=== PATIENT | female | born 2000 | race Caucasian/White ===

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

== ENCOUNTER 2021-01-14 09:36 | Outpatient (REF) | payer OTHER, SELFPAY ==
[2021-01-14 10:05] LABS: Hematocrit 43.6 % (37.0-47.0); Hemoglobin 14.6 g/dl (12.0-16.0)
[2021-01-14 10:37] LABS: Anion Gap 13 (12-20); Blood Urea Nitrogen 10 mg/dL (9-16); Calcium 9.6 mg/dL (8.4-10.2); Carbon Dioxide 26 mmol/L (22-29); Chloride 108 mmol/L (96-108); Estimated Glomerular Filt Rate > 60; Potassium 4.5 mmol/L (3.3-5.1); Sodium 142 mmol/L (135-145)
[2021-01-14 10:42] LABS: Creatinine Urine 312.47 mg/dL; Microalbum/Creatinine Ratio Ur 10.8 ug/mg cr
== END 2021-01-14 09:37 | disposition home or self-care (01) ==
LOC: HO.LAB 09:36
PROVIDERS: Absent Provider Internal Medicine Gastroenterology; PCP Pediatrics; Visit Provider Internal Medicine
DX: R10.9 Unspecified abdominal pain (principal); I87.1 Compression of vein
CPT/HCPCS: 36415; 80051; 82043; 82310; 82565; 84100; 84520; 85014; 85018

== ENCOUNTER → 2021-01-16 08:04 | Outpatient (BNVA) | payer OTHER, SELFPAY | PROVIDERS: PCP Pediatrics; Visit Provider Internal Medicine Gastroenterology ==

== ENCOUNTER 2021-02-17 07:39 | Outpatient (REF) | payer OTHER, SELFPAY ==
[2021-02-17 09:07] LABS: C Reactive Protein < 0.02 mg/dL (< or = 0.50)
[2021-02-17 09:27] LABS: HBc Num1 0.06 S/CO (0.00-0.79); HBsAGNum1 0.25 S/CO (0.00-0.99); Hepatitis B Core Antibody Nonreactive (Nonreactive); Hepatitis B Surface Antigen Negative (Negative)
[2021-02-17 09:35] LABS: Thyroid Stimulating Hormone 1.12 uIU/mL (0.32-4.0)
[2021-02-17 09:59] LABS: ~HepC Num1 0.07 S/CO (0.00-0.79); ~Hepatitis B Surface Antibody NONREACTIVE (Nonreactive); ~Hepatitis C Antibody Nonreactive (Nonreactive)
[2021-02-19 04:19] LABS: Hepatitis A Antibody IgM 0.29 Index (0-0.79); ~Hepatitis A Antibody IgM Nonreactive (Nonreactive)
[2021-02-19 16:11] LABS: Transglutaminase Ab IgG <1.0 U/mL; Transglutaminase IgA <1.0 U/mL
[2021-02-19 16:57] LABS: Immunoglobulin A 196 mg/dL (47-310)
[2021-02-24 13:37] LABS: Prometheus IBD SGI SEE SEPARATE REPORT
== END 2021-02-17 07:40 | disposition home or self-care (01) ==
LOC: HO.LAB 07:39
PROVIDERS: Physician Assistant; PCP Pediatrics; Visit Provider Internal Medicine Gastroenterology
DX: Z01.84 Encounter for antibody response examination (principal); R10.9 Unspecified abdominal pain; K52.9 Noninfective gastroenteritis and colitis, unspecified; R11.2 Nausea with vomiting, unspecified; R79.89 Other specified abnormal findings of blood chemistry
CPT/HCPCS: 36415; 81479; 82397; 82784; 83516; 83520; 84443; 86140; 86704; 86706; 86709; 86803; 87340; 88346; 88350

== ENCOUNTER 2021-03-06 10:10 | Outpatient (REF) | payer OTHER, SELFPAY ==
--- NOTE | ~2021-03-06 | US_ITS ---
EXAMINATION: ULTRASOUND OF KIDNEYS WITH RENAL ARTERY DOPPLER CLINICAL INFORMATION: Abdominal pain with suspicion for nutcracker syndrome on CT. COMPARISON: CT abdomen and pelvis 09/06/2020 TECHNIQUE: Ultrasound of the bilateral kidneys was performed along with color flow Doppler imaging and velocity measurements in the left renal vein to assess for dairy nutrition specialist syndrome. The aortic SMA angle was measured. FINDINGS: The kidneys appeared normal with the right kidney measuring 9.7 x 5.3 x 4.7 cm and the left kidney measuring 10.0 x 4.3 x 3.5 cm. No renal masses, renal stones or hydronephrosis is seen. Renal cortical thickness appears normal. The aortic SMA angle is 23.3 degrees, just about the cutoff for normal. The distance between the SMA and aorta is 5 mm which is under 8 and therefore suggestive of nut-cracker syndrome. On the CT scan, this same measurement was 3.2 mm (prior CT scan series 4:187). The left renal vein at its origin measured 8.9 mm with a velocity of 24.8 cm/s. When this vessel crosses between the aorta and SMA, lumen is narrowed to 1.5 mm with an increased velocity of 171 cm/s. Just before it drains into the IVC the diameter is 2.7 mm with a peak systolic velocity of 130 cm/s, distal to the compression. US/US renal BI IMPRESSION: Normal appearing kidneys. 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 In the area of stenosis, velocity acceleration is seen as described above.
--- NOTE | ~2021-03-06 | US_ITS ---
EXAMINATION: ULTRASOUND OF KIDNEYS WITH RENAL ARTERY DOPPLER CLINICAL INFORMATION: Abdominal pain with suspicion for nutcracker syndrome on CT. COMPARISON: CT abdomen and pelvis 09/06/2020 TECHNIQUE: Ultrasound of the bilateral kidneys was performed along with color flow Doppler imaging and velocity measurements in the left renal vein to assess for nutrition director syndrome. The aortic SMA angle was measured. FINDINGS: The kidneys appeared normal with the right kidney measuring 9.7 x 5.3 x 4.7 cm and the left kidney measuring 10.0 x 4.3 x 3.5 cm. No renal masses, renal stones or hydronephrosis is seen. Renal cortical thickness appears normal. The aortic SMA angle is 23.3 degrees, just about the cutoff for normal. The distance between the SMA and aorta is 5 mm which is under 8 and therefore suggestive of nut-cracker syndrome. On the CT scan, this same measurement was 3.2 mm (prior CT scan series 4:187). The left renal vein at its origin measured 8.9 mm with a velocity of 24.8 cm/s. When this vessel crosses between the aorta and SMA, lumen is narrowed to 1.5 mm with an increased velocity of 171 cm/s. Just before it drains into the IVC the diameter is 2.7 mm with a peak systolic velocity of 130 cm/s, distal to the compression. US/US renal doppler IMPRESSION: Normal appearing kidneys. 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 In the area of stenosis, velocity acceleration is seen as described above.
== END 2021-03-06 10:11 | disposition home or self-care (01) ==
LOC: HO.US 10:10
PROVIDERS: PCP Pediatrics; Visit Provider Internal Medicine
DX: R10.9 Unspecified abdominal pain (principal); I87.1 Compression of vein
CPT/HCPCS: 76775; 93975

== ENCOUNTER → 2021-03-20 08:10 | Outpatient (BNVA) | payer OTHER, SELFPAY | PROVIDERS: PCP Pediatrics; Visit Provider Internal Medicine Gastroenterology | DX: R10.9 Unspecified abdominal pain (principal); K52.9 Noninfective gastroenteritis and colitis, unspecified; R11.2 Nausea with vomiting, unspecified | CPT/HCPCS: 99212 ==

== ENCOUNTER 2021-04-23 09:35 | Outpatient (REF) | payer OTHER, SELFPAY ==
[2021-04-23 11:01] LABS: Appearance Urine CLEAR; Color Urine STRAW; Glucose Urine UA NEG (NEG); Leukocyte Esterase Urine NEG (NEG); Nitrite Urine NEG (NEG); Urine Blood 1+ (NEG); Urine Ketones NEG (NEG); Urine Protein NEG (NEG-TRACE)
[2021-04-23 11:19] LABS: Squamous Epithelial Cell Urine 1+ /LPF; WBC Urine 0 /HPF (0-4)
[2021-04-23 11:20] LABS: Bacteria Urine 1+ /LPF
== END 2021-04-23 09:36 | disposition home or self-care (01) ==
LOC: HO.LAB 09:35
PROVIDERS: PCP Pediatrics; Visit Provider Surgery Vascular Surgery
DX: I87.1 Compression of vein (principal)
CPT/HCPCS: 81001

== ENCOUNTER → 2021-05-02 08:06 | Outpatient (REF) | payer OTHER, SELFPAY ==
--- NOTE | ~2021-05-02 | NM_ITS ---
EXAMINATION: RADIONUCLIDE SOLID FOOD GASTRIC EMPTYING 4-HOUR STUDY CLINICAL INFORMATION: Nausea with vomiting, unspecified. COMPARISON: No previous gastric emptying study is available for comparison. TECHNIQUE: A standard meal consisting of 4 oz of Egg Beaters brand equivalent tagged with 860 microcuries Tc-99m Sulfur Colloid, 8 oz water and 2 slices of toast with jelly was administered orally to the patient. Images were obtained using a dual head gamma camera in the anterior and posterior projections over of the stomach immediately post ingestion and at hourly intervals up to 4 hours post ingestion. The anterior and posterior counts at each time interval were averaged using the geometric mean and expressed as percentage of the immediate post ingestion counts. FINDINGS: There is good visualization of activity in the stomach immediately post ingestion. As the study progresses, there is some clearance of activity from the stomach, but this is less than normal. At the end of the study there is moderately severe retention of activity in the stomach at 4 hours. Retention in the stomach at each time interval was: 1 hour 79% (normal 37%-90%) 2 hours 69% (normal 30%-60%) 3 hours 50% 4 hours 35% (normal 0%-10%) NM/NM gastric emptying study IMPRESSION: Abnormal study. There is moderately severe retention of solid food in the stomach at 4 hours.
== END ==
LOC: HO.NUCMED 08:06
PROVIDERS: PCP Pediatrics; Visit Provider Internal Medicine Gastroenterology
DX: R10.9 Unspecified abdominal pain (principal); R11.2 Nausea with vomiting, unspecified; R63.4 Abnormal weight loss; R68.81 Early satiety
CPT/HCPCS: 78264; A9541

== ENCOUNTER → 2021-05-15 12:19 | Outpatient (BNVA) | payer OTHER, SELFPAY | PROVIDERS: PCP Pediatrics; Visit Provider Internal Medicine Gastroenterology | DX: K52.9 Noninfective gastroenteritis and colitis, unspecified (principal); R10.9 Unspecified abdominal pain; R11.2 Nausea with vomiting, unspecified | CPT/HCPCS: 99212 ==

== ENCOUNTER → 2021-05-29 08:11 | Outpatient (REF) | payer OTHER, SELFPAY ==
--- NOTE | 2021-05-29 08:26 | ECG_ITS ---
Test Reason : PREPROC EXAM Blood Pressure : / mmHG Vent. Rate : 074 BPM Atrial Rate : 074 BPM P-R Int : 152 ms QRS Dur : 078 ms QT Int : 380 ms P-R-T Axes : 015 079 032 degrees QTc Int : 421 ms Normal sinus rhythm Normal ECG No previous ECGs available Referred By: Abimael Morejon Electronically Signed By:FAWN BARRERA
[2021-05-29 08:38] LABS: MANUAL DIFF FLAG NO
[2021-05-29 09:31] LABS: Basophils Percent Auto 0.6 % (0-2); Eosinophils Absolute Auto 0.1 X10*3/uL (0.0-0.4); Eosinophils Percent Auto 2.1 % (0-4); Hematocrit 41.2 % (37.0-47.0); Hemoglobin 13.8 g/dl (12.0-16.0); Imm Gran Abs Auto 0.02 X10*3/uL (0.00-0.03); Imm Gran Pct Auto 0.4 % (0.0-0.4); Lymphocytes Absolute Auto 1.4 X10*3/uL (1.2-4.9); Lymphocytes Percent Auto 27.9 % (20-40); Mean Corpuscular HGB Conc 33.5 g/dl (31.0-35.0); Mean Corpuscular Hemoglobin 28.3 pg (27.0-33.0); Mean Corpuscular Volume 84.6 fL (80.0-98.0); Mean Platelet Volume 11.7 fL (9.4-12.3); Monocytes Absolute Auto 0.3 X10*3/uL (0.1-1.2); Monocytes Percent Auto 6.4 % (2-11); Neutrophils Absolute Auto 3.2 x10*3/uL (2.0-8.3); Neutrophils Percent Auto 62.6 % (45-73); Platelet Count 233 X10*3/uL (160-400); Red Blood Count 4.87 X10*6/uL (4.20-5.50); Red Cell Distribution Width 12.3 % (11.0-16.0); White Blood Count 5.1 X10*3/uL (4.8-10.8)
[2021-05-29 09:35] LABS: INTERNATIONAL NORM RATIO 1.2 (0.9-1.1); Prothrombin Time 13.2 SEC (9.9-13.0)
[2021-05-29 10:07] LABS: Anion Gap 12 (12-20); Blood Urea Nitrogen 15 mg/dL (9-16); Calcium 10.1 mg/dL (8.4-10.2); Carbon Dioxide 25 mmol/L (22-29); Chloride 106 mmol/L (96-108); Estimated Glomerular Filt Rate > 60; Glucose Random 90 mg/dL (60-115); Potassium 4.4 mmol/L (3.3-5.1); Sodium 139 mmol/L (135-145)
== END ==
LOC: HO.CARD 08:11
PROVIDERS: PCP Pediatrics; Visit Provider Surgery Vascular Surgery
DX: I87.1 Compression of vein (principal)
CPT/HCPCS: 36415; 80048; 85025; 85610; 93005

== ENCOUNTER 2021-06-24 08:59 | Outpatient (REF) | payer OTHER, SELFPAY ==
[2021-06-24 09:26] LABS: MANUAL DIFF FLAG NO
[2021-06-24 10:44] LABS: Appearance Urine CLEAR; Color Urine YELLOW; Glucose Urine UA NEG (NEG); Leukocyte Esterase Urine NEG (NEG); Nitrite Urine NEG (NEG); Specific Gravity - Urine >= 1.030 (1.005-1.025); Urine Blood 2+ (NEG); Urine Ketones 15 MG/DL (NEG); Urine Protein NEG (NEG-TRACE)
[2021-06-24 10:45] LABS: Basophils Percent Auto 0.3 % (0-2); Eosinophils Absolute Auto 0.1 X10*3/uL (0.0-0.4); Eosinophils Percent Auto 3.3 % (0-4); Hematocrit 40.8 % (37.0-47.0); Hemoglobin 13.7 g/dl (12.0-16.0); Lymphocytes Absolute Auto 0.7 X10*3/uL (1.2-4.9); Lymphocytes Percent Auto 19.6 % (20-40); Mean Corpuscular HGB Conc 33.6 g/dl (31.0-35.0); Mean Corpuscular Hemoglobin 28.2 pg (27.0-33.0); Mean Platelet Volume 12.2 fL (9.4-12.3); Monocytes Absolute Auto 0.5 X10*3/uL (0.1-1.2); Monocytes Percent Auto 13.4 % (2-11); Neutrophils Absolute Auto 2.3 x10*3/uL (2.0-8.3); Neutrophils Percent Auto 63.4 % (45-73); Platelet Count 190 X10*3/uL (160-400); Red Blood Count 4.86 X10*6/uL (4.20-5.50); Red Cell Distribution Width 12.5 % (11.0-16.0); White Blood Count 3.7 X10*3/uL (4.8-10.8)
[2021-06-24 10:56] LABS: WBC Urine 0 /HPF (0-4)
[2021-06-24 10:57] LABS: Bacteria Urine 2+ /LPF; Squamous Epithelial Cell Urine 3+ /LPF
[2021-06-24 11:10] LABS: Creatinine Urine 138.39 mg/dL; Protein/Creatinine Ratio, Ur 0.08 (<0.2); Total Protein Urine Random 11 mg/dL (<12)
[2021-06-24 11:25] LABS: Alanine Aminotransferase 15 U/L (0-31); Albumin Level 4.5 g/dL (3.5-5.0); Alkaline Phosphatase 87 U/L (39-117); Anion Gap 14 (12-20); Aspartate Amino Transferase 17 U/L (5-31); Bilirubin Total 0.6 mg/dL (0.0-1.0); Blood Urea Nitrogen 11 mg/dL (9-16); Calcium 9.5 mg/dL (8.4-10.2); Carbon Dioxide 22 mmol/L (22-29); Chloride 107 mmol/L (96-108); Estimated Glomerular Filt Rate > 60; Glucose Random 80 mg/dL (60-115); Potassium 4.3 mmol/L (3.3-5.1); Sodium 139 mmol/L (135-145); Total Protein 7.4 g/dL (6.5-8.0)
== END 2021-06-24 09:00 | disposition home or self-care (01) ==
LOC: HO.LAB 08:59
PROVIDERS: PCP Pediatrics; Visit Provider Internal Medicine
DX: I87.1 Compression of vein (principal)
CPT/HCPCS: 36415; 80053; 81001; 84156; 85025

== ENCOUNTER 2021-08-07 09:30 | Outpatient (REF) | payer OTHER, SELFPAY ==
[2021-08-07 10:17] LABS: Hematocrit 42.2 % (37.0-47.0); Hemoglobin 14.2 g/dl (12.0-16.0)
[2021-08-07 10:39] LABS: Appearance Urine CLEAR; Color Urine YELLOW; Glucose Urine UA NEG (NEG); Leukocyte Esterase Urine NEG (NEG); Nitrite Urine NEG (NEG); Urine Blood TRACE (NEG); Urine Ketones NEG (NEG); Urine Protein NEG (NEG-TRACE)
[2021-08-07 10:40] LABS: Anion Gap 13 (12-20); Blood Urea Nitrogen 12 mg/dL (9-16); Calcium 9.7 mg/dL (8.4-10.2); Carbon Dioxide 24 mmol/L (22-29); Chloride 107 mmol/L (96-108); Estimated Glomerular Filt Rate > 60; Glucose Random 88 mg/dL (60-115); Potassium 4.1 mmol/L (3.3-5.1); Sodium 140 mmol/L (135-145)
[2021-08-07 10:52] LABS: Bacteria Urine 3+ /LPF; RBC Urine 0-2 /HPF (0); Squamous Epithelial Cell Urine 2+ /LPF; WBC Urine 0 /HPF (0-4)
== END 2021-08-07 09:31 | disposition home or self-care (01) ==
LOC: HO.LAB 09:30
PROVIDERS: PCP Pediatrics; Visit Provider Internal Medicine
DX: I87.1 Compression of vein (principal)
CPT/HCPCS: 36415; 80048; 81001; 85014; 85018

== ENCOUNTER 2021-09-06 09:08 | Emergency (ER) | payer OTHER, SELFPAY ==
--- NOTE | ~2021-09-06 | CT_ITS ---
EXAMINATION: CT ABDOMEN AND PELVIS WITH CONTRAST CLINICAL INFORMATION: Status post not cracker syndrome surgery, left-sided pain. COMPARISON: 09/06/2020 CT scan of the abdomen and pelvis. TECHNIQUE: Multidetector volumetric images were obtained from the superior aspect of the liver through the pubic symphysis following administration 85 mL of Omnipaque 350 intravenous contrast. Sagittal and coronal reformatted images were obtained on the technologist's workstation. Oral contrast: No This CT examination was performed using dose optimization techniques as appropriate, variously including the following: *Automated exposure control *Adjustment of mA and/or kV according to patient size (this includes techniques or standardized protocols for targeted exams where dose is matched to indication/reason for exam; i.e. extremities or head) *Use of iterative reconstruction technique DLP: 356 mGy-cm FINDINGS: LUNG BASES: The visualized lung bases are unremarkable. LIVER, GALLBLADDER, AND BILIARY TREE: Unremarkable. PANCREAS: Unremarkable. SPLEEN: Unremarkable. ADRENAL GLANDS: Unremarkable. KIDNEYS AND URETERS: The kidneys are normal in size, shape, and attenuation. No hydronephrosis, hydroureter, or calculi seen. No perinephric stranding. BLADDER: Unremarkable. GASTROINTESTINAL TRACT: The stomach, duodenum and jejunum are unremarkable. A few mildly dilated loops of proximal small bowel are seen with air-fluid levels in the left midabdomen with normal caliber distally. The appendix is unremarkable. The colon and rectum are unremarkable. ABDOMINAL WALL: No significant hernia is appreciated. LYMPH NODES: Normal. VASCULAR: There has been mild interval decrease in narrowing of the left renal vein extending from the inferior vena cava to the level the aorta with normal caliber laterally. The left gonadal vein and more significantly and periuterine veins, left greater than right. PELVIC VISCERA: Unremarkable. Cc vascular prominence above. OSSEOUS STRUCTURES: Mild thoracolumbar levoscoliosis without suspicious abnormality. CT/CT abdomen pelvis w con IMPRESSION: 1. Previously seen narrowing of the left renal vein has decreased, but is still present with normal caliber seen laterally towards the left kidney. Perfusion of the left kidney appears symmetric with the right kidney. 2. Mild interval increase in dilatation of the left gonadal vein with more significant dilatation of the periuterine vessels, left greater than right consistent with pelvic congestion. Perfusion to the left kidney 3. a few mildly dilated proximal ileal loops with air-fluid levels in the left midabdomen without pathologic dilatation. This could represent mild ileus. No evidence for overt obstruction. Symptoms persist or worsen, short-term follow-up with supine and upright radiographs is recommended to assess for change. Fleischner guidelines were followed.
[2021-09-06 09:14] VITALS: BP 123/85; PULSE 92; RESP 12; TEMP 36.8; O2SAT 98; BMI 19.8
[2021-09-06 09:31] VITALS: BP 118/77; PULSE 77; RESP 16; O2SAT 99
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
[2021-09-06 09:42] LABS: Basophils Percent Auto 0.3 % (0-2); Eosinophils Absolute Auto 0.2 X10*3/uL (0.0-0.4); Eosinophils Percent Auto 3.1 % (0-4); Hematocrit 39.2 % (37.0-47.0); Hemoglobin 13.4 g/dl (12.0-16.0); Imm Gran Abs Auto 0.01 X10*3/uL (0.00-0.03); Imm Gran Pct Auto 0.2 % (0.0-0.4); Lymphocytes Percent Auto 15.9 % (20-40); MANUAL DIFF FLAG NO; Mean Corpuscular HGB Conc 34.2 g/dl (31.0-35.0); Mean Corpuscular Hemoglobin 28.3 pg (27.0-33.0); Mean Corpuscular Volume 82.9 fL (80.0-98.0); Mean Platelet Volume 10.9 fL (9.4-12.3); Monocytes Absolute Auto 0.5 X10*3/uL (0.1-1.2); Monocytes Percent Auto 7.5 % (2-11); Neutrophils Absolute Auto 4.7 x10*3/uL (2.0-8.3); Platelet Count 199 X10*3/uL (160-400); Red Blood Count 4.73 X10*6/uL (4.20-5.50); Red Cell Distribution Width 12.8 % (11.0-16.0); White Blood Count 6.4 X10*3/uL (4.8-10.8)
[2021-09-06 10:19] LABS: Anion Gap 10 (12-20); Blood Urea Nitrogen 14 mg/dL (9-16); Carbon Dioxide 23 mmol/L (22-29); Chloride 109 mmol/L (96-108); Creatinine Clr Calc Pharmacy 92.2; Estimated Glomerular Filt Rate > 60; Glucose Random 91 mg/dL (60-115); Potassium 4.2 mmol/L (3.3-5.1); Sodium 138 mmol/L (135-145)
[2021-09-06 10:28] LABS: HCG Quantitative < 2 mIU/mL
[2021-09-06] MEDS: iohexoL 350 MG/ML 100 ML INFUS..BTL 85 ML IV (11:32)
[2021-09-06 13:33] LABS: Appearance Urine CLEAR; Color Urine YELLOW; Glucose Urine UA NEG (NEG); Leukocyte Esterase Urine NEG (NEG); Nitrite Urine NEG (NEG); Specific Gravity - Urine <= 1.005 (1.005-1.025); UACC Culture Trigger NO; Urine Blood 2+ (NEG); Urine Ketones NEG (NEG); Urine Protein NEG (NEG-TRACE)
[2021-09-06 13:46] LABS: Squamous Epithelial Cell Urine TRACE /LPF; WBC Urine 0 /HPF (0-4)
[2021-09-06 13:47] LABS: Mucus Urine TRACE /LPF
== END 2021-09-06 14:10 | disposition home or self-care (01) ==
PROVIDERS: Physician Assistant Medical; Emergency Provider Emergency Medicine; PCP Pediatrics
DX: R10.9 Unspecified abdominal pain (principal); Z79.899 Other long term (current) drug therapy
CPT/HCPCS: 36415; 74177; 80048; 81001; 84702; 85025; 99283; 99284; Q9967

== ENCOUNTER → 2021-10-01 08:27 | Outpatient (BNVA) | payer OTHER, SELFPAY | PROVIDERS: PCP Pediatrics; Visit Provider Internal Medicine Cardiovascular Disease | DX: R42 Dizziness and giddiness (principal) | CPT/HCPCS: 99202 ==

== ENCOUNTER 2021-10-24 10:13 | Outpatient (REF) | payer OTHER, SELFPAY ==
[2021-10-24 10:53] LABS: Hematocrit 41.9 % (37.0-47.0); Hemoglobin 14.3 g/dl (12.0-16.0)
[2021-10-24 11:21] LABS: Appearance Urine HAZY; Color Urine YELLOW; Glucose Urine UA NEG (NEG); Leukocyte Esterase Urine NEG (NEG); Nitrite Urine NEG (NEG); PH 6.5 (5.0-8.0); Specific Gravity - Urine 1.015 (1.005-1.025); Urine Blood TRACE (NEG); Urine Ketones NEG (NEG); Urine Protein NEG (NEG-TRACE)
[2021-10-24 11:21] LABS: Anion Gap 14 (12-20); Blood Urea Nitrogen 9 mg/dL (9-16); Calcium 9.2 mg/dL (8.4-10.2); Carbon Dioxide 24 mmol/L (22-29); Chloride 107 mmol/L (96-108); Estimated Glomerular Filt Rate > 60; Glucose Random 100 mg/dL (60-115); Potassium 4.3 mmol/L (3.3-5.1); Sodium 141 mmol/L (135-145)
[2021-10-24 12:05] LABS: Squamous Epithelial Cell Urine 2+ /LPF
[2021-10-24 12:06] LABS: Bacteria Urine 1+ /LPF; RBC Urine 0-2 /HPF (0); Renal Epithelial Cells Urine TRACE /LPF; WBC Urine 0-2 /HPF (0-4)
== END 2021-10-24 10:14 | disposition home or self-care (01) ==
LOC: HO.LAB 10:13
PROVIDERS: PCP Pediatrics; Visit Provider Internal Medicine
DX: I87.1 Compression of vein (principal)
CPT/HCPCS: 36415; 80048; 81001; 85014; 85018

== ENCOUNTER → 2021-11-11 08:36 | Outpatient (REF) | payer OTHER, SELFPAY ==
--- NOTE | 2021-11-11 08:38 | CA_ITS ---
Transthoracic Echocardiogram Patient (Last, First, Middle): Zaynab Phillip, Gender: Female Date of : 2000 Age: 21 Procedure Date: 11/11/2021 Procedure Type: Transthoracic Echocardiogram Location: OP Height: 160.02 cm Weight: 53.52 kg BSA: 1.55 m2 Heart Rate: bpm BP: 114 / 82 mmHg Airline Lounge Receptionist: SUZY Referring MD: Lasha Diego MD Starting Sheet Tank Operator: Lasha Diego MD Symptoms: R42 - Dizziness and giddiness Study Quality: Adequate ECG Rhythm: Sinus Conclusions: - Essentially normal study Findings Left Ventricle Normal left ventricular size, thickness, and systolic function. The visually estimated ejection fraction is between 60-65%. Spectral Doppler is indicative of a normal filling pattern. Right Ventricle Normal right ventricular cavity size and systolic function. Atria Both atria are normal in size. There is no evidence of interatrial shunt. Aortic Valve Normal aortic valve structure and function. There is no aortic valve stenosis. There is no aortic valve regurgitation. Mitral Valve Normal mitral valve structure and function. There is trace mitral valve regurgitation. There is no mitral valve stenosis. Pulmonic Valve The pulmonic valve is likely normal. There is trace pulmonic valve regurgitation. Tricuspid Valve Likely normal tricuspid valve structure and function. Tricuspid regurgitation envelope is inadequate for calculation of right ventricular systolic pressure. Normal right atrial pressure. Great Vessels All visible segments of the aorta are normal in size. The pulmonary artery was not well visualized. Venous The inferior vena cava is normal in size and collapses greater than 50% with inspiration. Pericardium/Pleural There is no evidence of pericardial effusion. Prior Study Comparison No prior study available for comparison. Measurements 2D Linear Measurements IVSd: 0.60 0.6-0.9/0.6-1.0 cm LVIDd: 4.10 3.9-5.3/4.2-5.9 cm LVIDd Index: 2.65 2.4-3.2/2.2-3.1 cm/m2 LVIDs: 2.75 2.0-3.6 cm LVPWd: 0.69 0.7-1.1 cm LA Diam: 2.70 2.7-3.8/3.0-4.0 cm LAIDs Index: 1.74 1.5-2.3 cm/m2 LV Mass: 90.63 67-162/88-224 g LV Mass Index: 58.47 43-95/49-115 g/m2 LVOT Diam: 1.60 3.0+(-)1.3 cm 2D Systolic Function EF 4C: 63.30 >55% EF 2C: 62.00 >55% EF BiP: 62.20 >55% Mitral Valve MV Pk E: 1.02 MV PK A: 0.42 MV Decel Time: 303.00 E/A: 2.40 E'Lateral: 23.70 E'Medial: 14.90 E/E' Med: 6.80 E/E' Lat: 4.30 PHT: 89.00 MVA PHT: 2.47 Decel [place]: 3.37 Aortic Valve AoV Pk Jaciel: 1.29 AoV Mn Jaciel: 0.92 AoV VTI: 0.30 AoV Pk Grad: 7.00 Aov Mn Grad: 4.00 CHAZ Cont.VTI: 1.94 LVOT LVOT Pk Jaciel: 1.26 LVOT Mn Jaciel: 0.89 LVOT VTI: 0.29 LVOT Pk Grad: 6.00 LVOT Mn Grad: 4.00 LVOT Diam: 1.60 LVOT Area: 2.01 Diastolic Function MV Pk E: 1.02 MV Pk A: 0.42 E/A: 2.40 E'Medial: 14.90 E/E' Med: 6.80 E' Laterial: 23.70 E/E' Lat: 4.30 Right Ventricle TAPSE (mm): 18.80 TVS' Jaciel: 10.80 Tricuspid Valve TR Pk Jaciel: 2.55 TR Pk Grad: 26.00 Great Vessels Aorta Sinus of Valsalva: 2.28 2.0-3.[address] [place]: 1.69 1.7-3.4 cm Ao Asc: 2.20 2.1-3.4 cm Updated in Other Vendor System with Status of Final Lasha Diego MD electronically signed on 11/12/2021 5:05:57 PM with status of Final
--- NOTE | 2021-11-11 08:38 | HM_ITS ---
* Total monitoring time 6 days and 22 hours. * Underlying rhythm is sinus. Average rate 82/Min. Range 53 to 161/Min. * No atrial fibrillation or flutter or AV blocks or pauses. * Occasional supraventricular ectopy with minimal burden. * Rare ventricular ectopy with minimal burden. * Shortness of breath in patient diary correlates with mild sinus tachycardia. MTDD
== END ==
LOC: HO.CARD 08:36
PROVIDERS: PCP Pediatrics; Visit Provider Internal Medicine Cardiovascular Disease
DX: R42 Dizziness and giddiness (principal)
CPT/HCPCS: 93242; 93306

== ENCOUNTER → 2021-12-09 14:47 | Outpatient (BNVA) | payer OTHER, SELFPAY | PROVIDERS: PCP Pediatrics; Visit Provider Internal Medicine Cardiovascular Disease | DX: R42 Dizziness and giddiness (principal) | CPT/HCPCS: 99212 ==

== ENCOUNTER → 2021-12-23 13:02 | Outpatient (BNVA) | payer OTHER, SELFPAY | PROVIDERS: PCP Pediatrics; Visit Provider Internal Medicine Gastroenterology | DX: K31.84 Gastroparesis (principal); K52.9 Noninfective gastroenteritis and colitis, unspecified; R10.9 Unspecified abdominal pain; R11.2 Nausea with vomiting, unspecified | CPT/HCPCS: 99212 ==

== ENCOUNTER 2022-01-23 09:59 | Outpatient (REF) | payer OTHER, SELFPAY ==
[2022-01-23 10:36] LABS: Hemoglobin 14.3 g/dl (12.0-16.0)
[2022-01-23 11:28] LABS: Anion Gap 15 (12-20); Blood Urea Nitrogen 11 mg/dL (9-16); Calcium 9.5 mg/dL (8.4-10.2); Carbon Dioxide 21 mmol/L (22-29); Chloride 106 mmol/L (96-108); Estimated Glomerular Filt Rate > 60; Phosphorus 3.6 mg/dL (2.7-4.5); Potassium 4.2 mmol/L (3.3-5.1); Sodium 138 mmol/L (135-145)
[2022-01-23 11:32] LABS: Creatinine Urine 120.06 mg/dL; Microalbumin Urine < 5.0 mg/L
[2022-01-23 11:42] LABS: TSH reflex Free T4 0.57 uIU/mL (0.32-4.0)
[2022-01-23 11:58] LABS: Folate 6.8 ng/mL (> or = 4.0); Vitamin B12 168 pg/mL (200-900)
== END 2022-01-23 10:00 | disposition home or self-care (01) ==
LOC: HO.LAB 09:59
PROVIDERS: PCP Pediatrics; Visit Provider Internal Medicine
DX: I87.1 Compression of vein (principal); R10.9 Unspecified abdominal pain; G56.21 Lesion of ulnar nerve, right upper limb
CPT/HCPCS: 36415; 80051; 82043; 82310; 82565; 82607; 82746; 84100; 84443; 84520; 85014; 85018

== ENCOUNTER → 2022-02-12 09:03 | Outpatient (BNVA) | payer OTHER, SELFPAY | PROVIDERS: PCP Pediatrics; Visit Provider Internal Medicine Gastroenterology | DX: K52.9 Noninfective gastroenteritis and colitis, unspecified (principal); K31.84 Gastroparesis; R10.9 Unspecified abdominal pain; R11.2 Nausea with vomiting, unspecified | CPT/HCPCS: 99212 ==

== ENCOUNTER → 2022-05-14 13:38 | Outpatient (BNVA) | payer OTHER, SELFPAY | PROVIDERS: PCP Pediatrics; Visit Provider Internal Medicine Gastroenterology | DX: K31.84 Gastroparesis (principal); K52.9 Noninfective gastroenteritis and colitis, unspecified; R10.9 Unspecified abdominal pain; R11.2 Nausea with vomiting, unspecified | CPT/HCPCS: 99212 ==

== ENCOUNTER 2022-05-29 09:25 | Outpatient (REF) | payer OTHER, SELFPAY ==
[2022-05-29 10:08] LABS: Hematocrit 42.5 % (37.0-47.0)
[2022-05-29 10:19] LABS: Appearance Urine Clear; Color Urine Yellow; Glucose Urine UA Negative (Negative); Leukocyte Esterase Urine Negative (Negative); Nitrite Urine Negative (Negative); Specific Gravity - Urine 1.015 (1.005-1.025); UMIC TRIGGER UA YES; Urine Blood Trace (Negative); Urine Ketones Negative (Negative); Urine Protein Negative (Neg-Trace)
[2022-05-29 10:23] LABS: Bacteria Urine None Seen (None Seen); Hyaline Casts Urine 0-2 /LPF (0-2); WBC Urine 0-5 /HPF (0-5)
[2022-05-29 11:07] LABS: Microalbum/Creatinine Ratio Ur 9.5 ug/mg cr
[2022-05-29 11:08] LABS: Estimated Average Glucose 100 mg/dL; Hemoglobin A1c % 5.1 %
[2022-05-29 11:10] LABS: Anion Gap 13 (12-20); Blood Urea Nitrogen 18 mg/dL (9-16); Calcium 9.3 mg/dL (8.4-10.2); Carbon Dioxide 25 mmol/L (22-29); Chloride 106 mmol/L (96-108); Estimated Glomerular Filt Rate > 60; Potassium 4.1 mmol/L (3.3-5.1); Sodium 140 mmol/L (135-145)
[2022-05-29 11:38] LABS: Vitamin B12 284 pg/mL (200-900)
== END 2022-05-29 09:26 | disposition home or self-care (01) ==
LOC: HO.LAB 09:25
PROVIDERS: PCP Pediatrics; Visit Provider Internal Medicine
DX: I87.1 Compression of vein (principal); R10.9 Unspecified abdominal pain; G56.21 Lesion of ulnar nerve, right upper limb; Z76.89 Persons encountering health services in other specified circumstances
CPT/HCPCS: 36415; 80051; 81001; 82043; 82310; 82565; 82607; 83036; 84100; 84520; 85014

== ENCOUNTER 2022-06-04 13:59 | Outpatient (REF) | payer OTHER, SELFPAY ==
--- NOTE | ~2022-06-04 | US_ITS ---
EXAMINATION: ULTRASOUND OF KIDNEYS WITH RENAL ARTERY DOPPLER CLINICAL INFORMATION: Hypertension. COMPARISON: None available. TECHNIQUE: Ultrasound of the kidneys was performed along with color flow Doppler imaging and velocity measurements in the proximal mid and distal renal arteries. Aortic velocities were measured and renal/aortic ratios were calculated. Resistive indices were calculated as well. FINDINGS: The kidneys appeared normal with the right kidney measuring 9.6 x 3.1 x 5.1 cm and the left kidney measuring 10.3 x 3.8 x 4.9 cm. No renal masses, renal stones or hydronephrosis is seen. Renal cortical thickness appears normal. Velocity measurements in the proximal mid and distal renal arteries are normal. Velocity in the aorta is 136 cm/s and, therefore, velocity is greater than 100 cm/s, the renal aortic ratios cannot be calculated. Resistive indices were all within normal limits. Renal veins were visualized and were patent. US/US renal doppler IMPRESSION: No evidence to suggest renal artery stenosis.
--- NOTE | ~2022-06-04 | US_ITS ---
EXAMINATION: US RETROPERITONEAL LIMITED (RENAL ONLY) CLINICAL INFORMATION: Hypertension. COMPARISON: CT abdomen and pelvis with contrast 09/06/2021. Ultrasound kidneys with renal artery Doppler 03/06/2021. TECHNIQUE: Real-time imaging of the kidneys. FINDINGS: RIGHT KIDNEY: 9.6 x 3.1 x 5.1 cm (SAG x AP x TRV). The kidney is normal in size, contour, and echogenicity. Renal cortical thickness is normal. No calculi or focal parenchymal lesions. No hydronephrosis. LEFT KIDNEY: 10.3 x 3.8 x 4.9 cm (SAG x AP x TRV). The kidney is normal in size, contour, and echogenicity. Renal cortical thickness is normal. No calculi or focal parenchymal lesions. No hydronephrosis. US/US renal BI IMPRESSION: -No hydronephrosis or calculi. -Renal Doppler exam described in separate report.
== END 2022-06-04 14:00 | disposition home or self-care (01) ==
LOC: HO.HMGCX 13:59
PROVIDERS: Visit Provider Internal Medicine
DX: I87.1 Compression of vein (principal); R10.9 Unspecified abdominal pain
CPT/HCPCS: 76775; 93975

== ENCOUNTER 2022-07-13 13:32 | Outpatient (REF) | payer OTHER, SELFPAY ==
[2022-07-13 14:48] LABS: Blood Urea Nitrogen 11 mg/dL (9-16); Estimated Glomerular Filt Rate > 60
== END 2022-07-13 13:33 | disposition home or self-care (01) ==
LOC: HO.LAB 13:32
PROVIDERS: Visit Provider Surgery Vascular Surgery
DX: I87.1 Compression of vein (principal)
CPT/HCPCS: 36415; 82565; 84520

== ENCOUNTER 2022-09-02 09:14 | Emergency (ER) | payer OTHER, SELFPAY ==
--- NOTE | ~2022-09-02 | US_ITS ---
EXAMINATION: Left renal ultrasound and renal Doppler exam CLINICAL INFORMATION: Pain. 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 COMPARISON: Previous renal ultrasound most recent May [address] of the abdomen and pelvis August 2021 TECHNIQUE: Doppler color and grayscale evaluation of the left kidney and left renal artery and vein. Including waveform spectral analysis. FINDINGS: The left kidney is normal in size shape and contour. Left kidney measures 9.4 x 3.4 x 4 cm. No renal stone, mass or hydronephrosis. No perinephric collection. Aortic peak systolic velocity is elevated measuring 159 cm/s. The left renal artery is patent. Left renal artery peak systolic velocities are normal measuring 134, 121 and 116 cm/s proximally, in the midportion and distally. Aorto to renal artery ratio cannot be calculated. Resistive indices of the segmental renal arteries in the left kidney are normal measuring 0.5-0.7. The left renal vein is patent. US/US renal doppler IMPRESSION: Normal left renal ultrasound and left renal Doppler exam.
--- NOTE | ~2022-09-02 | US_ITS ---
EXAMINATION: Left renal ultrasound and renal Doppler exam CLINICAL INFORMATION: Pain. History of nutritionist syndrome. COMPARISON: Previous renal ultrasound most recent May [address] of the abdomen and pelvis August 2021 TECHNIQUE: Doppler color and grayscale evaluation of the left kidney and left renal artery and vein. Including waveform spectral analysis. FINDINGS: The left kidney is normal in size shape and contour. Left kidney measures 9.4 x 3.4 x 4 cm. No renal stone, mass or hydronephrosis. No perinephric collection. Aortic peak systolic velocity is elevated measuring 159 cm/s. The left renal artery is patent. Left renal artery peak systolic velocities are normal measuring 134, 121 and 116 cm/s proximally, in the midportion and distally. Aorto to renal artery ratio cannot be calculated. Resistive indices of the segmental renal arteries in the left kidney are normal measuring 0.5-0.7. The left renal vein is patent. US/US renal LT IMPRESSION: Normal left renal ultrasound and left renal Doppler exam.
[2022-09-02 09:19] VITALS: BP 134/85; PULSE 78; RESP 18; TEMP 37; O2SAT 100; BMI 21.8
--- NOTE | 2022-09-02 10:05 | ED.ABDPAIN ---
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 No urinary symptoms, fevers, vomiting. Not sexually active. Related Data Home Medications Medication Instructions Recorded Confirmed medroxyprogesterone 150 mg/mL 150 mg IM [id number] 10/02/20 05/14/22 intramuscular suspension loratadine 10 mg tablet 10 mg PO DAILY 12/23/21 05/14/22 Previous Rx's Medication Instructions Recorded dicyclomine 10 mg capsule 10 mg PO BID PRN abd pain 60 days 02/12/22 #60 caps mecobalamin (vitamin B12) 1,000 1,000 mcg sublingual DAILY 90 days 02/12/22 mcg disintegrating #90 tabs tablet,sublingual promethazine 25 mg tablet 25 mg PO BID PRN nausea and 03/18/22 vomiting 30 days #30 tabs metoclopramide HCl 5 mg tablet 5 mg PO TID PRN nausea and 07/06/22 (Reglan) vomiting 30 days #90 tabs peg-electrolyte solution 420 gram 240 ml PO Q10M #4,000 mL 08/21/22 oral solution acetaminophen 325 mg tablet 650 mg PO Q4H PRN pain #30 tabs 09/02/22 (Tylenol) cyclobenzaprine 10 mg tablet 10 mg PO TID PRN muscle spasm #15 09/02/22 tabs Allergies Allergy/AdvReac Type Severity Reaction Status Date / Time No Known Allergies Allergy Verified 02/12/22 09:06 Review of Systems Review of Systems Yes all other systems are reviewed and are negative Constitutional: Reports no additional constitutional complaints, Denies body ache(s), Denies chills, Denies fever(s), Reports headache(s) and Denies weakness Eyes: Reports no additional eye complaints and Denies change in vision Reports system reviewed and no additional complaints, except as documented, Denies dizziness, Reports headache(s), Denies nasal congestion, Denies nasal discharge and Denies neck pain Cardiovascular: Reports no additional cardiovascular complaints, Denies chest pain, Denies leg edema and Denies dyspnea Respiratory: Reports no additional respiratory complaints, Denies cough and Denies dyspnea Gastrointestinal: Reports no additional gastrointestinal complaints, Denies abdominal pain, Reports diarrhea, Reports nausea and Denies vomiting Genitourinary: Reports no additional female genitourinary complaints and Denies urinary incontinence Musculoskeletal: Reports no additional musculoskeletal complaints, Reports back pain, Denies arthralgias, Denies joint swelling, Denies neck pain, Denies numbness and Denies tingling Skin/Breast: Reports system reviewed and no additional complaints, except as docu and Denies rash Reports system reviewed and no additional complaints, except as documented, Denies dizziness, Reports headache(s), Denies numbness, Denies tingling and Denies weakness PMFSH Past Medical History Attestation statement: The following information was validated with the patient. Source: old records reviewed and nursing notes reviewed Medical History No active medical problems Surgical History History of esophagogastroduodenoscopy (EGD) Hx of abdominal surgery Hx of colonoscopy Family History Family History Paternal Grandmother Stomach cancer Social History Social History Household Members Other:: lives with mom Alcohol intake: never Patient Tobacco Use Status: Never used Tobacco Smoked in Last 30 Days: No Use of substances other than those prescribed or required for medical reasons: Yes Substance Use Type: Marijuana Advance Directives: No Advance Directives Information Provided: Yes 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 Physical Exam ED Vital Signs: Vital Signs - 24 hr 09/02/22 09:19 09/02/22 14:57 Temperature 98.6 F Pulse Rate 78 71 Respiratory Rate 18 16 Blood Pressure 134/85 126/90 H Pulse Oximetry 100 100 Oxygen Delivery Method Room Air Room Air BMI result Body Mass Index 21.8 Const General: cooperative, healthy appearing, comfortable and no acute distress Orientation/consciousness: patient oriented x3 Limitations: no limitations HENMT Head: Yes normal to inspection Ears: hearing grossly normal bilaterally Eyes General: appearance normal, both eyes and all related structures Neck Neck: Yes normal visual inspection Chest Chest palpation & inspection: normal inspection of the chest Resp Effort & Inspection: normal respiratory effort Auscultation: clear to auscultation bilaterally Cardio Rate: regular rate Rhythm: regular rhythm Peripheral pulses: Peripheral pulses 2+ throughout GI Inspection: Yes normal to inspection Palpation (GI): Soft to palpation and nontender General: Yes no CVA tenderness Back/Spine/Pelvis Other: Unable to illicit any tenderness on palpation Back: no CVA tenderness Neuro General: patient oriented x3 and moves all extremities Cognition (Neuro): normal cognition Gait exam (Neuro): Normal gait present Course Course Course Narrative: Labs and urine are unremarkable. Ultrasound shows normal flow to the left kidney with no evidence of pyelonephritis or renal colic. 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 Consider lumbar strain. Will discharge patient home with Flexeril and Tylenol recommendations to follow-up with primary care doctor outpatient. Reviewed worrisome signs and symptoms when to return to the emergency room. Comfortable plan for discharge home Medical Decision Making Medical Decision Making [facility] Narrative: 22-year-old female with history of nutcracker syndrome who had surgery at [facility] 1 year ago with no stenting who presents to the ER with intermittent flank pain for 2 weeks. No radiation of pain. Patient has had some nausea and diarrhea. On exam patient has no CVA tenderness. She does have some tenderness the left tissue of the spine. No focal abdominal pain. Will check labs, UA, Doppler ultrasound. Differential Diagnosis Differential Diagnoses: The differential diagnosis associated with the presentation includes Renal colic, pyelonephritis, UTI, lumbar strain, renal vein compression Lab Data [facility] Lab Attestation statement: I reviewed the patient's lab results. 09/02/22 10:35 09/02/22 10:35 Labs: Lab Results 09/02/22 09/02/22 09/02/22 Range/Units 10:35 10:35 14:15 WBC 4.6 L (4.8-10.8) X10*3/uL RBC 4.88 (4.20-5.50) X10*6/uL Hgb 14.0 (12.0-16.0) g/dl Hct 40.8 (37.0-47.0) % MCV 83.6 (80.0-98.0) fL MCH 28.7 (27.0-33.0) pg MCHC 34.3 (31.0-35.0) g/dl RDW 12.3 (11.0-16.0) % Plt Count 184 (160-400) X10*3/uL MPV 11.2 (9.4-12.3) fL Immature Gran % (Auto) 0.2 (0.0-0.4) % Neut % (Auto) 62.0 (45-73) % Lymph % (Auto) 28.8 (20-40) % Hendricks % (Auto) 7.3 (2-11) % Eos % (Auto) 1.3 (0-4) % Baso % (Auto) 0.4 (0-2) % Lymph # (Auto) 1.3 (1.2-4.9) X10*3/uL Hendricks # (Auto) 0.3 (0.1-1.2) X10*3/uL Eos # (Auto) 0.1 (0.0-0.4) X10*3/uL Baso # (Auto) 0.0 (0.0-0.2) X10*3/uL Abs Immat Gran (auto) 0.01 (0.00-0.03) X10*3/uL Absolute Neuts (auto) 2.8 (2.0-8.3) x10*3/uL Absolute Nucleated RBC 0.000 (0.0-0.012) X10*3/uL Nucleated RBC % (auto) 0.0 (0.0-0.2) /100WBC Sodium 141 (135-145) mmol/L Potassium 4.1 (3.3-5.1) mmol/L Chloride 109 H (96-108) mmol/L Carbon Dioxide 23 (22-29) mmol/L Anion Gap 13 (12-20) BUN 12 (9-16) mg/dL Creatinine 0.78 (0.5-1.4) mg/dL Estim Creat Clear Calc 94.4 Estimated GFR > 60 Random Glucose 99 (60-115) mg/dL Calcium 9.6 (8.4-10.2) mg/dL Total Bilirubin 0.7 (0.0-1.0) mg/dL Direct Bilirubin 0.3 (0.0-0.5) mg/dL AST 15 (5-31) U/L ALT 10 (0-31) U/L Alkaline Phosphatase 88 (39-117) U/L Total Protein 7.3 (6.5-8.0) g/dL Albumin 4.4 (3.5-5.0) g/dL Urine Color Yellow Urine Appearance Clear Urine pH 7.5 (5.0-9.0) Ur Specific [place] 1.010 (1.005-1.025) Urine Protein Negative (Neg-Trace) mg/dL Urine Glucose (UA) Negative (Negative) mg/dL Urine Ketones Negative (Negative) mg/dL Urine Blood Negative (Negative) Urine Nitrite Negative (Negative) Ur Leukocyte Esterase Negative (Negative) Urine Test (NEGATIVE) 09/02/22 Range/Units 14:15 WBC (4.8-10.8) X10*3/uL RBC (4.20-5.50) X10*6/uL Hgb (12.0-16.0) g/dl Hct (37.0-47.0) % MCV (80.0-98.0) fL MCH (27.0-33.0) pg MCHC (31.0-35.0) g/dl RDW (11.0-16.0) % Plt Count (160-400) X10*3/uL MPV (9.4-12.3) fL Immature Gran % (Auto) (0.0-0.4) % Neut % (Auto) (45-73) % Lymph % (Auto) (20-40) % Hendricks % (Auto) (2-11) % Eos % (Auto) (0-4) % Baso % (Auto) (0-2) % Lymph # (Auto) (1.2-4.9) X10*3/uL [place] # (Auto) (0.1-1.2) X10*3/uL Eos # (Auto) (0.0-0.4) X10*3/uL Baso # (Auto) (0.0-0.2) X10*3/uL Abs Immat Gran (auto) (0.00-0.03) X10*3/uL Absolute Neuts (auto) (2.0-8.3) x10*3/uL Absolute Nucleated RBC (0.0-0.012) X10*3/uL Nucleated RBC % (auto) (0.0-0.2) /100WBC Sodium (135-145) mmol/L Potassium (3.3-5.1) mmol/L Chloride (96-108) mmol/L Carbon Dioxide (22-29) mmol/L Anion Gap (12-20) BUN (9-16) mg/dL Creatinine (0.5-1.4) mg/dL Estim Creat Clear Calc Estimated GFR Random Glucose (60-115) mg/dL Calcium (8.4-10.2) mg/dL Total Bilirubin (0.0-1.0) mg/dL Direct Bilirubin (0.0-0.5) mg/dL AST (5-31) U/L ALT (0-31) U/L Alkaline Phosphatase (39-117) U/L Total Protein (6.5-8.0) g/dL Albumin (3.5-5.0) g/dL Urine Color Urine Appearance Urine pH (5.0-9.0) Ur Specific [place] (1.005-1.025) Urine Protein (Neg-Trace) mg/dL Urine Glucose (UA) (Negative) mg/dL Urine Ketones (Negative) mg/dL Urine Blood (Negative) Urine Nitrite (Negative) Ur Leukocyte Esterase (Negative) Urine Test NEGATIVE (NEGATIVE) Independent Interpretation I performed an independent interpretation of an: Ultrasound Interpretation: I independently reviewed the ultrasound agree with radiologist's report Radiology Impression Discussion of test interpretation with radiology: I have reviewed the radiologist's reading. Radiologist Impression: [place] [id number] Ultrasound Report Signed Patient: Zaynab Phillip MR#: [id number] : 2000 Acct:[id number] Age/Sex: 22 / F ADM Date: 09/02/22 Loc: .ED Attending Dr: Ordering Physician: Nenita Saleh NP Date of Service: 09/02/22 Procedure(s): US renal doppler Accession Number(s): [id number] cc: Nenita Saleh NP~ EXAMINATION: Left renal ultrasound and renal Doppler exam CLINICAL INFORMATION: Pain. History of nutrition associate syndrome.? COMPARISON: Previous renal ultrasound most recent May [address] of the abdomen and pelvis August 2021? TECHNIQUE: Doppler color and grayscale evaluation of the left kidney and left renal artery and vein. Including waveform spectral analysis.? FINDINGS: The left kidney is normal in size shape and contour. Left kidney measures 9.4 x 3.4 x 4 cm. No renal stone, mass or hydronephrosis. No perinephric collection. Aortic peak systolic velocity is elevated measuring 159 cm/s. The left renal artery is patent. Left renal artery peak systolic velocities are normal measuring 134, 121 and 116 cm/s proximally, in the midportion and distally. Aorto to renal artery ratio cannot be calculated. Resistive indices of the segmental renal arteries in the left kidney are normal measuring 0.5-0.7. The left renal vein is patent.? US/US renal doppler IMPRESSION: Normal left renal ultrasound and left renal Doppler exam.? Medications Administered Discontinued Medications Generic Name Dose Route Start Last Admin Trade Name Freq PRN Reason Stop Dose Admin Morphine Sulfate 2 mg 09/02/22 10:22 09/02/22 10:37 Morphine Sulfate 2 Mg/Ml Cartridge IVPUSH 09/02/22 10:23 2 mg ONCE ONE Administration Protocol Ondansetron HCl 4 mg 09/02/22 10:22 09/02/22 10:37 Ondansetron Hcl 4 Mg/2 Ml Vial IVPUSH 09/02/22 10:23 4 mg ONCE ONE Administration Discharge Plan Discharge Clinical Impression: Back pain Patient Disposition: Home, Self-Care Instructions: Back Pain (ED) Additional Instructions: Continue Lidoderm patch Heat or ice Gentle stretching No heavy lifting or bending The ultrasound of your left kidney shows normal blood flow Prescriptions: New acetaminophen [Tylenol] 325 mg tablet 650 mg PO Q4H PRN (Reason: pain) Qty: 30 0RF cyclobenzaprine 10 mg tablet 10 mg PO TID PRN (Reason: muscle spasm) Qty: 15 0RF No Action promethazine 25 mg tablet 25 mg PO BID PRN (Reason: nausea and vomiting) 30 Days Qty: 30 1RF metoclopramide HCl [Reglan] 5 mg tablet 5 mg PO TID PRN (Reason: nausea and vomiting) 30 Days Qty: 90 1RF Rx Instructions: Take 30 min before lunch and dinner and at bedtime peg-electrolyte soln 420 gram recon soln 240 ml PO Q10M Qty: 4000 0RF Rx Instructions: until fecal effluent is clear; do not exceed a total volume of 2,000 mL medroxyprogesterone 150 mg/mL suspension 150 mg IM [id number] loratadine 10 mg tablet 10 mg PO DAILY mecobalamin (vitamin B12) 1,000 mcg tablet,disintegrating 1,000 mcg sublingual DAILY 90 Days Qty: 90 0RF Rx Instructions: place tablet under tongue and allow to dissolve for at least30 secs before swallowing dicyclomine 10 mg capsule 10 mg PO BID PRN (Reason: abd pain) 60 Days Qty: 60 1RF Referrals: Caroline Bray MD [Primary Care Provider] - 1 week Stand Alone Forms: Work/School Release
[2022-09-02] MEDS: ondansetron HCL 4 MG/2 ML VIAL IVPUSH (10:37)
[2022-09-02] MEDS: Morphine Sulfate 2 MG/ML CARTRIDGE IVPUSH (10:37)
[2022-09-02 10:39] LABS: MANUAL DIFF FLAG NO
[2022-09-02 10:41] LABS: Basophils Percent Auto 0.4 % (0-2); Eosinophils Absolute Auto 0.1 X10*3/uL (0.0-0.4); Eosinophils Percent Auto 1.3 % (0-4); Hematocrit 40.8 % (37.0-47.0); Imm Gran Abs Auto 0.01 X10*3/uL (0.00-0.03); Imm Gran Pct Auto 0.2 % (0.0-0.4); Lymphocytes Absolute Auto 1.3 X10*3/uL (1.2-4.9); Lymphocytes Percent Auto 28.8 % (20-40); Mean Corpuscular HGB Conc 34.3 g/dl (31.0-35.0); Mean Corpuscular Hemoglobin 28.7 pg (27.0-33.0); Mean Corpuscular Volume 83.6 fL (80.0-98.0); Mean Platelet Volume 11.2 fL (9.4-12.3); Monocytes Absolute Auto 0.3 X10*3/uL (0.1-1.2); Monocytes Percent Auto 7.3 % (2-11); Neutrophils Absolute Auto 2.8 x10*3/uL (2.0-8.3); Platelet Count 184 X10*3/uL (160-400); Red Blood Count 4.88 X10*6/uL (4.20-5.50); Red Cell Distribution Width 12.3 % (11.0-16.0); White Blood Count 4.6 X10*3/uL (4.8-10.8)
--- NOTE | 2022-09-02 10:47 | PC.NURSE ---
Patient presents with abdominal pain, no trauma and no recent illness. Patient alert and oriented, having pain 8/10 at this time. Patient medicated per MAY.
[2022-09-02 11:22] LABS: Alanine Aminotransferase 10 U/L (0-31); Albumin Level 4.4 g/dL (3.5-5.0); Alkaline Phosphatase 88 U/L (39-117); Anion Gap 13 (12-20); Aspartate Amino Transferase 15 U/L (5-31); Bilirubin Direct 0.3 mg/dL (0.0-0.5); Bilirubin Total 0.7 mg/dL (0.0-1.0); Blood Urea Nitrogen 12 mg/dL (9-16); Calcium 9.6 mg/dL (8.4-10.2); Carbon Dioxide 23 mmol/L (22-29); Chloride 109 mmol/L (96-108); Creatinine Clr Calc Pharmacy 94.4; Estimated Glomerular Filt Rate > 60; Glucose Random 99 mg/dL (60-115); Potassium 4.1 mmol/L (3.3-5.1); Sodium 141 mmol/L (135-145); Total Protein 7.3 g/dL (6.5-8.0)
[2022-09-02 14:25] LABS: Appearance Urine Clear; Color Urine Yellow; Glucose Urine UA Negative (Negative); Leukocyte Esterase Urine Negative (Negative); Nitrite Urine Negative (Negative); PH 7.5 (5.0-9.0); Urine Blood Negative (Negative); Urine Ketones Negative (Negative); Urine Protein Negative (Neg-Trace)
[2022-09-02 14:26] LABS: UPreg QC Valid YES; Urine Pregnancy NEGATIVE (NEGATIVE)
[2022-09-02 14:57] VITALS: BP 126/90; PULSE 71; RESP 16; O2SAT 100
== END 2022-09-02 15:04 | disposition home or self-care (01) ==
PROVIDERS: Nurse Practitioner Family; Emergency Provider Emergency Medicine; PCP Pediatrics
DX: R10.9 Unspecified abdominal pain (principal)
CPT/HCPCS: 36415; 76775; 80048; 80076; 81003; 81025; 85025; 93975; 96374; 96375; 99284; J2270; J2405

== ENCOUNTER → 2022-09-07 08:17 | Outpatient (BNVA) | payer OTHER, SELFPAY | PROVIDERS: PCP Pediatrics; Visit Provider Internal Medicine Gastroenterology | DX: K31.84 Gastroparesis (principal); K50.00 Crohn's disease of small intestine without complications | CPT/HCPCS: 91110 ==

== ENCOUNTER 2022-09-28 09:02 | Outpatient (REF) | payer OTHER, SELFPAY ==
[2022-09-28 10:09] LABS: Appearance Urine Cloudy; Color Urine Yellow; Glucose Urine UA Negative (Negative); Leukocyte Esterase Urine Negative (Negative); Nitrite Urine Negative (Negative); PH 5.5 (5.0-9.0); Specific Gravity - Urine 1.025 (1.005-1.025); UMIC TRIGGER UA YES; Urine Blood Small (1+) (Negative); Urine Ketones Negative (Negative); Urine Protein Negative (Neg-Trace)
[2022-09-28 10:09] LABS: Hematocrit 40.4 % (37.0-47.0); Hemoglobin 13.5 g/dl (12.0-16.0)
[2022-09-28 10:20] LABS: Bacteria Urine 2+ (None Seen); Hyaline Casts Urine 0-2 /LPF (0-2); WBC Urine 0-5 /HPF (0-5)
[2022-09-28 10:29] LABS: Anion Gap 13 (12-20); Blood Urea Nitrogen 13 mg/dL (9-16); Calcium 9.1 mg/dL (8.4-10.2); Carbon Dioxide 22 mmol/L (22-29); Chloride 107 mmol/L (96-108); Estimated Glomerular Filt Rate > 60; Phosphorus 3.7 mg/dL (2.7-4.5); Potassium 3.7 mmol/L (3.3-5.1); Sodium 138 mmol/L (135-145)
[2022-09-28 10:38] LABS: Creatinine Urine 187.77 mg/dL; Microalbum/Creatinine Ratio Ur 4.2 ug/mg cr
== END 2022-09-28 09:03 | disposition home or self-care (01) ==
LOC: HO.LAB 09:02
PROVIDERS: PCP Pediatrics; Visit Provider Internal Medicine
DX: R10.9 Unspecified abdominal pain (principal); I87.1 Compression of vein
CPT/HCPCS: 36415; 80051; 81001; 82043; 82310; 82565; 84100; 84520; 85014; 85018

== ENCOUNTER 2022-10-08 08:18 | Outpatient (AMB) | payer OTHER, SELFPAY ==
--- NOTE | 2022-10-08 08:20 | A.OFFVIS_ITS ---
Intake Vital Signs 10/08/22 08:28 Height 5 ft 3 in Weight 133 lb BMI 23.6 BP 106/63 Blood Pressure Location Lt brachial Position Sitting Pulse 83 Intake Visit Reasons: capsule results Intake Note: Patient follow up for Endoscopy capsule results. Patient cc: abdominal pain with bloating, N/V patient is not been able to hold food in stomach for couples of dates. Licensed Mortician Required: No Accompanied by: Self / Same As Patient Allergies No Known Allergies Allergy (Verified 10/08/22 08:24) Medication List - Last Reconciled 10/08/22 by Jass Fung MD acetaminophen (Tylenol) 650 mg (2 x 325 mg) PO Q4H PRN cyclobenzaprine 10 mg PO TID PRN dicyclomine 10 mg PO BID PRN 60 days loratadine 10 mg PO DAILY mecobalamin (vitamin B12) 1,000 mcg sublingual DAILY 90 days medroxyprogesterone 150 mg IM [id number] metoclopramide HCl (Reglan) 5 mg PO TID PRN 30 days peg-electrolyte soln 420 gram 240 mL PO Q10M prochlorperazine maleate 5 mg PO BID-TID PRN 30 days HPI capsule results HPI Details GI CLINIC VISIT FOR THIS 22-YEAR-OLD FEMALE FOR FU OF NAUSEA VOMITING DIARRHEA AND ABDOMINAL PAIN. Pt has a history of nutcracker syndrome,? 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 IMAGING STUDIES:?05/02/21 GASTRIC EMPTYING STUDY SHOWED: Retention in the stomach at each time interval was: 1 hour 79% (normal 37%-90%) 2 hours 69% (normal 30%-60%) 3 hours 50% 4 hours 35% (normal 0%-10%) 02/2021 ABD US WITH DOPPLER SHOWED: Normal appearing kidneys. Findings are suggestive of food and nutrition services supervisor syndrome, similar to the CT scan with narrowing of the renal vein between the aorta and SMA. In the area of stenosis, velocity acceleration is seen as described above. 12/2020 UGISBFT SHOWED: No definite jejunal or ileal mucosal abnormality with limited evaluation of the terminal ileum. Rapid transit of contrast to the colon without need for delayed imaging. 09/06/[address] SCAN SHOWED: Small, small bowel mesentery lymph nodes. No enlarged lymph nodes seen. 2 x 3 cm right adnexal cyst. Question of cracker syndrome of the left renal vein. ENDOSCOPIC STUDIES: 09/16/22 CAPSULE ENDOSCOPY SHOWED: esophagus was normal. nodular appearing stomach mucosa in proximal stomach, rest of mucosa was normal. Some delay of capsule into duodneum, with some erythema in bulb. Patchy erythema in mid and distal ileum with some congestion. Cecum not reached Conclusion: Nodular gastric mucosa possible gastroparesis patchy ileal erythema and erythema of duodenal bulb consider further work up with CTe or GES if clinical suspicion of gastroparesis check nsaid hx use check h pylori TODAY'S VISIT: Patient follow up of gastroparesis. Difficult to keep anything down for the past week Any time she eats anything and has post prandial vomiting Does not eat big meals - takes rice, beans and pasta Patient denies any GI issues. Appetite has improved with medications. Still has intermittent right lower abd cramps. Can wake up from sleep because of abdominal pain. PAST VISITS: Has been doing ok. Medication is helping - makes her feel drowsy - feels like a Zombie. Has cramps and feels sick in the morning. Has upset stomach if she eats breakfast. Has a small lunch. Continues to have RLQ pain and diarrhea 1-2 times a day with watery stools with mucous and no blood. Has gained some wt after thansgiving. Had surgery in June at [facility] in [place] and everything was ok Was not eating much for 3-4 months after the surgery. Once her appetite came back and she started eating more, she started feeling sick Bad cramps in the lower portion of the stomach - feels worse after taking breakfast Has been skipping breakfast. Has been trying to eat small portions. Some days she tries to eat and had to spit it back out due to nausea or smell of food. Lost a lot of wt after the surgery.? Started gaining the wt back 2 months ago. Denies dysphagia or change in BMs. Started feeling sick again Taking Promethazine every other day with partial control of nausea Continues to have nausea sometimes after she eats. Diagnosed with left renal vein stenosis and being scheduled for left renal vein stent placement at [facility] by Dr Del Real Did not have stent placed - additinal contrast studies are planned And possible surgery Abd pain is attributed to above. Notes nausea when she wakes up in the morning and goes away in 1-2 hrs. Does not have an appetite - feels full until dinner. Feels sick if she forces herself to eat. A GES at [facility] 1-2 yrs ago was normal. Feeling about the same. Hurts a lot when her bladder feels full before she has to use the bathroom. The pain goes away and it feels sore to touch in the lower stomach area. Denies pain with BMs. Denies having any diarrhea - has a formed BM 2-3 times a day Has not been feeling as nauseous lately and takes Seeing a Necktie Turner and being referred to a urologist. Started having abdominal pain at age 15 yrs. Pain is left sided and radiates to the lower abdomen - sometimes radiates to the back. Feels like bad cramping and hurts to walk. Unable to identify precipitating factors - sometimes after eating - no clear precipitating foods. Can have pain when she is hungry. No clear relieving factors - tries to lay down and relax. Notes nausea after eating - no vomiting. Has 3-4 BMs a day without loose or hard stools. Can have diarrhea once every couple of weeks - lasts for a day and resolves spontaneously. Notes mucous in the stool and denies rectal bleeding. Eats once a day - takes a couple of bites and feels full after. Patient denies symptoms of heartburn, dysphagia, change in appetite or weight.? Denies recent change in bowel habits, constipation, diarrhea, black stools or rectal bleeding. Wt loss of 30 lbs - lost in Feb 2020 and has not been able to gain it back. Gains a few lbs and then looses wt again. Has a Depo shot every 3 months - does not have a period just intermittent spotting Notes pain in knees and hips - played soccer and soft ball. Denies mouth ulcers or eye problems. Tried different diets in the past - without a change in symptoms. Taking rice, beans and chicken at present. Tried Omeprazole and Pepcid and was not helpful Patient denies major cardiac or pulmonary problems, loud snoring or sleep apnea Denies problems with anesthesia in the past. Denies being on chronic anticoagulation, aspirin or NSAIDS. Mom had H Pylori - has similar symptoms as the patient - takes Omeprazole and feels fine. Patient denies known family history of colon polyps, colon cancer or other GI malignancies. Paternal GM of stomach cancer. 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 Review of Systems Const All systems reviewed & are unremarkable except as noted in HPI and below Physical Exam Vital Signs: Last Vital Signs Pulse 83 10/08/22 08:28 BP 106/63 10/08/22 08:28 BMI result Body Mass Index 23.6 Const General: healthy appearing and no acute distress Nutritional Appearance: average body habitus Orientation/consciousness: patient oriented x3 Limitations: no limitations HEENT Head: Yes normal to inspection Ears: hearing grossly normal bilaterally Eyes Sclerae: sclerae normal Pupils: Equal, round and reactive pupils present Neck Neck: Yes normal visual inspection Chest Chest palpation & inspection: normal inspection of the chest Resp Effort & Inspection: normal respiratory effort Auscultation: clear to auscultation bilaterally Cardio Palpation: normal PMI Rate: regular rate Rhythm: regular rhythm Heart sounds: S1 normal heart sound present, S2 normal heart sound present and no murmurs GI Palpation (GI): Soft to palpation, nontender and No hepatosplenomegaly present Auscultation: normal bowel sounds Rectal Exam - Female: deferred Skin General skin exam: no rashes or lesions noted Neuro General: patient oriented x3, gait normal and moves all extremities Cranial nerves: Yes Equal, round and reactive pupils present Psych Appearance: grossly normal Mental Status: mental status grossly normal Assessment & Plan Assessment & Plan (1) Gastroparesis: Code(s): K31.84 - Gastroparesis (2) Chronic diarrhea: Code(s): K52.9 - Noninfective gastroenteritis and colitis, unspecified (3) Abdominal pain: Code(s): R10.9 - Unspecified abdominal pain (4) Nausea and vomiting: Code(s): R11.2 - Nausea with vomiting, unspecified Plan 22 YF with depression followed in GI for abdominal pain, nausea, vomiting and chronic diarrhea. 04/2016 EGD AND COLONOSCOPY performed at [facility] were normal with chronic gastritis on stomach biopsies. 09/2017 EGD was normal with normal biopsies from esophagus stomach and duodenum. ? 08/[address] scan showed?Small, small bowel mesentery lymph nodes. No enlarged lymph nodes seen. 2 x 3 cm right adnexal cyst. Question of cracker syndrome of the left renal vein. UGI with SBFT was normal. Celiac and IBD serologies were negative and fecal calprotectin was not approved by her insurance GES showed gastroparesis.? Patient handout on gastroparesis from up-to-date was given to the patient Pt advised dietary modification for gastroparesis and start Metoclopramide 5 mg three times daily for gastroparesis on her previous visit. Advised to decrease Metoclopramide to 1-2 times daily due to drowsiness Continue promethazine for nausea and dicyclomine at bedtime for abdominal pain. 05/14/22 Pt advised to schedule a Capsule Study (with patency test) to rule out Crohn's disease (intermittent RLQ pain which can wake her up at night and diarrhea) 10/08/22 Pt advised to go on a liquid diet x 24 hours and then blenderized food until nausea and vomiting resolves Continue Metoclopramide 5 mg twice a day Switch from promethazine to prochlorperazine for nausea and vomting Re submit stool for fecal calprotectin FU in 3 months Orders: Orders Calprotectin, Fecal Today R10.9 - Unspecified abdominal pain Medications: New prochlorperazine maleate 5 mg PO BID-TID 30 days PRN 90 tabs 1RF nausea and vomiting K31.84 - Gastroparesis Discontinued promethazine Discontinued Reason: Ancillary Entered New Order 25 mg PO BID 30 days PRN 30 tabs 1RF nausea and vomiting Coding Level of Care Code Est Pt Level 4 (65403) Diagnoses Gastroparesis K31.84 Chronic diarrhea K52.9 Abdominal pain R10.9 Nausea and vomiting R11.2 Time Spent (min) 22
[2022-10-08 08:28] VITALS: BP 106/63; PULSE 83; BMI 23.6
== END 2022-10-08 09:05 | disposition home or self-care (01) ==
PROVIDERS: PCP Pediatrics; Visit Provider Internal Medicine Gastroenterology
DX: K31.84 Gastroparesis (principal); K52.9 Noninfective gastroenteritis and colitis, unspecified; R10.9 Unspecified abdominal pain; R11.2 Nausea with vomiting, unspecified
CPT/HCPCS: 99214

== ENCOUNTER → 2022-10-08 08:18 | Outpatient (BNVA) | payer OTHER, SELFPAY | PROVIDERS: PCP Pediatrics; Visit Provider Internal Medicine Gastroenterology | DX: K31.84 Gastroparesis (principal); K52.9 Noninfective gastroenteritis and colitis, unspecified; R10.9 Unspecified abdominal pain; R11.2 Nausea with vomiting, unspecified | CPT/HCPCS: 99212 ==

== ENCOUNTER 2022-11-15 21:59 | Emergency (ER) | payer OTHER, SELFPAY ==
[2022-11-15 22:06] VITALS: BP 117/74; PULSE 78; RESP 16; TEMP 36.4; O2SAT 96; BMI 24.3
[2022-11-15 22:33] LABS: MANUAL DIFF FLAG NO
[2022-11-15 22:34] LABS: Basophils Percent Auto 0.5 % (0-2); Eosinophils Absolute Auto 0.1 X10*3/uL (0.0-0.4); Hematocrit 39.7 % (37.0-47.0); Hemoglobin 13.7 g/dl (12.0-16.0); Imm Gran Abs Auto 0.01 X10*3/uL (0.00-0.03); Imm Gran Pct Auto 0.2 % (0.0-0.4); Lymphocytes Absolute Auto 1.7 X10*3/uL (1.2-4.9); Lymphocytes Percent Auto 25.6 % (20-40); Mean Corpuscular HGB Conc 34.5 g/dl (31.0-35.0); Mean Corpuscular Hemoglobin 29.2 pg (27.0-33.0); Mean Corpuscular Volume 84.6 fL (80.0-98.0); Mean Platelet Volume 11.2 fL (9.4-12.3); Monocytes Absolute Auto 0.5 X10*3/uL (0.1-1.2); Monocytes Percent Auto 7.5 % (2-11); Neutrophils Absolute Auto 4.1 x10*3/uL (2.0-8.3); Neutrophils Percent Auto 64.2 % (45-73); Platelet Count 231 X10*3/uL (160-400); Red Blood Count 4.69 X10*6/uL (4.20-5.50); Red Cell Distribution Width 12.2 % (11.0-16.0); White Blood Count 6.4 X10*3/uL (4.8-10.8)
[2022-11-15 22:53] LABS: Alanine Aminotransferase 10 U/L (0-31); Albumin Level 4.6 g/dL (3.5-5.0); Alkaline Phosphatase 92 U/L (39-117); Anion Gap 12 (12-20); Aspartate Amino Transferase 15 U/L (5-31); Bilirubin Total 0.5 mg/dL (0.0-1.0); Blood Urea Nitrogen 12 mg/dL (9-16); Calcium 9.6 mg/dL (8.4-10.2); Carbon Dioxide 25 mmol/L (22-29); Chloride 108 mmol/L (96-108); Estimated Glomerular Filt Rate > 60; Glucose Random 78 mg/dL (60-115); HCG Quantitative < 2 mIU/mL; Potassium 4.2 mmol/L (3.3-5.1); Sodium 141 mmol/L (135-145); Total Protein 7.5 g/dL (6.5-8.0)
--- NOTE | 2022-11-15 23:16 | ED.DIZZY ---
HPI - Dizziness General Chief Complaint: Dizziness Stated Complaint: dizzy spells, almost passed out Time Seen by Provider: 11/15/22 23:10 Source: patient Mode of arrival: ambulatory Limitations: no limitations History of Present Illness HPI Narrative: Patient with nonspecific dizziness near-syncope episode for last few years seen nurse orthopedic had normal echo and normal Holter monitor for patient during the time when the Holter monitor was placed patient did not have any episode today she had almost passing out episode and she fell without any significant injury no dizziness after arrival patient does have history of depression not taking any medication denies any significant depression or anxiety normal orthostatics in the ER home patient complaining of headache patient does have anxiety but does not think that is because of episodes in the ER patient ambulatory without any significant distress Related Data Home Medications Medication Instructions Recorded Confirmed medroxyprogesterone 150 mg/mL 150 mg IM [id number] 10/02/20 10/08/22 intramuscular suspension loratadine 10 mg tablet 10 mg PO DAILY 12/23/21 10/08/22 Previous Rx's Medication Instructions Recorded dicyclomine 10 mg capsule 10 mg PO BID PRN abd pain 60 days 02/12/22 #60 caps mecobalamin (vitamin B12) 1,000 1,000 mcg sublingual DAILY 90 days 02/12/22 mcg disintegrating #90 tabs tablet,sublingual metoclopramide HCl 5 mg tablet 5 mg PO TID PRN nausea and 07/06/22 (Reglan) vomiting 30 days #90 tabs peg-electrolyte solution 420 gram 240 ml PO Q10M #4,000 mL 08/21/22 oral solution acetaminophen 325 mg tablet 650 mg PO Q4H PRN pain #30 tabs 09/02/22 (Tylenol) cyclobenzaprine 10 mg tablet 10 mg PO TID PRN muscle spasm #15 09/02/22 tabs prochlorperazine maleate 5 mg 5 mg PO BID-TID PRN nausea and 10/08/22 tablet vomiting 30 days #90 tabs hydroxyzine HCl 25 mg tablet 25 mg PO BID PRN anxiety #20 tabs 11/16/22 meclizine 25 mg tablet 25 mg PO BID PRN dizziness #20 tabs 11/16/22 Allergies Allergy/AdvReac Type Severity Reaction Status Date / Time No Known Allergies Allergy Verified 10/08/22 08:24 Review of Systems Review of Systems: Yes all other systems are reviewed and are negative [facility] Past Medical History Medical History No active medical problems Surgical History History of esophagogastroduodenoscopy (EGD) Hx of abdominal surgery Hx of colonoscopy Family History Family History Paternal Grandmother Stomach cancer Social History Social History Household Members Other:: lives with mom Alcohol intake: never Patient Tobacco Use Status: Never used Tobacco Substance Use Type: Marijuana Advance Directives: No Advance Directives Information Provided: No 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 Oriented X3. No acute distress. Eyes: PERRLA, No Nystagmus ENT: Pharynx normal. Oral Mucosa moist Neck: Normal inspection. Neck supple. CVS: Normal heart rate and rhythm. Pulses normal. Respiratory: No respiratory distress. Equal air entry bilateral, no wheezing/rales/rhonchi Abdomen: Soft and nontender. Bowel sounds are present, no mass palpable, no CVA tenderness Skin: Skin warm and dry. Normal skin color. Normal skin turgor. Extremities: No lower extremity edema. No calf tenderness Neuro: Oriented X 3. No motor deficit. No sensory deficit.No cerebellar signs , cranial nerves II-XII intact Medical Decision Making Medical Decision Making MDM Narrative: Patient nonspecific dizziness with detailed cardiac workup negative the knees from Cardiology follow-up neurologist/PCP patient does not have any orthostatic hypotension normal vitals multiple complaints likely has depression/anxiety/vasovagal Differential Diagnosis Differential Diagnoses: The differential diagnosis associated with the presentation includes Anxiety/depression/vasovagal/cardiac arrhythmia Lab Data MDM Lab Attestation statement: I reviewed the patient's lab results. 11/15/22 22:23 11/15/22 22:23 Labs: Lab Results 11/15/22 11/15/22 11/15/22 Range/Units 22:23 22:23 23:36 WBC 6.4 (4.8-10.8) X10*3/uL RBC 4.69 (4.20-5.50) X10*6/uL Hgb 13.7 (12.0-16.0) g/dl Hct 39.7 (37.0-47.0) % MCV 84.6 (80.0-98.0) fL MCH 29.2 (27.0-33.0) pg MCHC 34.5 (31.0-35.0) g/dl RDW 12.2 (11.0-16.0) % Plt Count 231 D (160-400) X10*3/uL MPV 11.2 (9.4-12.3) fL Immature Gran % (Auto) 0.2 (0.0-0.4) % Neut % (Auto) 64.2 (45-73) % Lymph % (Auto) 25.6 (20-40) % [place] % (Auto) 7.5 (2-11) % Eos % (Auto) 2.0 (0-4) % Baso % (Auto) 0.5 (0-2) % Lymph # (Auto) 1.7 (1.2-4.9) X10*3/uL [place] # (Auto) 0.5 (0.1-1.2) X10*3/uL Eos # (Auto) 0.1 (0.0-0.4) X10*3/uL Baso # (Auto) 0.0 (0.0-0.2) X10*3/uL Abs Immat Gran (auto) 0.01 (0.00-0.03) X10*3/uL Absolute Neuts (auto) 4.1 (2.0-8.3) x10*3/uL Absolute Nucleated RBC 0.000 (0.0-0.012) X10*3/uL Nucleated RBC % (auto) 0.0 (0.0-0.2) /100WBC Sodium 141 (135-145) mmol/L Potassium 4.2 (3.3-5.1) mmol/L Chloride 108 (96-108) mmol/L Carbon Dioxide 25 (22-29) mmol/L Anion Gap 12 (12-20) BUN 12 (9-16) mg/dL Creatinine 0.92 (0.5-1.4) mg/dL Estim Creat Clear Calc 80.0 Estimated GFR > 60 Random Glucose 78 (60-115) mg/dL Calcium 9.6 (8.4-10.2) mg/dL Total Bilirubin 0.5 (0.0-1.0) mg/dL AST 15 (5-31) U/L ALT 10 (0-31) U/L Alkaline Phosphatase 92 (39-117) U/L Total Protein 7.5 (6.5-8.0) g/dL Albumin 4.6 (3.5-5.0) g/dL Beta HCG, Quant < 2 mIU/mL Urine Color Yellow Urine Appearance Clear Urine pH 6.0 (5.0-9.0) Ur Specific [place] <= 1.005 (1.005-1.025) Urine Protein Negative (Neg-Trace) mg/dL Urine Glucose (UA) Negative (Negative) mg/dL Urine Ketones Negative (Negative) mg/dL Urine Blood Negative (Negative) Urine Nitrite Negative (Negative) Ur Leukocyte Esterase Negative (Negative) Urine RBC 0-2 (0-2) /HPF Urine WBC 0-5 (0-5) /HPF Ur Squamous Epith Cells 0-2 (0-2) /HPF Urine Bacteria Trace (None Seen) Hyaline Casts 0-2 (0-2) /LPF Independent Interpretation I performed an independent interpretation of an: EKG Interpretation: Normal sinus rhythm heart rate 72 beats per minute normal intervals normal axis no acute ST-T changes no acute ischemia Discharge Plan Discharge Clinical Impression: Dizziness, Headache Patient Disposition: Home, Self-Care Instructions: Dizziness (ED) Additional Instructions: Cause of her dizziness is not clear likely multifactorial Take medication for dizziness as prescribed Atarax 1 tablet twice daily anxiety /depression as needed Follow with PCP Prescriptions: New meclizine 25 mg tablet 25 mg PO BID PRN (Reason: dizziness) Qty: 20 0RF hydroxyzine HCl 25 mg tablet 25 mg PO BID PRN (Reason: anxiety) Qty: 20 0RF No Action metoclopramide HCl [Reglan] 5 mg tablet 5 mg PO TID PRN (Reason: nausea and vomiting) 30 Days Qty: 90 1RF Rx Instructions: Take 30 min before lunch and dinner and at bedtime peg-electrolyte soln 420 gram recon soln 240 ml PO Q10M Qty: 4000 0RF Rx Instructions: until fecal effluent is clear; do not exceed a total volume of 2,000 mL acetaminophen [Tylenol] 325 mg tablet 650 mg PO Q4H PRN (Reason: pain) Qty: 30 0RF cyclobenzaprine 10 mg tablet 10 mg PO TID PRN (Reason: muscle spasm) Qty: 15 0RF medroxyprogesterone 150 mg/mL suspension 150 mg IM [id number] loratadine 10 mg tablet 10 mg PO DAILY mecobalamin (vitamin B12) 1,000 mcg tablet,disintegrating 1,000 mcg sublingual DAILY 90 Days Qty: 90 0RF Rx Instructions: place tablet under tongue and allow to dissolve for at least30 secs before swallowing dicyclomine 10 mg capsule 10 mg PO BID PRN (Reason: abd pain) 60 Days Qty: 60 1RF prochlorperazine maleate 5 mg tablet 5 mg PO BID-TID PRN (Reason: nausea and vomiting) 30 Days Qty: 90 1RF
[2022-11-15 23:31] VITALS: BP 121/66; PULSE 76
[2022-11-15 23:32] VITALS: BP 120/73; PULSE 83
[2022-11-15 23:33] VITALS: BP 109/75; PULSE 89
[2022-11-15 23:42] LABS: Appearance Urine Clear; Color Urine Yellow; Glucose Urine UA Negative (Negative); Leukocyte Esterase Urine Negative (Negative); Nitrite Urine Negative (Negative); Specific Gravity - Urine <= 1.005 (1.005-1.025); Urine Blood Negative (Negative); Urine Ketones Negative (Negative); Urine Protein Negative (Neg-Trace)
[2022-11-15 23:44] LABS: Bacteria Urine Trace (None Seen); Hyaline Casts Urine 0-2 /LPF (0-2); RBC Urine 0-2 /HPF (0-2); Squamous Epithelial Cell Urine 0-2 /HPF (0-2); WBC Urine 0-5 /HPF (0-5)
--- NOTE | 2022-11-16 00:05 | ECG_ITS ---
Test Reason : NEAR SYNCOPE Blood Pressure : / mmHG Vent. Rate : 072 BPM Atrial Rate : 072 BPM P-R Int : 150 ms QRS Dur : 082 ms QT Int : 372 ms P-R-T Axes : 011 081 041 degrees QTc Int : 407 ms Normal sinus rhythm Normal ECG When compared with ECG of 29-MAY-2021 08:29, No significant change was found Referred By: Magno Tracy Electronically Signed By:ALINA OLSON
[2022-11-16] MEDS: Butalb/Acetamin/Caff 50/325/40 TABLET 1 TAB PO (00:34)
[2022-11-16] MEDS: Meclizine HCl 25 MG TABLET PO (00:34)
--- NOTE | 2022-11-16 01:09 | PC.NURSE ---
pty medicated according to mar. pt mother at bedside. pt ambulatory at discharge. pt calm and cooperative. pt provided with discharge packet. pt verbalized understanding of discharge plan
== END 2022-11-16 01:10 | disposition home or self-care (01) ==
PROVIDERS: Emergency Provider Internal Medicine; PCP Pediatrics
DX: R55 Syncope and collapse (principal); R42 Dizziness and giddiness; R51.9 Headache, unspecified; Z79.899 Other long term (current) drug therapy
CPT/HCPCS: 36415; 80053; 81001; 84702; 85025; 93005; 99284; 99285

== ENCOUNTER 2022-12-24 08:34 | Outpatient (AMB) | payer OTHER, SELFPAY ==
--- NOTE | 2022-12-24 08:37 | MHC.OFFVIS ---
Intake Vital Signs 12/24/22 08:43 Height 5 ft 3 in Weight 138 lb BMI 24.4 BP 123/69 Blood Pressure Location Lt brachial Position Sitting Pulse 70 Intake Visit Reasons: Vomiting Intake Note: Patient follow up for vomiting. Patient cc: vomiting on and off, abdominal pain, GERD, and some red mucous in her loose stool. Varnish Maker Required: No Accompanied by: Self / Same As Patient Allergies No Known Allergies Allergy (Verified 12/24/22 08:38) Medication List - Last Reconciled 12/24/22 by Jass Fung MD acetaminophen (Tylenol) 650 mg (2 x 325 mg) PO Q4H PRN cyclobenzaprine 10 mg PO TID PRN dicyclomine 10 mg PO BID PRN 60 days hydroxyzine HCl 25 mg PO BID PRN loratadine 10 mg PO DAILY meclizine 25 mg PO BID PRN mecobalamin (vitamin B12) 1,000 mcg sublingual DAILY 90 days medroxyprogesterone 150 mg IM [id number] metoclopramide HCl (Reglan) 5 mg PO TID PRN 30 days peg-electrolyte soln 420 gram 240 mL PO Q10M prochlorperazine maleate 5 mg PO BID-TID PRN 30 days HPI Vomiting HPI Details GI CLINIC VISIT FOR THIS 22-YEAR-OLD FEMALE FOR FU OF NAUSEA VOMITING DIARRHEA AND ABDOMINAL PAIN. Pt has a history of nutcracker syndrome,? 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 Pt scheduled for an urgent FU appt since she called with symptoms of nausea and vomiting: patient called to report she is experiencing nausea, about two episodes of vomiting daily for the last week as well as abdominal pain and red bloody mucus in her stools. Patient reports she has noted a decrease in her appetite. patient denies fever or chills. I advised patient that I would send a message to you to advise but that it will be likely that she will need to go to the ED for furthe eval as you do not have any availability soon. please advise IMAGING STUDIES:?05/02/21 GASTRIC EMPTYING STUDY SHOWED: Retention in the stomach at each time interval was: 1 hour 79% (normal 37%-90%) 2 hours 69% (normal 30%-60%) 3 hours 50% 4 hours 35% (normal 0%-10%) 02/2021 ABD US WITH DOPPLER SHOWED: Normal appearing kidneys. Findings are suggestive of doughnut batter mixer syndrome, similar to the CT scan with narrowing of the renal vein between the aorta and SMA. In the area of stenosis, velocity acceleration is seen as described above. 12/2020 UGISBFT SHOWED: No definite jejunal or ileal mucosal abnormality with limited evaluation of the terminal ileum. Rapid transit of contrast to the colon without need for delayed imaging. 09/06/[address] SCAN SHOWED: Small, small bowel mesentery lymph nodes. No enlarged lymph nodes seen. 2 x 3 cm right adnexal cyst. Question of cracker syndrome of the left renal vein. ENDOSCOPIC STUDIES: 09/16/22 CAPSULE ENDOSCOPY SHOWED: esophagus was normal. nodular appearing stomach mucosa in proximal stomach, rest of mucosa was normal. Some delay of capsule into duodneum, with some erythema in bulb. Patchy erythema in mid and distal ileum with some congestion. Cecum not reached Conclusion: Nodular gastric mucosa possible gastroparesis patchy ileal erythema and erythema of duodenal bulb consider further work up with CTe or GES if clinical suspicion of gastroparesis check nsaid hx use check h pylori TODAY'S VISIT: Noted nausea and vomiting and abdominal pain since last week Thought she had a stomach bug usually upto 2 episodes a day Feels a knot in her stomach and then food comes up Not always related to eating. Has a cramping feeling after eating. Also has diarrhea with 2-3 BMs a day. Intermittent dysphagia to liquids. Taking Metoclopramide twice a day and nausea medication prn Nausea medication works in 15 to 20 min if she takes it early enough PAST VISITS: Patient follow up of gastroparesis. Difficult to keep anything down for the past week Any time she eats anything and has post prandial vomiting Does not eat big meals - takes rice, beans and pasta Patient denies any GI issues. Appetite has improved with medications. Still has intermittent right lower abd cramps. Can wake up from sleep because of abdominal pain. Has been doing ok. Medication is helping - makes her feel drowsy - feels like a Zombie. Has cramps and feels sick in the morning. Has upset stomach if she eats breakfast. Has a small lunch. Continues to have RLQ pain and diarrhea 1-2 times a day with watery stools with mucous and no blood. Has gained some wt after thansgiving. Had surgery in June at [facility] in [place] and everything was ok Was not eating much for 3-4 months after the surgery. Once her appetite came back and she started eating more, she started feeling sick Bad cramps in the lower portion of the stomach - feels worse after taking breakfast Has been skipping breakfast. Has been trying to eat small portions. Some days she tries to eat and had to spit it back out due to nausea or smell of food. Lost a lot of wt after the surgery.? Started gaining the wt back 2 months ago. Denies dysphagia or change in BMs. Started feeling sick again Taking Promethazine every other day with partial control of nausea Continues to have nausea sometimes after she eats. Diagnosed with left renal vein stenosis and being scheduled for left renal vein stent placement at [facility] by Dr Del Real Did not have stent placed - additinal contrast studies are planned And possible surgery Abd pain is attributed to above. Notes nausea when she wakes up in the morning and goes away in 1-2 hrs. Does not have an appetite - feels full until dinner. Feels sick if she forces herself to eat. A GES at [facility] 1-2 yrs ago was normal. Feeling about the same. Hurts a lot when her bladder feels full before she has to use the bathroom. The pain goes away and it feels sore to touch in the lower stomach area. Denies pain with BMs. Denies having any diarrhea - has a formed BM 2-3 times a day Has not been feeling as nauseous lately and takes Seeing a Facility Practice Specialist and being referred to a urologist. Started having abdominal pain at age 15 yrs. Pain is left sided and radiates to the lower abdomen - sometimes radiates to the back. Feels like bad cramping and hurts to walk. Unable to identify precipitating factors - sometimes after eating - no clear precipitating foods. Can have pain when she is hungry. No clear relieving factors - tries to lay down and relax. Notes nausea after eating - no vomiting. Has 3-4 BMs a day without loose or hard stools. Can have diarrhea once every couple of weeks - lasts for a day and resolves spontaneously. Notes mucous in the stool and denies rectal bleeding. Eats once a day - takes a couple of bites and feels full after. Patient denies symptoms of heartburn, dysphagia, change in appetite or weight.? Denies recent change in bowel habits, constipation, diarrhea, black stools or rectal bleeding. Wt loss of 30 lbs - lost in Feb 2020 and has not been able to gain it back. Gains a few lbs and then looses wt again. Has a Depo shot every 3 months - does not have a period just intermittent spotting Notes pain in knees and hips - played soccer and soft ball. Denies mouth ulcers or eye problems. Tried different diets in the past - without a change in symptoms. Taking rice, beans and chicken at present. Tried Omeprazole and Pepcid and was not helpful Patient denies major cardiac or pulmonary problems, loud snoring or sleep apnea Denies problems with anesthesia in the past. Denies being on chronic anticoagulation, aspirin or NSAIDS. Mom had H Pylori - has similar symptoms as the patient - takes Omeprazole and feels fine. Patient denies known family history of colon polyps, colon cancer or other GI malignancies. Paternal GM of stomach cancer. 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 Review of Systems Const All systems reviewed & are unremarkable except as noted in HPI and below Physical Exam Vital Signs: Last Vital Signs Pulse 70 12/24/22 08:43 BP 123/69 12/24/22 08:43 BMI result Body Mass Index 24.4 Const General: healthy appearing and no acute distress Nutritional Appearance: average body habitus Orientation/consciousness: patient oriented x3 Limitations: no limitations HEENT Head: Yes normal to inspection Ears: hearing grossly normal bilaterally Eyes Sclerae: sclerae normal Pupils: Equal, round and reactive pupils present Neck Neck: Yes normal visual inspection Chest Chest palpation & inspection: normal inspection of the chest Resp Effort & Inspection: normal respiratory effort Auscultation: clear to auscultation bilaterally Cardio Palpation: normal PMI Rate: regular rate Rhythm: regular rhythm Heart sounds: S1 normal heart sound present, S2 normal heart sound present and no murmurs GI Palpation (GI): Soft to palpation, nontender and No hepatosplenomegaly present Auscultation: normal bowel sounds Rectal Exam - Female: deferred Skin General skin exam: no rashes or lesions noted Neuro General: patient oriented x3, gait normal and moves all extremities Cranial nerves: Yes Equal, round and reactive pupils present Psych Appearance: grossly normal Mental Status: mental status grossly normal Assessment & Plan Assessment & Plan (1) Gastroparesis: Code(s): K31.84 - Gastroparesis (2) Ileitis, regional: Code(s): K50.00 - Crohn's disease of small intestine without complications (3) Chronic diarrhea: Code(s): K52.9 - Noninfective gastroenteritis and colitis, unspecified (4) Abdominal pain: Code(s): R10.9 - Unspecified abdominal pain (5) Nausea and vomiting: Code(s): R11.2 - Nausea with vomiting, unspecified Plan 22 YF with depression followed in GI for abdominal pain, nausea, vomiting and chronic diarrhea. 04/2016 EGD AND COLONOSCOPY performed at [facility] were normal with chronic gastritis on stomach biopsies. 09/2017 EGD was normal with normal biopsies from esophagus stomach and duodenum. ? 08/[address] scan showed?Small, small bowel mesentery lymph nodes. No enlarged lymph nodes seen. 2 x 3 cm right adnexal cyst. Question of cracker syndrome of the left renal vein. UGI with SBFT was normal. Celiac and IBD serologies were negative and fecal calprotectin was not approved by her insurance GES showed gastroparesis.? Patient handout on gastroparesis from up-to-date was given to the patient Pt advised dietary modification for gastroparesis and start Metoclopramide 5 mg three times daily for gastroparesis on her previous visit. Advised to decrease Metoclopramide to 1-2 times daily due to drowsiness Continue promethazine for nausea and dicyclomine at bedtime for abdominal pain. 05/14/22 Pt advised to schedule a Capsule Study (with patency test) to rule out Crohn's disease (intermittent RLQ pain which can wake her up at night and diarrhea) 10/08/22 Pt advised to go on a liquid diet x 24 hours and then blenderized food until nausea and vomiting resolves Continue Metoclopramide 5 mg twice a day Switch from promethazine to prochlorperazine for nausea and vomting Re submit stool for fecal calprotectin 12/24/22 Pt advised to schedule an EGD and flex sig Increase Metoclopramide to three times a day (instead of twice daily) FU in 3 weeks - has appt on 01/14/23 Orders: Orders Leukocytes Stool Qualitative Today K52.9 - Noninfective gastroenteritis and colitis, unspecified, R10.9 - Unspecified abdominal pain Coding Level of Care Code Est Pt Level 4 (96584) Diagnoses Gastroparesis K31.84 Ileitis, regional K50.00 Chronic diarrhea K52.9 Abdominal pain R10.9 Nausea and vomiting R11.2 Time Spent (min) 22
[2022-12-24 08:43] VITALS: BP 123/69; PULSE 70; BMI 24.4
== END 2022-12-24 09:13 | disposition home or self-care (01) ==
PROVIDERS: PCP Nurse Practitioner Family; Visit Provider Internal Medicine Gastroenterology
DX: K31.84 Gastroparesis (principal); K50.00 Crohn's disease of small intestine without complications; K52.9 Noninfective gastroenteritis and colitis, unspecified; R10.9 Unspecified abdominal pain; R11.2 Nausea with vomiting, unspecified
CPT/HCPCS: 99214

== ENCOUNTER → 2022-12-24 08:34 | Outpatient (BNVA) | payer OTHER, SELFPAY | PROVIDERS: PCP Nurse Practitioner Family; Visit Provider Internal Medicine Gastroenterology | DX: K31.84 Gastroparesis (principal); K50.00 Crohn's disease of small intestine without complications; K52.9 Noninfective gastroenteritis and colitis, unspecified; R11.2 Nausea with vomiting, unspecified | CPT/HCPCS: 99212 ==

== ENCOUNTER 2022-12-25 09:12 | Day surgery (SDC) | payer OTHER, SELFPAY ==
--- OUTSIDE RECORDS SUMMARY | 2022-12-25 09:14 | XMS_ITS | Continuity of Care Document ---
Author Name Unknown Organization [facility] Address [address] [place] [address]- Care Team Providers Care Food And Beverage Intern Name Role Phone Asa TOLEDO, Caroline Perez Primary Care Physician Encounter [facility] Date(s): 05/22/19 - 06/01/19 [facility] [address] [place] [address]- [facility] Attending Physician: Prabhjot Brantley Admitting Physician: Prabhjot Brantley Referring Physician: AdmtrPrabhjot Allergies, Adverse Reactions, Alerts Substance Reaction Severity Status NKA Active Medications Tri-Previfem By Mouth, Daily, 0 Refills, Maintenance, 05/22/19 15:09:00 EDT Start Date: 05/22/19 Status: Ordered Social History Social History Type Response Smoking Status Never smoker; Tobacc o user in household: No entered on: 04/06/17 Sex
--- OUTSIDE RECORDS SUMMARY | 2022-12-25 09:14 | XMS_ITS | Continuity of Care Document ---
Author Name Unknown Organization [facility] Address [address] [place] [id number]- Care Team Providers Care Meter Record Clerk Name Role Phone Asa TOLEDO, Caroline Perez Primary Care Physician Encounter [facility] Date(s): 11/29/18 - 06/30/[address] [address]- [facility] Attending Physician: Gretchen Do NP Admitting Physician: Gretchen Do NP Referring Physician: Gretchen Do NP Allergies, Adverse Reactions, Alerts Substance Reaction Severity Status NKA Active Medications Tri-Previfem By Mouth, Daily, 0 Refills, Maintenance, 05/22/19 15:09:00 EDT Start Date: 05/22/19 Status: Ordered Social History Social History Type Response Smoking Status Never smoker; Tobacc o user in household: No entered on: 04/06/17 Sex
--- OUTSIDE RECORDS SUMMARY | 2022-12-25 09:15 | XMS_ITS | Continuity of Care Document ---
Author Name Unknown Organization [facility] Address [address] [place] [id number]- Care Team Providers Care Alodize Machine Helper Name Role Phone Asa TOLEDO, Caroline Perez Primary Care Physician Encounter [facility] Date(s): 09/10/20 - 01/08/21 [facility] [address] [place] [phone]- Attending Physician: Bernardo Mercedes MD Admitting Physician: Bernardo Mercedes MD Referring Physician: Petey Godfrey MD Allergies, Adverse Reactions, Alerts Substance Reaction Severity Status NKA Active Medications Tri-Previfem By Mouth, Daily, 0 Refills, Maintenance, 05/22/19 15:09:00 EDT Start Date: 05/22/19 Status: Ordered Social History Social History Type Response Smoking Status Never smoker; Tobacc o user in household: No entered on: 04/06/17 Sex
--- OUTSIDE RECORDS SUMMARY | 2022-12-25 09:15 | XMS_ITS | Continuity of Care Document ---
Author Name Unknown Organization [facility] Address [address] [place] [address]- Care Team Providers Care Maid Supervisor Name Role Phone Asa TOLEDO, Caroline Perez Primary Care Physician Encounter [facility] Date(s): 12/09/20 - 01/08/21 [facility] [address] [place] [id number]- Attending Physician: Prabhjot Brantley Admitting Physician: Prabhjot Brantley Referring Physician: Admtr, Ar8 Allergies, Adverse Reactions, Alerts Substance Reaction Severity Status NKA Active Medications Tri-Previfem By Mouth, Daily, 0 Refills, Maintenance, 05/22/19 15:09:00 EDT Start Date: 05/22/19 Status: Ordered Social History Social History Type Response Smoking Status Never smoker; Tobacc o user in household: No entered on: 04/06/17 Sex
--- NOTE | 2022-12-25 09:19 | HO.ANESPROP2 ---
[facility] Active Problems Active Problems: All Active Problems (Updated 11/17/22 @ 00:01 by Pily Huynhmoshe) Ileitis, regional (Acute) Gastroparesis (Acute) Dizziness (Acute) Chronic diarrhea (Acute) Abdominal pain (Acute) Nausea and vomiting (Acute) Depression (Acute) Past Medical History Medical History No active medical problems Family History Family History Paternal Grandmother Stomach cancer Surgical History Surgical History Hx of abdominal surgery History of esophagogastroduodenoscopy (EGD) Hx of colonoscopy History of Problems with Anesthesia: No Social History Social History Household Members Other:: lives with mom Alcohol intake: never Patient Tobacco Use Status: Never used Tobacco Substance Use Type: Marijuana Advance Directives: No Advance Directives Information Provided: Yes 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 Meds Allergies Allergy/AdvReac Type Severity Reaction Status Date / Time No Known Allergies Allergy Verified 12/24/22 08:38 Active Medications: Current Medications Sodium Biphosphate/Sodium Phosphate (Sodium Phosphate,[place]-Dibasic 133 Ml Enema) 133 ml DC ONCE PRN PRN Reason: flex sigmoid prep Home Medications Medication Instructions Recorded Confirmed Last Taken Type medroxyprogesterone 150 mg/mL 150 mg IM [id number] 10/02/20 12/24/22 Unknown History intramuscular suspension loratadine 10 mg tablet 10 mg PO DAILY 12/23/21 12/24/22 Unknown History Exam Exam Date and Time: December 25, 2022 0919 Airway Mallampati Class: II TM Dist: >3cm Neck ROM: Full Loose/Missing/Broken Teeth: No Heart: RRR Lungs: CTA Assessment and Plan Assessment Anesthesia Assessment: Anesthesia Plan Discussed and Chart Reviewed Final Anesthetic Review History of Problems with Anesthesia: No NPO: Yes ASA Class: II Final Preanesthetic Review: Meds/Allgs Chart Reviewed, Consent Obtained/Reviewed and Anes Risks/Benef Reviewed Patient Risk: Low Procedure Risk: Intermediate Anesthetic Plan Anesthetic Plan: MAC: Disposition: Standard PACU
--- NOTE | 2022-12-25 09:50 | MHC.SHP ---
Pre-Procedural Eval Section A Date of Service: 12/25/22 The patient is an INPATIENT: No Changes since office visit: No Cold of Flu in the past 2 weeks, No New Medical Problems and No Changes in Medication The History & Physical has been completed within 30 days and I have reviewed it.: Yes Section B Chief Complaint: nausea and vomiting, gastroparesis, rectal bleed Allergies: Allergies Allergy/AdvReac Type Severity Reaction Status Date / Time No Known Allergies Allergy Verified 12/24/22 08:38 Plan Diagnosis/Plan: Unchanged I have reviewed the history and physical and performed a pertinent physical examination on my patient. No changes have occurred unless specified. Time Spent With Patient Time: Total time managing care of this patient today ____ minutes.
[2022-12-25] MEDS: Sodium Phosphate,Mono-Dibasic 133 ML ENEMA PR (09:52)
[2022-12-25 10:03] LABS: UPreg QC Valid YES; Urine Pregnancy NEGATIVE (NEGATIVE)
[2022-12-25 10:21] VITALS: BMI 24.4
[2022-12-25] MEDS: Lactated Ringers 1,000 ML 100 ML IVCONT (10:27)
[2022-12-25 10:28] VITALS: BP 134/91; PULSE 78; RESP 18; TEMP 36.7; O2SAT 97
--- NOTE | 2022-12-25 11:47 | W.PM.OPN ---
Operative Note Operative Note Date of Service: 12/25/22 Narrative: FLEXIBLE TRANSORAL UPPER GASTROINTESTINAL ENDOSCOPY WITH BIOPSIES AND FLEXIBLE SIGMOIDOSCOPY TILL Pre-op diagnosis: nausea and vomiting, gastroparesis, rectal bleeding Post-op diagnosis: same? Endoscopist:? Jass Fung MD Anesthesia:?MAC UPPER ENDOSCOPY Consent: Indications for the procedure and potential complications of bleeding, perforation, reaction to medications and missed diagnosis were discussed with the patient and informed consent was obtained. Instrument: Olympus GIF H 190 mid size upper endoscope Monitoring: Vital signs and clinical assessment, continuous EKG monitoring, Pulse oximetry, Carbon Dioxide monitoring and blood pressure monitoring were done throughout the procedure. Procedure: The patient was placed in the left lateral decubitis position and pre-procedure medications were administered and a bite block was placed. The endoscope was inserted into the mouth and advanced under direct vision to the third part of duodenum. A careful inspection was made as the upper endoscope was withdrawn including a retroflexed examination of the proximal stomach; Findings and interventions are described below. Findings: Larynx: Normal Esophagus: GE junction at 36 cms. No esophagitis or Contreras's. Stomach: Mild gastric erythema. Biopsies were obtained. Grade 2 flap valve on retroflexed examination of the cardia. Pyloric balloon dilation was performed with a 19 mm (57 F) CRE balloon x 60 seconds. Botox (100 Units) was injected into the pylorus (25 units in each quadrant) Duodenum: Normal bulb and descending duodenum - biopsies were obtained from 3rd part of duodenum to check for celiac sprue Intervention: Biopsies, pyloric balloon dilation and botox injection as noted above FLEXIBLE SIGMOIDOSCOPY PROCEDURE NOTE Consent: Indications for the procedure and potential complications of bleeding, perforation, reaction to medications and missed diagnosis were discussed with the patient and informed consent was obtained. Instrument: Olympus PCF H 190 L variable stiffness pediatric colonoscope Monitoring: Vital signs and clinical assessment, intermittent blood pressure monitoring, continuous EKG monitoring, Pulse oximetry and Carbon Dioxide monitoring were done throughout the procedure. Procedure: The patient was placed in the left lateral decubitis position and pre-procedure medications were administered. After a digital rectal examination of the ano-rectum, the video colonoscope was inserted into the rectum and advanced through the colon till 30 cms into the sigmoid colon. The colonoscope was slowly withdrawn in a retrograde panoramic fashion and the colon mucosa was carefully examined including a retroflexed view of the rectum. Findings and interventions are described below. Procedure Difficulty: : Without difficulty Findings: Sigmoid Colon: Normal mucosa - random biopsies were obtained from the left colon to check for IBD Rectum: Mild erythema - likely due to prep - random biopsies were obtained Ano-rectum: Normal Colon preparation: Good Impression and Post Procedure Diagnosis: Endoscopy Findings: STOMACH: Mild antral gastritis. Pyloric balloon dilation was performed with a 19 mm (57 F) CRE balloon x 60 seconds. Botox (100 Units) was injected into the pylorus (25 units in each quadrant) DUODENUM: Normal - biopsied to check for celiac sprue Flexible sigmoidoscopy Findings: Minimal rectal erythema - likely due to prep - biopsies were obtained to check for IBD Plan: Await pathology results Patient has an appointment on 01/14/23 in the GI Clinic with Jass Fung M.D. Above findings were reviewed with the patient.
[2022-12-25 12:36] VITALS: BP 109/70; PULSE 97; RESP 16; TEMP 36.4; O2SAT 99
[2022-12-25 12:51] VITALS: BP 111/75; PULSE 87; RESP 18; O2SAT 99
[2022-12-25 13:06] VITALS: BP 115/83; PULSE 56; RESP 18; TEMP 36.2; O2SAT 99
== END 2022-12-25 14:00 | disposition home or self-care (01) ==
PROVIDERS: Anesthesiology; PCP Nurse Practitioner Family; Visit Provider Internal Medicine Gastroenterology
PROC: 0DJ08ZZ Inspection of Upper Intestinal Tract, Via Natural or Artificial Opening Endoscopic (ICD-10-PCS; CPT 43235; principal; 2022-12-25 15:20)
PROC: 0DJD8ZZ Inspection of Lower Intestinal Tract, Via Natural or Artificial Opening Endoscopic (ICD-10-PCS; CPT 45330; 2022-12-25 15:20)
DX: K52.9 Noninfective gastroenteritis and colitis, unspecified (principal); K31.84 Gastroparesis; K29.50 Unspecified chronic gastritis without bleeding; K50.00 Crohn's disease of small intestine without complications; K21.9 Gastro-esophageal reflux disease without esophagitis; Z79.899 Other long term (current) drug therapy; Z87.448 Personal history of other diseases of urinary system; Z98.890 Other specified postprocedural states
CPT/HCPCS: 45330; 43245; 43239; 43236; 81025; 88305; 88342; C1726; J0585

== ENCOUNTER → 2022-12-25 09:12 | Outpatient (BNV) | payer OTHER, SELFPAY | PROVIDERS: PCP Nurse Practitioner Family; Visit Provider Internal Medicine Gastroenterology | DX: K31.84 Gastroparesis (principal); K29.70 Gastritis, unspecified, without bleeding; K62.5 Hemorrhage of anus and rectum; D12.8 Benign neoplasm of rectum | CPT/HCPCS: 43236; 43249; 45380 ==

== ENCOUNTER 2023-01-11 10:04 | Outpatient (AMB) | payer OTHER, SELFPAY ==
--- NOTE | 2023-01-11 10:09 | A.OFFPC_ITS ---
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 Accompanied by: Self / Same As Patient Allergies No Known Allergies Allergy (Verified 01/11/23 10:24) Medication List - Last Reconciled 01/11/23 by KERA Best medroxyprogesterone 150 mg IM [id number] metoclopramide HCl (Reglan) 5 mg PO TID PRN 30 days promethazine 12.5 mg PO Q6H PRN Tobacco use date assessed: 01/11/23 Dental Screening Dental Screen Date: 01/11/23 Did you have a dental visit in the last 12 months?: No Did you have a dental problem in the last 6 months where you did not have access to dental care?: No Was dental information given to patient?: Patient has dentist HPI HPI Comments History of Present Illness Details 22-year-old female past medical history significant for gastroparesis, chronic diarrhea, nausea vomiting depression. Review of the notes patient being followed by Gastroenterology recently underwent upper endoscopy with biopsies further evaluate for possible IBD. Follow up with GI on . Patient re ports hx of dizzy spells in the past, patient reports had a dizzy spell and a carnival in October her where she did lose consciousness and collapsed. Patient reports has been seen by Cardiology in the past for this Holter monitor unremarkable, tilt-table test unremarkable, echocardiogram showed normal heart structure. There was no evidence of autonomic dysfunction and/or cardiac arrhythmias with normal structure of the heart. Patient reports she occasionally gets disease once or 2 times a month she changes positions quickly or if she gets dizzy she sits immediately down on the ground so she does not collapse. Will obtain complete blood work to further evaluate. Patient denies any chest pain, palpitations, shortness of breath. [facility] February Eye exam: recommended every couple year. Recommended. [place] pedi: Caroline Bray Flu shot given in office today [facility] Medical History No active medical problems Surgical History (Updated 01/11/23 @ 10:27 by KERA Best) Hx of abdominal surgery History of esophagogastroduodenoscopy (EGD) Hx of colonoscopy Family History Paternal Grandmother Stomach cancer Family/Other Substance use disorder Mental health disorder Social History (Updated 01/11/23 @ 10:28 by KERA Best) Household Members Other:: lives with mom Housing: House Alcohol intake: current Alcohol intake frequency: holidays/special occasions only Patient Tobacco Use Status: Never used Tobacco e-Cigarette/Vaping Use: Never Used Second Hand Smoke Exposure: No Substance Use Type: Marijuana service: No Current occupational status: unemployed 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 1. Little interest or pleasure in doing things: not at all 2. Feeling down, depressed, or hopeless: not at all 3. Trouble falling or staying asleep, or sleeping too much: not at all 4. Feeling tired or having little energy: not at all 5. Poor appetite or overeating: not at all 6. Feeling bad about yourself - or that you are a failure or have let yourself or your family down: not at all 7. Trouble concentrating on things, such as reading the newspaper or watching television: not at all 8. Moving or speaking so slowly that other people could have noticed. Or the opposite - being so fidgety or restless that you have been moving around a lot more than usual: not at all 9. Thoughts that you would be better off or of hurting yourself in some way: not at all Total score: 0 Depression Screening Interpretation: Negative Depression Screening Done: Yes [id number] - PHQ-9 Billing: Yes Source: Developed by Drs. Major Pereira, Amelie Stoddard, Sonu Carey and colleagues, with an educational gurpreet from [employer]. Thrive Questionnaire Date Thrive assessed: 01/11/23 I am a: Patient What is your living situation today?: I have a steady place to live Within the past 12 months, did the food you bought not last and you didn't have the money to get more?: Never true Within the past 12 months, did you worry whether your food would run out before you got money to buy more?: Never true Do you have trouble paying for medicines?: No Do you have trouble getting transportation to medical appointments?: No Do you have trouble paying your heating and electricity bill?: No Do you have trouble taking care of your child, family member or friend?: No Do you have trouble with day-to-day activities such as bathing, preparing meals, shopping, managing finances, etc.?: No Are you currently unemployed and looking for a job?: No Are you interested in more education?: No Please select the resources that you would like help with: None Currently or been in a relationship where the following occur: no concerns reported AUDIT C Alcohol Use Questionnaire (AUDIT-C) 1. How often do you have a drink containing alcohol?: Never Total Score: 0 ASHOK-7 AMB Questionnaire ASHOK-7 Date ASHOK - 7 assessed: 01/11/23 Feeling nervous, anxious, or on edge: 0 = Not at all Not being able to stop or control worryin = Not at all Worrying too much about different things: 0 = Not at all Trouble relaxin = Not at all Being so restless that it is hard to sit still: 0 = Not at all Becoming easily annoyed or irritable: 0 = Not at all Feeling afraid as if something awful might happen: 0 = Not at all Total ASHOK-7 score (0-4 normal; 5-9 mild; 10-14 moderate; 15-21 severe): 0 Source: Developed by Drs. Major Pereira, Amelie Stoddard, Sonu Carey and colleagues, with an educational gurpreet from [employer]. ASHOK-7 Assessment Billing ASHOK-7 Assessment Tool: ASHOK-7 Assessment 22741 Review of Systems Const Denies chills, Denies fatigue, Denies fever(s) and Denies poor appetite Eyes Denies no additional complaints ENT Reports Normal hearing present Card Denies chest pain, Denies syncope, Denies rapid heart rate and Denies dyspnea Resp Denies cough and Denies dyspnea GI Denies change in stool character, Denies constipation, Denies diarrhea, Denies nausea and Denies vomiting Denies urinary frequency, Denies dysuria and Denies urinary urgency Neuro Reports Normal hearing present, Denies confusion and Denies syncope Psych Denies confusion Endo Denies fatigue Physical exam (Primary Care) Vital Signs: Last Vital Signs Pulse 72 01/11/23 10:11 BP 120/80 01/11/23 10:11 Pulse Ox 98 01/11/23 10:11 Oxygen Delivery Method Room Air 01/11/23 10:11 BMI result Body Mass Index 23.2 Tobacco/Smoking Status: Tobacco use Status Tobacco use date assessed 01/11/23 01/11/23 10:18 Patient Tobacco Use Status Never used Tobacco 01/11/23 10:28 e-Cigarette/Vaping Use Never Used 01/11/23 10:28 PHQ-9: PHQ-9 Score PHQ-9: Total score 0 01/11/23 10:41 Depression Screening Interpretation: Negative Thrive Assessment: Date of Thrive Assessment Date Thrive assessed 01/11/23 01/11/23 10:18 Currently or been in a relationship where the following occur: no concerns reported Const General: No confusion Orientation/consciousness: No confusion HENMT Head: Yes normocephalic and Yes atraumatic Ears: external ears normal and TM's normal bilaterally General nose exam: Normal external nose present and Normal nasal mucous membranes and turbinates present Face and sinus: Yes normal facial exam and Yes sinuses nontender Mouth: moist mucous membranes Throat: Yes tonsils normal Eyes Conjunctivae: conjunctivae normal Sclerae: sclerae normal Pupils: Equal, round and reactive pupils present and Pupils normal by confrontation EOM: EOMs intact bilaterally Direct Ophthalmoscopy: normal light reflex Neck Neck: Yes no lymphadenopathy and Yes supple Thyroid: Thyroid normal Chest Chest palpation & inspection: normal inspection of the chest Resp Effort & Inspection: normal respiratory effort Auscultation: clear to auscultation bilaterally, no crackles, no rhonchi and no wheezes Cardio Rate: regular rate Rhythm: regular rhythm Peripheral pulses: radial pulses present and dorsalis pedis present GI Inspection: Yes normal to inspection Palpation (GI): Soft to palpation, nontender and No hepatosplenomegaly present Auscultation: normoactive bowel sounds Skin General skin exam: no rashes or lesions noted Neuro General: No confusion Cranial nerves: Yes Equal, round and reactive pupils present and Yes Normal hearing present Cognition (Neuro): normal cognition Gait exam (Neuro): Normal gait present Motor exam (neuro): 5/5 motor strength present throughout Deep tendon reflexes (DTR's): Right brachioradialis reflex intensity grade: 2+, Left brachioradialis reflex intensity grade: 2+, Right patellar reflex intensity grade: 2+ and Left patellar reflex intensity grade: 2+ Extrem General: No edema Office Procedures Flu Questionnaire Does the patient have a severe egg allergy?: No Does the patient have severe life threatening allergies?: No Does the patient have a fever or illness today?: No Has the patient ever had Guillain-[place] Syndrome?: No Has the patient ever had any past reaction to a flu shot?: No Immunizations flu vacc [id number] 6mos up(PF) 60 mcg(15 mcgx4)/0.5 mL IM syringe Performing Provider: KERA Best Performing Location: [facility] Administered by: EMORY Peterson on 01/11/23 10:43 Dose Route Admin Location Dispensed Lot Number Expiration Date NDC [employer] 0.5 mL IM Left Deltoid 0.5 mL [id number] 09/12/23 14119-156-04 [employer] VIS Given Date VIS Provided VIS Publication Date 01/11/23 Single Vaccine 20 Eligibility Eligibility Date Funding Source Not [facility] Eligible 01/11/23 Private Assessment and Plan Assessment & Plan (1) Dizziness: Code(s): R42 - Dizziness and giddiness Plan: Complete blood work ordered. Holter monitor, tilt-table test and echocardiogram unremarkable in 2021. Follow-up in 2 months. (2) Chronic diarrhea: Code(s): K52.9 - Noninfective gastroenteritis and colitis, unspecified Plan: Continue to follow with gastroenterology. (3) Physical exam, annual: Code(s): Z00.00 - Encounter for general adult medical examination without abnormal findings Plan: Follow-up in 1 year Plan Follow-up in 2 months Orders: Orders Vitamin D 25-OH Total Today Z13.21 - Encounter for screening for nutritional disorder Complete Blood Count Auto Diff Today R42 - Dizziness and giddiness Comprehensive Met. Panel Today R42 - Dizziness and giddiness TSH reflex Free T4 Today Z13.29 - Encounter for screening for other suspected endocrine disorder Influenza [id number] Immunization Today Z23 - Encounter for immunization Coding Level of Care Code New Pt Prev Care 18-39yr(40110 Diagnoses Dizziness R42 Chronic diarrhea K52.9 Physical exam, annual Z00.00 Additional Codes ASHOK-7 Assessment Billing - ASHOK-7 Assessment Tool: ASHOK-7 Assessment 21313 ([id number])
[2023-01-11 10:11] VITALS: BP 120/80; PULSE 72; O2SAT 98; BMI 23.2
== END 2023-01-11 10:43 | disposition home or self-care (01) ==
PROVIDERS: PCP Nurse Practitioner Family; Visit Provider Nurse Practitioner Family
DX: Z00.00 Encounter for general adult medical examination without abnormal findings (principal); R42 Dizziness and giddiness; K52.9 Noninfective gastroenteritis and colitis, unspecified; Z23 Encounter for immunization
CPT/HCPCS: 90471; 90686; 99385

== ENCOUNTER 2023-01-11 10:49 | Outpatient (REF) | payer OTHER, SELFPAY ==
[2023-01-11 11:06] LABS: MANUAL DIFF FLAG NO
[2023-01-11 11:25] LABS: Basophils Percent Auto 0.5 % (0-2); Eosinophils Absolute Auto 0.1 X10*3/uL (0.0-0.4); Eosinophils Percent Auto 1.8 % (0-4); Hematocrit 42.6 % (37.0-47.0); Hemoglobin 14.8 g/dl (12.0-16.0); Imm Gran Abs Auto 0.01 X10*3/uL (0.00-0.03); Imm Gran Pct Auto 0.3 % (0.0-0.4); Lymphocytes Absolute Auto 1.2 X10*3/uL (1.2-4.9); Lymphocytes Percent Auto 32.1 % (20-40); Mean Corpuscular HGB Conc 34.7 g/dl (31.0-35.0); Mean Corpuscular Hemoglobin 29.2 pg (27.0-33.0); Monocytes Absolute Auto 0.4 X10*3/uL (0.1-1.2); Monocytes Percent Auto 9.4 % (2-11); Neutrophils Absolute Auto 2.1 x10*3/uL (2.0-8.3); Neutrophils Percent Auto 55.9 % (45-73); Platelet Count 211 X10*3/uL (160-400); Red Blood Count 5.07 X10*6/uL (4.20-5.50); Red Cell Distribution Width 12.2 % (11.0-16.0); White Blood Count 3.8 X10*3/uL (4.8-10.8)
[2023-01-11 12:07] LABS: Alanine Aminotransferase 10 U/L (0-31); Albumin Level 4.8 g/dL (3.5-5.0); Alkaline Phosphatase 84 U/L (39-117); Anion Gap 15 (12-20); Aspartate Amino Transferase 16 U/L (5-31); Blood Urea Nitrogen 12 mg/dL (9-16); Calcium 9.6 mg/dL (8.4-10.2); Carbon Dioxide 21 mmol/L (22-29); Chloride 108 mmol/L (96-108); Estimated Glomerular Filt Rate > 60; Glucose Random 97 mg/dL (60-115); Potassium 3.9 mmol/L (3.3-5.1); Sodium 140 mmol/L (135-145); Total Protein 7.8 g/dL (6.5-8.0)
[2023-01-11 12:24] LABS: TSH reflex Free T4 0.87 uIU/mL (0.32-4.0); Vitamin D 25-OH Total 14.4 ng/mL (>30)
== END 2023-01-11 10:50 | disposition home or self-care (01) ==
LOC: HO.LAB 10:49
PROVIDERS: PCP Nurse Practitioner Family; Visit Provider Nurse Practitioner Family
DX: R42 Dizziness and giddiness (principal); Z13.21 Encounter for screening for nutritional disorder; Z13.29 Encounter for screening for other suspected endocrine disorder
CPT/HCPCS: 36415; 80053; 82306; 84443; 85025

== ENCOUNTER 2023-01-14 08:53 | Outpatient (AMB) | payer OTHER, SELFPAY ==
--- NOTE | 2023-01-14 09:03 | A.OFFVIS_ITS ---
Intake Vital Signs 01/14/23 09:07 Height 5 ft 3 in Weight 134 lb BMI 23.7 BP 109/72 Blood Pressure Location Lt brachial Position Sitting Pulse 72 Intake Visit Reasons: follow up Intake Note: Patient follow up for EGD results Patient cc: Nauseas with vomiting on and off, denies any other GI issues. Stenographic Court Reporter Required: No Accompanied by: Self / Same As Patient Allergies No Known Allergies Allergy (Verified 01/14/23 09:03) HPI follow up HPI Details GI CLINIC VISIT FOR THIS 22-YEAR-OLD FEMALE FOR FU OF NAUSEA VOMITING DIARRHEA AND ABDOMINAL PAIN. Pt has a history of nutcracker syndrome,? 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 Pt scheduled for an urgent FU appt since she called with symptoms of nausea and vomiting: patient called to report she is experiencing nausea, about two episodes of vomiting daily for the last week as well as abdominal pain and red bloody mucus in her stools. Patient reports she has noted a decrease in her appetite. patient denies fever or chills. I advised patient that I would send a message to you to advise but that it will be likely that she will need to go to the ED for furthe eval as you do not have any availability soon. please advise IMAGING STUDIES:?05/02/21 GASTRIC EMPTYING STUDY SHOWED: Retention in the stomach at each time interval was: 1 hour 79% (normal 37%-90%) 2 hours 69% (normal 30%-60%) 3 hours 50% 4 hours 35% (normal 0%-10%) 02/2021 ABD US WITH DOPPLER SHOWED:Janay l appearing kidneys. 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 In the area of stenosis, velocity acceleration is seen as described above. 12/2020 UGISBFT SHOWED:No definite jejun al or ileal mucosal abnormality with limited evaluation of the terminal ileum. Rapid transit of contrast to the colon without need for delayed imaging. 09/06/[address] SCAN SHOWED:Small, small bowel mesentery lymph nodes. No enlarged lymph nodes seen. 2 x 3 cm right adnexal cyst. Question of cracker syndrome of the left renal vein. ENDOSCOPIC STUDIES: 12/25/22 EGS AND FLEX SIG SHOWED: STOMACH: Mild antral gastritis. Pyloric balloon dilation was performed with a 19 mm (57 F) CRE balloon x 60 seconds. Botox (100 Units) was injected into the pylorus (25 units in each quadrant) DUODENUM: Normal - biopsied to check for celiac sprue Flexible sigmoidoscopy Findings: Minimal rectal erythema - likely due to prep - biopsies were obtained to check for IBD BIOPSIES SHOWED: A. Stomach, antrum, biopsy: Gastric antral mucosa with mild chronic inactive gastritis; negative for Helicobacter pylori, intestinal metaplasia and dysplasia. B. Small bowel, biopsy: Small bowel mucosa within normal limits; preserved villous architecture and no increased intraepithelial lymphocytes seen. C. Colon, left, biopsy: Colonic mucosa within normal limits; negative for active, chronic or microscopic colitis 09/16/22 CAPSULE ENDOSCOPY SHOWED: esophagus was normal. nodular appearing stomach mucosa in proximal stomach, rest of mucosa was normal. Some delay of capsule into duodneum, with some erythema in bulb. Patchy erythema in mid and distal ileum with some congestion. Cecum not reached Conclusion: Nodular gastric mucosa possible gastroparesis patchy ileal erythema and erythema of duodenal bulb consider further work up with CTe or GES if clinical suspicion of gastroparesis check nsaid hx use check h pylori TODAY'S VISIT: EGD and flex sig results reviewed with the patient She was feeling better after the EGD. Has been feeling nauseous for the last few days after eating. Taking metoclopramide three times a day and has been helping. Certain days she has nausea and vomiting after eating. Eats a lot of rice, bread and cracker. Has been trying to do smoothies. Does not eat breakfast in the am. Has nausea and gagging when she wakes up Eats lunch and dinner. Intermittent reflux symptoms Planning to have a Thanksgiving with her friends and separate dinner at her Mom's PAST VISITS: Noted nausea and vomiting and abdominal pain since last week Thought she had a stomach bug usually upto 2 episodes a day Feels a knot in her stomach and then food comes up Not always related to eating. Has a cramping feeling after eating. Also has diarrhea with 2-3 BMs a day. Intermittent dysphagia to liquids. Taking Metoclopramide twice a day and nausea medication prn Nausea medication works in 15 to 20 min if she takes it early enough Patient follow up of gastroparesis. Difficult to keep anything down for the past week Any time she eats anything and has post prandial vomiting Does not eat big meals - takes rice, beans and pasta Patient denies any GI issues. Appetite has improved with medications. Still has intermittent right lower abd cramps. Can wake up from sleep because of abdominal pain. Has been doing ok. Medication is helping - makes her feel drowsy - feels like a Zombie. Has cramps and feels sick in the morning. Has upset stomach if she eats breakfast. Has a small lunch. Continues to have RLQ pain and diarrhea 1-2 times a day with watery stools with mucous and no blood. Has gained some wt after thansgiving. Had surgery in June at [facility] in [place] and everything was ok Was not eating much for 3-4 months after the surgery. Once her appetite came back and she started eating more, she started feeling sick Bad cramps in the lower portion of the stomach - feels worse after taking breakfast Has been skipping breakfast. Has been trying to eat small portions. Some days she tries to eat and had to spit it back out due to nausea or smell of food. Lost a lot of wt after the surgery.? Started gaining the wt back 2 months ago. Denies dysphagia or change in BMs. Started feeling sick again Taking Promethazine every other day with partial control of nausea Continues to have nausea sometimes after she eats. Diagnosed with left renal vein stenosis and being scheduled for left renal vein stent placement at [facility] [place] by Dr Del Real Did not have stent placed - additinal contrast studies are planned And possible surgery Abd pain is attributed to above. Notes nausea when she wakes up in the morning and goes away in 1-2 hrs. Does not have an appetite - feels full until dinner. Feels sick if she forces herself to eat. A GES at [facility] [place] 1-2 yrs ago was normal. Feeling about the same. Hurts a lot when her bladder feels full before she has to use the bathroom. The pain goes away and it feels sore to touch in the lower stomach area. Denies pain with BMs. Denies having any diarrhea - has a formed BM 2-3 times a day Has not been feeling as nauseous lately and takes Seeing a Credit Analysis Manager and being referred to a urologist. Started having abdominal pain at age 15 yrs. Pain is left sided and radiates to the lower abdomen - sometimes radiates to the back. Feels like bad cramping and hurts to walk. Unable to identify precipitating factors - sometimes after eating - no clear precipitating foods. Can have pain when she is hungry. No clear relieving factors - tries to lay down and relax. Notes nausea after eating - no vomiting. Has 3-4 BMs a day without loose or hard stools. Can have diarrhea once every couple of weeks - lasts for a day and resolves spontaneously. Notes mucous in the stool and denies rectal bleeding. Eats once a day - takes a couple of bites and feels full after. Patient denies symptoms of heartburn, dysphagia, change in appetite or weight.? Denies recent change in bowel habits, constipation, diarrhea, black stools or rectal bleeding. Wt loss of 30 lbs - lost in Feb 2020 and has not been able to gain it back. Gains a few lbs and then looses wt again. Has a Depo shot every 3 months - does not have a period just intermittent spotting Notes pain in knees and hips - played soccer and soft ball. Denies mouth ulcers or eye problems. Tried different diets in the past - without a change in symptoms. Taking rice, beans and chicken at present. Tried Omeprazole and Pepcid and was not helpful Patient denies major cardiac or pulmonary problems, loud snoring or sleep apnea Denies problems with anesthesia in the past. Denies being on chronic anticoagulation, aspirin or NSAIDS. Mom had H Pylori - has similar symptoms as the patient - takes Omeprazole and feels fine. Patient denies known family history of colon polyps, colon cancer or other GI malignancies. Paternal GM of stomach cancer. Works for [employer]. Lives with Mom and has no?children [facility] Medical History (Updated 01/14/23 @ 09:38 by Jass Fung MD) No active medical problems Surgical History Hx of abdominal surgery History of esophagogastroduodenoscopy (EGD) Hx of colonoscopy Family History Paternal Grandmother Stomach cancer Family/Other Substance use disorder Mental health disorder Social History Household Members Other:: lives with mom Housing: House Alcohol intake: current Alcohol intake frequency: holidays/special occasions only Patient Tobacco Use Status: Never used Tobacco e-Cigarette/Vaping Use: Never Used Second Hand Smoke Exposure: No Substance Use Type: Marijuana service: No Current occupational status: unemployed 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 Cognitive needs: No Hearing needs: No Vision needs: No Review of Systems Const All systems reviewed & are unremarkable except as noted in HPI and below Physical Exam Vital Signs: Last Vital Signs Pulse 72 01/14/23 09:07 BP 109/72 01/14/23 09:07 BMI result Body Mass Index 23.7 Const General: healthy appearing and no acute distress Nutritional Appearance: average body habitus Orientation/consciousness: patient oriented x3 Limitations: no limitations HEENT Head: Yes normal to inspection Ears: hearing grossly normal bilaterally Eyes Sclerae: sclerae normal Pupils: Equal, round and reactive pupils present Neck Neck: Yes normal visual inspection Chest Chest palpation & inspection: normal inspection of the chest Resp Effort & Inspection: normal respiratory effort Auscultation: clear to auscultation bilaterally Cardio Palpation: normal PMI Rate: regular rate Rhythm: regular rhythm Heart sounds: S1 normal heart sound present, S2 normal heart sound present and no murmurs GI Inspection: Yes scar (midline) Palpation (GI): Soft to palpation, nontender and No hepatosplenomegaly present Auscultation: normal bowel sounds Rectal Exam - Female: deferred Skin General skin exam: no rashes or lesions noted Neuro General: patient oriented x3, gait normal and moves all extremities Cranial nerves: Yes Equal, round and reactive pupils present Psych Appearance: grossly normal Mental Status: mental status grossly normal Assessment & Plan Assessment & Plan (1) Gastroparesis: Code(s): K31.84 - Gastroparesis (2) Ileitis, regional: Code(s): K50.00 - Crohn's disease of small intestine without complications (3) Chronic diarrhea: Code(s): K52.9 - Noninfective gastroenteritis and colitis, unspecified (4) Abdominal pain: Code(s): R10.9 - Unspecified abdominal pain (5) Nausea and vomiting: Code(s): R11.2 - Nausea with vomiting, unspecified (6) GERD (gastroesophageal reflux disease): Code(s): K21.9 - Gastro-esophageal reflux disease without esophagitis Plan 22 YF with depression followed in GI for abdominal pain, nausea, vomiting and chronic diarrhea. 04/2016 EGD AND COLONOSCOPY performed at [facility] [place] [facility] were normal with chronic gastritis on stomach biopsies. 09/2017 EGD was normal with normal biopsies from esophagus stomach and duodenum. ? 08/[address] scan showed?Small, small bowel mesentery lymph nodes. No enlarged lymph nodes seen. 2 x 3 cm right adnexal cyst. Question of cracker syndrome of the left renal ve in. UGI with SBFT was normal. Celiac and IBD serologies were negative and fecal calprotectin was not approved by her insurance GES showed gastroparesis.? Patient handout on gastroparesis from up-to-date was given to the patient Pt advised dietary modification for gastroparesis and start Metoclopramide 5 mg three times daily for gastroparesis on her previous visit. Advised to decrease Metoclopramide to 1-2 times daily due to drowsiness Continue promethazine for nausea and dicyclomine at bedtime for abdominal pain. 05/14/22 Pt advised to schedule a Capsule Study (with patency test) to rule out Crohn's disease (intermittent RLQ pain which can wake her up at night and diarrhea) 10/08/22 Pt advised to go on a liquid diet x 24 hours and then blenderized food until nausea and vomiting resolves Continue Metoclopramide 5 mg twice a day Switch from promethazine to prochlorperazine for nausea and vomting Re submit stool for fecal calprotectin 12/24/22 Pt advised to schedule an EGD and flex sig - done 12/25/22 Increase Metoclopramide to three times a day (instead of twice daily) 01/14/23 Pt advised a trail of blendarized diet and start Omeprazole at bedtime for GERD (Increase to twice daily if symptoms persist after a week) FU in 6 weeks Medications: New omeprazole 20 mg PO BID 30 days 60 tabs 2RF K21.9 - Gastro-esophageal reflux disease without esophagitis Coding Level of Care Code Est Pt Level 4 (11500) Diagnoses Gastroparesis K31.84 Ileitis, regional K50.00 Chronic diarrhea K52.9 Abdominal pain R10.9 Nausea and vomiting R11.2 GERD (gastroesophageal reflux disease) K21.9 Time Spent (min) 24
[2023-01-14 09:07] VITALS: BP 109/72; PULSE 72; BMI 23.7
== END 2023-01-14 10:35 | disposition home or self-care (01) ==
PROVIDERS: PCP Nurse Practitioner Family; Visit Provider Internal Medicine Gastroenterology
DX: K31.84 Gastroparesis (principal); K50.00 Crohn's disease of small intestine without complications; K52.9 Noninfective gastroenteritis and colitis, unspecified; R10.9 Unspecified abdominal pain; R11.2 Nausea with vomiting, unspecified; K21.9 Gastro-esophageal reflux disease without esophagitis
CPT/HCPCS: 99214

== ENCOUNTER → 2023-01-14 08:53 | Outpatient (BNVA) | payer OTHER, SELFPAY | PROVIDERS: PCP Nurse Practitioner Family; Visit Provider Internal Medicine Gastroenterology | DX: K31.84 Gastroparesis (principal); K50.00 Crohn's disease of small intestine without complications; K52.9 Noninfective gastroenteritis and colitis, unspecified; K21.9 Gastro-esophageal reflux disease without esophagitis; R10.9 Unspecified abdominal pain; R11.2 Nausea with vomiting, unspecified | CPT/HCPCS: 99212 ==

== ENCOUNTER 2023-02-22 09:19 | Outpatient (AMB) | payer OTHER, SELFPAY ==
[2023-02-22 09:29] VITALS: BP 108/78; PULSE 66; O2SAT 97; BMI 23.6
--- NOTE | 2023-02-22 09:29 | MHC.PC.OV ---
Vital Signs 02/22/23 09:29 Height 5 ft 3 in Weight 133 lb 4 oz BMI 23.6 BP 108/78 Blood Pressure Location Lt brachial Position Sitting Pulse 66 Pulse Source Pulse Oximeter Pulse Oximetry (%) 97 Oxygen Delivery Method Room Air Intake Visit Reasons: Dizziness Glove Maker Required: No Accompanied by: Self / Same As Patient Allergies No Known Allergies Allergy (Verified 02/22/23 09:29) Tobacco use date assessed: 01/11/23 Dental Screening Dental Screen Date: 02/22/23 Did you have a dental visit in the last 12 months?: No Did you have a dental problem in the last 6 months where you did not have access to dental care?: No Was dental information given to patient?: Patient has dentist HPI HPI Comments History of Present Illness Details 22-year-old female past medical history significant for gastroparesis, chronic diarrhea, nausea vomiting depression. Patient presents today for dizziness follow up. Patient states episodes are happening more frequently 1-2x per week she will get really dizzy while standing and her vision will go black. Patient states she immediately sits down to prevent syncope. Patient reports not syncopal epissodes since carnival in October 2022 Patient reports hx of dizzy spells in the past, patient reports had a dizzy spell and a carnival in October her where she did lose consciousness and collapsed. Patient reports has been seen by Cardiology in the past for this Holter monitor unremarkable, tilt-table test unremarkable, echocardiogram showed normal heart structure. There was no evidence of autonomic dysfunction and/or cardiac arrhythmias with normal structure of the heart. Labs unremarkable. Patient denies any chest pain, palpitations, shortness of breath.Will refer to neurology for further evaluation on dizziness [facility] Medical History (Updated 01/14/23 @ 10:07 by KERA Best) No active medical problems Surgical History Hx of abdominal surgery History of esophagogastroduodenoscopy (EGD) Hx of colonoscopy Family History Paternal Grandmother Stomach cancer Family/Other Substance use disorder Mental health disorder Social History Household Members Other:: lives with mom Housing: House Alcohol intake: current Alcohol intake frequency: holidays/special occasions only Patient Tobacco Use Status: Never used Tobacco e-Cigarette/Vaping Use: Never Used Second Hand Smoke Exposure: No Substance Use Type: Marijuana service: No Current occupational status: unemployed 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 Major Pereira, Amelie Stoddard, Sonu Carey and colleagues, with an educational gurpreet from [employer]. Review of Systems Const Denies chills, Denies fatigue, Denies fever(s) and Denies poor appetite Eyes Denies no additional complaints ENT Reports Normal hearing present Card Denies chest pain, Denies syncope, Denies rapid heart rate and Denies dyspnea Resp Denies cough and Denies dyspnea GI Denies change in stool character, Denies constipation, Denies diarrhea, Denies nausea and Denies vomiting Denies urinary frequency, Denies dysuria and Denies urinary urgency Neuro Reports Normal hearing present, Denies confusion and Denies syncope Psych Denies confusion Endo Denies fatigue Physical exam (Primary Care) Vital Signs: Last Vital Signs Pulse 66 02/22/23 09:29 BP 108/78 02/22/23 09:29 Pulse Ox 97 02/22/23 09:29 Oxygen Delivery Method Room Air 02/22/23 09:29 BMI result Body Mass Index 23.6 Tobacco/Smoking Status: Tobacco use Status Tobacco use date assessed 01/11/23 02/22/23 09:36 Patient Tobacco Use Status Never used Tobacco 02/22/23 09:36 e-Cigarette/Vaping Use Never Used 02/22/23 09:36 Thrive Assessment: Date of Thrive Assessment Date Thrive assessed 01/11/23 02/22/23 09:36 Const General: No confusion Orientation/consciousness: No confusion HENMT Head: Yes normocephalic and Yes atraumatic Eyes Conjunctivae: conjunctivae normal Chest Chest palpation & inspection: normal inspection of the chest Resp Effort & Inspection: normal respiratory effort Auscultation: clear to auscultation bilaterally, no crackles, no rhonchi and no wheezes Cardio Rate: regular rate Rhythm: regular rhythm Heart sounds: S1 normal heart sound present and S2 normal heart sound present GI Inspection: Yes normal to inspection Neuro General: No confusion Cranial nerves: Yes Normal hearing present Extrem General: No edema Assessment and Plan Assessment & Plan (1) Dizziness: Code(s): R42 - Dizziness and giddiness Plan: Prior cardiac workup unremarkable, labs unremarkable. Will refer to neurology for further evaluation Patient advised to stay hyrdrated and drink plenty of fluids Plan Follow up in 6 months or sooner if needed. Orders: Referrals Neurology Referral R42 - Dizziness and giddiness Medications: New azithromycin For 250 mg dose pack: take 500 mg today (day 1), then 250 mg for 4 days (days 2-5) PO 6 tabs 0RF Coding Level of Care Code Est Pt Level 3 (33422) Diagnoses Dizziness R42
== END 2023-02-22 10:05 | disposition home or self-care (01) ==
PROVIDERS: PCP Nurse Practitioner Family; Visit Provider Nurse Practitioner Family
DX: R42 Dizziness and giddiness (principal)
CPT/HCPCS: 99213

== ENCOUNTER 2023-02-25 08:08 | Outpatient (AMB) | payer OTHER, SELFPAY ==
--- NOTE | 2023-02-25 08:28 | A.OFFVIS_ITS ---
Intake Vital Signs 02/25/23 08:29 Height 5 ft 3 in Weight 133 lb BMI 23.6 BP 115/65 Blood Pressure Location Lt brachial Position Sitting Pulse 78 Intake Visit Reasons: follow up / abd pain Intake Note: Patient follow up for abdominal pain. Patient denies any GI issues. 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 Pt has a history of nutcracker syndrome,? 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 Pt scheduled for an urgent FU appt since she called with symptoms of nausea and vomiting: patient called to report she is experiencing nausea, about two episodes of vomiting daily for the last week as well as abdominal pain and red bloody mucus in her stools. Patient reports she has noted a decrease in her appetite. patient denies fever or chills. I advised patient that I would send a message to you to advise but that it will be likely that she will need to go to the ED for furthe eval as you do not have any availability soon. please advise IMAGING STUDIES:?05/02/21 GASTRIC EMPTYING STUDY SHOWED: Retention in the stomach at each time interval was: 1 hour 79% (normal 37%-90%) 2 hours 69% (normal 30%-60%) 3 hours 50% 4 hours 35% (normal 0%-10%) 02/2021 ABD US WITH DOPPLER SHOWED:Janay l appearing kidneys. Findings are suggestive of nut crackersyndrome, similar to the CT scan with narrowing of the renal vein between the aorta and SMA. In the area of stenosis, velocity acceleration is seen as described above. 12/2020 UGISBFT SHOWED:No definite jejun al or ileal mucosal abnormality with limited evaluation of the terminal ileum.Rapid transit of contrast to the colon without need for delayed imaging. 09/06/[address] SCAN SHOWED:Small, small bowel mesentery lymph nodes. No enlarged lymph nodes seen. 2 x 3 cm right adnexal cyst. Question of cracker syndrome of the left renal vein. ENDOSCOPIC STUDIES: 12/25/22 EGS AND FLEX SIG SHOWED: STOMACH: Mild antral gastritis. Pyloric balloon dilation was performed with a 19 mm (57 F) CRE balloon x 60 seconds. Botox (100 Units) was injected into the pylorus (25 units in each quadrant) DUODENUM: Normal - biopsied to check for celiac sprue Flexible sigmoidoscopy Findings: Minimal rectal erythema - likely due to prep - biopsies were obtained to check for IBD BIOPSIES SHOWED: A. Stomach, antrum, biopsy: Gastric antral mucosa with mild chronic inactive gastritis; negative for Helicobacter pylori, intestinal metaplasia and dysplasia. B. Small bowel, biopsy: Small bowel mucosa within normal limits; preserved villous architecture and no increased intraepithelial lymphocytes seen. C. Colon, left, biopsy: Colonic mucosa within normal limits; negative for active, chronic or microscopic colitis 09/16/22 CAPSULE ENDOSCOPY SHOWED: esophagus was normal. nodular appearing stomach mucosa in proximal stomach, rest of mucosa was normal. Some delay of capsule into duodneum, with some erythema in bulb. Patchy erythema in mid and distal ileum with some congestion. Cecum not reached Conclusion: Nodular gastric mucosa possible gastroparesis patchy ileal erythema and erythema of duodenal bulb consider further work up with CTe or GES if clinical suspicion of gastroparesis check nsaid hx use check h pylori TODAY'S VISIT: feels Ok - about the same Nausea is not as bad - still has nausea in the morning and does not eat till 1-2 pm Denies recent vomiting Taking metoclopramide three times a day before meals Has a bad cough with phlegm and acid for the past month Saw her PCP and prescribed antibiotics - cough has not improved - gotton worse PAST VISITS: EGD and flex sig results reviewed with the patient She was feeling better after the EGD. Has been feeling nauseous for the last few days after eating. Taking metoclopramide three times a day and has been helping. Certain days she has nausea and vomiting after eating. Eats a lot of rice, bread and cracker. Has been trying to do smoothies. Does not eat breakfast in the am. Has nausea and gagging when she wakes up Eats lunch and dinner. Intermittent reflux symptoms Planning to have a Thanksgiving with her friends and separate dinner at her Mom's Noted nausea and vomiting and abdominal pain since last week Thought she had a stomach bug usually upto 2 episodes a day Feels a knot in her stomach and then food comes up Not always related to eating. Has a cramping feeling after eating. Also has diarrhea with 2-3 BMs a day. Intermittent dysphagia to liquids. Taking Metoclopramide twice a day and nausea medication prn Nausea medication works in 15 to 20 min if she takes it early enough Patient follow up of gastroparesis. Difficult to keep anything down for the past week Any time she eats anything and has post prandial vomiting Does not eat big meals - takes rice, beans and pasta Patient denies any GI issues. Appetite has improved with medications. Still has intermittent right lower abd cramps. Can wake up from sleep because of abdominal pain. Has been doing ok. Medication is helping - makes her feel drowsy - feels like a Zombie. Has cramps and feels sick in the morning. Has upset stomach if she eats breakfast. Has a small lunch. Continues to have RLQ pain and diarrhea 1-2 times a day with watery stools with mucous and no blood. Has gained some wt after thansgiving. Had surgery in June at [facility] in [place] and everything was ok Was not eating much for 3-4 months after the surgery. Once her appetite came back and she started eating more, she started feeling sick Bad cramps in the lower portion of the stomach - feels worse after taking breakfast Has been skipping breakfast. Has been trying to eat small portions. Some days she tries to eat and had to spit it back out due to nausea or smell of food. Lost a lot of wt after the surgery.? Started gaining the wt back 2 months ago. Denies dysphagia or change in BMs. Started feeling sick again Taking Promethazine every other day with partial control of nausea Continues to have nausea sometimes after she eats. Diagnosed with left renal vein stenosis and being scheduled for left renal vein stent placement at [facility] by Dr Del Real Did not have stent placed - additinal contrast studies are planned And possible surgery Abd pain is attributed to above. Notes nausea when she wakes up in the morning and goes away in 1-2 hrs. Does not have an appetite - feels full until dinner. Feels sick if she forces herself to eat. A GES at [facility] 1-2 yrs ago was normal. Feeling about the same. Hurts a lot when her bladder feels full before she has to use the bathroom. The pain goes away and it feels sore to touch in the lower stomach area. Denies pain with BMs. Denies having any diarrhea - has a formed BM 2-3 times a day Has not been feeling as nauseous lately and takes Seeing a Senior Sql Developer and being referred to a urologist. Started having abdominal pain at age 15 yrs. Pain is left sided and radiates to the lower abdomen - sometimes radiates to the back. Feels like bad cramping and hurts to walk. Unable to identify precipitating factors - sometimes after eating - no clear precipitating foods. Can have pain when she is hungry. No clear relieving factors - tries to lay down and relax. Notes nausea after eating - no vomiting. Has 3-4 BMs a day without loose or hard stools. Can have diarrhea once every couple of weeks - lasts for a day and resolves sp ontaneously. Notes mucous in the stool and denies rectal bleeding. Eats once a day - takes a couple of bites and feels full after. Patient denies symptoms of heartburn, dysphagia, change in appetite or weight.? Denies recent change in bowel habits, constipation, diarrhea, black stools or rectal bleeding. Wt loss of 30 lbs - lost in Feb 2020 and has not been able to gain it back. Gains a few lbs and then looses wt again. Has a Depo shot every 3 months - does not have a period just intermittent spotting Notes pain in knees and hips - played soccer and soft ball. Denies mouth ulcers or eye problems. Tried different diets in the past - without a change in symptoms. Taking rice, beans and chicken at present. Tried Omeprazole and Pepcid and was not helpful Patient denies major cardiac or pulmonary problems, loud snoring or sleep apnea Denies problems with anesthesia in the past. Denies being on chronic anticoagulation, aspirin or NSAIDS. Mom had H Pylori - has similar symptoms as the patient - takes Omeprazole and feels fine. Patient denies known family history of colon polyps, colon cancer or other GI malignancies. Paternal GM of stomach cancer. 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 Lives with Mom and has no?children [facility] Medical History (Updated 02/25/23 @ 09:17 by Jass Fung MD) No active medical problems Surgical History Hx of abdominal surgery History of esophagogastroduodenoscopy (EGD) Hx of colonoscopy Family History Paternal Grandmother Stomach cancer Family/Other Substance use disorder Mental health disorder Social History Household Members Other:: lives with mom Housing: House Alcohol intake: current Alcohol intake frequency: holidays/special occasions only Patient Tobacco Use Status: Never used Tobacco e-Cigarette/Vaping Use: Never Used Second Hand Smoke Exposure: No Substance Use Type: Marijuana service: No Current occupational status: unemployed 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 Cognitive needs: No Hearing needs: No Vision needs: No Review of Systems Const All systems reviewed & are unremarkable except as noted in HPI and below Physical Exam Vital Signs: Last Vital Signs Pulse 78 02/25/23 08:29 BP 115/65 02/25/23 08:29 BMI result Body Mass Index 23.6 Const General: healthy appearing and no acute distress Nutritional Appearance: average body habitus Orientation/consciousness: patient oriented x3 Limitations: no limitations HEENT Head: Yes normal to inspection Ears: hearing grossly normal bilaterally Eyes Sclerae: sclerae normal Pupils: Equal, round and reactive pupils present Neck Neck: Yes normal visual inspection Chest Chest palpation & inspection: normal inspection of the chest Resp Effort & Inspection: normal respiratory effort Auscultation: clear to auscultation bilaterally Cardio Palpation: normal PMI Rate: regular rate Rhythm: regular rhythm Heart sounds: S1 normal heart sound present, S2 normal heart sound present and no murmurs GI Palpation (GI): Soft to palpation, nontender and No hepatosplenomegaly present Auscultation: normal bowel sounds Rectal Exam - Female: deferred Skin General skin exam: no rashes or lesions noted Neuro General: patient oriented x3, gait normal and moves all extremities Cranial nerves: Yes Equal, round and reactive pupils present Psych Appearance: grossly normal Mental Status: mental status grossly normal Assessment & Plan Assessment & Plan (1) GERD (gastroesophageal reflux disease): Code(s): K21.9 - Gastro-esophageal reflux disease without esophagitis (2) Gastroparesis: Code(s): K31.84 - Gastroparesis (3) Chronic diarrhea: Code(s): K52.9 - Noninfective gastroenteritis and colitis, unspecified (4) Abdominal pain: Code(s): R10.9 - Unspecified abdominal pain (5) Nausea and vomiting: Code(s): R11.2 - Nausea with vomiting, unspecified Plan 22 YF with depression followed in GI for abdominal pain, nausea, vomiting and ch ronic diarrhea. 04/2016 EGD AND COLONOSCOPY performed at [facility] were normal with chronic gastritis on stomach biopsies. 09/2017 EGD was normal with normal biopsies from esophagus stomach and duodenum. ? 08/[address] scan showed?Small, small bowel mesentery lymph nodes. No enlarged lymph nodes seen. 2 x 3 cm right adnexal cyst. Question of cracker syndrome of the left renal vein. UGI with SBFT was normal. Celiac and IBD serologies were negative and fecal calprotectin was not approved by her insurance GES showed gastroparesis.? Patient handout on gastroparesis from up-to-date was given to the patient Pt advised dietary modification for gastroparesis and start Metoclopramide 5 mg three times daily for gastroparesis on her previous visit. Advised to decrease Metoclopramide to 1-2 times daily due to drowsiness Continue promethazine for nausea and dicyclomine at bedtime for abdominal pain. 05/14/22 Pt advised to schedule a Capsule Study (with patency test) to rule out Cr ohn's disease (intermittent RLQ pain which can wake her up at night and diarrhea) 10/08/22 Pt advised to go on a liquid diet x 24 hours and then blenderized food until nausea and vomiting resolves Continue Metoclopramide 5 mg twice a day Switch from promethazine to prochlorperazine for nausea and vomting Re submit stool for fecal calprotectin 12/24/22 Pt advised to schedule an EGD and flex sig - done 12/25/22 Increase Metoclopramide to three times a day (instead of twice daily) 01/14/23 Pt advised a trail of blendarized diet and start Omeprazole at bedtime for GERD (Increase to twice daily if symptoms persist after a week) 12/14/23 Pt advised to take Famotidine 20 mg at bedtime for nocturnal cough (suspected GERD) FU in 4 months Medications: New famotidine 20 mg PO BEDTIME 30 days 30 tabs 3RF K21.9 - Gastro-esophageal reflux disease without esophagitis metoclopramide HCl 10 mg PO .Q 8 hrly 90 days 300 tabs 1RF nausea and vomiting metoclopramide HCl 5 mg (1/2 x 10 mg) PO .Q 8 hrly 300 tabs 1RF nausea and vomiting 90 days Coding Level of Care Code Est Pt Level 4 (04054) Diagnoses GERD (gastroesophageal reflux disease) K21.9 Gastroparesis K31.84 Chronic diarrhea K52.9 Abdominal pain R10.9 Nausea and vomiting R11.2 Time Spent (min) 21
[2023-02-25 08:29] VITALS: BP 115/65; PULSE 78; BMI 23.6
== END 2023-02-25 09:20 | disposition home or self-care (01) ==
PROVIDERS: PCP Nurse Practitioner Family; Visit Provider Internal Medicine Gastroenterology
DX: K21.9 Gastro-esophageal reflux disease without esophagitis (principal); K31.84 Gastroparesis; K52.9 Noninfective gastroenteritis and colitis, unspecified; R10.9 Unspecified abdominal pain; R11.2 Nausea with vomiting, unspecified
CPT/HCPCS: 99214

== ENCOUNTER 2023-02-25 08:08 | Outpatient (REF) | payer OTHER, SELFPAY ==
[2023-02-25 10:50] LABS: Anion Gap 13 (12-20); Blood Urea Nitrogen 10 mg/dL (9-16); Carbon Dioxide 24 mmol/L (22-29); Chloride 107 mmol/L (96-108); Estimated Glomerular Filt Rate > 60; Glucose Random 93 mg/dL (60-115); Potassium 4.1 mmol/L (3.3-5.1); Sodium 140 mmol/L (135-145)
[2023-02-25 11:03] LABS: Estimated Average Glucose 97 mg/dL
== END 2023-02-25 08:09 | disposition home or self-care (01) ==
LOC: HO.LAB 08:08
PROVIDERS: Internal Medicine; PCP Nurse Practitioner Family; Visit Provider Internal Medicine Gastroenterology
DX: I87.1 Compression of vein (principal); M54.6 Pain in thoracic spine; G89.29 Other chronic pain; K21.9 Gastro-esophageal reflux disease without esophagitis; K31.84 Gastroparesis; K52.9 Noninfective gastroenteritis and colitis, unspecified; R10.9 Unspecified abdominal pain; R11.2 Nausea with vomiting, unspecified
CPT/HCPCS: 36415; 80048; 83036; 99212

== ENCOUNTER 2023-04-15 09:16 | Outpatient (REF) | payer OTHER, SELFPAY ==
[2023-04-15 11:30] LABS: Vitamin D 25-OH Total 11.5 ng/mL (>30)
== END 2023-04-15 09:17 | disposition home or self-care (01) ==
LOC: HO.LAB 09:16
PROVIDERS: Visit Provider Nurse Practitioner Family
DX: E55.9 Vitamin D deficiency, unspecified (principal)
CPT/HCPCS: 36415; 82306

== ENCOUNTER 2023-05-17 07:58 | Outpatient (AMB) | payer OTHER, SELFPAY ==
--- NOTE | 2023-05-17 08:08 | MHC.OFFVIS ---
Intake Vital Signs 05/17/23 08:20 05/17/23 09:20 05/17/23 09:24 05/17/23 09:26 Height 5 ft 3 in Weight 138 lb 2 oz BMI 24.5 BP 124/60 120/62 120/60 100/62 Blood Pressure Location Lt brachial Lt brachial Lt brachial Lt brachial Position Sitting Supine Semi Martinez's Standing Pulse 72 Pulse Source Pulse Oximeter Pulse Oximetry (%) 97 Oxygen Delivery Method Room Air Intake Visit Reasons: [employer]: Dizziness & giddiness -CONF w/address Intake Note: Patient presents for Difficult staying at sleep and gets up a lot, during the day blurry vision and feeling dizzy Allergies No Known Allergies Allergy (Verified 05/17/23 08:18) HPI HPI Comments History of Present Illness Details 22 y/o female patient presents for new in-person visit for dizziness. Pt has nutcracker syndrome, and had surgery to move renal artery. She reports dizziness, it has been ongoing issue but it happens more frequent after the surgery. Bending over, standing long time triggers blurred vision, hand shaking and then dizziness. At the first time she had the dizziness while she was working. 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 She gets light headiness, vision gets dark and room spinning, and things moving around. Laying down, and closing her eyes helps to reduce dizziness. Pt describes the dizziness is not room spinning all the time, but mostly light headedness, and difficulty breathing. She was evaluated by rn access and had Holter monitor, and the result was normal. She drinks enough water daily. She has occasional left side neck pain. James hearing problem. She fainted November, she was standing in line long time at fair, and get lightheadedness and dizziness and faint. She wakes up quick, drinking water and having fried Oreo helped her energy back and able to walk around. Pt also reports headache, couple of times a week. It is sharp pain on her front head, it stays there on one spot. Her headache is associated with light sensitivity and eye pain. However, the headache is not associated with the dizziness all the times. She smoke marijuana occasionally. [facility] Medical History (Updated 05/19/23 @ 08:21 by Edelmira Morley CNP) No active medical problems Surgical History Hx of abdominal surgery History of esophagogastroduodenoscopy (EGD) Hx of colonoscopy Family History Paternal Grandmother Stomach cancer Family/Other Substance use disorder Mental health disorder Social History Household Members Other:: lives with mom Housing: House Alcohol intake: current Alcohol intake frequency: holidays/special occasions only Patient Tobacco Use Status: Never used Tobacco e-Cigarette/Vaping Use: Never Used Second Hand Smoke Exposure: No Substance Use Type: Marijuana service: No Current occupational status: unemployed 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 Cognitive needs: No Hearing needs: No Vision needs: No Review of Systems Const All systems reviewed & are unremarkable except as noted in HPI and below Physical Exam Vital Signs: Last Vital Signs Pulse 72 05/17/23 08:20 BP 100/62 05/17/23 09:26 Pulse Ox 97 05/17/23 08:20 Oxygen Delivery Method Room Air 05/17/23 08:20 BMI result Body Mass Index 24.5 Const General: cooperative Nutritional Appearance: average body habitus Orientation/consciousness: patient oriented x3 Neck Neck: Yes full ROM and Yes supple Resp Effort & Inspection: normal respiratory effort Neuro General: patient oriented x3 Cranial nerves: Yes CN's II-XII intact bilaterally Cognition (Neuro): normal cognition Gait exam (Neuro): Normal gait present Motor exam (neuro): 5/5 motor strength present throughout Psych Appearance: grossly normal Mental Status: mental status grossly normal Speech and movement: Normal speech and movement present Affect: normal affect Assessment & Plan Assessment & Plan (1) Dizziness: Code(s): R42 - Dizziness and giddiness (2) Migraine without aura: Code(s): G43.009 - Migraine without aura, not intractable, without status migrainosus Plan Advised patient to try vestibular therapy for dizziness. Encouraged patient to drink enough fluid daily to prevent light headedness. Dizziness can be from migraine. Advised patient to try magnesium 400 mg qHS and vitamin B2 400 mg daily to prevent headache. Monitor the headache frequency and intensity. Orders: Orders PT Evaluation and Treatment 05/17/23 R42 - Dizziness and giddiness Medications: New magnesium oxide 400 mg PO BEDTIME 30 days 30 tabs 6RF riboflavin (vitamin B2) 400 mg PO DAILY 30 days 30 tabs 6RF Coding Level of Care Code New Pt Level 4 (00574) Diagnoses Dizziness R42 Migraine without aura G43.009
[2023-05-17 08:20] VITALS: BP 124/60; PULSE 72; O2SAT 97; BMI 24.5
[2023-05-17 09:20] VITALS: BP 120/62
[2023-05-17 09:24] VITALS: BP 120/60
[2023-05-17 09:26] VITALS: BP 100/62
== END 2023-05-17 09:23 | disposition home or self-care (01) ==
PROVIDERS: PCP Nurse Practitioner Family; Visit Provider Nurse Practitioner Family
DX: R42 Dizziness and giddiness (principal); G43.009 Migraine without aura, not intractable, without status migrainosus
CPT/HCPCS: 99204

== ENCOUNTER → 2023-05-17 07:58 | Outpatient (BNVA) | payer OTHER, SELFPAY | PROVIDERS: PCP Nurse Practitioner Family; Visit Provider Nurse Practitioner Family | DX: R42 Dizziness and giddiness (principal); G43.009 Migraine without aura, not intractable, without status migrainosus | CPT/HCPCS: 99202 ==

== ENCOUNTER 2023-06-24 08:50 | Outpatient (AMB) | payer OTHER, SELFPAY ==
--- NOTE | 2023-06-24 08:55 | MHC.OFFVIS ---
Vital Signs 06/24/23 08:56 Height 5 ft 3 in Weight 132 lb BMI 23.4 BP 122/71 Blood Pressure Location Lt brachial Position Sitting Pulse 86 Intake Visit Reasons: 4 month follow up Intake Note: Patient follow up for abdominal pain. Patient cc: abdominal sore and denies any other GI issues. Data Quality Consultant Required: No Accompanied by: Self / Same As Patient Allergies No Known Allergies Allergy (Verified 04/06/24 07:46) Medication List - Last Reconciled 06/24/23 by Jass Fung MD azithromycin For 250 mg dose pack: take 500 mg today (day 1), then 250 mg for 4 days (days 2-5) PO cholecalciferol (vitamin D3) 50 mcg PO DAILY famotidine 20 mg PO BEDTIME 30 days magnesium oxide 400 mg PO BEDTIME 30 days medroxyprogesterone 150 mg IM [id number] metoclopramide HCl 10 mg (10 mL) PO QID 30 days omeprazole 20 mg PO BID 30 days promethazine 12.5 mg PO Q6H PRN riboflavin (vitamin B2) 400 mg PO DAILY 30 days HPI HPI 4 month follow up: Details: GI CLINIC VISIT FOR THIS 22-YEAR-OLD FEMALE FOR FU OF IDIOPATHIC GASTROPARESIS ASSOCIATED WITH NAUSEA VOMITING DIARRHEA AND ABDOMINAL PAIN. Pt has a history of nutcracker syndrome,? 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 Pt scheduled for an urgent FU appt since she called with symptoms of nausea and vomiting: patient called to report she is experiencing nausea, about two episodes of vomiting daily for the last week as well as abdominal pain and red bloody mucus in her stools. Patient reports she has noted a decrease in her appetite. patient denies fever or chills. I advised patient that I would send a message to you to advise but that it will be likely that she will need to go to the ED for furthe eval as you do not have any availability soon. please advise IMAGING STUDIES:?05/02/21 GASTRIC EMPTYING STUDY SHOWED: Retention in the stomach at each time interval was: 1 hour 79% (normal 37%-90%) 2 hours 69% (normal 30%-60%) 3 hours 50% 4 hours 35% (normal 0%-10%) 02/2021 ABD US WITH DOPPLER SHOWED:Normal appearing kidneys. Findings are suggestive of nut crackersyndrome, similar to the CT scan with narrowing of the renal veinbetween the aorta and SMA. In the area of stenosis, velocity acceleration is seen as described above. 12/2020 UGISBFT SHOWED:No definite jejunal or ileal mucosal abnormality with limited evaluation of the terminal ileum.Rapid transit of contrast to the colon without need for delayed imaging. 09/06/[address] SCAN SHOWED:Small, small bowel mesentery lymph nodes. No enlarged lymph nodes seen. 2 x 3 cm right adnexal cyst. Question of cracker syndrome of the left renal vein. ENDOSCOPIC STUDIES: 12/25/22 EGS AND FLEX SIG SHOWED: STOMACH: Mild antral gastritis. Pyloric balloon dilation was performed with a 19 mm (57 F) CRE balloon x 60 seconds. Botox (100 Units) was injected into the pylorus (25 units in each quadrant) DUODENUM: Normal - biopsied to check for celiac sprue Flexible sigmoidoscopy Findings: Minimal rectal erythema - likely due to prep - biopsies were obtained to check for IBD BIOPSIES SHOWED: A. Stomach, antrum, biopsy: Gastric antral mucosa with mild chronic inactive gastritis; negative for Helicobacter pylori, intestinal metaplasia and dysplasia. B. Small bowel, biopsy: Small bowel mucosa within normal limits; preserved villous architecture and no increased intraepithelial lymphocytes seen. C. Colon, left, biopsy: Colonic mucosa within normal limits; negative for active, chronic or microscopic colitis 09/16/22 CAPSULE ENDOSCOPY SHOWED: esophagus was normal. nodular appearing stomach mucosa in proximal stomach, rest of mucosa was normal. Some delay of capsule into duodneum, with some erythema in bulb. Patchy erythema in mid and distal ileum with some congestion. Cecum not reached Conclusion: Nodular gastric mucosa possible gastroparesis patchy ileal erythema and erythema of duodenal bulb consider further work up with CTe or GES if clinical suspicion of gastroparesis check nsaid hx use check h pylori TODAY'S VISIT: Patient cc: abdominal sore and denies any other GI issues. Last few weeks has not had a good appetite Still tries to eat even if she is not hungry. Belly feels sore if she is lying on the back Feels better if she curls up in a ball Wakes up with abd pain if she is lying on her back. Hard to sleep on the side since her hips lock up Taking regular diet and blendarized diet depending on how she feels Taking metoclopramide twice a day since she does not have breakfast. PAST VISITS: feels Ok - about the same Nausea is not as bad - still has nausea in the morning and does not eat till 1-2 pm Denies recent vomiting Taking metoclopramide three times a day before meals Has a bad cough with phlegm and acid for the past month Saw her PCP and prescribed antibiotics - cough has not improved - gotton worse EGD and flex sig results reviewed with the patient She was feeling better after the EGD. Has been feeling nauseous for the last few days after eating. Taking metoclopramide three times a day and has been helping. Certain days she has nausea and vomiting after eating. Eats a lot of rice, bread and cracker. Has been trying to do smoothies. Does not eat breakfast in the am. Has nausea and gagging when she wakes up Eats lunch and dinner. Intermittent reflux symptoms Planning to have a Thanksgiving with her friends and separate dinner at her Mom's Noted nausea and vomiting and abdominal pain since last week Thought she had a stomach bug usually upto 2 episodes a day Feels a knot in her stomach and then food comes up Not always related to eating. Has a cramping feeling after eating. Also has diarrhea with 2-3 BMs a day. Intermittent dysphagia to liquids. Taking Metoclopramide twice a day and nausea medication prn Nausea medication works in 15 to 20 min if she takes it early enough Patient follow up of gastroparesis. Difficult to keep anything down for the past week Any time she eats anything and has post prandial vomiting Does not eat big meals - takes rice, beans and pasta Patient denies any GI issues. Appetite has improved with medications. Still has intermittent right lower abd cramps. Can wake up from sleep because of abdominal pain. Has been doing ok. Medication is helping - makes her feel drowsy - feels like a Zombie. Has cramps and feels sick in the morning. Has upset stomach if she eats breakfast. Has a small lunch. Continues to have RLQ pain and diarrhea 1-2 times a day with watery stools with mucous and no blood. Has gained some wt after thansgiving. Had surgery in June at [facility] in [place] and everything was ok Was not eating much for 3-4 months after the surgery. Once her appetite came back and she started eating more, she started feeling sick Bad cramps in the lower portion of the stomach - feels worse after taking breakfast Has been skipping breakfast. Has been trying to eat small portions. Some days she tries to eat and had to spit it back out due to nausea or smell of food. Lost a lot of wt after the surgery.? Started gaining the wt back 2 months ago. Denies dysphagia or change in BMs. Started feeling sick again Taking Promethazine every other day with partial control of nausea Continues to have nausea sometimes after she eats. Diagnosed with left renal vein stenosis and being scheduled for left renal vein stent placement at [facility] by Dr Del Real Did not have stent placed - additinal contrast studies are planned And possible surgery Abd pain is attributed to above. Notes nausea when she wakes up in the morning and goes away in 1-2 hrs. Does not have an appetite - feels full until dinner. Feels sick if she forces herself to eat. A GES at [facility] 1-2 yrs ago was normal. Feeling about the same. Hurts a lot when her bladder feels full before she has to use the bathroom. The pain goes away and it feels sore to touch in the lower stomach area. Denies pain with BMs. Denies having any diarrhea - has a formed BM 2-3 times a day Has not been feeling as nauseous lately and takes Seeing a Subcontract Administrator and being referred to a urologist. Started having abdominal pain at age 15 yrs. Pain is left sided and radiates to the lower abdomen - sometimes radiates to the back. Feels like bad cramping and hurts to walk. Unable to identify precipitating factors - sometimes after eating - no clear precipitating foods. Can have pain when she is hungry. No clear relieving factors - tries to lay down and relax. Notes nausea after eating - no vomiting. Has 3-4 BMs a day without loose or hard stools. Can have diarrhea once every couple of weeks - lasts for a day and resolves spontaneously. Notes mucous in the stool and denies rectal bleeding. Eats once a day - takes a couple of bites and feels full after. Patient denies symptoms of heartburn, dysphagia, change in appetite or weight.? Denies recent change in bowel habits, constipation, diarrhea, black stools or rectal bleeding. Wt loss of 30 lbs - lost in Feb 2020 and has not been able to gain it back. Gains a few lbs and then looses wt again. Has a Depo shot every 3 months - does not have a period just intermittent spotting Notes pain in knees and hips - played soccer and soft ball. Denies mouth ulcers or eye problems. Tried different diets in the past - without a change in symptoms. Taking rice, beans and chicken at present. Tried Omeprazole and Pepcid and was not helpful Patient denies major cardiac or pulmonary problems, loud snoring or sleep apnea Denies problems with anesthesia in the past. Denies being on chronic anticoagulation, aspirin or NSAIDS. Mom had H Pylori - has similar symptoms as the patient - takes Omeprazole and feels fine. Patient denies known family history of colon polyps, colon cancer or other GI malignancies. Paternal GM of stomach cancer. 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 Lives with Mom and has no?children [facility] Medical History Gastritis Asthma GERD (gastroesophageal reflux disease) Vitamin D deficiency Migraine without aura Nutcracker phenomenon of renal vein Surgical History Hx of abdominal surgery History of esophagogastroduodenoscopy (EGD) Hx of colonoscopy Family History Paternal Grandmother Stomach cancer Family/Other Substance use disorder Mental health disorder Social History (Updated 02/22/24 @ 08:42 by Gisele Nazario LPN) Household Members Other:: lives with mom Housing: House Alcohol intake: current Alcohol intake frequency: holidays/special occasions only Patient Tobacco Use Status: Never used Tobacco e-Cigarette/Vaping Use: Never Used Second Hand Smoke Exposure: No Substance Use Type: Marijuana service: No Current occupational status: employed 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 Cognitive needs: No Hearing needs: No Vision needs: No Review of Systems Const All systems reviewed & are unremarkable except as noted in HPI and below Physical Exam Vital Signs: Last Vital Signs Pulse 86 06/24/23 08:56 BP 122/71 06/24/23 08:56 BMI result Body Mass Index 23.4 Const General: healthy appearing and no acute distress Nutritional Appearance: average body habitus Orientation/consciousness: patient oriented x3 Limitations: no limitations HEENT Head: Yes normal to inspection Ears: hearing grossly normal bilaterally Mouth: Normal oral and palatal mucosa present Eyes Sclerae: sclerae normal Pupils: Equal, round and reactive pupils present Neck Neck: Yes normal visual inspection Chest Chest palpation & inspection: normal inspection of the chest Resp Effort & Inspection: normal respiratory effort Auscultation: clear to auscultation bilaterally Cardio Palpation: normal PMI Rate: regular rate Rhythm: regular rhythm Heart sounds: S1 normal heart sound present, S2 normal heart sound present and no murmurs GI Palpation (GI): Soft to palpation, nontender and No hepatosplenomegaly present Auscultation: normal bowel sounds Rectal Exam - Female: deferred Skin General skin exam: no rashes or lesions noted Neuro General: patient oriented x3, gait normal and moves all extremities Cranial nerves: Yes Equal, round and reactive pupils present Psych Appearance: grossly normal Mental Status: mental status grossly normal Assessment & Plan Assessment & Plan (1) GERD (gastroesophageal reflux disease): Code(s): K21.9 - Gastro-esophageal reflux disease without esophagitis Category: Medical (2) Gastroparesis: Code(s): K31.84 - Gastroparesis Category: Medical (3) Chronic diarrhea: Code(s): K52.9 - Noninfective gastroenteritis and colitis, unspecified Category: Medical (4) Abdominal pain: Code(s): R10.9 - Unspecified abdominal pain Category: Medical (5) Nausea and vomiting: Code(s): R11.2 - Nausea with vomiting, unspecified Category: Medical Plan 22 YF with depression followed in GI for abdominal pain, nausea, vomiting and chronic diarrhea. 04/2016 EGD AND COLONOSCOPY performed at [facility] were normal with chronic gastritis on stomach biopsies. 09/2017 EGD was normal with normal biopsies from esophagus stomach and duodenum. ? 08/[address] scan showed?Small, small bowel mesentery lymph nodes. No enlarged lymph nodes seen. 2 x 3 cm right adnexal cyst. Question of cracker syndrome of the left renal vein. UGI with SBFT was normal. Celiac and IBD serologies were negative and fecal calprotectin was not approved by her insurance GES showed gastroparesis.? Patient handout on gastroparesis from up-to-date was given to the patient Pt advised dietary modification for gastroparesis and start Metoclopramide 5 mg three times daily for gastroparesis on her previous visit. Advised to decrease Metoclopramide to 1-2 times daily due to drowsiness Continue promethazine for nausea and dicyclomine at bedtime for abdominal pain. 05/14/22 Pt advised to schedule a Capsule Study (with patency test) to rule out Crohn's disease (intermittent RLQ pain which can wake her up at night and diarrhea) 08/2022 Capsule Study showed: Conclusion: Nodular gastric mucosa possible gastroparesis patchy ileal erythema and erythema of duodenal bulb consider further work up with CTe or GES if clinical suspicion of gastroparesis check nsaid hx use check h pylori 10/08/22 Pt advised to go on a liquid diet x 24 hours and then blenderized food until nausea and vomiting resolves Continue Metoclopramide 5 mg twice a day Switch from promethazine to prochlorperazine for nausea and vomting Re submit stool for fecal calprotectin 12/24/22 Pt advised to schedule an EGD and flex sig - done 12/25/22 Increase Metoclopramide to three times a day (instead of twice daily) 01/14/23 Pt advised a trail of blendarized diet and start Omeprazole at bedtime for GERD (Increase to twice daily if symptoms persist after a week) 02/25/23 Pt advised to take Famotidine 20 mg at bedtime for nocturnal cough (suspected GERD) 06/24/23 Last few weeks has not had a good appetite Still tries to eat even if she is not hungry. Belly feels sore if she is lying on the back Feels better if she curls up in a ball Wakes up with abd pain if she is lying on her back. Pt was advised to: Take liquid Metoclopramide (Reglan) 20 to 30 min before dinner. Continue taking the tablets before lunch until tablets are finished. Then start taking the liquid metoclopramide before lunch and dinner FU in 3 month Medications: New metoclopramide HCl 10 mg (10 mL) PO QID 1,200 mL 3RF 30 days K31.84 - Gastroparesis Patient Instructions: Take liquid Metoclopramide (Reglan) 20 to 30 min before dinner. Continue taking the tablets before lunch until tablets are finished. Then start taking the liquid metoclopramide before lunch and dinner Coding Level of Care Code Est Pt Level 4 (63485) Diagnoses GERD (gastroesophageal reflux disease) K21.9 Gastroparesis K31.84 Chronic diarrhea K52.9 Abdominal pain R10.9 Nausea and vomiting R11.2 Time Spent (min) 21
[2023-06-24 08:56] VITALS: BP 122/71; PULSE 86; BMI 23.4
== END 2023-06-24 09:35 | disposition home or self-care (01) ==
PROVIDERS: PCP Nurse Practitioner Family; Visit Provider Internal Medicine Gastroenterology
DX: K21.9 Gastro-esophageal reflux disease without esophagitis (principal); K31.84 Gastroparesis; K52.9 Noninfective gastroenteritis and colitis, unspecified; R10.9 Unspecified abdominal pain; R11.2 Nausea with vomiting, unspecified
CPT/HCPCS: 99499

== ENCOUNTER → 2023-06-24 08:50 | Outpatient (BNVA) | payer OTHER, SELFPAY | PROVIDERS: PCP Nurse Practitioner Family; Visit Provider Internal Medicine Gastroenterology ==

== ENCOUNTER 2023-07-08 08:17 | Outpatient (AMB) | payer OTHER, SELFPAY ==
--- NOTE | 2023-07-08 08:27 | MHC.OFFVIS ---
Vital Signs 07/08/23 08:32 Height 5 ft 3 in Weight 131 lb 2 oz BMI 23.2 BP 124/70 Blood Pressure Location Lt brachial Position Sitting Pulse 83 Pulse Source Pulse Oximeter Pulse Oximetry (%) 99 Oxygen Delivery Method Room Air Intake Visit Reasons: Follow up - Confirmed Intake Note: Patient presents for f/u. Allergies No Known Allergies Allergy (Verified 07/08/23 08:30) HPI Comments Details: 22 y/o female patient presents for new in-person visit for dizziness. Pt reports her migraine intensity has improved and her dizziness also happen less frequent and mild. She still can have migraine frequently but it is mild and last only 10-15 min. Pt could not schedule the vestibular therapy yet, but will call today to schedule. Pt reports broken sleep, wakes up frequently. James snoring. Pt has hx of nutcracker syndrome, and had surgery to move renal artery. She reports dizziness, it has been ongoing issue but it happens more frequent after the surgery. Bending over, standing long time triggers blurred vision, hand shaking and then dizziness. At the first time she had the dizziness while she was working. 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 She gets light headiness, vision gets dark and room spinning, and things moving around. Laying down, and closing her eyes helps to reduce dizziness. Pt describes the dizziness is not room spinning all the time, but mostly light headedness, and difficulty breathing. She was evaluated by dry wall applicator and had Holter monitor, and the result was normal. She drinks enough water daily. She has occasional left side neck pain. James hearing problem. She smoke marijuana occasionally. [facility] Medical History (Updated 05/19/23 @ 08:21 by Edelmira Morley CNP) No active medical problems Surgical History Hx of abdominal surgery History of esophagogastroduodenoscopy (EGD) Hx of colonoscopy Family History Paternal Grandmother Stomach cancer Family/Other Substance use disorder Mental health disorder Social History Household Members Other:: lives with mom Housing: House Alcohol intake: current Alcohol intake frequency: holidays/special occasions only Patient Tobacco Use Status: Never used Tobacco e-Cigarette/Vaping Use: Never Used Second Hand Smoke Exposure: No Substance Use Type: Marijuana service: No Current occupational status: unemployed 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 Cognitive needs: No Hearing needs: No Vision needs: No Review of Systems Const All systems reviewed & are unremarkable except as noted in HPI and below Physical Exam Vital Signs: Last Vital Signs Pulse 83 07/08/23 08:32 BP 124/70 07/08/23 08:32 Pulse Ox 99 07/08/23 08:32 Oxygen Delivery Method Room Air 07/08/23 08:32 BMI result Body Mass Index 23.2 Const General: cooperative Nutritional Appearance: average body habitus Orientation/consciousness: patient oriented x3 Neck Neck: Yes full ROM and Yes supple Resp Effort & Inspection: normal respiratory effort Neuro General: patient oriented x3 Cranial nerves: Yes CN's II-XII intact bilaterally Cognition (Neuro): normal cognition Gait exam (Neuro): Normal gait present Motor exam (neuro): 5/5 motor strength present throughout Psych Appearance: grossly normal Mental Status: mental status grossly normal Speech and movement: Normal speech and movement present Affect: normal affect Assessment & Plan Assessment & Plan (1) Dizziness: Code(s): R42 - Dizziness and giddiness Category: Medical (2) Migraine without aura: Code(s): G43.009 - Migraine without aura, not intractable, without status migrainosus Category: Medical Plan [facility]. Encouraged patient to drink enough fluid daily to prevent light headedness. Dizziness can be from migraine. Continue to take magnesium 400 mg qHS and vitamin B2 400 mg daily to prevent headache. Try amitriptyline 10 mg qHS for migraine prevention and help for sleep. Monitor the headache frequency and intensity. Medications: New amitriptyline 10 mg PO BEDTIME 30 days 30 tabs 5RF Coding Level of Care Code Est Pt Level 4 (22532) Diagnoses Dizziness R42 Migraine without aura G43.009
[2023-07-08 08:32] VITALS: BP 124/70; PULSE 83; O2SAT 99; BMI 23.2
== END 2023-07-08 08:46 | disposition home or self-care (01) ==
PROVIDERS: PCP Nurse Practitioner Family; Visit Provider Nurse Practitioner Family
DX: R42 Dizziness and giddiness (principal); G43.009 Migraine without aura, not intractable, without status migrainosus
CPT/HCPCS: 99214

== ENCOUNTER → 2023-07-08 08:17 | Outpatient (BNVA) | payer OTHER, SELFPAY | PROVIDERS: PCP Nurse Practitioner Family; Visit Provider Nurse Practitioner Family | DX: R42 Dizziness and giddiness (principal); G43.009 Migraine without aura, not intractable, without status migrainosus | CPT/HCPCS: 99212 ==

== ENCOUNTER 2023-08-16 08:14 | Outpatient (REF) | payer OTHER, SELFPAY ==
[2023-08-16 10:08] LABS: Hematocrit 40.7 % (37.0-47.0); Hemoglobin 13.9 g/dl (12.0-16.0)
[2023-08-16 10:19] LABS: Appearance Urine Cloudy; Color Urine Dark Yellow; Glucose Urine UA Negative (Negative); Leukocyte Esterase Urine Negative (Negative); Nitrite Urine Negative (Negative); PH 5.5 (5.0-9.0); Specific Gravity - Urine 1.025 (1.005-1.025); Urine Blood Negative (Negative); Urine Ketones Trace mg/dL (Negative); Urine Protein Negative (Neg-Trace)
[2023-08-16 10:46] LABS: Creatinine Urine 204.03 mg/dL; Protein/Creatinine Ratio, Ur 0.04 (<0.2); Total Protein Urine Random 9 mg/dL (<12)
[2023-08-16 10:58] LABS: Anion Gap 12 (12-20); Blood Urea Nitrogen 13 mg/dL (9-16); Calcium 9.4 mg/dL (8.4-10.2); Carbon Dioxide 24 mmol/L (22-29); Chloride 109 mmol/L (96-108); Estimated Glomerular Filt Rate > 60; Potassium 3.6 mmol/L (3.3-5.1); Sodium 141 mmol/L (135-145)
== END 2023-08-16 08:15 | disposition home or self-care (01) ==
LOC: HO.LAB 08:14
PROVIDERS: Visit Provider Internal Medicine
DX: I87.1 Compression of vein (principal); M54.6 Pain in thoracic spine; G89.29 Other chronic pain
CPT/HCPCS: 36415; 80051; 81003; 82310; 82565; 82570; 84156; 84520; 85014; 85018

== ENCOUNTER 2023-08-16 09:45 | Outpatient (AMB) | payer OTHER, SELFPAY ==
--- NOTE | 2023-08-16 10:03 | A.OFFPC_ITS ---
Vital Signs 08/16/23 10:06 Height 5 ft 3 in Weight 130 lb 8 oz BMI 23.1 BP 120/72 Blood Pressure Location Lt brachial Position Sitting Pulse 105 H Pulse Source Pulse Oximeter Pulse Oximetry (%) 99 Oxygen Delivery Method Room Air Intake Visit Reasons: 6 month f/u Intake Note: Patient is here to follow up on Depression, GERD, Chronic Diarrhea, Migraine . 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 per policy Accompanied by: Self / Same As Patient Allergies No Known Allergies Allergy (Verified 11/29/23 11:36) Medication List - Last Reconciled 12/05/23 by French Stewart MD amitriptyline 25 mg PO BEDTIME 30 days cholecalciferol (vitamin D3) 250 mcg PO 2XW 90 days famotidine 20 mg PO BEDTIME 30 days magnesium oxide 400 mg PO BEDTIME 30 days metoclopramide HCl 10 mg (10 mL) PO QID 30 days promethazine 12.5 mg PO Q6H PRN riboflavin (vitamin B2) 400 mg PO DAILY 30 days Ventolin HFA 90 mcg/actuation (albuterol sulfate) 2 puffs inhalation Q6H PRN 30 days NS Tobacco use date assessed: 08/16/23 Dental Screening Dental Screen Date: 08/16/23 Did you have a dental visit in the last 12 months?: No Did you have a dental problem in the last 6 months where you did not have access to dental care?: No Was dental information given to patient?: Patient has dentist HPI 6 month f/u HPI Details Patient comes in today for her follow up visit - she used to see Milka Padilla, who is no longer with the practice Patient feels that her hips have been locking up often on her lately, especially her right hip Notes that his right knee also feels stiff and often locks up on her as well Relates that she started noticing the above mentioned issues with her hips and right knee at the beginning of high school, about 8 to 9 years ago States that she was being sent to physical therapy back then whenever her joints act up, which resulted in some temporary relief Relates that she also played soccer for about 3 years and played softball as well in school - thinks that her joints may have been made worse by her participating in the above sports mentioned back then Notes that she also recently has been experiencing on and off wrist pains, especially when she bends her wrists Recalls that she was diagnosed with (+) Hx of L ulnar nerve entrapment when she had a nerve conduction test done a few years ago States that her headaches seem to be well-controlled on her current Rx She denies any dizziness Denies any chest pains, no SOB - states that she has a history of asthma but has not had to use a rescue inhaler in a while now She also does not have a rescue inhaler for over a year now and would like to get this refilled Relates (+) nausea at times and she often has abdominal bloating and discomfort, especially after she eats - has gastroparesis No vomiting and no change in bowel habits noted PFSH Medical History (Updated 12/06/23 @ 02:57 by French Stewart MD) Gastritis Asthma GERD (gastroesophageal reflux disease) Vitamin D deficiency Migraine without aura Nutcracker phenomenon of renal vein Surgical History (Updated 12/05/23 @ 22:47 by French Stewart MD) Hx of abdominal surgery History of esophagogastroduodenoscopy (EGD) Hx of colonoscopy Family History Paternal Grandmother Stomach cancer Family/Other Substance use disorder Mental health disorder Social History Household Members Other:: lives with mom Housing: House Alcohol intake: current Alcohol intake frequency: holidays/special occasions only Patient Tobacco Use Status: Never used Tobacco e-Cigarette/Vaping Use: Never Used Second Hand Smoke Exposure: No Substance Use Type: Marijuana service: No Current occupational status: unemployed 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 1. Little interest or pleasure in doing things: not at all 2. Feeling down, depressed, or hopeless: not at all 3. Trouble falling or staying asleep, or sleeping too much: not at all 4. Feeling tired or having little energy: not at all 5. Poor appetite or overeating: not at all 6. Feeling bad about yourself - or that you are a failure or have let yourself or your family down: not at all 7. Trouble concentrating on things, such as reading the newspaper or watching television: not at all 8. Moving or speaking so slowly that other people could have noticed. Or the opposite - being so fidgety or restless that you have been moving around a lot more than usual: not at all 9. Thoughts that you would be better off or of hurting yourself in some way: not at all Total score: 0 Depression Screening Interpretation: Negative Depression Screening Done: Yes Source: Developed by Drs. Major Pereira, Amelie Stoddard, Sonu Carey and colleagues, with an educational gurpreet from [employer]. Thrive Questionnaire Date Thrive assessed: 08/16/23 I am a: Patient What is your living situation today?: I have a steady place to live Within the past 12 months, did the food you bought not last and you didn't have the money to get more?: Never true Within the past 12 months, did you worry whether your food would run out before you got money to buy more?: Never true Do you have trouble paying for medicines?: No Do you have trouble getting transportation to medical appointments?: No Do you have trouble paying your heating and electricity bill?: No Do you have trouble taking care of your child, family member or friend?: No Do you have trouble with day-to-day activities such as bathing, preparing meals, shopping, managing finances, etc.?: No Are you currently unemployed and looking for a job?: No Are you interested in more education?: No Currently or been in a relationship where the following occur: no concerns reported THRIVE Score: 0 AUDIT C Alcohol Use Questionnaire (AUDIT-C) 1. How often do you have a drink containing alcohol?: Never Total Score: 0 ASHOK-7 AMB Questionnaire ASHOK-7 Date ASHOK - 7 assessed: 08/16/23 Feeling nervous, anxious, or on edge: 0 = Not at all Not being able to stop or control worryin = Not at all Worrying too much about different things: 0 = Not at all Trouble relaxin = Not at all Being so restless that it is hard to sit still: 0 = Not at all Becoming easily annoyed or irritable: 0 = Not at all Feeling afraid as if something awful might happen: 0 = Not at all Total ASHOK-7 score (0-4 normal; 5-9 mild; 10-14 moderate; 15-21 severe): 0 Source: Developed by Drs. Major Pereira, Amelie Stoddard, Sonu Carey and colleagues, with an educational gurpreet from [employer]. Review of Systems Const Denies chills, Reports fatigue, Denies fever(s) and Denies headache(s) Eyes Denies photophobia ENT Denies dysphagia, Denies dizziness, Denies otalgia, Denies headache(s), Denies neck pain, Denies odynophagia and Denies sore throat Card Denies chest pain, Denies palpitations and Denies dyspnea Resp Denies chest congestion, Denies cough, Denies dyspnea and Denies wheezing GI Denies abdominal pain, Reports bloating (frequent), Denies constipation, Denies dysphagia, Denies heartburn, Denies diarrhea, Reports nausea (occasional), Denies odynophagia and Reports vomiting (occasional) Denies difficulty voiding, Denies nocturia, Denies dysuria and Denies urinary urgency Musc Denies back pain, Reports arthralgias (involving multiple joints - both hips, R knee, wrists) and Denies neck pain Skin/Breast Denies rash Neuro Denies dizziness and Denies headache(s) Psych Denies anxiety and Denies depression Endo Reports fatigue and Denies palpitations Aller/Immun Denies wheezing Physical exam (Primary Care) Vital Signs: Last Vital Signs Pulse 105 H 08/16/23 10:06 BP 120/72 08/16/23 10:06 Pulse Ox 99 08/16/23 10:06 Oxygen Delivery Method Room Air 08/16/23 10:06 BMI result Body Mass Index 23.1 Tobacco/Smoking Status: Tobacco use Status Tobacco use date assessed 08/16/23 08/16/23 10:10 Patient Tobacco Use Status Never used Tobacco 08/16/23 10:10 e-Cigarette/Vaping Use Never Used 08/16/23 10:10 PHQ-9: PHQ-9 Score PHQ-9: Total score 0 08/16/23 10:51 Depression Screening Interpretation: Negative Thrive Assessment: Date of Thrive Assessment Date Thrive assessed 08/16/23 08/16/23 10:10 Currently or been in a relationship where the following occur: no concerns reported Const General: no acute distress and alert HENMT Ears: TM's normal bilaterally and EAC's normal Throat: Yes posterior oropharynx normal and Yes tonsils normal (no TP congestion) Eyes Direct Ophthalmoscopy: No photophobia Neck Neck: Yes no lymphadenopathy and Yes supple Thyroid: Thyroid normal Resp Auscultation: clear to auscultation bilaterally, no rales and no wheezes Cardio Rate: regular rate Rhythm: regular rhythm Heart sounds: no murmurs GI Palpation (GI): Soft to palpation, nontender and no guarding Auscultation: normal bowel sounds General: Yes no CVA tenderness Back/Spine/Pelvis Back: no CVA tenderness Thoracic/Lumbar Spine: No lumbar spinal tenderness Skin Rashes: no rashes Extrem General: Yes no clubbing, cyanosis or edema Assessment and Plan Assessment & Plan (1) Migraine without aura: Code(s): G43.009 - Migraine without aura, not intractable, without status migrainosus Qualifiers: Status migrainosus presence: without status migrainosus Intractability: not intractable Qualified Code(s): G43.009 - Migraine without aura, not intractable, without status migrainosus Plan: She has been on Amitriptyline 10 mg Q HS for migraine headache prophylaxis - as she has reportedly been experiencing an increase in the frequency and severity of her headaches lately, will increase her Amitriptyline to 25 mg Q HS Continue Riboflavin 400 mg QD Follow up with neurology as scheduled (2) Gastroparesis: Code(s): K31.84 - Gastroparesis Plan: Patient had gastric emptying study done a couple of years ago on 05/02/2021 that revealed (+) significant retention of food in the stomach - 1 hour 79% (normal 37%-90%), 2 hours 69% (normal 30%-60%), 3 hours 50% and 4 hours 35% (normal 0%- 10%) Continue Metoclopraminde 10 mg QID PRN and Promethazine 12.5 mg Q 6 hours PRN Follow up with GI as scheduled (3) Gastritis: Code(s): K29.70 - Gastritis, unspecified, without bleeding Qualifiers: Gastritis type: unspecified gastritis Chronicity: chronic Gastritis bleeding: without bleeding Qualified Code(s): K29.50 - Unspecified chronic gastritis without bleeding Plan: EGD done on 12/25/2022 revealed (+) mild antral gastritis Continue Famotidine 20 mg Q HS Follow up with GI as scheduled (4) Asthma: Code(s): J45.909 - Unspecified asthma, uncomplicated Qualifiers: Asthma severity: mild Asthma persistence: intermittent Asthma complication type: uncomplicated Qualified Code(s): J45.20 - Mild intermittent asthma, uncomplicated Plan: Stable - continue Albuterol HFA 1 to 2 inhalations Q 6 hours PRN Will send patient for chest x-rays (5) Vitamin D deficiency: Code(s): E55.9 - Vitamin D deficiency, unspecified Plan: Continue Vitamin D3 1000 units QD (6) Arthralgia: Code(s): M25.50 - Pain in unspecified joint Qualifiers: Joint pain location: unspecified Qualified Code(s): M25.50 - Pain in unspecified joint Plan: Will send patient for some labs MARGARET for further evaluation of her joint pains (7) Right wrist pain: Code(s): M25.531 - Pain in right wrist Plan: Will send patient for right wrist x-rays for further evaluation (8) Left wrist pain: Code(s): M25.532 - Pain in left wrist Plan: Will send her for left wrist x-rays (9) Bilateral hip pain: Code(s): M25.551 - Pain in right hip; M25.552 - Pain in left hip Plan: Will send patient for x-rays of both hips and pelvis for further evaluation (10) Bilateral knee pain: Code(s): M25.561 - Pain in right knee; M25.562 - Pain in left knee Qualifiers: Chronicity: unspecified Qualified Code(s): M25.561 - Pain in right knee; M25.562 - Pain in left knee Plan: Will send patient for bilateral knee x-rays for further evaluation Plan Follow up in 3 months Orders: Orders Erythrocyte Sedimentation Rate 08/17/23 M79.7 - Fibromyalgia, M25.50 - Pain in unspecified joint Vitamin B12 and Folate 08/17/23 E53.8 - Deficiency of other specified B group vitamins, M25.50 - Pain in unspecified joint TSH reflex Free T4 08/17/23 E78.00 - Pure hypercholesterolemia, unspecified, M25.50 - Pain in unspecified joint XR hip BI w PEL1V 08/17/23 M25.551 - Pain in right hip, M25.552 - Pain in left hip XR knee standing BI 08/17/23 M25.561 - Pain in right knee, M25.562 - Pain in left knee XR hand wrist LT 08/17/23 M25.532 - Pain in left wrist C Reactive Protein 08/17/23 M25.50 - Pain in unspecified joint LIONEL Reflex Titer and Pattern 08/17/23 M25.50 - Pain in unspecified joint Rheumatoid Factor 08/17/23 M25.50 - Pain in unspecified joint Lyme IgG/IgM w/reflex to WB 08/17/23 W57.XXXA - Bitten or stung by nonvenomous insect and other nonvenomous arthropods, initial encounter, M25.50 - Pain in unspecified joint Vitamin D 25-OH Total 08/17/23 E55.9 - Vitamin D deficiency, unspecified, M25.50 - Pain in unspecified joint XR chest 2V 08/17/23 J45.909 - Unspecified asthma, uncomplicated, R06.09 - Other forms of dyspnea XR hand wrist RT 08/17/23 M25.531 - Pain in right wrist Medications: New Ventolin HFA 90 mcg/actuation (albuterol sulfate) 2 puffs inhalation Q6H PRN 18 grams 3RF shortness of breath or wheezing 30 days NS Coding Level of Care Code Est Pt Level 4 (74333) Diagnoses Migraine without aura and without status migrainosus, not intractable G43.009 Status migrainosus presence: without status migrainosus Intractability: not intractable Gastroparesis K31.84 Chronic gastritis without bleeding, unspecified gastritis type K29.50 Gastritis type: unspecified gastritis Chronicity: chronic Gastritis bleeding: without bleeding Mild intermittent asthma without complication J45.20 Asthma severity: mild Asthma persistence: intermittent Asthma complication type: uncomplicated Vitamin D deficiency E55.9 Arthralgia, unspecified joint M25.50 Joint pain location: unspecified Right wrist pain M25.531 Left wrist pain M25.532 Bilateral hip pain M25.551; M25.552 Pain in both knees, unspecified chronicity M25.561; M25.562 Chronicity: unspecified
[2023-08-16 10:06] VITALS: BP 120/72; PULSE 105; O2SAT 99; BMI 23.1
== END 2023-08-16 11:08 | disposition home or self-care (01) ==
PROVIDERS: PCP Nurse Practitioner Family; Visit Provider Internal Medicine
DX: G43.009 Migraine without aura, not intractable, without status migrainosus (principal); K31.84 Gastroparesis; K29.50 Unspecified chronic gastritis without bleeding; J45.20 Mild intermittent asthma, uncomplicated; E55.9 Vitamin D deficiency, unspecified; M25.50 Pain in unspecified joint; M25.531 Pain in right wrist; M25.532 Pain in left wrist; M25.551 Pain in right hip; M25.552 Pain in left hip; M25.561 Pain in right knee; M25.562 Pain in left knee
CPT/HCPCS: 99214

== ENCOUNTER 2023-08-17 16:30 | Outpatient (REF) | payer OTHER, SELFPAY ==
--- NOTE | ~2023-08-17 | XR_ITS ---
EXAMINATION: XR HAND/WRIST, LEFT CLINICAL INFORMATION: Pain COMPARISON: None TECHNIQUE: PA, lateral, and oblique views of the left hand and wrist. FINDINGS: The bones and soft tissues are normal. No fracture. Alignment is anatomic. Joint spaces are maintained. No erosions or soft tissue calcifications. XR/XR hand wrist LT IMPRESSION: Normal radiographs of the hand and wrist.
--- NOTE | ~2023-08-17 | XR_ITS ---
EXAMINATION: XR CHEST CLINICAL INFORMATION: Asthma COMPARISON: None available. TECHNIQUE: 2 views of the chest were obtained. FINDINGS: No significant abnormality is noted involving the heart, lungs, mediastinum, bony thorax or soft tissues. XR/XR chest 2V IMPRESSION: Unremarkable examination.
--- NOTE | ~2023-08-17 | XR_ITS ---
EXAMINATION: XR HAND/WRIST, RIGHT CLINICAL INFORMATION: Pain COMPARISON: None TECHNIQUE: PA, lateral, and oblique views of the right hand and wrist. FINDINGS: The bones and soft tissues are normal. No fracture. Alignment is anatomic. Joint spaces are maintained. No erosions or soft tissue calcifications. XR/XR hand wrist RT IMPRESSION: Normal radiographs of the hand and wrist.
--- NOTE | ~2023-08-17 | XR_ITS ---
EXAMINATION: XR BILATERAL HIPS WITH AP PELVIS CLINICAL INFORMATION: Right hip pain COMPARISON: None available. TECHNIQUE: AP view of the pelvis and single views of each hip were obtained. FINDINGS: No fracture. Hip joint spaces are maintained. Alignment is anatomic. Sacroiliac joints and pubic symphysis are normal. No abnormal soft tissue calcifications. XR/XR hip BI w PEL1V IMPRESSION: Normal pelvis and hips.
--- NOTE | ~2023-08-17 | XR_ITS ---
EXAMINATION: XR KNEE AP STANDING CLINICAL INFORMATION: Right knee pain COMPARISON: None available. TECHNIQUE: AP bilateral standing view of the knees was obtained. FINDINGS: Joint spaces are preserved on this single AP view. Limited evaluation no definite fracture or malalignment. XR/XR knee standing BI IMPRESSION: Limited evaluation no definite fracture or malalignment.
[2023-08-17 18:24] LABS: C Reactive Protein < 0.04 mg/dL (< or = 0.50); Rheumatoid Factor < 13.0 IU/mL (<15.0)
[2023-08-17 18:36] LABS: TSH reflex Free T4 0.92 uIU/mL (0.32-4.0); Vitamin D 25-OH Total 15.6 ng/mL (>30)
[2023-08-17 18:50] LABS: Folate 5.7 ng/mL (> or = 4.0); Vitamin B12 239 pg/mL (200-900)
[2023-08-17 19:17] LABS: Erythrocyte Sedimentation Rate 5 MM/HR (0-20)
[2023-08-18 21:22] LABS: Lyme Abs Screen <0.90 index
[2023-08-19 15:09] LABS: Anti Nuclear Antibody Screen NEGATIVE (NEGATIVE)
== END 2023-08-17 16:31 | disposition home or self-care (01) ==
LOC: HO.LAB 16:30
PROVIDERS: PCP Internal Medicine; Visit Provider Internal Medicine
DX: M79.7 Fibromyalgia (principal); E53.8 Deficiency of other specified B group vitamins; T14.8XXA Other injury of unspecified body region, initial encounter; W57.XXXA Bitten or stung by nonvenomous insect and other nonvenomous arthropods, initial encounter; E55.9 Vitamin D deficiency, unspecified; E78.00 Pure hypercholesterolemia, unspecified; M25.561 Pain in right knee; M25.562 Pain in left knee; M25.532 Pain in left wrist; M25.531 Pain in right wrist; M25.551 Pain in right hip; M25.552 Pain in left hip; J45.909 Unspecified asthma, uncomplicated; R06.09 Other forms of dyspnea
CPT/HCPCS: 36415; 71046; 73110; 73130; 73521; 73565; 82306; 82607; 82746; 84443; 85652; 86038; 86140; 86431; 86617; 86618

== ENCOUNTER 2023-10-07 08:28 | Outpatient (AMB) | payer OTHER, SELFPAY ==
--- NOTE | 2023-10-07 08:29 | A.OFFVIS_ITS ---
Vital Signs 10/07/23 08:35 Height 5 ft 3 in Weight 128 lb BMI 22.7 BP 128/66 Blood Pressure Location Lt brachial Position Sitting Pulse 91 Intake Visit Reasons: 3 month follow up Intake Note: Patient follow up for abdominal pain. Patient denies any GI issues. Switching Operator Required: No Accompanied by: Self / Same As Patient Allergies No Known Allergies Allergy (Verified 04/06/24 07:46) Medication List - Last Reconciled 10/07/23 by Jass Fung MD amitriptyline 10 mg PO BEDTIME 30 days cholecalciferol (vitamin D3) 50 mcg PO DAILY famotidine 20 mg PO BEDTIME 30 days magnesium oxide 400 mg PO BEDTIME 30 days metoclopramide HCl 10 mg (10 mL) PO QID 30 days promethazine 12.5 mg PO Q6H PRN riboflavin (vitamin B2) 400 mg PO DAILY 30 days Ventolin HFA 90 mcg/actuation (albuterol sulfate) 2 puffs inhalation Q6H PRN 30 days NS HPI HPI 3 month follow up: Details: GI CLINIC VISIT FOR THIS 23-YEAR-OLD FEMALE FOR FU OF IDIOPATHIC GASTROPARESIS ASSOCIATED WITH NAUSEA VOMITING DIARRHEA AND ABDOMINAL PAIN. Pt has a history of nutcracker syndrome,? 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 Pt scheduled for an urgent FU appt since she called with symptoms of nausea and vomiting: patient called to report she is experiencing nausea, about two episodes of vomiting daily for the last week as well as abdominal pain and red bloody mucus in her stools. Patient reports she has noted a decrease in her appetite. patient denies fever or chills. I advised patient that I would send a message to you to advise but that it will be likely that she will need to go to the ED for furthe eval as you do not have any availability soon. please advise IMAGING STUDIES:?05/02/21 GASTRIC EMPTYING STUDY SHOWED: Retention in the stomach at each time interval was: 1 hour 79% (normal 37%-90%) 2 hours 69% (normal 30%-60%) 3 hours 50% 4 hours 35% (normal 0%-10%) 02/2021 ABD US WITH DOPPLER SHOWED:Normal appearing kidneys. Findings are suggestive of nut crackersyndrome, similar to the CT scan with narrowing of the renal veinbetween the aorta and SMA. In the area of stenosis, velocityacceleration is seen as described above. 12/2020 UGISBFT SHOWED:No definite jejunal or ileal mucosal abnormality with limited evaluation of the terminal ileum.Rapid transit of contrast to the colon without need for delayed imaging. 09/06/[address] SCAN SHOWED:Small, small bowel mesentery lymph nodes. No enlarged lymph nodes seen. 2 x 3 cm right adnexal cyst. Question of cracker syndrome of the left renal vein.ENDOSCOPIC STUDIES: 12/25/22 EGS AND FLEX SIG SHOWED: STOMACH: Mild antral gastritis. Pyloric balloon dilation was performed with a 19 mm (57 F) CRE balloon x 60 seconds. Botox (100 Units) was injected into the pylorus (25 units in each quadrant) DUODENUM: Normal - biopsied to check for celiac sprue Flexible sigmoidoscopy Findings: Minimal rectal erythema - likely due to prep - biopsies were obtained to check for IBD BIOPSIES SHOWED: A. Stomach, antrum, biopsy: Gastric antral mucosa with mild chronic inactive gastritis; negative for Helicobacter pylori, intestinal metaplasia and dysplasia. B. Small bowel, biopsy: Small bowel mucosa within normal limits; preserved villous architecture and no increased intraepithelial lymphocytes seen. C. Colon, left, biopsy: Colonic mucosa within normal limits; negative for active, chronic or microscopic colitis 09/16/22 CAPSULE ENDOSCOPY SHOWED: esophagus was normal. nodular appearing stomach mucosa in proximal stomach, rest of mucosa was normal. Some delay of capsule into duodneum, with some erythema in bulb. Patchy erythema in mid and distal ileum with some congestion. Cecum not reached Conclusion: Nodular gastric mucosa possible gastroparesis patchy ileal erythema and erythema of duodenal bulb consider further work up with CTe or GES if clinical suspicion of gastroparesis check nsaid hx use check h pylori TODAY'S VISIT: Usually has nausea when she wakes up and takes Promethazine Occasionally has nausea lasting the entire day Still tries to eat even if she is not hungry. Taking regular diet and blendarized diet depending on how she feels Taking metoclopramide twice a day since she does not have breakfast. Wt has been stable Denies constipation or diarrhea. PAST VISITS: Last few weeks has not had a good appetite Belly feels sore if she is lying on the back Feels better if she curls up in a ball Wakes up with abd pain if she is lying on her back. Hard to sleep on the side since her hips lock up feels Ok - about the same Nausea is not as bad - still has nausea in the morning and does not eat till 1-2 pm Denies recent vomiting Taking metoclopramide three times a day before meals Has a bad cough with phlegm and acid for the past month Saw her PCP and prescribed antibiotics - cough has not improved - gotton worse EGD and flex sig results reviewed with the patient She was feeling better after the EGD. Has been feeling nauseous for the last few days after eating. Taking metoclopramide three times a day and has been helping. Certain days she has nausea and vomiting after eating. Eats a lot of rice, bread and cracker. Has been trying to do smoothies. Does not eat breakfast in the am. Has nausea and gagging when she wakes up Eats lunch and dinner. Intermittent reflux symptoms Planning to have a Thanksgiving with her friends and separate dinner at her Mom's Noted nausea and vomiting and abdominal pain since last week Thought she had a stomach bug usually upto 2 episodes a day Feels a knot in her stomach and then food comes up Not always related to eating. Has a cramping feeling after eating. Also has diarrhea with 2-3 BMs a day. Intermittent dysphagia to liquids. Taking Metoclopramide twice a day and nausea medication prn Nausea medication works in 15 to 20 min if she takes it early enough Patient follow up of gastroparesis. Difficult to keep anything down for the past week Any time she eats anything and has post prandial vomiting Does not eat big meals - takes rice, beans and pasta Patient denies any GI issues. Appetite has improved with medications. Still has intermittent right lower abd cramps. Can wake up from sleep because of abdominal pain. Has been doing ok. Medication is helping - makes her feel drowsy - feels like a Zombie. Has cramps and feels sick in the morning. Has upset stomach if she eats breakfast. Has a small lunch. Continues to have RLQ pain and diarrhea 1-2 times a day with watery stools with mucous and no blood. Has gained some wt after thansgiving. Had surgery in June at [facility] in [place] and everything was ok Was not eating much for 3-4 months after the surgery. Once her appetite came back and she started eating more, she started feeling sick Bad cramps in the lower portion of the stomach - feels worse after taking breakfast Has been skipping breakfast. Has been trying to eat small portions. Some days she tries to eat and had to spit it back out due to nausea or smell of food. Lost a lot of wt after the surgery.? Started gaining the wt back 2 months ago. Denies dysphagia or change in BMs. Started feeling sick again Taking Promethazine every other day with partial control of nausea Continues to have nausea sometimes after she eats. Diagnosed with left renal vein stenosis and being scheduled for left renal vein stent placement at [facility] by Dr Del Real Did not have stent placed - additinal contrast studies are planned And possible surgery Abd pain is attributed to above. Notes nausea when she wakes up in the morning and goes away in 1-2 hrs. Does not have an appetite - feels full until dinner. Feels sick if she forces herself to eat. A GES at [facility] 1-2 yrs ago was normal. Feeling about the same. Hurts a lot when her bladder feels full before she has to use the bathroom. The pain goes away and it feels sore to touch in the lower stomach area. Denies pain with BMs. Denies having any diarrhea - has a formed BM 2-3 times a day Has not been feeling as nauseous lately and takes Seeing a Laminating Press Operator and being referred to a urologist. Started having abdominal pain at age 15 yrs. Pain is left sided and radiates to the lower abdomen - sometimes radiates to the back. Feels like bad cramping and hurts to walk. Unable to identify precipitating factors - sometimes after eating - no clear precipitating foods. Can have pain when she is hungry. No clear relieving factors - tries to lay down and relax. Notes nausea after eating - no vomiting. Has 3-4 BMs a day without loose or hard stools. Can have diarrhea once every couple of weeks - lasts for a day and resolves spontaneously. Notes mucous in the stool and denies rectal bleeding. Eats once a day - takes a couple of bites and feels full after. Patient denies symptoms of heartburn, dysphagia, change in appetite or weight.? Denies recent change in bowel habits, constipation, diarrhea, black stools or rectal bleeding. Wt loss of 30 lbs - lost in Feb 2020 and has not been able to gain it back. Gains a few lbs and then looses wt again. Has a Depo shot every 3 months - does not have a period just intermittent spotting Notes pain in knees and hips - played soccer and soft ball. Denies mouth ulcers or eye problems. Tried different diets in the past - without a change in symptoms. Taking rice, beans and chicken at present. Tried Omeprazole and Pepcid and was not helpful Patient denies major cardiac or pulmonary problems, loud snoring or sleep apnea Denies problems with anesthesia in the past. Denies being on chronic anticoagulation, aspirin or NSAIDS. Mom had H Pylori - has similar symptoms as the patient - takes Omeprazole and feels fine. Patient denies known family history of colon polyps, colon cancer or other GI malignancies. Paternal GM of stomach cancer. 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 Lives with Mom and has no?children [facility] Medical History Gastritis Asthma GERD (gastroesophageal reflux disease) Vitamin D deficiency Migraine without aura Nutcracker phenomenon of renal vein Surgical History Hx of abdominal surgery History of esophagogastroduodenoscopy (EGD) Hx of colonoscopy Family History Paternal Grandmother Stomach cancer Family/Other Substance use disorder Mental health disorder Social History (Updated 02/22/24 @ 08:42 by Gisele Nazario LPN) Household Members Other:: lives with mom Housing: House Alcohol intake: current Alcohol intake frequency: holidays/special occasions only Patient Tobacco Use Status: Never used Tobacco e-Cigarette/Vaping Use: Never Used Second Hand Smoke Exposure: No Substance Use Type: Marijuana service: No Current occupational status: employed 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 Cognitive needs: No Hearing needs: No Vision needs: No Review of Systems Const All systems reviewed & are unremarkable except as noted in HPI and below Physical Exam Vital Signs: Last Vital Signs Pulse 91 10/07/23 08:35 BP 128/66 10/07/23 08:35 BMI result Body Mass Index 22.7 Const General: healthy appearing and no acute distress Nutritional Appearance: average body habitus Orientation/consciousness: patient oriented x3 Limitations: no limitations HEENT Head: Yes normal to inspection Ears: hearing grossly normal bilaterally Eyes Sclerae: sclerae normal Pupils: Equal, round and reactive pupils present Neck Neck: Yes normal visual inspection Chest Chest palpation & inspection: normal inspection of the chest Resp Effort & Inspection: normal respiratory effort Auscultation: clear to auscultation bilaterally Cardio Palpation: normal PMI Rate: regular rate Rhythm: regular rhythm Heart sounds: S1 normal heart sound present, S2 normal heart sound present and no murmurs GI Palpation (GI): Soft to palpation, nontender and No hepatosplenomegaly present Auscultation: normal bowel sounds Rectal Exam - Female: deferred Skin General skin exam: no rashes or lesions noted Neuro General: patient oriented x3, gait normal and moves all extremities Cranial nerves: Yes Equal, round and reactive pupils present Psych Appearance: grossly normal Mental Status: mental status grossly normal Assessment & Plan Assessment & Plan (1) Nausea and vomiting: Code(s): R11.2 - Nausea with vomiting, unspecified Category: Medical (2) Abdominal pain: Code(s): R10.9 - Unspecified abdominal pain Category: Medical (3) Chronic diarrhea: Code(s): K52.9 - Noninfective gastroenteritis and colitis, unspecified Category: Medical (4) Gastroparesis: Code(s): K31.84 - Gastroparesis Category: Medical (5) GERD (gastroesophageal reflux disease): Code(s): K21.9 - Gastro-esophageal reflux disease without esophagitis Category: Medical (6) Vitamin D deficiency: Code(s): E55.9 - Vitamin D deficiency, unspecified Category: Medical (7) Vitamin B12 deficiency: Code(s): E53.8 - Deficiency of other specified B group vitamins Category: Medical Plan 23 YF with depression followed in GI for abdominal pain, nausea, vomiting and chronic diarrhea. 04/2016 EGD AND COLONOSCOPY performed at [facility] were normal with chronic gastritis on stomach biopsies. 09/2017 EGD was normal with normal biopsies from esophagus stomach and duodenum. ? 08/[address] scan showed?Small, small bowel mesentery lymph nodes. No enlarged lymph nodes seen. 2 x 3 cm right adnexal cyst. Question of cracker syndrome of the left renal vein. UGI with SBFT was normal. Celiac and IBD serologies were negative and fecal calprotectin was not approved by her insurance GES showed gastroparesis.? Patient handout on gastroparesis from up-to-date was given to the patient Pt advised dietary modification for gastroparesis and start Metoclopramide 5 mg three times daily for gastroparesis on her previous visit. Advised to decrease Metoclopramide to 1-2 times daily due to drowsiness Continue promethazine for nausea and dicyclomine at bedtime for abdominal pain. 05/14/22 Pt advised to schedule a Capsule Study (with patency test) to rule out Crohn's disease (intermittent RLQ pain which can wake her up at night and diarrhea) 08/2022 Capsule Study showed: Conclusion: Nodular gastric mucosa possible gastroparesis patchy ileal erythema and erythema of duodenal bulb consider further work up with CTe or GES if clinical suspicion of gastroparesis check nsaid hx use check h pylori 10/08/22 Pt advised to go on a liquid diet x 24 hours and then blenderized food until nausea and vomiting resolves Continue Metoclopramide 5 mg twice a day Switch from promethazine to prochlorperazine for nausea and vomting Re submit stool for fecal calprotectin 12/24/22 Pt advised to schedule an EGD and flex sig - done 12/25/22 Increase Metoclopramide to three times a day (instead of twice daily) 01/14/23 Pt advised a trail of blendarized diet and start Omeprazole at bedtime for GERD (Increase to twice daily if symptoms persist after a week) 02/25/23 Pt advised to take Famotidine 20 mg at bedtime for nocturnal cough (suspected GERD) 10/07/23 Usually has nausea when she wakes up and takes Promethazine Occasionally has nausea lasting the entire day FU in 6 months Medications: New cholecalciferol (vitamin D3) 250 mcg PO 2XW 26 caps 1RF 90 days E55.9 - Vitamin D deficiency, unspecified Discontinued cholecalciferol (vitamin D3) Discontinued Reason: Ancillary Entered New Order 50 mcg PO DAILY 30 caps 3RF E55.9 - Vitamin D deficiency, unspecified Coding Level of Care Code Est Pt Level 3 (53771) Diagnoses Nausea and vomiting R11.2 Abdominal pain R10.9 Chronic diarrhea K52.9 Gastroparesis K31.84 GERD (gastroesophageal reflux disease) K21.9 Vitamin D deficiency E55.9 Vitamin B12 deficiency E53.8 Time Spent (min) 18
[2023-10-07 08:35] VITALS: BP 128/66; PULSE 91; BMI 22.7
== END 2023-10-07 08:54 | disposition home or self-care (01) ==
PROVIDERS: PCP Nurse Practitioner Family; Visit Provider Internal Medicine Gastroenterology
DX: R11.2 Nausea with vomiting, unspecified (principal); R10.9 Unspecified abdominal pain; K52.9 Noninfective gastroenteritis and colitis, unspecified; K31.84 Gastroparesis; K21.9 Gastro-esophageal reflux disease without esophagitis; E55.9 Vitamin D deficiency, unspecified; E53.8 Deficiency of other specified B group vitamins
CPT/HCPCS: 99499

== ENCOUNTER → 2023-10-07 08:28 | Outpatient (BNVA) | payer OTHER, SELFPAY | PROVIDERS: PCP Nurse Practitioner Family; Visit Provider Internal Medicine Gastroenterology ==

== ENCOUNTER 2023-11-29 10:34 | Outpatient (AMB) | payer OTHER, SELFPAY ==
--- NOTE | 2023-11-29 10:38 | A.OFFPC_ITS ---
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 Accompanied by: Self / Same As Patient Allergies No Known Allergies Allergy (Verified 11/29/23 11:36) Medication List - Last Reconciled 11/29/23 by French Stewart MD amitriptyline 10 mg PO BEDTIME 30 days cholecalciferol (vitamin D3) 250 mcg PO 2XW 90 days famotidine 20 mg PO BEDTIME 30 days magnesium oxide 400 mg PO BEDTIME 30 days metoclopramide HCl 10 mg (10 mL) PO QID 30 days promethazine 12.5 mg PO Q6H PRN riboflavin (vitamin B2) 400 mg PO DAILY 30 days Ventolin HFA 90 mcg/actuation (albuterol sulfate) 2 puffs inhalation Q6H PRN 30 days NS Tobacco use date assessed: 11/29/23 Dental Screening Dental Screen Date: 11/29/23 Did you have a dental visit in the last 12 months?: No Did you have a dental problem in the last 6 months where you did not have access to dental care?: No Was dental information given to patient?: No HPI arthralgia, asthma, migraine HPI Details Patient comes in today for her follow up visit States that she has been experiencing increased headaches (migraine) more often than usual lately Relates (+) occasional nausea associated with her headaches but denies any photophobia She denies any dizziness Denies any chest pains, no increased SOB States that she still has occasional vomiting No abdominal pain but stomach still feels bloated often, likely due to her gastroparesis No change in bowel habits noted She would also like to get a referral to [place] [facility] [place] and [place] smear [facility] Medical History (Updated 12/05/23 @ 23:19 by French Stewart MD) Gastritis Asthma GERD (gastroesophageal reflux disease) Vitamin D deficiency Migraine without aura Nutcracker phenomenon of renal vein Surgical History (Updated 12/05/23 @ 22:47 by French Stewart MD) Hx of abdominal surgery History of esophagogastroduodenoscopy (EGD) Hx of colonoscopy Family History Paternal Grandmother Stomach cancer Family/Other Substance use disorder Mental health disorder Social History Household Members Other:: lives with mom Housing: House Alcohol intake: current Alcohol intake frequency: holidays/special occasions only Patient Tobacco Use Status: Never used Tobacco e-Cigarette/Vaping Use: Never Used Second Hand Smoke Exposure: No Substance Use Type: Marijuana service: No Current occupational status: unemployed 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 1. Little interest or pleasure in doing things: not at all 2. Feeling down, depressed, or hopeless: not at all 3. Trouble falling or staying asleep, or sleeping too much: not at all 4. Feeling tired or having little energy: not at all 5. Poor appetite or overeating: not at all 6. Feeling bad about yourself - or that you are a failure or have let yourself or your family down: not at all 7. Trouble concentrating on things, such as reading the newspaper or watching television: not at all 8. Moving or speaking so slowly that other people could have noticed. Or the opposite - being so fidgety or restless that you have been moving around a lot more than usual: not at all 9. Thoughts that you would be better off or of hurting yourself in some way: not at all Total score: 0 Depression Screening Interpretation: Negative Depression Screening Done: Yes 33778 - PHQ-9 Billing: Yes Source: Developed by Drs. Major Pereira, Amelie Stoddard, Sonu Carey and colleagues, with an educational gurpreet from [employer]. Thrive Questionnaire Date Thrive assessed: 11/29/23 I am a: Patient What is your living situation today?: I have a steady place to live Within the past 12 months, did the food you bought not last and you didn't have the money to get more?: Never true Within the past 12 months, did you worry whether your food would run out before you got money to buy more?: Never true Do you have trouble paying for medicines?: No Do you have trouble getting transportation to medical appointments?: No Do you have trouble paying your heating and electricity bill?: No Do you have trouble taking care of your child, family member or friend?: No Do you have trouble with day-to-day activities such as bathing, preparing meals, shopping, managing finances, etc.?: No Are you currently unemployed and looking for a job?: No Are you interested in more education?: No Please select the resources that you would like help with: None Currently or been in a relationship where the following occur: No concerns reported THRIVE Score: 0 AUDIT C Alcohol Use Questionnaire (AUDIT-C) 1. How often do you have a drink containing alcohol?: Never 3. How often do you have six or more drinks on one occasion?: Never Total Score: 0 Score Reviewed/Action Taken: Yes ASHOK-7 AMB Questionnaire ASHOK-7 Date ASHOK - 7 assessed: 11/29/23 Feeling nervous, anxious, or on edge: 0 = Not at all Not being able to stop or control worryin = Not at all Worrying too much about different things: 0 = Not at all Trouble relaxin = Not at all Being so restless that it is hard to sit still: 0 = Not at all Becoming easily annoyed or irritable: 0 = Not at all Feeling afraid as if something awful might happen: 0 = Not at all Total ASHOK-7 score (0-4 normal; 5-9 mild; 10-14 moderate; 15-21 severe): 0 Source: Developed by Drs. Major Pereira, Amelie Stoddard, Sonu Carey and colleagues, with an educational gurpreet from [employer]. Review of Systems Const Denies chills, Reports fatigue, Denies fever(s) and Reports headache(s) (increasing lately) Eyes Denies photophobia ENT Denies dysphagia, Denies dizziness, Denies otalgia, Reports headache(s) (increasing lately), Denies neck pain, Denies odynophagia and Denies sore throat Card Denies chest pain, Denies palpitations and Denies dyspnea Resp Denies cough and Denies dyspnea GI Denies abdominal pain, Reports bloating (frequent), Denies constipation, Denies dysphagia, Denies heartburn, Denies diarrhea, Reports nausea (on and off), Denies odynophagia and Reports vomiting (occasional) Denies difficulty voiding, Denies nocturia, Denies dysuria and Denies urinary urgency Musc Denies back pain and Denies neck pain Skin/Breast Denies rash Neuro Denies dizziness and Reports headache(s) (increasing lately) Endo Reports fatigue and Denies palpitations Physical exam (Primary Care) Vital Signs: Last Vital Signs Pulse 61 11/29/23 10:39 BP 110/62 11/29/23 10:39 Pulse Ox 97 11/29/23 10:39 Oxygen Delivery Method Room Air 11/29/23 10:39 BMI result Body Mass Index 24.9 Tobacco/Smoking Status: Tobacco use Status Tobacco use date assessed 11/29/23 11/29/23 10:40 Patient Tobacco Use Status Never used Tobacco 11/29/23 10:40 e-Cigarette/Vaping Use Never Used 11/29/23 10:40 PHQ-9: PHQ-9 Score PHQ-9: Total score 0 11/29/23 11:46 Depression Screening Interpretation: Negative Thrive Assessment: Date of Thrive Assessment Date Thrive assessed 11/29/23 11/29/23 10:40 Currently or been in a relationship where the following occur: No concerns reported Const General: no acute distress and alert HENMT Ears: TM's normal bilaterally and EAC's normal Throat: Yes posterior oropharynx normal and Yes tonsils normal (no TP congestion) Eyes Direct Ophthalmoscopy: No photophobia Neck Neck: Yes no lymphadenopathy and Yes supple Thyroid: Thyroid normal Resp Auscultation: clear to auscultation bilaterally, no rales and no wheezes Cardio Rate: regular rate Rhythm: regular rhythm Heart sounds: no murmurs GI Palpation (GI): Soft to palpation, nontender and no guarding Auscultation: normal bowel sounds General: Yes no CVA tenderness Back/Spine/Pelvis Back: no CVA tenderness Thoracic/Lumbar Spine: No lumbar spinal tenderness Skin Rashes: no rashes Extrem General: Yes no clubbing, cyanosis or edema Assessment and Plan Assessment & Plan (1) Migraine without aura: Code(s): G43.009 - Migraine without aura, not intractable, without status migrainosus Qualifiers: Status migrainosus presence: without status migrainosus Intractability: not intractable Qualified Code(s): G43.009 - Migraine without aura, not intractable, without status migrainosus Plan: She has been on Amitriptyline 10 mg Q HS for migraine headache prophylaxis - as she has reportedly been experiencing an increase in the frequency and severity of her headaches lately, will increase her Amitriptyline to 25 mg Q HS Continue Riboflavin 400 mg QD Follow up with neurology as scheduled (2) Gastroparesis: Code(s): K31.84 - Gastroparesis Plan: Patient had gastric emptying study done a couple of years ago on 05/02/2021 that revealed (+) significant retention of food in the stomach - 1 hour 79% (normal 37%-90%), 2 hours 69% (normal 30%-60%), 3 hours 50% and 4 hours 35% (normal 0%- 10%) Continue Metoclopraminde 10 mg QID PRN and Promethazine 12.5 mg Q 6 hours PRN Follow up with GI as scheduled (3) Gastritis: Code(s): K29.70 - Gastritis, unspecified, without bleeding Qualifiers: Gastritis type: unspecified gastritis Chronicity: chronic Gastritis bleeding: without bleeding Qualified Code(s): K29.50 - Unspecified chronic gastritis without bleeding Plan: EGD done on 12/25/2022 revealed (+) mild antral gastritis Continue Famotidine 20 mg Q HS Follow up with GI as scheduled (4) Asthma: Code(s): J45.909 - Unspecified asthma, uncomplicated Qualifiers: Asthma severity: mild Asthma persistence: intermittent Asthma complication type: uncomplicated Qualified Code(s): J45.20 - Mild intermittent asthma, uncomplicated Plan: Stable - continue Albuterol HFA 1 to 2 inhalations Q 6 hours PRN (5) Vitamin D deficiency: Code(s): E55.9 - Vitamin D deficiency, unspecified Plan: Continue Vitamin D3 1000 units QD (6) Cervical cancer screening: Code(s): Z12.4 - Encounter for screening for malignant neoplasm of cervix Plan: Per request, will refer [place] [facility] for her annual pap smear and gynecology exam Plan To return in June 2024 for her next annual physical examination Patient is reminded to get her ordered labs done in 6 months just BEFORE she is scheduled to come in for her appointment then Orders: Orders Comprehensive [place]. Panel Fast 06/13/24 E78.00 - Pure hypercholesterolemia, unspecified, Z00.00 - Encounter for general adult medical examination without abnormal findings Vitamin D 25-OH Total 06/13/24 E55.9 - Vitamin D deficiency, unspecified, Z00.00 - Encounter for general adult medical examination without abnormal findings Complete Blood Count Auto Diff 06/13/24 D64.9 - Anemia, unspecified, Z00.00 - Encounter for general adult medical examination without abnormal findings Lipid Panel 06/13/24 E78.00 - Pure hypercholesterolemia, unspecified, Z00.00 - Encounter for general adult medical examination without abnormal findings TSH reflex Free T4 06/13/24 E78.00 - Pure hypercholesterolemia, unspecified, Z00.00 - Encounter for general adult medical examination without abnormal findings UA CC w/rflx Micro + Cult 06/13/24 R30.0 - Dysuria, Z00.00 - Encounter for general adult medical examination without abnormal findings Referrals [facility]OR Referral Z12.4 - Encounter for screening for malignant neoplasm of cervix Medications: Changed From amitriptyline 10 mg PO BEDTIME 30 days 30 tabs 5RF To amitriptyline 25 mg PO BEDTIME 30 days 30 tabs 5RF Coding Level of Care Code Est Pt Level 4 (25362) Diagnoses Migraine without aura and without status migrainosus, not intractable G43.009 Status migrainosus presence: without status migrainosus Intractability: not intractable Gastroparesis K31.84 Chronic gastritis without bleeding, unspecified gastritis type K29.50 Gastritis type: unspecified gastritis Chronicity: chronic Gastritis bleeding: without bleeding Mild intermittent asthma without complication J45.20 Asthma severity: mild Asthma persistence: intermittent Asthma complication type: uncomplicated Vitamin D deficiency E55.9 Cervical cancer screening Z12.4
[2023-11-29 10:39] VITALS: BP 110/62; PULSE 61; O2SAT 97; BMI 24.9
== END 2023-11-29 11:49 | disposition home or self-care (01) ==
PROVIDERS: PCP Nurse Practitioner Family; Visit Provider Internal Medicine
DX: G43.009 Migraine without aura, not intractable, without status migrainosus (principal); K31.84 Gastroparesis; K29.50 Unspecified chronic gastritis without bleeding; J45.20 Mild intermittent asthma, uncomplicated; E55.9 Vitamin D deficiency, unspecified; Z12.4 Encounter for screening for malignant neoplasm of cervix

== ENCOUNTER → 2023-11-29 10:34 | Outpatient (BNVA) | payer OTHER, SELFPAY | PROVIDERS: PCP Nurse Practitioner Family; Visit Provider Internal Medicine | DX: G43.009 Migraine without aura, not intractable, without status migrainosus (principal); K31.84 Gastroparesis; K29.50 Unspecified chronic gastritis without bleeding; J45.20 Mild intermittent asthma, uncomplicated; E55.9 Vitamin D deficiency, unspecified | CPT/HCPCS: 99212 ==

== ENCOUNTER 2024-01-12 08:10 | Outpatient (REF) | payer OTHER, SELFPAY ==
[2024-01-12 10:44] LABS: Estimated Average Glucose 105 mg/dL; Hemoglobin A1C 119.5467 umol/L; Hemoglobin A1c % 5.3 % (<6.0); Total Hemoglobin (HGBA1C) 3498.4872 umol/L
[2024-01-12 12:07] LABS: Rheumatoid Factor < 13.0 IU/mL (<15.0)
[2024-01-12 12:47] LABS: Folate 6.2 ng/mL (> or = 4.0); Vitamin B12 345 pg/mL (200-900)
[2024-01-12 12:58] LABS: Iron 126 mcg/dL (30-160); Magnesium 2.1 mg/dL (1.6-2.6); Percent Iron Saturation 32 % (15-50); Total Iron Binding Capacity 390 mcg/dL (228-428); Unsaturated Iron Binding 264 ug/dL
[2024-01-12 13:19] LABS: Ferritin 19 ng/mL (10-122)
[2024-01-15 18:34] LABS: Zinc 73 mcg/dL (60-130)
[2024-01-16 11:53] LABS: Vitamin C 0.8 mg/dL (0.3-2.7)
[2024-01-16 15:28] LABS: Vitamin B5 (Pantothenic Acid) <=40 ng/mL (<275)
[2024-01-17 15:08] LABS: Nicotinamide <20 ng/mL (see note); Vit B3 - Nicotinic Acid <20 ng/mL (see note)
[2024-01-17 22:12] LABS: Vitamin B6 13.7 ng/mL (2.1-21.7)
[2024-01-18 06:38] LABS: Vitamin B1 9 nmol/L (8-30)
[2024-01-19 08:18] LABS: Anti Nuclear Antibody Screen NEGATIVE (NEGATIVE)
[2024-01-19 13:58] LABS: Vitamin B2 (Riboflavin) 11.9 nmol/L (6.2-39.0)
[2024-01-20 00:29] LABS: Alpha-Tocopherol 13.3 mg/L (5.7-19.9); Beta-Gamma Tocopherol 1.3 mg/L (<=4.3)
== END 2024-01-12 08:11 | disposition home or self-care (01) ==
LOC: HO.LAB 08:10
PROVIDERS: PCP Internal Medicine; Visit Provider Nurse Practitioner Family
DX: E53.8 Deficiency of other specified B group vitamins (principal); R42 Dizziness and giddiness; R11.2 Nausea with vomiting, unspecified; R20.2 Paresthesia of skin; R25.2 Cramp and spasm; M25.50 Pain in unspecified joint; G43.009 Migraine without aura, not intractable, without status migrainosus
CPT/HCPCS: 36415; 82180; 82607; 82728; 82746; 83036; 83540; 83735; 84207; 84252; 84425; 84446; 84591; 84630; 86038; 86431; 99212

== ENCOUNTER 2024-01-12 08:10 | Outpatient (AMB) | payer OTHER, SELFPAY ==
--- NOTE | 2024-01-12 08:20 | A.OFFVIS_ITS ---
Vital Signs 01/12/24 08:21 Height 5 ft 3 in Weight 140 lb BMI 24.8 Intake Visit Reasons: 6 Month F/U Intake Note: Patient presents for 6 month follow up. headaches have been the same Allergies No Known Allergies Allergy (Verified 01/12/24 08:32) Medication List - Last Reconciled 01/12/24 by KERA Clark amitriptyline 25 mg PO BEDTIME 30 days cholecalciferol (vitamin D3) 250 mcg PO 2XW 90 days famotidine 20 mg PO BEDTIME 30 days magnesium oxide 400 mg PO BEDTIME 30 days metoclopramide HCl 10 mg (10 mL) PO QID 30 days promethazine 12.5 mg PO Q6H PRN riboflavin (vitamin B2) 400 mg PO DAILY 30 days Ventolin HFA 90 mcg/actuation (albuterol sulfate) 2 puffs inhalation Q6H PRN 30 days NS HPI Comments Details: 23-yr-old female presents for f/u visit for migraine and dizziness w/ PMH notable for nutcracker syndrome, GERD, gastroparesis. Pt was last seen by our former colleague Edelmira Morley NP. Pt denies any significant interval medical changes. Migraines are now occurring 2-3 x's per week, waxing and waning throughout the day. Forgets to take the B2 and Mag. Amitriptyline has not been very helpful, but already does feel exhausted. Tylenol does not help much- uses rarely. Uses metoclopramide before meals for nausea/gastroparesis- has not noticed any effect on migraine. Baseline headache characteristics: Migraines and dizziness and lightheadedness started in 2021 after her renal surgery. Throbbing pain in mid-forehead a/w photophobia, phonophobia, some nausea (but often nauseous), lightheadedness, some external spinning dizziness a/w heart racing, fatigue, activity intolerance. Typically waxes and waned throughout the day. Has always been prone to feeling exhausted even after sleeping 10+ hrs. Not sure if she snores. She is prone to restless leg symptoms- occurs when she relaxes and tries to go to bed- feels like she cannot get comfortable. She cannot get comfortable, has creepy crawling sensation. Some leg cramps when waking up. She is not sure if she has had anemia. Does have heavy menstrual cycles since stopping Depo. Dizziness comes if standing- not triggered by rolling over or turning her head. FORMERLY [facility], [facility] Medical History Gastritis Asthma GERD (gastroesophageal reflux disease) Vitamin D deficiency Migraine without aura Nutcracker phenomenon of renal vein Surgical History Hx of abdominal surgery History of esophagogastroduodenoscopy (EGD) Hx of colonoscopy Family History Paternal Grandmother Stomach cancer Family/Other Substance use disorder Mental health disorder Social History Household Members Other:: lives with mom Housing: House Alcohol intake: current Alcohol intake frequency: holidays/special occasions only Patient Tobacco Use Status: Never used Tobacco e-Cigarette/Vaping Use: Never Used Second Hand Smoke Exposure: No Substance Use Type: Marijuana service: No Current occupational status: unemployed 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 Cognitive needs: No Hearing needs: No Vision needs: No Physical Exam Vital Signs: BMI result Body Mass Index 24.8 Const General: cooperative and no acute distress Orientation/consciousness: patient oriented x3 Resp Effort & Inspection: normal respiratory effort and able to speak in complete sentences Neuro General: patient oriented x3 Cranial nerves: Yes CN's II-XII intact bilaterally Cognition (Neuro): normal cognition Gait exam (Neuro): Normal gait present Motor exam (neuro): 5/5 motor strength present throughout Psych Appearance: grossly normal Mental Status: mental status grossly normal Speech and movement: Normal speech and movement present Affect: normal affect Attitude: cooperative Assessment & Plan Assessment & Plan (1) Migraine without aura: Code(s): G43.009 - Migraine without aura, not intractable, without status migrainosus Category: Medical Qualifiers: Status migrainosus presence: without status migrainosus Intractability: not intractable Qualified Code(s): G43.009 - Migraine without aura, not intractable, without status migrainosus (2) Dizziness: Code(s): R42 - Dizziness and giddiness Category: Medical (3) Muscle cramps: Code(s): R25.2 - Cramp and spasm Category: Medical (4) Sleep difficulties: Code(s): G47.9 - Sleep disorder, unspecified Category: Medical (5) Excessive daytime sleepiness: Code(s): G47.19 - Other hypersomnia Category: Medical Plan Pt advised to undergo: HST to assess for sleep apnea. Labs for common etiologies of fatigue, restless leg symptoms, cramps, joint pain in setting of h/o poor nutritional intake. Future considerations- in-lab sleep study. For overall headache management: Optimize good self-care, including but not limited to maintaining a healthy diet, adequate fluid intake, adequate sleep, and engaging in regular physical activity. For acute headache treatment: Discussed importance of taking acute medications at the first sign of headache, however stressed importance of avoiding acute medication overuse (especially with combined headache medications). Trial Sumatriptan 100mg tab, 1/2 - 1 tab (50-100mg) at onset of headache, may repeat in 2 hours. Max of 2 tabs (200mg) per 24 hours. May adjunct with OTC Tylenol 650-1000mg q 4-6 hours prn. Potential adverse effects of triptans, include but are not limited to nausea, fatigue, chest tightness/tingling (usually passes within a few minutes), medication overuse headaches. Previous acute migraine medication trials: none other Acute migraine medication contraindications: NSAIDs d/t nutcracker syndrome. For headache prevention medication: Discussed that preventative medications should be taken routinely as prescribed for best effect, it may take several weeks for full effect to take effect. Stop Amitriptyline 25mg qhs- ineffective, patient is very sleepy already, and TCAs may exacerbate RLS s/s. Start Gabapentin 100mg cap- 1-3 caps daily 1 hr before bedtime for headache and RLS s/s. Previous migraine prevention medication trials: Amitriptyline 25mg qhs- ineffective, patient is very sleepy already, and TCAs may exacerbate RLS s/s. Migraine prevention medication contraindications: caution w/ anti-HTN agents d/t h/o low BP and lightheadedness. Caution w/ Aimovig or Qulipta d/t risk for constipation. Will follow-up upon review of above and patient to follow-up in clinic in 6 months or sooner prn. Orders: Orders Vitamin B12 and Folate 01/12/24 E53.8 - Deficiency of other specified B group vitamins, R11.2 - Nausea with vomiting, unspecified, R20.2 - Paresthesia of skin, R25.2 - Cramp and spasm, R42 - Dizziness and giddiness Vitamin B1 01/12/24 E53.8 - Deficiency of other specified B group vitamins, R11.2 - Nausea with vomiting, unspecified, R20.2 - Paresthesia of skin, R25.2 - Cramp and spasm, R42 - Dizziness and giddiness Vitamin B2 (Riboflavin) 01/12/24 E53.8 - Deficiency of other specified B group vitamins, R11.2 - Nausea with vomiting, unspecified, R20.2 - Paresthesia of skin, R25.2 - Cramp and spasm, R42 - Dizziness and giddiness Vitamin B3 (Niacin) 01/12/24 E53.8 - Deficiency of other specified B group vitamins, R11.2 - Nausea with vomiting, unspecified, R20.2 - Paresthesia of skin, R25.2 - Cramp and spasm, R42 - Dizziness and giddiness Vitamin C 01/12/24 E53.8 - Deficiency of other specified B group vitamins, R11.2 - Nausea with vomiting, unspecified, R20.2 - Paresthesia of skin, R25.2 - Cramp and spasm, R42 - Dizziness and giddiness Vitamin E 01/12/24 E53.8 - Deficiency of other specified B group vitamins, R11.2 - Nausea with vomiting, unspecified, R20.2 - Paresthesia of skin, R25.2 - Cramp and spasm, R42 - Dizziness and giddiness Zinc 01/12/24 E53.8 - Deficiency of other specified B group vitamins, R11.2 - Nausea with vomiting, unspecified, R20.2 - Paresthesia of skin, R25.2 - Cramp and spasm, R42 - Dizziness and giddiness IRON PROFILE 01/12/24 E53.8 - Deficiency of other specified B group vitamins, R11.2 - Nausea with vomiting, unspecified, R20.2 - Paresthesia of skin, R25.2 - Cramp and spasm, R42 - Dizziness and giddiness Magnesium 01/12/24 M25.50 - Pain in unspecified joint, R25.2 - Cramp and spasm RT home sleep study 01/12/24 G47.19 - Other hypersomnia, G47.9 - Sleep disorder, unspecified, R06.83 - Snoring Ferritin 01/12/24 E53.8 - Deficiency of other specified B group vitamins, R11.2 - Nausea with vomiting, unspecified, R20.2 - Paresthesia of skin, R25.2 - Cramp and spasm, R42 - Dizziness and giddiness Vitamin B5 (Pantothenic Acid) 01/12/24 E53.8 - Deficiency of other specified B group vitamins, R11.2 - Nausea with vomiting, unspecified, R20.2 - Paresthesia of skin, R25.2 - Cramp and spasm, R42 - Dizziness and giddiness Vitamin B6 01/12/24 E53.8 - Deficiency of other specified B group vitamins, R11.2 - Nausea with vomiting, unspecified, R20.2 - Paresthesia of skin, R25.2 - Cramp and spasm, R42 - Dizziness and giddiness Hemoglobin A1c 01/12/24 E53.8 - Deficiency of other specified B group vitamins, R11.2 - Nausea with vomiting, unspecified, R20.2 - Paresthesia of skin, R25.2 - Cramp and spasm, R42 - Dizziness and giddiness LIONEL Reflex Titer and Pattern 01/12/24 M25.50 - Pain in unspecified joint, R25.2 - Cramp and spasm Rheumatoid Factor 01/12/24 M25.50 - Pain in unspecified joint, R25.2 - Cramp and spasm Medications: New sumatriptan succinate 50 - 100 mg orally at onset of headache, may repeat in 2 hrs PRN; max 2 tabs per day or 4 tabs/week (may take with Tylenol) 12 tabs 6RF migraine headache 30 days gabapentin 100 - 300 mg (1 - 3 x 100 mg) PO BEDTIME 90 caps 3RF 30 days Discontinued amitriptyline Discontinued Reason: Doctor's Order 25 mg PO BEDTIME 30 days 30 tabs 5RF Coding Level of Care Code Est Pt Level 4 (33605) Diagnoses Migraine without aura and without status migrainosus, not intractable G43.009 Status migrainosus presence: without status migrainosus Intractability: not intractable Dizziness R42 Muscle cramps R25.2 Sleep difficulties G47.9 Excessive daytime sleepiness G47.19
[2024-01-12 08:21] VITALS: BMI 24.8
== END 2024-01-12 09:29 | disposition home or self-care (01) ==
LOC: HO.HSMS 08:11
PROVIDERS: PCP Internal Medicine; Visit Provider Nurse Practitioner Family
DX: G43.009 Migraine without aura, not intractable, without status migrainosus (principal); R42 Dizziness and giddiness; R25.2 Cramp and spasm; G47.9 Sleep disorder, unspecified; G47.19 Other hypersomnia
CPT/HCPCS: 99214

== ENCOUNTER → 2024-02-21 07:35 | Outpatient (REF) | payer OTHER, SELFPAY | LOC: HO.SL 07:35 | PROVIDERS: PCP Internal Medicine; Visit Provider Nurse Practitioner Family | DX: R06.83 Snoring (principal); G47.9 Sleep disorder, unspecified; G47.19 Other hypersomnia | CPT/HCPCS: 95806 ==

== ENCOUNTER → 2024-02-21 07:47 | Outpatient (BNV) | payer OTHER, SELFPAY | PROVIDERS: PCP Internal Medicine; Visit Provider Psychiatry & Neurology Neurology | DX: R06.83 Snoring (principal); G47.10 Hypersomnia, unspecified | CPT/HCPCS: 95806 ==

== ENCOUNTER 2024-02-22 08:26 | Outpatient (AMB) | payer OTHER, SELFPAY ==
[2024-02-22 08:32] VITALS: BP 102/60; BMI 24.4
--- NOTE | 2024-02-22 08:32 | A.OFFVIS_ITS ---
Vital Signs 02/22/24 08:32 Height 5 ft 3 in Weight 138 lb BMI 24.4 BP 102/60 Blood Pressure Location Lt brachial Position Sitting Intake Visit Reasons: New Patient/ Annual Intake Note: pelvic pain R Programmer Required: No Information Interpreted: non-clinical & clinical College Coach: College Coach Present (Gisele) Allergies No Known Allergies Allergy (Verified 02/22/24 08:35) Medication List - Last Reconciled 02/22/24 by Gisele Nazario LPN cholecalciferol (vitamin D3) 250 mcg PO 2XW 90 days famotidine 20 mg PO BEDTIME 30 days gabapentin 100 - 300 mg (1 - 3 x 100 mg) PO BEDTIME 30 days magnesium oxide 400 mg PO BEDTIME 30 days metoclopramide HCl 10 mg (10 mL) PO QID 30 days sumatriptan succinate 50 - 100 mg orally at onset of headache, may repeat in 2 hrs PRN; max 2 tabs per day or 4 tabs/week (may take with Tylenol) 30 days Ventolin HFA 90 mcg/actuation (albuterol sulfate) 2 puffs inhalation Q6H PRN 30 days NS Is last menstrual period known: Yes Last menstrual period: 02/03/24 Post menopausal: No Patient : No Do you need a note to return to daycare/school/sports/work: Yes HPI Comments Details: She is a premenopausal woman 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 Doing well with pain in lower pelvis, a few weeks, more uncomfortable with coughing, sneezing, no urine symptoms. Regular monthly menses. Currently not is sexually active. She denies vaginal itching and irritation. STI screening offered; she accepts, declines blood work. She tries to eat healthy and stays active with exercise-walking at work. Denies family history of breast, ovarian or colon cancer. First Pap smear today. PFSH Medical History Gastritis Asthma GERD (gastroesophageal reflux disease) Vitamin D deficiency Migraine without aura Nutcracker phenomenon of renal vein Surgical History Hx of abdominal surgery History of esophagogastroduodenoscopy (EGD) Hx of colonoscopy Family History Paternal Grandmother Stomach cancer Family/Other Substance use disorder Mental health disorder Social History (Updated 02/22/24 @ 08:42 by Gisele Nazario LPN) Household Members Other:: lives with mom Housing: House Alcohol intake: current Alcohol intake frequency: holidays/special occasions only Patient Tobacco Use Status: Never used Tobacco e-Cigarette/Vaping Use: Never Used Second Hand Smoke Exposure: No Substance Use Type: Marijuana service: No Current occupational status: employed 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 Cognitive needs: No Hearing needs: No Vision needs: No Female Reproductive History Menstrual Age of Menarche: 16 Duration of menses: 3-5 days Date of last menstrual period: 02/03/24 control method: none Total pregnancies: 0 Date of last pap smear: 01/20/22 History of abnormal pap smear: No History of STI: No Review of Systems Const All systems reviewed & are unremarkable except as noted in HPI and below Reports as per HPI Eyes Reports no additional complaints ENT Reports no additional complaints Card Reports no additional complaints Resp Reports no additional complaints GI Reports as per HPI and Reports no additional complaints Reports as per HPI Musc Reports no additional complaints Skin/Breast Reports as per HPI Neuro Reports no additional complaints Psych Reports no additional complaints Endo Reports no additional complaints Jamie/Lymph Reports no additional complaints Aller/Immun Reports no additional complaints Physical Exam Vital Signs: Last Vital Signs BP 102/60 02/22/24 08:32 BMI result Body Mass Index 24.4 Const General: cooperative, healthy appearing, no acute distress, well developed and alert Orientation/consciousness: patient oriented x3 HEENT Head: Yes normal to inspection Eyes General: appearance normal, both eyes and all related structures Neck Neck: Yes normal visual inspection Thyroid: Thyroid normal Chest Chest palpation & inspection: normal inspection of the chest and other (no puckering, dimpling, peau de orange, retraction, discharge, masses) Breast/axilla inspection: normal inspection of the breasts Breast/axilla palpation: normal palpation of the breasts Resp Effort & Inspection: normal respiratory effort GI Inspection: Yes normal to inspection Palpation (GI): Soft to palpation Rectal Exam - Female: deferred General: Yes bladder normal to palpation External Female Exam: normal external appearance and normal appearance of the urethra Speculum Exam - Vagina: normal appearance of the vagina, normal palpation and normal vaginal discharge Speculum Exam - Cervix: normal appearance of the cervix and normal palpation Bimanual exam- vagina & uterus: normal bimanual exam, normal palpation, uterine size normal, bladder normal to palpation, normal palpation and non-tender Bimanual Exam- Adnexa, other: no masses Skin General skin exam: no rashes or lesions noted Rashes: no rashes Neuro General: patient oriented x3 Cognition (Neuro): normal cognition Extrem General: Yes normal to inspection Psych Attitude: cooperative Thought process: Normal thought process present Assessment & Plan Assessment & Plan (1) Encounter for well woman exam with routine gynecological exam: Code(s): Z01.419 - Encounter for gynecological examination (general) (routine) without abnormal findings Category: Medical Plan Discussed: Current recommendations for pap smears per ASCCP guidelines. Pap smear obtained. Breast awareness and periodic breast exams. Maintain a healthy lifestyle including a well balanced diet and routine exercise. Use condoms for STI and prevention. Return to the office if needs control in the future. Urine dip-trace blood-culture sent. GC chlamydia obtained. Patient verbalizes understanding and agrees to the plan of care. She was given opportunity to ask questions and all questions were answered to the best of my ability. RTO in one year for annual inbound call center representative examination. This note is constructed using voice recognition software. While every effort has been made to ensure accuracy, first aid officer errors may have been included. Orders: Orders CT NG by PCR Today Z01.419 - Encounter for gynecological examination (general) (routine) without abnormal findings Coding Level of Care Code New Pt Prev Care 18-39yr([id number] Diagnoses Encounter for well woman exam with routine gynecological exam Z01.419
== END 2024-02-22 09:12 | disposition home or self-care (01) ==
PROVIDERS: PCP Internal Medicine; Visit Provider Advanced Practice Midwife
DX: Z01.419 Encounter for gynecological examination (general) (routine) without abnormal findings (principal)
CPT/HCPCS: 99385

== ENCOUNTER 2024-02-22 09:05 | Outpatient (REF) | payer OTHER, SELFPAY ==
[2024-02-22 14:49] LABS: Appearance Urine Clear; Color Urine Yellow; Glucose Urine UA Negative (Negative); Leukocyte Esterase Urine Negative (Negative); Nitrite Urine Negative (Negative); PH 6.5 (5.0-9.0); Specific Gravity - Urine 1.025 (1.005-1.025); Urine Blood Negative (Negative); Urine Ketones Negative (Negative); Urine Protein Negative (Neg-Trace)
[2024-02-22 17:12] LABS: CT PCR NOT DETECTED (Not Detect.); NG PCR NOT DETECTED (Not Detect.)
== END 2024-02-22 09:06 | disposition home or self-care (01) ==
LOC: HO.LAB 09:05
PROVIDERS: Visit Provider Advanced Practice Midwife
DX: Z01.419 Encounter for gynecological examination (general) (routine) without abnormal findings (principal); R10.2 Pelvic and perineal pain; Z11.3 Encounter for screening for infections with a predominantly sexual mode of transmission
CPT/HCPCS: 81003; 87491; 87591

== ENCOUNTER 2024-02-24 15:58 | Outpatient (REF) | payer OTHER, SELFPAY ==
[2024-02-24 16:40] LABS: Hematocrit 40.3 % (37.0-47.0); Hemoglobin 13.5 g/dl (12.0-16.0)
[2024-02-24 17:09] LABS: Anion Gap 11 (12-20); Blood Urea Nitrogen 10 mg/dL (9-16); Calcium 9.1 mg/dL (8.4-10.2); Carbon Dioxide 25 mmol/L (22-29); Chloride 108 mmol/L (96-108); Estimated Glomerular Filt Rate > 60; Sodium 140 mmol/L (135-145)
[2024-02-24 17:24] LABS: Appearance Urine Clear; Color Urine Yellow; Glucose Urine UA Negative (Negative); Leukocyte Esterase Urine Negative (Negative); Nitrite Urine Negative (Negative); UMIC TRIGGER UA YES; Urine Blood Trace (Negative); Urine Ketones Negative (Negative); Urine Protein Negative (Neg-Trace)
[2024-02-24 17:30] LABS: Bacteria Urine Trace (None Seen); Hyaline Casts Urine 0-2 /LPF (0-2); RBC Urine 0-2 /HPF (0-2); Squamous Epithelial Cell Urine 0-2 /HPF (0-2); WBC Urine 0-5 /HPF (0-5)
[2024-02-24 17:42] LABS: Creatinine Urine 44.69 mg/dL; Total Protein Urine Random < 7 mg/dL (<12)
== END 2024-02-24 15:59 | disposition home or self-care (01) ==
LOC: HO.LAB 15:58
PROVIDERS: PCP Internal Medicine; Visit Provider Internal Medicine
DX: I87.1 Compression of vein (principal); M54.6 Pain in thoracic spine; G89.29 Other chronic pain
CPT/HCPCS: 36415; 80051; 81001; 82310; 82565; 82570; 84156; 84520; 85014; 85018

== ENCOUNTER → 2024-04-03 19:30 | Outpatient (REF) | payer OTHER, SELFPAY | LOC: HO.SL 19:30 | PROVIDERS: PCP Internal Medicine; Visit Provider Nurse Practitioner Family | DX: G47.34 Idiopathic sleep related nonobstructive alveolar hypoventilation (principal); G47.19 Other hypersomnia; G47.9 Sleep disorder, unspecified; R06.83 Snoring | CPT/HCPCS: 95810 ==

== ENCOUNTER 2024-04-06 07:37 | Outpatient (AMB) | payer OTHER, SELFPAY ==
--- NOTE | 2024-04-06 07:46 | A.OFFVIS_ITS ---
Vital Signs 04/06/24 07:50 Height 5 ft 3 in Weight 139 lb BMI 24.6 BP 126/62 Blood Pressure Location Lt brachial Position Sitting Pulse 80 Intake Visit Reasons: 6 month follow up Abdominal pain Intake Note: Patient 6 month follow up for abdominal pain. Patient cc: abdominal cramping, some dizziness, denies any other GI issues. Director Of Litigation Required: No Accompanied by: Self / Same As Patient Allergies No Known Allergies Allergy (Verified 04/06/24 07:46) Medication List - Last Reconciled 04/06/24 by Jass Fung MD cholecalciferol (vitamin D3) 250 mcg PO 2XW 90 days famotidine 20 mg PO BEDTIME 30 days gabapentin 100 - 300 mg (1 - 3 x 100 mg) PO BEDTIME 30 days magnesium oxide 400 mg PO BEDTIME 30 days metoclopramide HCl 10 mg (10 mL) PO QID 30 days sumatriptan succinate 50 - 100 mg orally at onset of headache, may repeat in 2 hrs PRN; max 2 tabs per day or 4 tabs/week (may take with Tylenol) 30 days Ventolin HFA 90 mcg/actuation (albuterol sulfate) 2 puffs inhalation Q6H PRN 30 days NS HPI HPI 6 month follow up Abdominal pain: Details: GI CLINIC VISIT FOR THIS 23-YEAR-OLD FEMALE FOR FU OF IDIOPATHIC GASTROPARESIS ASSOCIATED WITH NAUSEA VOMITING DIARRHEA AND ABDOMINAL PAIN. Pt has a history of nutcracker syndrome,? 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 Pt scheduled for an urgent FU appt since she called with symptoms of nausea and vomiting: patient called to report she is experiencing nausea, about two episodes of vomiting daily for the last week as well as abdominal pain and red bloody mucus in her stools. Patient reports she has noted a decrease in her appetite. patient denies fever or chills. I advised patient that I would send a message to you to advise but that it will be likely that she will need to go to the ED for furthe eval as you do not have any availability soon. please advise TODAY'S VISIT: Patient cc: abdominal cramping, some dizziness, Has gained 10 lbs over the past 6 months Has been having abd cramping since end of Feb/early Mar She had a heavy period which was followed by lower abd/pelvic pain. States test was negative Cramps can be bad and can get bad pain in the pelvis and bottom of the belly. Can be sitting, standing or walking around. Pain lasts a few min and then goes away and comes back later Lying down does not help the pain. PAST VISITS: Nausea is not as bad - can occur after eating and is less frequent. Pain id bad a few days before her periods, gets worse with her periods. Last period was late and light and spotty. Usually has nausea when she wakes up and takes Promethazine Occasionally has nausea lasting the entire day Still tries to eat even if she is not hungry. Taking regular diet and blendarized diet depending on how she feels Taking metoclopramide twice a day since she does not have breakfast. Wt has been stable Denies constipation or diarrhea. Last few weeks has not had a good appetite Belly feels sore if she is lying on the back Feels better if she curls up in a ball Wakes up with abd pain if she is lying on her back. Hard to sleep on the side since her hips lock up feels Ok - about the same Nausea is not as bad - still has nausea in the morning and does not eat till 1-2 pm Denies recent vomiting Taking metoclopramide three times a day before meals Has a bad cough with phlegm and acid for the past month Saw her PCP and prescribed antibiotics - cough has not improved - gotton worse EGD and flex sig results reviewed with the patient She was feeling better after the EGD. Has been feeling nauseous for the last few days after eating. Taking metoclopramide three times a day and has been helping. Certain days she has nausea and vomiting after eating. Eats a lot of rice, bread and cracker. Has been trying to do smoothies. Does not eat breakfast in the am. Has nausea and gagging when she wakes up Eats lunch and dinner. Intermittent reflux symptoms Planning to have a Thanksgiving with her friends and separate dinner at her Mo m's Noted nausea and vomiting and abdominal pain since last week Thought she had a stomach bug usually upto 2 episodes a day Feels a knot in her stomach and then food comes up Not always related to eating. Has a cramping feeling after eating. Also has diarrhea with 2-3 BMs a day. Intermittent dysphagia to liquids. Taking Metoclopramide twice a day and nausea medication prn Nausea medication works in 15 to 20 min if she takes it early enough Patient follow up of gastroparesis. Difficult to keep anything down for the past week Any time she eats anything and has post prandial vomiting Does not eat big meals - takes rice, beans and pasta Patient denies any GI issues. Appetite has improved with medications. Still has intermittent right lower abd cramps. Can wake up from sleep because of abdominal pain. Has been doing ok. Medication is helping - makes her feel drowsy - feels like a Zombie. Has cramps and feels sick in the morning. Has upset stomach if she eats breakfast. Has a small lunch. Continues to have RLQ pain and diarrhea 1-2 times a day with watery stools with mucous and no blood. Has gained some wt after thansgiving. Had surgery in June at [facility] in [place] and everything was ok Was not eating much for 3-4 months after the surgery. Once her appetite came back and she started eating more, she started feeling sick Bad cramps in the lower portion of the stomach - feels worse after taking breakfast Has been skipping breakfast. Has been trying to eat small portions. Some days she tries to eat and had to spit it back out due to nausea or smell of food. Lost a lot of wt after the surgery.? Started gaining the wt back 2 months ago. Denies dysphagia or change in BMs. Started feeling sick again Taking Promethazine every other day with partial control of nausea Continues to have nausea sometimes after she eats. Diagnosed with left renal vein stenosis and being scheduled for left renal vein stent placement at [facility] by Dr Del Real Did not have stent placed - additinal contrast studies are planned And possible surgery Abd pain is attributed to above. Notes nausea when she wakes up in the morning and goes away in 1-2 hrs. Does not have an appetite - feels full until dinner. Feels sick if she forces herself to eat. A GES at [facility] 1-2 yrs ago was normal. Feeling about the same. Hurts a lot when her bladder feels full before she has to use the bathroom. The pain goes away and it feels sore to touch in the lower stomach area. Denies pain with BMs. Denies having any diarrhea - has a formed BM 2-3 times a day Has not been feeling as nauseous lately and takes Seeing a Regulator Operator and being referred to a urologist. Started having abdominal pain at age 15 yrs. Pain is left sided and radiates to the lower abdomen - sometimes radiates to the back. Feels like bad cramping and hurts to walk. Unable to identify precipitating factors - sometimes after eating - no clear precipitating foods. Can have pain when she is hungry. No clear relieving factors - tries to lay down and relax. Notes nausea after eating - no vomiting. Has 3-4 BMs a day without loose or hard stools. Can have diarrhea once every couple of weeks - lasts for a day and resolves spontaneously. Notes mucous in the stool and denies rectal bleeding. Eats once a day - takes a couple of bites and feels full after. Patient denies symptoms of heartburn, dysphagia, change in appetite or weight.? Denies recent change in bowel habits, constipation, diarrhea, black stools or rectal bleeding. Wt loss of 30 lbs - lost in Feb 2020 and has not been able to gain it back. Gains a few lbs and then looses wt again. Has a Depo shot every 3 months - does not have a period just intermittent spotting Notes pain in knees and hips - played soccer and soft ball. Denies mouth ulcers or eye problems. Tried different diets in the past - without a change in symptoms. Taking rice, beans and chicken at present. Tried Omeprazole and Pepcid and was not helpful Patient denies major cardiac or pulmonary problems, loud snoring or sleep apnea Denies problems with anesthesia in the past. Denies being on chronic anticoagulation, aspirin or NSAIDS. Mom had H Pylori - has similar symptoms as the patient - takes Omeprazole and feels fine. Patient denies known family history of colon polyps, colon cancer or other GI malignancies. Paternal GM of stomach cancer. 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 Lives with Mom and has no?children IMAGING STUDIES:?05/02/21 GASTRIC EMPTYING STUDY SHOWED: Retention in the stomach at each time interval was: 1 hour 79% (normal 37%-90%) 2 hours 69% (normal 30%-60%) 3 hours 50% 4 hours 35% (normal 0%-10%) 02/2021 ABD US WITH DOPPLER SHOWED:Normal appearing kidneys. Findings are suggestive of nut crackersyndrome, similar to the CT scan with narrowing of the renal veinbetween the aorta and SMA. In the area of stenosis, velocityacceleration is seen as described above. 12/2020 UGISBFT SHOWED:No definite jejunal or ileal mucosal abnormality with limited evaluation of the terminal ileum.Rapid transit of contrast to the colon without need for delayed imaging. 09/06/[address] SCAN SHOWED:Small, small bowel mesentery lymph nodes. No enlarged lymph nodes seen. 2 x 3 cm right adnexal cyst. Question of cracker syndrome of the left renal vein.ENDOSCOPIC STUDIES: 12/25/22 EGS AND FLEX SIG SHOWED: STOMACH: Mild antral gastritis. Pyloric balloon dilation was performed with a 19 mm (57 F) CRE balloon x 60 seconds. Botox (100 Units) was injected into the pylorus (25 units in each quadrant) DUODENUM: Normal - biopsied to check for celiac sprue Flexible sigmoidoscopy Findings: Minimal rectal erythema - likely due to prep - biopsies were obtained to check for IBD BIOPSIES SHOWED: A. Stomach, antrum, biopsy: Gastric antral mucosa with mild chronic inactive gastritis; negative for Helicobacter pylori, intestinal metaplasia and dysplasia. B. Small bowel, biopsy: Small bowel mucosa within normal limits; preserved villous architecture and no increased intraepithelial lymphocytes seen. C. Colon, left, biopsy: Colonic mucosa within normal limits; negative for active, chronic or microscopic colitis 09/16/22 CAPSULE ENDOSCOPY SHOWED: esophagus was normal. nodular appearing stomach mucosa in proximal stomach, rest of mucosa was normal. Some delay of capsule into duodneum, with some erythema in bulb. Patchy erythema in mid and distal ileum with some congestion. Cecum not reached Conclusion: Nodular gastric mucosa possible gastroparesis patchy ileal erythema and erythema of duodenal bulb consider further work up with CTe or GES if clinical suspicion of gastroparesis check nsaid hx use check h pylori PFSH Medical History Gastritis Asthma GERD (gastroesophageal reflux disease) Vitamin D deficiency Migraine without aura Nutcracker phenomenon of renal vein Surgical History Hx of abdominal surgery History of esophagogastroduodenoscopy (EGD) Hx of colonoscopy Family History Paternal Grandmother Stomach cancer Family/Other Substance use disorder Mental health disorder Social History (Updated 02/22/24 @ 08:42 by Gisele Nazario LPN) Household Members Other:: lives with mom Housing: House Alcohol intake: current Alcohol intake frequency: holidays/special occasions only Patient Tobacco Use Status: Never used Tobacco e-Cigarette/Vaping Use: Never Used Second Hand Smoke Exposure: No Substance Use Type: Marijuana service: No Current occupational status: employed 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 Cognitive needs: No Hearing needs: No Vision needs: No Female Reproductive History Menstrual Age of Menarche: 16 Review of Systems Const All systems reviewed & are unremarkable except as noted in HPI and below Physical Exam Vital Signs: Last Vital Signs Pulse 80 04/06/24 07:50 BP 126/62 04/06/24 07:50 BMI result Body Mass Index 24.6 Const General: healthy appearing and no acute distress Nutritional Appearance: average body habitus Orientation/consciousness: patient oriented x3 Limitations: no limitations HEENT Head: Yes normal to inspection Ears: hearing grossly normal bilaterally Eyes Sclerae: sclerae normal Pupils: Equal, round and reactive pupils present Neck Neck: Yes normal visual inspection Chest Chest palpation & inspection: normal inspection of the chest Resp Effort & Inspection: normal respiratory effort Auscultation: clear to auscultation bilaterally Cardio Palpation: normal PMI Rate: regular rate Rhythm: regular rhythm Heart sounds: S1 normal heart sound present, S2 normal heart sound present and no murmurs GI Palpation (GI): Soft to palpation, nontender and No hepatosplenomegaly present Auscultation: normal bowel sounds Rectal Exam - Female: deferred Skin General skin exam: no rashes or lesions noted Neuro General: patient oriented x3, gait normal and moves all extremities Cranial nerves: Yes Equal, round and reactive pupils present Psych Appearance: grossly normal Mental Status: mental status grossly normal Assessment & Plan Assessment & Plan (1) Nausea and vomiting: Code(s): R11.2 - Nausea with vomiting, unspecified Category: Medical (2) Abdominal pain: Code(s): R10.9 - Unspecified abdominal pain Category: Medical (3) Chronic diarrhea: Code(s): K52.9 - Noninfective gastroenteritis and colitis, unspecified Category: Medical (4) Gastroparesis: Code(s): K31.84 - Gastroparesis Category: Medical (5) GERD (gastroesophageal reflux disease): Code(s): K21.9 - Gastro-esophageal reflux disease without esophagitis Category: Medical (6) Vitamin B12 deficiency: Code(s): E53.8 - Deficiency of other specified B group vitamins Category: Medical (7) Gastritis: Code(s): K29.70 - Gastritis, unspecified, without bleeding Category: Medical Qualifiers: Chronicity: chronic Gastritis bleeding: without bleeding Gastritis type: unspecified gastritis Qualified Code(s): K29.50 - Unspecified chronic gastritis without bleeding (8) Pelvic pain: Code(s): R10.2 - Pelvic and perineal pain Category: Medical Plan Assessment & Plan Assessment & Plan (1) Nausea and vomiting: Code(s): R11.2 - Nausea with vomiting, unspecified Category: Medical (2) Abdominal pain: Code(s): R10.9 - Unspecified abdominal pain Category: Medical (3) Chronic diarrhea: Code(s): K52.9 - Noninfective gastroenteritis and colitis, unspecified Category: Medical (4) Gastroparesis: Code(s): K31.84 - Gastroparesis Category: Medical (5) GERD (gastroesophageal reflux disease): Code(s): K21.9 - Gastro-esophageal reflux disease without esophagitis Category: Medical (6) Vitamin D deficiency: Code(s): E55.9 - Vitamin D deficiency, unspecified Category: Medical (7) Vitamin B12 deficiency: Code(s): E53.8 - Deficiency of other specified B group vitamins Category: Medical Plan 23 YF with depression followed in GI for abdominal pain, nausea, vomiting and chronic diarrhea. 04/2016 E[address] at [facility] were normal with chronic gastritis on stomach biopsies. 09/2017 EGD was normal with normal biopsies from esophagus stomach and duodenum. ? 08/[address] scan showed?Small, small bowel mesentery lymph nodes. No enlarged lymph nodes seen. 2 x 3 cm right adnexal cyst. Question of cracker syndrome of the left renal vein. UGI with SBFT was normal. Celiac and IBD serologies were negative and fecal calprotectin was not approved by her insurance GES showed gastroparesis.? Patient handout on gastroparesis from up-to-date was given to the patient Pt advised dietary modification for gastroparesis and start Metoclopramide 5 mg three times daily for gastroparesis on her previous visit. Advised to decrease Metoclopramide to 1-2 times daily due to drowsiness Continue promethazine for nausea and dicyclomine at bedtime for abdominal pain. 05/14/22 Pt advised to schedule a Capsule Study (with patency test) to rule out Crohn's disease (intermittent RLQ pain which can wake her up at night and diarrhea) 08/2022 Capsule Study showed: Conclusion: Nodular gastric mucosa possible gastroparesis patchy ileal erythema and erythema of duodenal bulb consider further work up with CTe or GES if clinical suspicion of gastroparesis check nsaid hx use check h pylori 10/08/22 Pt advised to go on a liquid diet x 24 hours and then blenderized food until nausea and vomiting resolves Continue Metoclopramide 5 mg twice a day Switch from promethazine to prochlorperazine for nausea and vomting Re submit stool for fecal calprotectin 12/24/22 Pt advised to schedule an EGD and flex sig - done 12/25/22 Increase Metoclopramide to three times a day (instead of twice daily) 01/14/23 Pt advised a trail of blendarized diet and start Omeprazole at bedtime for GERD (Increase to twice daily if symptoms persist after a week) 02/25/23 Pt advised to take Famotidine 20 mg at bedtime for nocturnal cough (suspected GERD) 04/06/24 Advised Pelvi US for evaluation of lower abd/pelvic pain FU in 3 months FU in 3 months Orders: Orders US pelvic and transvaginal Today R10.2 - Pelvic and perineal pain Coding Level of Care Code Est Pt Level 3 (40164) Diagnoses Nausea and vomiting R11.2 Abdominal pain R10.9 Chronic diarrhea K52.9 Gastroparesis K31.84 GERD (gastroesophageal reflux disease) K21.9 Vitamin B12 deficiency E53.8 Chronic gastritis without bleeding, unspecified gastritis type K29.50 Chronicity: chronic Gastritis bleeding: without bleeding Gastritis type: unspecified gastritis Pelvic pain R10.2 Time Spent (min) 20
[2024-04-06 07:50] VITALS: BP 126/62; PULSE 80; BMI 24.6
== END 2024-04-06 10:06 | disposition home or self-care (01) ==
PROVIDERS: PCP Internal Medicine; Visit Provider Internal Medicine Gastroenterology
DX: R11.2 Nausea with vomiting, unspecified (principal); R10.9 Unspecified abdominal pain; K52.9 Noninfective gastroenteritis and colitis, unspecified; K31.84 Gastroparesis; K21.9 Gastro-esophageal reflux disease without esophagitis; E53.8 Deficiency of other specified B group vitamins; K29.50 Unspecified chronic gastritis without bleeding; R10.2 Pelvic and perineal pain
CPT/HCPCS: 99213

== ENCOUNTER → 2024-04-06 07:37 | Outpatient (BNVA) | payer OTHER, SELFPAY | PROVIDERS: PCP Internal Medicine; Visit Provider Internal Medicine Gastroenterology | DX: R10.9 Unspecified abdominal pain (principal); R11.2 Nausea with vomiting, unspecified; K52.9 Noninfective gastroenteritis and colitis, unspecified; K31.84 Gastroparesis; K21.9 Gastro-esophageal reflux disease without esophagitis; K29.50 Unspecified chronic gastritis without bleeding; R10.2 Pelvic and perineal pain; E53.8 Deficiency of other specified B group vitamins | CPT/HCPCS: 99212 ==

== ENCOUNTER 2024-04-24 14:44 | Outpatient (REF) | payer OTHER, SELFPAY | END 2024-04-24 14:45 | disposition home or self-care (01) | LOC: HO.US 14:44 | PROVIDERS: PCP Internal Medicine; Visit Provider Internal Medicine Gastroenterology | DX: R10.2 Pelvic and perineal pain (principal) | CPT/HCPCS: 76830; 76856 ==

== ENCOUNTER → 2024-04-24 14:48 | Outpatient (BNV) | payer OTHER, SELFPAY | PROVIDERS: PCP Internal Medicine; Visit Provider Radiology Diagnostic Radiology | DX: R10.2 Pelvic and perineal pain (principal) | CPT/HCPCS: 76830; 76856 ==

== ENCOUNTER 2024-06-08 15:03 | Outpatient (REF) | payer OTHER, SELFPAY ==
[2024-06-09 09:12] LABS: Bacterial Vaginosis PCR NEGATIVE (Negative); Candida Group PCR NOT DETECTED (Not Detect); Candida glab krusei PCR NOT DETECTED (Not Detect); Trichomonas vaginalis PCR NOT DETECTED (Not Detect)
[2024-06-09 09:27] LABS: CT PCR NOT DETECTED (Not Detect.); NG PCR NOT DETECTED (Not Detect.)
== END 2024-06-08 15:04 | disposition home or self-care (01) ==
LOC: HO.LAB 15:03
PROVIDERS: PCP Internal Medicine; Visit Provider Advanced Practice Midwife
DX: R10.2 Pelvic and perineal pain (principal); N94.89 Other specified conditions associated with female genital organs and menstrual cycle; Z20.2 Contact with and (suspected) exposure to infections with a predominantly sexual mode of transmission
CPT/HCPCS: 81003; 81025; 81515; 87491; 87591; 99212

== ENCOUNTER 2024-06-08 15:03 | Outpatient (AMB) | payer OTHER, SELFPAY ==
[2024-06-08 15:32] VITALS: BP 130/82; BMI 24.6
--- NOTE | 2024-06-08 15:32 | MHC.OFFVIS ---
Vital Signs 06/08/24 15:32 Height 5 ft 3 in Weight 139 lb BMI 24.6 BP 130/82 Intake Visit Reasons: pelvic pain Fluoroscope Operator: Fluoroscope Operator Present (Karlie) Allergies No Known Allergies Allergy (Verified 06/08/24 15:32) Is last menstrual period known: Yes Last menstrual period: 05/23/24 HPI Comments Details: Patient here today for a follow up pelvic ultrasound ordered by her GI provider due to constant pelvic aching and pressure. She is not currently sexually active and denies any risk to . [facility] Medical History (Updated 06/08/24 @ 15:55 by Stephanie Mai CNM) Pelvic congestion syndrome Gastritis Asthma GERD (gastroesophageal reflux disease) Vitamin D deficiency Migraine without aura Nutcracker phenomenon of renal vein Surgical History Hx of abdominal surgery History of esophagogastroduodenoscopy (EGD) Hx of colonoscopy Family History Paternal Grandmother Stomach cancer Family/Other Substance use disorder Mental health disorder Social History Household Members Other:: lives with mom Housing: House Alcohol intake: current Alcohol intake frequency: holidays/special occasions only Patient Tobacco Use Status: Never used Tobacco e-Cigarette/Vaping Use: Never Used Second Hand Smoke Exposure: No Substance Use Type: Marijuana service: No Current occupational status: employed 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 Cognitive needs: No Hearing needs: No Vision needs: No Female Reproductive History Menstrual Age of Menarche: 16 Duration of menses: 3-5 days Date of last menstrual period: 05/23/24 control method: none Total pregnancies: 0 Review of Systems Const All systems reviewed & are unremarkable except as noted in HPI and below Physical Exam Vital Signs: Last Vital Signs BP 130/82 06/08/24 15:32 BMI result Body Mass Index 24.6 Const General: cooperative, healthy appearing and no acute distress Orientation/consciousness: patient oriented x3 GI Inspection: Yes normal to inspection Palpation (GI): Soft to palpation and Other GI palpation findings present (Nontender) Rectal Exam - Female: visual inspection normal General: Yes bladder normal to palpation External Female Exam: normal appearance of the urethra Speculum Exam - Vagina: normal appearance of the vagina, normal palpation and normal vaginal discharge Speculum Exam - Cervix: normal appearance of the cervix and normal palpation Bimanual exam- vagina & uterus: normal bimanual exam, normal palpation, uterine size normal, bladder normal to palpation, normal palpation, uterine shape normal and non-tender Bimanual Exam- Adnexa, other: normal adnexae Neuro General: patient oriented x3 Results AMB Test Urine AMB Test Urine Negative Last Edit by EMORY Carr on 06/08/24 15:42 AMB Urinalysis, Automated UA Leukoctes 0 Adilene/uL Last Edit by EMORY Carr on 06/08/24 15:42 UA Nitrite Negative Last Edit by Siena Patel Bev on 06/08/24 15:42 UA Urobilinogen 0 mg/dL Last Edit by EMORY Carr on 06/08/24 15:42 UA Protein 0 mg/dL Last Edit by Siena Patel Bev on 06/08/24 15:42 UA pH 6.0 Last Edit by [facility]ien[facility] Patel [facility] on 06/08/24 15:42 UA Blood 0.5 Ramon/uL Last Edit by EMORY Carr on 06/08/24 15:42 UA Specific Warren 1.015 Last Edit by EMORY Carr on 06/08/24 15:42 UA Ketone Negative Last Edit by EMORY Carr on 06/08/24 15:42 UA Bilirubin 0 mg/dL Last Edit by Siena Patel [facility] on 06/08/24 15:42 UA Glucose 0 mg/dL Last Edit by Siena Patel [facility] on 06/08/24 15:42 Results Reviewed Results Reviewed: Laboratory Last Values Urine pH (Auto) 6.0 06/08/24 15:40 Specific Warren (Auto) 1.015 06/08/24 15:40 Urine Protein (Auto) 0 mg/dL 06/08/24 15:40 Glucose (UA)(Auto) 0 mg/dL 06/08/24 15:40 Urine Ketones (Auto) Negative 06/08/24 15:40 Urine Blood (Auto) 0.5 Ramon/uL 06/08/24 15:40 Urine Nitrite (Auto) Negative 06/08/24 15:40 Urine Bilirubin (Auto) 0 mg/dL 06/08/24 15:40 Urine Urobilinogen (Auto) 0 mg/dL 06/08/24 15:40 Leukocyte Esterase (Auto) 0 Adilene/uL 06/08/24 15:40 Tst Clinic Negative 06/08/24 15:[address] [address] Ultrasound Report Signed Patient: Zaynab Phillip MR#: [id number] : 2000 Acct:[id number] Age/Sex: 23 / F ADM Date: 04/24/24 Loc: HO.US Attending Dr: Jass Fung MD Ordering Physician: Jass Fung MD Date of Service: 04/24/24 Procedure(s): US pelvic and transvaginal Accession Number(s): [id number] cc: French Stewart MD; Jass Fung MD~ EXAMINATION: US PELVIS CLINICAL INFORMATION: Pelvic and perineal pain. 23-year-old female. COMPARISON: None available. TECHNIQUE: Ultrasound of the pelvis is performed using both transabdominal and transvaginal transducers along with Doppler. Transvaginal imaging is performed due to inadequate visualization transabdominally. FINDINGS: Uterus: The uterus is anteverted and measures 6.7 x 2.6 x 3.4 cm. Normal-appearing cervix. The double wall endometrial thickness is 4 mm. The uterus is smooth in contour and has normal myometrial echogenicity. No visible fibroid. Adnexa: Both ovaries are visualized. There is normal color flow to the adnexa. There is no ovarian torsion. There is no pelvic ascites or fluid collection. No adnexal masses. Mildly prominent vasculature in the adnexa and periphery of the uterus, nonspecific. Right ovary measures 2.7 x 1.9 x 2.3 cm. Volume = 6.3 mL. Normal sonographic appearance. Left ovary measures 2.3 x 1.7 x 1.7 cm. Volume = 3.5 mL. Normal sonographic appearance. US/US pelvic and transvaginal IMPRESSION: 1. Normal uterus, endometrium, and bilateral ovaries. 2. Mildly dilated vasculature in the adnexal regions and periphery of the uterus, nonspecific but can be associated with pelvic congestion syndrome. 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 Electronically signed by: Rebel Kuo MD 04/24/2024 04:07 PM EST Dictated By: Rebel Kuo MD Signed By: <Electronically signed by Rebel Kuo MD in OV> 04/24/24 1607 DD/ 1505 TD/TT: 04/24/24 1520 District Sales Coordinator: Assessment & Plan Assessment & Plan (1) Pelvic congestion syndrome: Code(s): N94.89 - Other specified conditions associated with female genital organs and menstrual cycle Category: Medical Plan Discussed ultrasound findings, options for treatment patient is interested in having a consult with Interventional Radiology and has a provider she saw That treated her nutcracker syndrome through Radiology ablation. She is going to look up the of the providers information and forward it to me through the patient portal. Additionally she wants to have STD screening today. She is not experiencing any abnormal discharge or odors. The patient expressed understanding and agreement with the plan of care. All of her questions and concerns were addressed to the best of my ability. This note is constructed using voice recognition software. While every effort has been made to ensure accuracy, tax compliance officer errors may have been included. Orders: Orders AMB HCG Urine Test Today R10.2 - Pelvic and perineal pain AMB Urinalysis Automated Today R10.2 - Pelvic and perineal pain Coding Level of Care Code Est Pt Level 3 (69186) Diagnoses Pelvic congestion syndrome N94.89
--- OUTSIDE RECORDS SUMMARY | 2024-06-08 18:45 | XMS_ITS | Encounter Summary ---
Author Organization [facility] Address [address] [place] [address] Phone Care Team Providers Care Pesticide Use Medical Coordinator Name Role Phone Caroline Bray MD Primary Care Provider Encounter Details Date Type Department Care Team (Late st Contact Info) Description 2013 Documentation [facility] [place] Family Medicine [address] [place], [place] [id number] Family Medicine, Physician [address] [place], [place] [address] Social History Tobacco Use Types Packs/Day Years Used Date Smoking Tobacco: Never Assessed Comments Unknown Sex and Gender Information Value Date Recorded Sex Assigned at Not on file Legal Sex Female 5:22 PM EDT Gender Identity Female 12/20/2019 7:49 AM EDT Sexual Orientation Straight 12/17/2021 9: 08 AM EDT documented as of this encounter Plan of Treatment Not on file documented as of this encounter Visit Diagnoses Not on filedocumented in this encounter Care Teams Pesticide Use Medical Coordinator Relationship Specialty Start Date End Date Caroline Bray MD [address] [place] [address] PCP - General Pediatrics 11/10/22 01/12/23 documented as of this encounter
--- OUTSIDE RECORDS SUMMARY | 2024-06-08 18:45 | XMS_ITS | Encounter Summary ---
Author Organization [facility] Address 100 [facility] [address] [place] [address] Phone Care Team Providers Care Nurseryperson Name Role Phone Caroline Bray MD Primary Care Provider [phone] Encounter Details Date Type Department Care Team ([facility] st Contact Info) Description 06/01/2022 Office Communication [facility] 123 [facility] [address] [place] [address] Neela Barakat MA Social History Tobacco Use Types Packs/Day Years Used Date Smoking Tobacco: Never Smokeless Tobacco: Never Alcohol Use Standard Drinks/Week Comments Never 0 (1 standard drink = 0.6 oz pur e alcohol) Comments Unknown Sex and Gender Information Value Date Recorded Sex Assigned at Not on file Legal Sex Female 3:04 PM EDT Gender Identity Not on file Sexual Orientation Not on file documented as of this encounter Miscellaneous Notes * Telephone Encounter - Neela Barakat MA - 06/02/2022 9:24 AM EDT Booked for Doppler and Arous Wednesday 11:30 am in Mobile documented in this encounter Plan of Treatment Not on file documented as of this encounter Visit Diagnoses Not on filedocumented in this encounter Care Teams Nurseryperson Relationship Specialty Start Date End Date Caroline Bray MD [address] [place] [address] [place] [address] PCP - General Pediatrics 12/31/20 documented as of this encounter
--- OUTSIDE RECORDS SUMMARY | 2024-06-08 18:45 | XMS_ITS | Encounter Summary ---
Author Organization [facility] Address [address] [place] [address] Phone Care Team Providers Care Anatomic Pathologist Name Role Phone Caroline Bray MD Primary Care Provider Encounter Details Date Type Department Care Team (Late st Contact Info) Description 09/17/2014 Documentation [facility] [place] Family Medicine [address] [place] [address] Family Medicine, Physician [address] [place], [place] [address] Social History Tobacco Use Types Packs/Day Years [...] on filedocumented in this encounter Care Teams Anatomic Pathologist Relationship Specialty Start Date End Date Caroline Bray MD [address] [place] [address] PCP - General Pediatrics 11/10/22 01/12/23 documented as of this encounter
--- OUTSIDE RECORDS SUMMARY | 2024-06-08 18:45 | XMS_ITS | Encounter Summary ---
Author Organization [facility] Address [address] [place] [address] Phone Care Team Providers Care Application Project Leader Name Role Phone Caroline Bray MD Primary Care Provider Encounter Details Date Type Department Care Team (Late st Contact Info) Description 11/04/[address] [facility] Family Medicine [address] [place] [address] Family Medicine, Physician [address] [place], [place] [address] Social History Tobacco Use Types Packs/Day Years [...] on filedocumented in this encounter Care Teams Application Project Leader Relationship Specialty Start Date End Date Caroline Bray MD [address] [place] [address] PCP - General Pediatrics 11/10/22 01/12/23 documented as of this encounter
--- OUTSIDE RECORDS SUMMARY | 2024-06-08 18:45 | XMS_ITS | Clinical Summary ---
Author Organization [facility] Address [address] [address] Phone Care Team Providers Care Shop Director Name Role Phone Caroline Bray MD Primary Care Provider [phone] Allergies No known active allergies Medications Ibuprofen 200 MG capsule Take 600 mg by mouth 1 (one) time each day if needed Active medroxyPROGESTE Júnior (DEPO-PROVERA) 150 MG/ML injection 01/19/2020 Active omeprazole (PriLOSEC) [address] capsule Take 20 mg by mouth 1 (one) time each day if needed 09/06/2020 Active metoclopramide (REGLAN) 10 MG tablet Take 10 mg by mouth in the morning and 10 mg in the evening and 10 mg before bedtime. Active dicyclomine (BENTYL) 10 MG capsule Take 10 mg by mouth in the morning and 10 mg in the evening. 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 surgery Chronic abdominal pain 12/30/2020 Resolved Problems Problem Noted Date Diagnosed Date Resolved Date Major depressive disorder 01/22/2020 Overview (12/30/2020): Has tried counseling - doesn't really like it, tried meditation - didn't like it Family member 11/27/201912/30 Overview (12/30/2020): Dad committed suicide in 2009 Nausea 07/12/2019 12/30/2020 Overview (12/30/2020): Continuing. Dyspepsia may be part of IBS. Was started on Zofran prn by GI in September 2020 Last Assessment & Plan: NO better with prilosec, tried several times (in fact worse) nor Pepsid, Try simple TUMS, one extra strength twice a day Also shanna tea, and continue the probiotic Irritable bowel syndrome 11/09/2017 Overview (12/14/2023): Hx of H.pylori. Followed by [facility] since 2016, Dr. Gorman then Dr. Godfrey. Has had 2 colonoscopies and 2 endoscopies. Last seen by GI 08/31. Excellent appearance and and benign prior workup point to functional abdominal pain but additional work- up ordered - gastric emptying scan, HIDA scan with ejection fraction, breath hydrogen test. Has been tried on Cyproheptadine, Dicyclomine, Miralax and Amitriptyline. Was recently started on Hyoscyamine. 11/2019 lost to followup September 2020 re-referred to GI Last Assessment & Plan: Has had an extensive work up, with negative results; FODMAP diet has been suggested by both Dr. Gorman and Dr. Godfrey but never done. Also Dr. Pablo [facility] to work [facility] coping strategies--- could not go because of transportation problems. I suggest you practice the FODMAP diet and the self hypnosis recordings you have now, including the one from today. With the FODMAP DIET, you should eliminate the following: FRUIT: apple, mitch, pear, watermelon, all fruit cups, apricot, avocado, lara, blackberry, peach, plums, prunes, avocado, and dry fruit ALL SWEETENERS: EXCEPT TABLE SUGAR AND HONEY ALL LACTOSE: so no milk, ice cream, nor yoghurt unless it is lactaid or soy. No soft cheeses (cottage cheese, cream cheese, ricotta) VEGETABLES: asparagus, beets, broccoli, brussel sprouts, cabbage, eggplant, onions, garlic, fennel, spring onions, cauliflower, green peppers, sweet corn, mushrooms. CEREALS: most BREAD, CRACKERS, COOKIES, PAST (can have gluten free only) BEANS: Baked beans, chick peas, lentils, kidney beans Always have breakfast: Soy yoghurt and allowed fruit and some almonds. Eat healthy snacks. Practice with your self hypnosis twice a day. Get exercise, fresh air. Practice your drawing. Replacing diagnoses that were inactivated after the 12/14/23 Regulatory Import Immunizations Name Administration Dates Next Due DTaP 5 02/02/2006, 4,03/29/2002,12/30,2001 H1N1 All Forms 02/19/2009 HPV, Quadrivalent 10/20/2013,09/19/2013 HPV, Unspecified 09/21/2014 Hep A, 2 Dose 09/21/2014,09/19/2013 Hep B, Adolescent or Pediatric 05/30/2002,2002,2001 Hib (PRP-T) 12/29/2002, 3,2001,10/26 IPV 02/02/2006, 3,2001,10/26 Influenza Split 03/03/2010 Influenza TIV (IM) 02/19/2009, 8,02/14/2007,02/02,01/28/2005 Influenza, Quadrivalent, Pre servative Free 12/04/2021,01/21/2021,11/27/2019,01/10,01/27/2017,12/05/2014,12/27/2013 Influenza, Quadrivalent, Wit h Preservative 01/07/2016 MMR 02/02/2006,08/28/2002 Meningococcal MCV4P 11/09/2017,09/05/2012 Meningococcal, Unspecified 05/15/2019,01/10/2019 ,11/09/2018 Pfizer SARS-COV-2 12/17/2021,05/21/2021 Pneumococcal Conjugate 12/29/2002,2002,2001,10/26 SARS-CoV-2, Unspecified 05/21/2021 Tdap 09/05/2012 Varicella 02/14/2007,08/28/2002 Family History Medical History Relation Comments Diabetes Paternal Grandmother Relation Status Comments Paternal Grandmother Social History Tobacco Use Types Packs/Day Years Used Date Smoking Tobacco: Never Smokeless Tobacco: Never Alcohol Use Standard Drinks/Week Comments Never 0 (1 standard drink = 0.6 oz pur e alcohol) Comments Unknown Sex and Gender Information Value Date Recorded Sex Assigned at Not on file Legal Sex Female 3:04 PM EDT Gender Identity Not on file Sexual Orientation Not on file Last Filed Vital Signs Vital Sign Reading Time Taken Comments Blood Pressure 106/60 12/31/2020 3:49 PM EDT Pulse 83 12/31/2020 3:49 PM EDT Temperature - - Respiratory Rate - - Oxygen Saturation 99% 12/31/2020 3:49 PM EDT Inhaled Oxygen Concentration - - Weight 52.2 kg (115 lb) 12/31/2020 3:49 PM EDT Height 160 cm (5' 3 ) 12/31/2020 3:49 PM EDT Body Mass Index 20.37 12/31/2020 3:49 PM EDT Plan of Treatment Health Maintenance Due Date Last Done Comments Pneumococcal Vaccine: Pediat rics (0 to 5 Years) and At-Risk Patients (6 to 64 Years) (1 of 2 - PCV) 08/26/2007 12/29/2002, 03/29/2002, 2001, Additional history exists Influenza Vaccine (#1) 2023 2, 01/21/2021, 11/27/2019, Additional history exists Hepatitis B Vaccine Completed 05/30/2002, 03/29/2002, 2001 Insurance [facility] [place] [id number] Care Teams Shop Director Relationship Specialty Start Date End Date Caroline Bray MD [address] [place] [address] [place] [id number] PCP - General Pediatrics 12/31/20
--- OUTSIDE RECORDS SUMMARY | 2024-06-08 18:45 | XMS_ITS | Encounter Summary ---
Author Organization [facility] Address [address] [place] [address] Phone Care Team Providers Care Toxicologist Name Role Phone Caroline Bray MD Primary Care Provider Encounter Details Date Type Department Care Team (Late st Contact Info) Description 09/10/2011 Documentation [facility] [place] Family Medicine [address] [place] [address] Family Medicine, Physician [address] [place], [place] [address] Social History Tobacco Use Types Packs/Day Years [...] on filedocumented in this encounter Care Teams Toxicologist Relationship Specialty Start Date End Date Caroline Bray MD [address] [place] [address] PCP - General Pediatrics 11/10/22 01/12/23 documented as of this encounter
--- OUTSIDE RECORDS SUMMARY | 2024-06-08 18:45 | XMS_ITS | Encounter Summary ---
Author Organization [facility] Address [address] [place] [address] Phone Care Team Providers Care Allied Health Professional Name Role Phone Caroline Bray MD Primary Care Provider Encounter Details Date Type Department Care Team (Late st Contact Info) Description 10/01/2016 Documentation [facility] [place] [place] Family Medicine [address] [place] [address] Family Medicine, Physician [address] [place], [place] [address] Social History Tobacco Use Types Packs/Day Years Used Date Smoking Tobacco: Never Comments:Never smoker Comments Unknown Sex and Gender Information Value Date Recorded Sex Assigned at Not on file Legal Sex Female 5:22 PM EDT Gender Identity Female 12/20/2019 7:49 AM EDT Sexual Orientation Straight 12/17/2021 9: 08 AM EDT documented as of this encounter Plan of Treatment Not on file documented as of this encounter Visit Diagnoses Not on filedocumented in this encounter Care Teams Allied Health Professional Relationship Specialty Start Date End Date Caroline Bray MD [address] [place] [address] PCP - General Pediatrics 11/10/22 01/12/23 documented as of this encounter
--- OUTSIDE RECORDS SUMMARY | 2024-06-08 18:45 | XMS_ITS | Encounter Summary ---
Author Organization [facility] Address [address] [place] [address] Phone Care Team Providers Care Plow Shaker Name Role Phone Caroline Bray MD Primary Care Provider Encounter Details Date Type Department Care Team (Late st Contact Info) Description 06/02/2013 Documentation [facility] [place] Family Medicine [address] [place], [place] [id number] Family Medicine, Physician [address] [place], [place] [address] Social History Tobacco Use Types Packs/Day Years [...] on filedocumented in this encounter Care Teams Plow Shaker Relationship Specialty Start Date End Date Caroline Bray MD [address] [place] [address] PCP - General Pediatrics 11/10/22 01/12/23 documented as of this encounter
--- OUTSIDE RECORDS SUMMARY | 2024-06-08 18:45 | XMS_ITS | Encounter Summary ---
Author Organization [facility] Address [address] [place] [address] Phone Care Team Providers Care Stem Teacher Name Role Phone Caroline Bray MD Primary Care Provider Encounter Details Date Type Department Care Team (Late st Contact Info) Description 05/22/2016 Documentation [facility] [place] Family Medicine [address] [place] [address] Family Medicine, Physician [address] [place], [place] [address] Social History Tobacco Use Types Packs/Day Years [...] on filedocumented in this encounter Care Teams Stem Teacher Relationship Specialty Start Date End Date Caroline Bray MD [address] [place] [address] PCP - General Pediatrics 11/10/22 01/12/23 documented as of this encounter
--- OUTSIDE RECORDS SUMMARY | 2024-06-08 18:45 | XMS_ITS | Encounter Summary ---
Author Organization [facility] Address [address] [place] [address] Phone Care Team Providers Care City Comptroller Name Role Phone Caroline Bray MD Primary Care Provider Encounter Details Date Type Department Care Team (Late st Contact Info) Description 2013 Documentation [facility] [place] Family Medicine [address] [place], [place] [phone] Family Medicine, Physician [address] [place], [place] [address] Social History Tobacco Use Types Packs/Day Years [...] on filedocumented in this encounter Care Teams City Comptroller Relationship Specialty Start Date End Date Caroline Bray MD [address] [place] [phone] PCP - General Pediatrics 11/10/22 01/12/23 documented as of this encounter
--- OUTSIDE RECORDS SUMMARY | 2024-06-08 18:45 | XMS_ITS | Encounter Summary ---
Author Organization [facility] Address [address] [facility] [address] [place] [address] Phone Care Team Providers Care Numerical Control Lathe Operator Name Role Phone Caroline Bray MD Primary Care Provider [phone] Encounter Details Date Type Department Care Team (Late st Contact Info) Description 10/02/2022 Office Communication [facility] 123 [facility] [address] [place] [address] Emily Evangelista Social History Tobacco Use Types Packs/Day Years [...] encounter Miscellaneous Notes * Telephone Encounter - Chanel Nesbitt MA - 10/06/2022 8:49 AM EDT All set you have no availability this week so I set her up for when you get back. documented in this encounter Plan of Treatment Not on file documented as of this encounter Visit Diagnoses Not on filedocumented in this encounter Care Teams Numerical Control Lathe Operator Relationship Specialty Start Date End Date Caroline Bray MD [address] [place] [address] [place] [address] PCP - General Pediatrics 12/31/20 documented as of this encounter
--- OUTSIDE RECORDS SUMMARY | 2024-06-08 18:45 | XMS_ITS | Encounter Summary ---
Author Organization [facility] Address [address] [place] [address] Phone Care Team Providers Care Slusher Operator Name Role Phone Caroline Bray MD Primary Care Provider [phone] Encounter Details Date Type Department Care Team (Late st Contact Info) Description 12/06/[address] [facility] [place] [address] [place] [address] Family Medicine, Physician [address] [place], [place] [address] Social History Tobacco Use Types Packs/Day Years [...] on filedocumented in this encounter Care Teams Slusher Operator Relationship Specialty Start Date End Date Caroline Bray MD [address] [place] [address] PCP - General Pediatrics 11/10/22 01/12/23 documented as of this encounter
--- OUTSIDE RECORDS SUMMARY | 2024-06-08 18:45 | XMS_ITS | Encounter Summary ---
Author Organization [facility] Address [address] [place] [address] Phone Care Team Providers Care Retail Sales Merchandiser Name Role Phone Caroline Bray MD Primary Care Provider Encounter Details Date Type Department Care Team (Late st Contact Info) Description 08/15/2014 Documentation [facility] [place] Family Medicine [address] [place] [address] Family Medicine, Physician [address] [place], [place] [address] Social History Tobacco Use Types Packs/Day Years [...] on filedocumented in this encounter Care Teams Retail Sales Merchandiser Relationship Specialty Start Date End Date Caroline Bray MD [address] [place] [address] PCP - General Pediatrics 11/10/22 01/12/23 documented as of this encounter
--- OUTSIDE RECORDS SUMMARY | 2024-06-08 18:45 | XMS_ITS | Encounter Summary ---
Author Organization [facility] Address [address] [place] [address] Phone Care Team Providers Care Roadmaster Name Role Phone Caroline Bray MD Primary Care Provider Encounter Details Date Type Department Care Team (Late st Contact Info) Description 09/26/2014 Documentation [facility] [place] Family Medicine [address] [place] [address] Family Medicine, Physician [address] [place], [place] [address] Social History Tobacco Use Types Packs/Day Years [...] on filedocumented in this encounter Care Teams Roadmaster Relationship Specialty Start Date End Date Caroline Bray MD [address] [place] [address] PCP - General Pediatrics 11/10/22 01/12/23 documented as of this encounter
--- OUTSIDE RECORDS SUMMARY | 2024-06-08 18:45 | XMS_ITS | Clinical Summary ---
Author Organization [facility] Address [address] [place] [address] Phone Care Team Providers Care Chemical Operations Specialist Name Role Phone Unavailable Primary Care Provider Unavailabl e Allergies Active Allergy Reactions Criticality Noted Date Comments Environmental 11/09/2017 Seasonal allergies Medications medroxyPROGESTE Júnior 150 MG/ML injection 0 Active promethazine 25 MG tablet 2 Active loratadine (Claritin) 10 MG tabletIndicatio ns:Allergic rhinitis, unspecified seasonality, unspecified trigger Take 1 tablet (10 mg total) by mouth once daily at approximately the same time each day. 30 tablet 5 2 Active Cyanocobalamin (Vitamin B-12) 1000 MCG sublingual tablet PLEASE SEE ATTACHED FOR DETAILED DIRECTIONS 2 Active dicyclomine 10 MG capsule TAKE 1 CAPSULE (10 MG) BY MOUTH 2 TIMES A DAY NEEDED FOR ABDOMINAL PAIN 2 Active metoclopramide 5 MG tablet PLEASE SEE ATTACHED FOR DETAILED DIRECTIONS 2 Active acetaminophen 325 MG tablet TAKE 2 TABLETS BY MOUTH EVERY 4 HOURS NEEDED FOR PAIN 3 Active metoclopramide 10 MG tablet Take 10 mg by mouth 3 times daily. 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 Surgery. July 2021 - had L renal vein transposition surgery. Assessment & Plan (09/05/2021 4:35 PM EDT): S/p left renal vein surgery 06/2021. Was feeling better until head butted at work by a toddler 2 days ago. Waking at night with pain, drinking fluids well. Hurts to jump etc. Chronic abdominal pain 12/30/2020 Overview (04/23/2021): Had been followed by Vandana SÁNCHEZ Has had 2 colonoscopies and 2 endoscopies Followed by GI (Dr. Fung) at [facility] [place] Had UGI and SBFT in December that were normal Had lots of blood tests done Has a gastric emptying test scheduled (2021) Major depressive disorder with current active ep isode 01/22/2020 Overview (12/17/2021): Has tried counseling - doesn't really like it, tried meditation - didn't like it. Dec 2021 - somewhat improved of parent 11/27/2019 Overview (11/27/2019): Dad committed suicide in 2009 Irritable bowel syndrome without diarrhea 2017 Overview (04/23/2021): Hx of H.pylori. Followed by [facility]ana SÁNCHEZ since 2016, Dr. Gorman then Dr. Godfrey. [...] to followup September 2020 re-referred to GI - seeing Dr. Fung at [facility]; gastric emptying study ordered (2021) Assessment & Plan (07/26/2019 3:01 PM EDT): Has had an extensive work up, with negative results; FODMAP diet has been suggested by both Dr. Gorman and Dr. Godfrey but never done. Also Dr. Pabol [facility] [...] Get exercise, fresh air. Practice your drawing. Assessment & Plan (07/12/2019 4:27 PM EDT): Still with some symptoms though sleeping better. Would avoid ANY added sugars: High fructose corn syrup, maltose, mannitol, sorbitol, xylitol (read labels). Limit beans, and bread. Practice with the recordings (put the two together) twice a day. Take the mint if necessary and probiotic and prilosec daily. Keep a record of results noting if the frequency, duration or severity of the discomfort lessens. It may be a combination of those things! Assessment & Plan (07/12/2019 9:03 AM EDT): Began with H pylori infection, negative work ups, symptoms suggest a severe form of IBS (has had several red flags like vomiting, anorexia, night awakening but very extensive work up negative).. Will try prilosec for nausea, has not been on that has tried bentyl before, will try mint, adding probiotic, and suggest behavioral rx. Will schedule. Will first rule out celiac disease, urea cycle defect, inflamm disorders (was thought to have Crohn's at one time, but endo negative and Crohn's rx did not work) Denies stress, but certainly this period in time is stressful for everyone. Also needs to eat better - not here and there ie, junk food! Assessment & Plan (07/07/2019 11:25 AM EDT): ?functional pain Resolved Problems Problem Noted Date Diagnosed Date Resolved Date Chronic pain of both hips 07/13/2019 Overview (07/13/2019): Hips locking , PT, ortho did not help Assessment & Plan (07/13/2019 3:08 PM EDT): May address in future Nausea 07/12/2019 12/17/2021 Overview (10/03/2020): Continuing. Dyspepsia may be part of IBS. Was started on Zofran prn by GI in September 2020 Assessment & Plan (07/26/2019 3:02 PM EDT): NO better with prilosec, tried several times (in fact worse) nor Pepsid, Try simple TUMS, one extra strength twice a day Also shanna tea, and continue the probiotic Assessment & Plan (07/12/2019 9:01 AM EDT): Failed H2 blockers so will try proton pump inhibitor (no record of being on prilosec) Nipple discharge 12/01/2018 06/08/2019 Overview (12/01/2018): [facility] - undergoing work-up. Immunizations Immunization Administration Dates Next Due COVID-19 Pfizer, bivalent, 12+ years 12/17/2021 COVID-19 Pfizer, mainor-sucros e, 12+ years 05/21/2021 DTaP 5 02/02/2006, 4,03/29/2002,12/30,2001 H1N1 02/19/2009 HPV Vaccine 9 Valent 09/21/2014 HPV, Quadrivalent 10/20/2013,09/19/2013 Hep A, ped/adol 09/21/2014,09/19/2013 Hep B, ped/adol 05/30/2002,03/29/2002,2001 Hib (PRP-T) 12/29/2002, 3,2001,10/26 IPV 02/02/2006, 3,2001,10/26 Influenza Split 03/03/2010 Influenza, injectable, quadrivalent 01/07/2016 Influenza, injectable, quadr ivalent, preservative free 12/04/2021,01/21/2021,11/27/2019,01/10,01/27/2017,12/05/2014,12/27/2013 Influenza, injectable, trivalent 009,02/03/2008,02/14/2007,02/02,01/28/2005 MMR 02/02/2006,08/28/2002 Meningococcal B Trumenba 05/15/2019,01/10/2019,0 11/09/2018 Meningococcal Conj (Menactra) MCV4P 11/09/2017,0 09/05/2012 Meningococcal Conjugate 05/15/2019,01/10/2019, Pneumococcal Conjugate 12/29/2002,2002,2001,10/26 Tdap 09/05/2012 Varicella 02/14/2007,08/28/2002 Family History Medical History Relation Name Comments Obesity Brother Mario Franks Strabismus Brother Mario Franks ADD / ADHD Cousin Breast cancer Cousin Depression Father Octaviano Chauhan Strabismus Father Octaviano Chauhan Breast cancer Father's Sister Asthma Maternal Grandmother Diabetes Maternal Grandmother Cancer (Childhood Onset) Paternal Grandmother Anxiety disorder Sister Annita Gissel Bipolar disorder Sister Annita Gissel Bronchopulmonary dysplasia Sister Annita Jusin o OCD Sister Annita Gissel Relation Name Status Comments Brother Mario Kenji Alive Cousin Father Octaviano Chauhan Alive Father's Sister Maternal Grandmother Mother Candy Franks Alive Paternal Grandmother Sister Annita Chauhan Alive Social History Tobacco Use Types Packs/Day Years Used Date Smoking Tobacco: Never Smokeless Tobacco: Never Comments:Never smoker Hunger/Food Answer Date Recorded In the last 12 months, did y ou or your family ever eat less than you felt you should because there wasn't enough money for food? No 12/17/2021 Stable Housing Answer Date Recorded Are you worried that in the next 2 months you may not have stable housing? No 12/17/2021 Transportation Concerns Answer Date Rec orded In the last 12 months, have you or your family ever had to go without healthcare because you didn't have a way to get there? No 12/17/2021 Hazards in Home Answer Date Recorded Think about the place you li ve. Do you have problems with any of the following? Pests (mice or roaches), mold, no/not working smoke detectors, water leaks, no window guards. No 2021 Financing Utilities Answer Date Recorde d In the last 12 months, has t he electric, gas, oil, or water company threatened to shut off your services in your home? No 12/17/2021 Safety at Home Answer Date Recorded Are you or your family worried about feeling saf e in your home? No 12/17/2021 Outside Support Answer Date Recorded Do you feel that you need mo re support from other people or programs to help you care for yourself or your family? No 12/17/2021 Understanding Health Concerns Answer Da te Recorded Do you need help understandi ng your or your child's healthcare needs (diagnosis, medications, plan, etc.)? No 12/17/2021 Financing Health Concerns Answer Date R ecorded In the last 12 months, was t here a time when your child needed to see a doctor or get medications or supplies but could not because of cost? No 12/17/2021 Missing School or Work Answer Date Ronald rded Did you or your child miss s chool or work because of a health problem that could have been avoided? No 12/17/2021 Comments No Sex and Gender Information Value Date Recorded Sex Assigned at Not on file Legal Sex Female 5:22 PM EDT Gender Identity Female 12/20/2019 7:49 AM EDT Sexual Orientation Straight 12/17/2021 9: 08 AM EDT Last Filed Vital Signs Vital Sign Reading Time Taken Comments Blood Pressure 116/78 04/09/2022 8:06 AM EST Pulse 69 04/09/2022 8:06 AM EST Temperature 36.7 ??C (98 ??F) 09/22/2022 4:02 PM EDT Respiratory Rate - - Oxygen Saturation 99% 09/07/2021 10:52 AM EDT Inhaled Oxygen Concentration - - Weight 61.9 kg (136 lb 6.4 oz) 09/22/2022 4:02 P M EDT Height 161.3 cm (5' 3.5 ) 12/17/2021 8:44 AM EDT Body Mass Index 23.78 12/17/2021 8:44 AM EDT Plan of Treatment Health Maintenance Due Date Last Done Comments DTaP,Tdap,and Td Vaccines (7 - Td or Tdap) 09/05/2022 09/05/2012, 02/02/2006, 05/14/2003, Additional history exists Influenza Vaccines (#1) 2023 12/05/19, 01/21/2021, 11/27/2019, Additional history exists COVID-19 Vaccine (2023-2 5 season) 2023 12/17/2021, 05/21/2021, 07/12/2020, Additional history exists Hepatitis B Vaccines Completed 05/30/2002, 03/29/2002, 2001 HIB Vaccines Completed 12/29/2002, 03/15, 2001, Additional history exists Pneumococcal Vaccine Completed 12/29/2002, 03/29/2002, 2001, Additional history exists IPV Vaccines Completed 02/02/2006, 05/13, 2001, Additional history exists MMR Vaccines Completed 02/02/2006, 08/28/2002 Varicella Vaccines Completed 02/14/2007, 08/28/2002 HPV Vaccines Completed 09/21/2014, 0810/2013, 09/19/2013 Hepatitis A Vaccines Completed 09/21/2014, 09/20/19 Men B Vaccine Completed 05/15/2019, 12/14, 11/09/2018 Meningococcal Vaccine Completed 05/15/2019 , 01/10/2019, 11/09/2018, Additional history exists Procedures * Due to [place] [employer] law, this organization might not be sharing sensitive test results. Procedure Name Priority Date/Time Associated Diagnosis Comments CHLAMYDIA AND GONORRHEA, AMPLIFIED Routine 12/17/2021 9:47 AM EDT Special screening examination for chlamydial disease from Last 3 Months or Most Recently Relevant to Health Maintenance Results * Due to [place] [employer] law, this organization might not be sharing sensitive test results. * Chlamydia and Gonorrhoea, Amplified (12/17/2021 9:47 AM EDT) Chlamydia Trachomatis, DNA Probe NEGATIVE (NEG) [facility] Comment: No Chlamydia Trachomatis RNA detected in this patient's sample ? (REFERENCE RANGE/NORMAL VALUE: NOT DETECTED) ? Note: This test uses lead caster- mediated amplification method to detect rRNA from C. Trachomatis URINE GC AMP PROBE NEGATIVE (NEG) [facility] Comment: No Neisseria Gonorrhoeae RNA detected in this patient's sample ? (REFERENCE RANGE/NORMAL VALUE: NOT DETECTED) ? NOTE: This test uses lead caster-mediated amplification method to detect rRNA from N.Gonorrhoeae. A negative result does not preclude infection. In the case of a negative urine result, testing of an endocervical(female) or urethral (male) specimen is recommended if there is high clinical suspicion of infection. Due to very high sensitivity of Nucleic Acid Amplification Test, false positive results may occur. Therefore, specimen handling is extremely important. In patients in whom the disease is unlikely, additional sample for testing should be considered after an initial positive result. The performance characteristics of this test have not been evaluated in children. The Aptima Combo2 assay is not intended for the evaluation of suspected sexual abuse or for other medico-legal indications. The ordering provider should assess if the patient had consensual sex without risk of sexual abuse. Consult the [facility] if needed. Contact phone number . Therapeutic failure or success cannot be determined with the Aptima Combo2 assay since nucleic acid may persist following appropriate antimicrobial therapy. The Centers for Disease Control and Prevention (CDC) recommends confirmatory retesting using culture or a different nucleic acid amplification test when positive results occur, if indicated. Testing performed or reported by [facility], a Service of [facility], [address] [place] [address] Zaki Quezada MD, Power Bender Operator [facility]# [id number] Urine (Urine) 12/17/2021 9:4 7 AM EDT 12/17/2021 4:44 PM EDT us Caroline Bray MD LAB MICROBIOLOGY - GENERAL ORDERABLES Final Result [facility] from Last 3 Months or Most Recently Relevant to Health Maintenance [facility]
--- OUTSIDE RECORDS SUMMARY | 2024-06-08 18:45 | XMS_ITS | Encounter Summary ---
Author Organization [facility] Address [address] [place] [address] Phone Care Team Providers Care Brand Communications Manager Name Role Phone Caroline Bray MD Primary Care Provider Encounter Details Date Type Department Care Team (Late st Contact Info) Description 02/15/2015 Documentation [facility] [place] [address] [place] [address] Family Medicine, Physician [address] [place], [place] [address] Social History Tobacco Use Types Packs/Day Years [...] on filedocumented in this encounter Care Teams Brand Communications Manager Relationship Specialty Start Date End Date Caroline Bray MD [address] [place] [address] PCP - General Pediatrics 11/10/22 01/12/23 documented as of this encounter
--- OUTSIDE RECORDS SUMMARY | 2024-06-08 18:45 | XMS_ITS | Encounter Summary ---
Author Organization [facility] Address [address] [place] [address] Phone Care Team Providers Care Vocational Evaluator Name Role Phone Caroline Bray MD Primary Care Provider Encounter Details Date Type Department Care Team (Late st Contact Info) Description 10/29/2016 Conversion Encounter [facility] [address] [place] [address] Social History Tobacco Use Types Packs/Day Years [...] on filedocumented in this encounter Care Teams Vocational Evaluator Relationship Specialty Start Date End Date Caroline Bray MD [address] [place] [address] PCP - General Pediatrics 11/10/22 01/12/23 documented as of this encounter
--- OUTSIDE RECORDS SUMMARY | 2024-06-08 18:45 | XMS_ITS | Encounter Summary ---
Author Organization [facility] Address [address] [place] [address] Phone Care Team Providers Care Process Designer Name Role Phone Caroline Bray MD Primary Care Provider [phone] Encounter Details Date Type Department Care Team (Late st Contact Info) Description 08/07/2016 Documentation [facility] [place] Family Medicine [address] [place] [address] Family Medicine, Physician [address] [place], [place] [address] Social History Tobacco Use Types Packs/Day Years [...] on filedocumented in this encounter Care Teams Process Designer Relationship Specialty Start Date End Date Caroline Bray MD [address] [place] [address] PCP - General Pediatrics 11/10/22 01/12/23 documented as of this encounter
--- OUTSIDE RECORDS SUMMARY | 2024-06-08 18:45 | XMS_ITS | Encounter Summary ---
Author Organization [facility] Address [address] [place] [phone] Phone Care Team Providers Care Finishing Operator Name Role Phone Caroline Bray MD Primary Care Provider [phone] Encounter Details Date Type Department Care Team (Late st Contact Info) Description 06/10/2022 Documentation Only [address] [address] Qing Rodriguez MD Social History Tobacco Use Types Packs/Day Years [...] on file documented as of this encounter Plan of Treatment Not on file documented as of this encounter Visit Diagnoses Not on filedocumented in this encounter Care Teams Finishing Operator Relationship Specialty Start Date End Date Caroline Bray MD [address] [place] [address] [place] [address] PCP - General Pediatrics 12/31/20 documented as of this encounter
--- OUTSIDE RECORDS SUMMARY | 2024-06-08 18:45 | XMS_ITS | Encounter Summary ---
Author Organization [facility] Address [address] [place] [address] Phone Care Team Providers Care Business Dean Name Role Phone Caroline Bray MD Primary Care Provider Encounter Details Date Type Department Care Team (Late st Contact Info) Description 06/09/2014 Documentation [facility] [place] Family Medicine [address] [place] [address] Family Medicine, Physician [address] [place], [place] [address] Social History Tobacco Use Types Packs/Day Years [...] on filedocumented in this encounter Care Teams Business Dean Relationship Specialty Start Date End Date Caroline Bray MD [address] [place] [address] PCP - General Pediatrics 11/10/22 01/12/23 documented as of this encounter
--- OUTSIDE RECORDS SUMMARY | 2024-06-08 18:45 | XMS_ITS | Encounter Summary ---
Author Organization [facility] Address [address] [place] [address] Phone Care Team Providers Care Customer Service Operator Name Role Phone Caroline Bray MD Primary Care Provider Encounter Details Date Type Department Care Team (Late st Contact Info) Description 09/25/2014 Documentation [facility] [place] [address] [place] [address] Family Medicine, Physician [address] [place], [place] [address] Social History Tobacco Use Types Packs/Day Years [...] on filedocumented in this encounter Care Teams Customer Service Operator Relationship Specialty Start Date End Date Caroline Bray MD [address] [place] [address] PCP - General Pediatrics 11/10/22 01/12/23 documented as of this encounter
--- OUTSIDE RECORDS SUMMARY | 2024-06-08 18:45 | XMS_ITS | Encounter Summary ---
Author Organization [facility] Address [address] [place] [phone] Phone Care Team Providers Care High Pressure Cleaner Name Role Phone Caroline Bray MD Primary Care Provider [phone] Encounter Details Date Type Department Care Team (Late st Contact Info) Description 06/10/2022 Documentation Only [address] [address] Qing Rodriguez MD Social History [...] on filedocumented in this encounter Care Teams High Pressure Cleaner Relationship Specialty Start Date End Date Caroline Bray MD [address] [place] [address] [place] [address] PCP - General Pediatrics 12/31/20 documented as of this encounter
--- OUTSIDE RECORDS SUMMARY | 2024-06-08 18:45 | XMS_ITS | Encounter Summary ---
Author Organization [facility] Address [address] [place] [address] Phone Care Team Providers Care Ship Scaler Name Role Phone Caroline Bray MD Primary Care Provider Encounter Details Date Type Department Care Team (Late st Contact Info) Description 04/27/2016 Documentation [facility] [place] Family Medicine [address] [place] [address] Family Medicine, Physician [address] [place], [place] [address] Social History Tobacco Use Types Packs/Day Years [...] on filedocumented in this encounter Care Teams Ship Scaler Relationship Specialty Start Date End Date Caroline Bray MD [address] [place] [address] PCP - General Pediatrics 11/10/22 01/12/23 documented as of this encounter
== END 2024-06-08 16:22 | disposition home or self-care (01) ==
LOC: HO.HWS 15:03
PROVIDERS: PCP Internal Medicine; Visit Provider Advanced Practice Midwife
DX: N94.89 Other specified conditions associated with female genital organs and menstrual cycle (principal); R10.2 Pelvic and perineal pain
CPT/HCPCS: 99213

== ENCOUNTER 2024-06-08 15:59 | Outpatient (REF) | payer OTHER, SELFPAY | END 2024-06-08 16:00 | disposition home or self-care (01) | LOC: HO.LNP 15:59 | PROVIDERS: Visit Provider Advanced Practice Midwife | DX: Z13.89 Encounter for screening for other disorder (principal) ==

== ENCOUNTER 2024-06-30 16:54 | Outpatient (AMB) | payer OTHER, SELFPAY ==
--- NOTE | 2024-06-30 16:56 | MHC.PC.OV ---
Vital Signs 06/30/24 16:57 Height 5 ft 3 in Weight 145 lb 2 oz BMI 25.7 BP 108/62 Blood Pressure Location Lt brachial Position Sitting Pulse 105 H Pulse Source Pulse Oximeter Pulse Oximetry (%) 96 Oxygen Delivery Method Room Air Intake Visit Reasons: Annual Exam Bioinformatics Engineer Required: No Accompanied by: Self / Same As Patient Allergies No Known Allergies Allergy (Verified 06/30/24 17:05) Medication List - Last Reconciled 06/30/24 by French Stewart MD cholecalciferol (vitamin D3) 250 mcg PO 2XW 90 days famotidine 20 mg PO BEDTIME 30 days gabapentin 100 - 300 mg (1 - 3 x 100 mg) PO BEDTIME 30 days magnesium oxide 400 mg PO BEDTIME 30 days metoclopramide HCl 10 mg (10 mL) PO QID 30 days sumatriptan succinate 50 - 100 mg orally at onset of headache, may repeat in 2 hrs PRN; max 2 tabs per day or 4 tabs/week (may take with Tylenol) 30 days Ventolin HFA 90 mcg/actuation (albuterol sulfate) 2 puffs inhalation Q6H PRN 30 days NS Tobacco use date assessed: 06/30/24 Dental Screening Dental Screen Date: 06/30/24 Did you have a dental visit in the last 12 months?: No Did you have a dental problem in the last 6 months where you did not have access to dental care?: No Was dental information given to patient?: Patient has dentist HPI Annual Exam HPI Details Patient comes in today for her annual physical examination States that she continues to experience frequent/recurrent abdominal bloating, cramping and pain/discomfort over the lower abdomen, especially during her menstrual. She reportedly had a pelvic ultrasound done a couple of months ago and was diagnosed with pelvic congestion syndrome by gynecology She is currently being referred for interventional radiology treatment she is still together information as to who she needs to see for this procedure States that her migraine headaches have been well-controlled lately and she continues to follow-up with neurology regularly Patient also underwent a home sleep study for further evaluation a few months ago Her home sleep study came back grossly normal but she has been noticed to have lot of involuntary leg movements at night and she ended up having an in-lab sleep study done a couple of months ago, which revealed no sleep apnea and no sleep-related movement disorder Patient has a follow-up appointment coming up with Neurology early next month to further discuss these issues She denies any dizziness Denies any chest pains, no shortness of breath No nausea/vomiting and no change in bowel habits noted She denies any acute urinary symptoms She was not able to get her previously ordered follow-up labs done prior to her appointment today COUNTS INCLUDE 234 BEDS AT [facility] Medical History Pelvic congestion syndrome Gastritis Asthma GERD (gastroesophageal reflux disease) Vitamin D deficiency Migraine without aura Nutcracker phenomenon of renal vein Surgical History Hx of abdominal surgery History of esophagogastroduodenoscopy (EGD) Hx of colonoscopy Family History Paternal Grandmother Stomach cancer Family/Other Substance use disorder Mental health disorder Social History Household Members Other:: lives with mom Housing: House Alcohol intake: current Alcohol intake frequency: holidays/special occasions only Patient Tobacco Use Status: Never used Tobacco e-Cigarette/Vaping Use: Never Used Second Hand Smoke Exposure: No Substance Use Type: Marijuana service: No Current occupational status: employed 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 1. Little interest or pleasure in doing things: not at all 2. Feeling down, depressed, or hopeless: not at all 3. Trouble falling or staying asleep, or sleeping too much: several days 4. Feeling tired or having little energy: several days 5. Poor appetite or overeating: not at all 6. Feeling bad about yourself - or that you are a failure or have let yourself or your family down: not at all 7. Trouble concentrating on things, such as reading the newspaper or watching television: not at all 8. Moving or speaking so slowly that other people could have noticed. Or the opposite - being so fidgety or restless that you have been moving around a lot more than usual: not at all 9. Thoughts that you would be better off or of hurting yourself in some way: not at all Total score: 2 Depression Screening Interpretation: Negative Depression Screening Done: Yes 93812 - PHQ-9 Billing: Yes Source: Developed by Drs. Major Pereira, Amelie Stoddard, Sonu Carey and colleagues, with an educational gurpreet from [employer]. Thrive Questionnaire Date Thrive assessed: 06/30/24 I am a: Patient What is your living situation today?: I have a steady place to live Within the past 12 months, did the food you bought not last and you didn't have the money to get more?: I choose not to answer this question Within the past 12 months, did you worry whether your food would run out before you got money to buy more?: Never true Do you have trouble paying for medicines?: No Do you have trouble getting transportation to medical appointments?: No Do you have trouble paying your heating and electricity bill?: No Do you have trouble taking care of your child, family member or friend?: No Do you have trouble with day-to-day activities such as bathing, preparing meals, shopping, managing finances, etc.?: No Are you currently unemployed and looking for a job?: No Are you interested in more education?: Yes Please select the resources that you would like help with: Job search/training and Education Currently or been in a relationship where the following occur: No concerns reported THRIVE Score: 0 AUDIT C Alcohol Use Questionnaire (AUDIT-C) 1. How often do you have a drink containing alcohol?: Monthly or less 2. How many drinks containing alcohol do you have on a typical day when you are drinking?: 1 or 2 3. How often do you have six or more drinks on one occasion?: Never Total Score: 1 Score Reviewed/Action Taken: Yes ASHOK-7 AMB Questionnaire ASHOK-7 Date ASHOK - 7 assessed: 06/30/24 Feeling nervous, anxious, or on edge: 0 = Not at all Not being able to stop or control worryin = Not at all Worrying too much about different things: 0 = Not at all Trouble relaxin = Not at all Being so restless that it is hard to sit still: 1 = Several days Becoming easily annoyed or irritable: 1 = Several days Feeling afraid as if something awful might happen: 0 = Not at all Total ASHOK-7 score (0-4 normal; 5-9 mild; 10-14 moderate; 15-21 severe): 2 Source: Developed by Drs. Major Pereira, Amelie Stoddard, Sonu Carey and colleagues, with an educational gurpreet from [employer]. Review of Systems Const Denies chills, Denies fatigue, Denies fever(s), Denies headache(s) (better controlled) and Denies malaise Eyes Denies blurry vision, Denies change in vision, Denies irritation and Denies itchy eyes ENT Denies dysphagia, Denies dizziness, Denies otalgia, Denies headache(s) (better controlled), Denies nasal congestion, Denies neck pain, Denies odynophagia, Denies sinus pain and Denies sore throat Card Denies chest pain, Denies rapid heart rate, Denies irregular heart rhythm, Denies palpitations and Denies dyspnea Resp Denies chest congestion, Denies cough, Denies dyspnea and Denies wheezing GI Reports abdominal pain (recurrent, over the lower abdomen), Reports bloating, Denies constipation, Reports GI cramping (recurrent, especially over the lower abdomen/pelvic area), Denies dysphagia, Denies heartburn, Denies diarrhea, Denies nausea, Denies odynophagia and Denies vomiting Denies hematuria, Denies urinary frequency, Denies dysuria, Denies urinary incontinence and Denies urinary urgency Musc Denies back pain, Reports arthralgias (on and off over both hips and in the right knee), Denies joint swelling, Denies muscle weakness and Denies neck pain Skin/Breast Denies breast pain, Denies breast mass, Denies change in pigmentation, Denies lesions, Denies rash and Denies unusual bruising Neuro Denies dizziness, Denies headache(s) (better controlled) and Denies paresthesias Psych Denies anxiety and Denies depression Endo Denies fatigue and Denies palpitations Jamie/Lymph Denies easy bruising Aller/Immun Denies itchy eyes and Denies wheezing Physical exam (Primary Care) Vital Signs: Last Vital Signs Pulse 105 H 06/30/24 16:57 BP 108/62 06/30/24 16:57 Pulse Ox 96 06/30/24 16:57 Oxygen Delivery Method Room Air 06/30/24 16:57 BMI result Body Mass Index 25.7 Tobacco/Smoking Status: Tobacco use Status Tobacco use date assessed 06/30/24 06/30/24 17:02 Patient Tobacco Use Status Never used Tobacco 06/30/24 17:02 e-Cigarette/Vaping Use Never Used 06/30/24 17:02 PHQ-9: PHQ-9 Score PHQ-9: Total score 2 06/30/24 17:14 Depression Screening Interpretation: Negative Thrive Assessment: Date of Thrive Assessment Date Thrive assessed 06/30/24 06/30/24 17:02 Currently or been in a relationship where the following occur: No concerns reported Const General: no acute distress, alert and awake Orientation/consciousness: patient oriented x3 HENMT Head: Yes normocephalic and Yes atraumatic Ears: external ears normal, TM's normal bilaterally and EAC's normal General nose exam: No nasal discharge present Face and sinus: Yes normal facial exam and Yes sinuses nontender Teeth and gingiva: dentition normal Throat: Yes posterior oropharynx normal and Yes tonsils normal (no TP congestion) Eyes Eyelids: Yes eyelids normal Conjunctivae: conjunctivae normal Pupils: Equal, round and reactive pupils present EOM: EOMs intact bilaterally Neck Neck: Yes no lymphadenopathy and Yes supple Thyroid: Thyroid normal Resp Auscultation: clear to auscultation bilaterally, no rales and no wheezes Cardio Rate: regular rate Rhythm: regular rhythm Heart sounds: no murmurs GI Palpation (GI): Soft to palpation, nontender and No hepatosplenomegaly present Auscultation: normal bowel sounds General: Yes no CVA tenderness Back/Spine/Pelvis Back: no CVA tenderness Thoracic/Lumbar Spine: thoracic and lumbar spine normal to inspection Skin Lesions: no lesions Rashes: no rashes Neuro General: patient oriented x3, moves all extremities, no focal motor deficits and CN's II-XI intact bilaterally Cranial nerves: Yes Equal, round and reactive pupils present Cognition (Neuro): normal cognition Gait exam (Neuro): Normal gait present Extrem General: Yes no clubbing, cyanosis or edema Coding Level of Care Code Est Pt Prev Care 18-39y(08609) Diagnoses Annual physical exam Z00.00 Migraine without aura and without status migrainosus, not intractable G43.009 Status migrainosus presence: without status migrainosus Intractability: not intractable Mild intermittent asthma without complication J45.20 Asthma severity: mild Asthma persistence: intermittent Asthma complication type: uncomplicated Chronic gastritis without bleeding, unspecified gastritis type K29.50 Gastritis type: unspecified gastritis Chronicity: chronic Gastritis bleeding: without bleeding Gastroparesis K31.84 Vitamin D deficiency E55.9 Nocturnal leg movements R25.8 Pelvic congestion syndrome N94.89 Additional Codes PHQ-9 - 46177 - PHQ-9 Billing: Yes ([id number]) Assessment & Plan Assessment & Plan (1) Annual physical exam: Code(s): Z00.00 - Encounter for general adult medical examination without abnormal findings Category: Medical Plan: Check labs - patient is reminded that her labs were previously ordered at her last visit in November 2023 and she just has to present to the lab at any time to get them done Advised patient that we will check back with her for any unusual or unexpected lab results that will need immediate attention once her results are available for review (2) Migraine without aura: Code(s): G43.009 - Migraine without aura, not intractable, without status migrainosus Category: Medical Qualifiers: Status migrainosus presence: without status migrainosus Intractability: not intractable Qualified Code(s): G43.009 - Migraine without aura, not intractable, without status migrainosus Plan: Patient states that her migraine headaches have been better controlled lately She was taken off her previous Amitriptyline it was reportedly not helping much in terms of headache prophylaxis and was causing increased sedation on the patient's part She has been switched over since to Gabapentin 100 mg 1 to 3 tablets Q HS, which appears to be helping Continue Sumatriptan 100 mg PRN as instructed to acute migraine headaches (3) Asthma: Code(s): J45.909 - Unspecified asthma, uncomplicated Category: Medical Qualifiers: Asthma severity: mild Asthma persistence: intermittent Asthma complication type: uncomplicated Qualified Code(s): J45.20 - Mild intermittent asthma, uncomplicated Plan: Her asthma also appears well-controlled lately Continue Ventolin HFA 1 to 2 inhalations Q 6 hours PRN (4) Gastritis: Code(s): K29.70 - Gastritis, unspecified, without bleeding Category: Medical Qualifiers: Gastritis type: unspecified gastritis Chronicity: chronic Gastritis bleeding: without bleeding Qualified Code(s): K29.50 - Unspecified chronic gastritis without bleeding Plan: EGD done on 12/25/2022 revealed (+) mild antral gastritis Continue Famotidine 20 mg Q HS Follow up with GI as scheduled (5) Gastroparesis: Code(s): K31.84 - Gastroparesis Category: Medical Plan: Patient had gastric emptying study done a few years ago on 05/02/2021 that revealed (+) significant retention of food in the stomach - 1 hour 79% (normal 37%-90%), 2 hours 69% (normal 30%-60%), 3 hours 50% and 4 hours 35% (normal 0%-10%) Continue Metoclopraminde 10 mg QID PRN and Promethazine 12.5 mg Q 6 hours PRN Follow up with GI as scheduled (6) Vitamin D deficiency: Code(s): E55.9 - Vitamin D deficiency, unspecified Category: Medical Plan: Continue Vitamin D3 74665 units twice a week (7) Nocturnal leg movements: Code(s): R25.8 - Other abnormal involuntary movements Category: Medical Plan: Home sleep study done last year came back normal but showed frequent leg movements She subsequent underwent an in-lab sleep study a couple of months ago, which reportedly revealed no SAPNA and no sleep-related movement disorder Continue Magnesium oxide 400 mg Q HS for now She will be seeing neurology early next month for follow up on this (8) Pelvic congestion syndrome: Code(s): N94.89 - Other specified conditions associated with female genital organs and menstrual cycle Category: Medical Plan: A recent pelvic US done revealed (+) findings suggestive of pelvic congestion Patient is currently being referred to interventional radiology for further management and she is currently still trying to find out who she will be seeing for this Plan Follow up in 6 months
[2024-06-30 16:57] VITALS: BP 108/62; PULSE 105; O2SAT 96; BMI 25.7
--- OUTSIDE RECORDS SUMMARY | 2024-06-30 16:58 | XMS_ITS | Encounter Summary ---
Author Organization [facility] Address [address] [facility] [address] [place] [address] Phone Care Team Providers Care Cabin Worker Name Role Phone Caroline Bray MD Primary Care Provider [phone] Encounter Details Date Type Department Care Team (Late st Contact Info) Description 10/02/2022 Office Communication [facility] [address] [facility] [address] [place] [address] Emily Evangelista Social History Tobacco Use Types [...] on filedocumented in this encounter Care Teams Cabin Worker Relationship Specialty Start Date End Date Caroline Bray MD [address] [place] [address] EUGENIO Fritz [id number] PCP - General Pediatrics 12/31/20 documented as of this encounter
--- OUTSIDE RECORDS SUMMARY | 2024-06-30 16:58 | XMS_ITS | Encounter Summary ---
Author Organization [facility] Address [address] [place] [address] Phone Care Team Providers Care Acquisitions Analyst Name Role Phone Caroline Bray MD Primary Care Provider Encounter Details Date Type Department Care Team (Late st Contact Info) Description 06/09/2014 Documentation [facility] [place] [address] [place] [address] Family Medicine, Physician [address] [place], [place] [address] Social History Tobacco Use Types Packs/Day Years [...] on filedocumented in this encounter Care Teams Acquisitions Analyst Relationship Specialty Start Date End Date Caroline Bray MD [address] [place] [id number] PCP - General Pediatrics 11/10/22 01/12/23 documented as of this encounter
--- OUTSIDE RECORDS SUMMARY | 2024-06-30 16:58 | XMS_ITS | Encounter Summary ---
Author Organization [facility] Address [address] [place] [address] Phone Care Team Providers Care Visual Specialist Name Role Phone Caroline Bray MD Primary Care Provider [phone] Encounter Details Date Type Department Care Team (Late st Contact Info) Description 09/17/2014 Documentation [facility] [place] Family Medicine [address] [place] [address] Family Medicine, Physician [address] [place], [place] [address] Social History Tobacco Use Types Packs/Day Years [...] on filedocumented in this encounter Care Teams Visual Specialist Relationship Specialty Start Date End Date Caroline Bray MD [address] [place] [id number] PCP - General Pediatrics 11/10/22 01/12/23 documented as of this encounter
--- OUTSIDE RECORDS SUMMARY | 2024-06-30 16:58 | XMS_ITS | Encounter Summary ---
Author Organization [facility] Address [address] [place] [address] Phone Care Team Providers Care Manufacturing Accountant Name Role Phone Caroline Bray MD Primary Care Provider Encounter Details Date Type Department Care Team (Late st Contact Info) Description 08/15/2014 Documentation [facility] [place] Family Medicine [address] [place] [address] Family Medicine, Physician [address] [place], [place] [address] Social History Tobacco Use Types Packs/Day Years [...] on filedocumented in this encounter Care Teams Manufacturing Accountant Relationship Specialty Start Date End Date Caroline Bray MD [address] [place] [id number] PCP - General Pediatrics 11/10/22 01/12/23 documented as of this encounter
--- OUTSIDE RECORDS SUMMARY | 2024-06-30 16:58 | XMS_ITS | Encounter Summary ---
Author Organization [facility] Address [address] [place] [address] Phone Care Team Providers Care Preschool Assistant Name Role Phone Caroline Bray MD Primary Care Provider [phone] Encounter Details Date Type Department Care Team (Late st Contact Info) Description 11/04/2015 Documentation [facility] [place] Family Medicine [address] [place] [address] Family Medicine, Physician [address] [place], [place] [address] Social History Tobacco Use Types Packs/Day Years [...] on filedocumented in this encounter Care Teams Preschool Assistant Relationship Specialty Start Date End Date Caroline Bray MD [address] [place] [id number] PCP - General Pediatrics 11/10/22 01/12/23 documented as of this encounter
--- OUTSIDE RECORDS SUMMARY | 2024-06-30 16:58 | XMS_ITS | Encounter Summary ---
Author Organization [facility] Address [address] [place] [address] Phone Care Team Providers Care Horse Groomer Name Role Phone Caroline Bray MD Primary Care Provider Encounter Details Date Type Department Care Team (Late st Contact Info) Description 2013 Documentation [facility] [place] [address] [place], [place] [id number] Family Medicine, Physician [address] [place], [place] [address] Social History Tobacco Use Types Packs/Day Years [...] on filedocumented in this encounter Care Teams Horse Groomer Relationship Specialty Start Date End Date Caroline Bray MD [address] [place] [id number] PCP - General Pediatrics 11/10/22 01/12/23 documented as of this encounter
--- OUTSIDE RECORDS SUMMARY | 2024-06-30 16:58 | XMS_ITS | Encounter Summary ---
Author Organization [facility] Address [address] [place] [address] Phone Care Team Providers Care It Sales Consultant Name Role Phone Caroline Bray MD Primary Care Provider [phone] Encounter Details Date Type Department Care Team (Late st Contact Info) Description 05/22/[address] [facility] [place] Family Medicine [address] [place] [address] Family Medicine, Physician [address] [place], [place] [address] Social History Tobacco Use Types Packs/Day Years [...] on filedocumented in this encounter Care Teams It Sales Consultant Relationship Specialty Start Date End Date Caroline Bray MD [address] [place] [id number] PCP - General Pediatrics 11/10/22 01/12/23 documented as of this encounter
--- OUTSIDE RECORDS SUMMARY | 2024-06-30 16:58 | XMS_ITS | Encounter Summary ---
Author Organization [facility] Address [address] [facility] [address] [place] [address] Phone Care Team Providers Care Band Cutting Machine Operator Name Role Phone Caroline Bray MD Primary Care Provider [phone] Encounter Details Date Type Department Care Team ([facility] st Contact Info) Description 06/01/2022 Office Communication [facility] [address] [facility] [address] [place] [address] Neela Barakat [place] Social History Tobacco Use [...] Doppler and Arous Wednesday 11:30 am in [place] documented in this encounter Plan of Treatment Not on file documented as of this encounter Visit Diagnoses Not on filedocumented in this encounter Care Teams Band Cutting Machine Operator Relationship Specialty Start Date End Date Caroline Bray MD [address] [place] [address] [place] [address] PCP - General Pediatrics 12/31/20 documented as of this encounter
--- OUTSIDE RECORDS SUMMARY | 2024-06-30 16:58 | XMS_ITS | Encounter Summary ---
Author Organization [facility] Address [address] [place] [address] Phone Care Team Providers Care Director Food And Beverage Name Role Phone Caroline Bray MD Primary Care Provider Encounter Details Date Type Department Care Team (Late st Contact Info) Description 09/25/2014 Documentation [facility] [place] Family Medicine [address] [place] [address] Family Medicine, Physician [address] [place], [place] [address] Social History Tobacco Use Types Packs/Day Years [...] on filedocumented in this encounter Care Teams Director Food And Beverage Relationship Specialty Start Date End Date Caroline Bray MD [address] [place] [phone] PCP - General Pediatrics 11/10/22 01/12/23 documented as of this encounter
--- OUTSIDE RECORDS SUMMARY | 2024-06-30 16:58 | XMS_ITS | Encounter Summary ---
Author Organization [facility] Address [address] [place] [address] Phone Care Team Providers Care Boring Machine Operator Helper Name Role Phone Caroline Bray MD Primary Care Provider Encounter Details Date Type Department Care Team (Late st Contact Info) Description 2013 Documentation [facility] [place] Family Medicine [address] [place], [place] [phone] Family Medicine, Physician [address] [place], [place] [address] Social History Tobacco Use Types Packs/Day Years [...] on filedocumented in this encounter Care Teams Boring Machine Operator Helper Relationship Specialty Start Date End Date Caroline Bray MD [address] [place] [phone] PCP - General Pediatrics 11/10/22 01/12/23 documented as of this encounter
--- OUTSIDE RECORDS SUMMARY | 2024-06-30 16:58 | XMS_ITS | Clinical Summary ---
Author Organization [facility] Address [address] [place] [address] Phone Care Team Providers Care Sports Cartoonist Name Role Phone Unavailable Primary Care Provider [...] endoscopies Followed by GI (Dr. Fung) at [facility] Had UGI and SBFT in December that [...] to GI - seeing Dr. Fung at [facility]; gastric emptying study ordered (2021) Assessment & [...] Medical History Relation Name Comments Obesity Brother Mraio Franks Strabismus Brother Mario Franks ADD / [...] Additional history exists Procedures * Due to [place] [employer] law, this organization might not be sharing sensitive test results. Procedure Name Priority Date/Time Associated Diagnosis Comments CHLAMYDIA AND GONORRHEA, AMPLIFIED Routine 12/17/2021 9:47 AM EDT Special screening examination for chlamydial disease from Last 3 Months or Most Recently Relevant to Health Maintenance Results * Due to [place] [employer] law, this organization might not be sharing sensitive test results. * Chlamydia and Gonorrhoea, Amplified (12/17/2021 9:47 AM EDT) Chlamydia Trachomatis, DNA Probe NEGATIVE (NEG) [facility] Comment: No Chlamydia Trachomatis RNA detected in this patient's sample ? (REFERENCE RANGE/NORMAL VALUE: NOT DETECTED) ? Note: This test uses photographer model- mediated amplification method to detect rRNA from C. Trachomatis URINE GC AMP PROBE NEGATIVE (NEG) [facility] Comment: No Neisseria Gonorrhoeae RNA detected in this patient's sample ? (REFERENCE RANGE/NORMAL VALUE: NOT DETECTED) ? NOTE: This test uses photographer model-mediated amplification method to detect rRNA from N.Gonorrhoeae. [...] if indicated. Testing performed or reported by [facility], a Service of [facility], [address] [place] [address] Zaki Quezada MD, Laborer Tin Can [facility]# [id number] Urine (Urine) 12/17/2021 9:4 7 AM EDT 12/17/2021 4:44 PM EDT us Caroline Bray MD LAB MICROBIOLOGY - GENERAL ORDERABLES Final Result [facility] from Last 3 Months or Most Recently Relevant to Health Maintenance Insurance [facility] NON PCC [facility] NON PCC
--- OUTSIDE RECORDS SUMMARY | 2024-06-30 16:58 | XMS_ITS | Clinical Summary ---
Author Organization [facility] Address [address] [address] Phone Care Team Providers Care Campus Chaplain Name Role Phone Caroline Bray MD Primary Care Provider [phone] [phone] Allergies No known active allergies Medications Ibuprofen [...] Followed by Renal - was sent to [place] (Mar 2021) - considering stent vs. surgery [...] inactivated after the 12/14/23 Regulatory Import Immunizations Immunization Administration Dates Next Due DTaP 5 02/02/2006, [...] Due Date Last Done Comments Pneumococcal Vaccine: Peds ( 0 to 5 Years) and At-Risk Patients (6 to 49 Years) (1 of 2 - PCV) 2020 12/29/2002, 03/29/2002, 2001, Additional history exists Influenza Vaccine (Season Ended) 2024 12/04/2021, 01/21/2021, 11/27/2019, Additional history exists Hepatitis B Vaccine Completed 05/30/2002, 03/29/2002, 2001 Insurance [facility] EUGENIO RODRIGUEZ [id number] Care Teams Campus Chaplain Relationship Specialty Start Date End Date Caroline Bray MD [address] [place] [address] EUGENIO Fritz [address] PCP - General Pediatrics 12/31/20
--- OUTSIDE RECORDS SUMMARY | 2024-06-30 16:58 | XMS_ITS | Encounter Summary ---
Author Organization [facility] Address [address] [place] [address] Phone Care Team Providers Care Aeroplane Pilot Name Role Phone Caroline Bray MD Primary Care Provider Encounter Details Date Type Department Care Team (Late st Contact Info) Description 09/10/2011 Documentation [facility] Family Medicine [address] [place] [address] Family Medicine, Physician [address] [place], [place] [address]781 Social History Tobacco Use Types Packs/Day Years [...] on filedocumented in this encounter Care Teams Aeroplane Pilot Relationship Specialty Start Date End Date Caroline Bray MD [address] [place] [address] PCP - General Pediatrics 11/10/22 01/12/23 documented as of this encounter
--- OUTSIDE RECORDS SUMMARY | 2024-06-30 16:58 | XMS_ITS | Encounter Summary ---
Author Organization [facility] Address [address] [place] [address] Phone Care Team Providers Care Welder Setter Electron Beam Machine Name Role Phone Caroline Bray MD Primary Care Provider Encounter Details Date Type Department Care Team (Late st Contact Info) Description 10/29/2016 Conversion Encounter [facility] [address] [place] [address] Social History Tobacco Use Types Packs/Day Years [...] on filedocumented in this encounter Care Teams Welder Setter Electron Beam Machine Relationship Specialty Start Date End Date Caroline Bray MD [address] [place] [address] PCP - General Pediatrics 11/10/22 01/12/23 documented as of this encounter
--- OUTSIDE RECORDS SUMMARY | 2024-06-30 16:58 | XMS_ITS | Encounter Summary ---
Author Organization [facility] Address [address] [place] [address] Phone Care Team Providers Care Ramp Boss Name Role Phone Caroline Bray MD Primary Care Provider Encounter Details Date Type Department Care Team (Late st Contact Info) Description 06/02/2013 Documentation [facility] Family Medicine [address] [place], [place] [id number] Family Medicine, Physician [address] [place], [place] [address]2331 Social History Tobacco Use Types Packs/Day Years [...] on filedocumented in this encounter Care Teams Ramp Boss Relationship Specialty Start Date End Date Caroline Bray MD [address] [place] [address] PCP - General Pediatrics 11/10/22 01/12/23 documented as of this encounter
--- OUTSIDE RECORDS SUMMARY | 2024-06-30 16:58 | XMS_ITS | Encounter Summary ---
Author Organization [facility] Address [address] [place] [address] Phone Care Team Providers Care Director Data Name Role Phone Caroline Bray MD Primary Care Provider Encounter Details Date Type Department Care Team (Late st Contact Info) Description 04/27/[address] [facility] Family Medicine [address] [place] [address] Family Medicine, Physician [address] [place], [place] [address] Social History Tobacco Use Types Packs/Day Years [...] filedocumented in this encounter Care Teams Director Data Relationship Specialty Start Date End Date Caroline Bray MD [address] [place] [address] PCP - General Pediatrics 11/10/22 01/12/23 documented as of this encounter
--- OUTSIDE RECORDS SUMMARY | 2024-06-30 16:58 | XMS_ITS | Encounter Summary ---
Author Organization [facility] Address [address] [place] [address] Phone Care Team Providers Care Serging Machine Operator Name Role Phone Caroline Bray MD Primary Care Provider Encounter Details Date Type Department Care Team (Late st Contact Info) Description 02/15/2015 Documentation [facility] Family Medicine [address] [place] [address] Family Medicine, Physician [address] [place], [place] [address] Social History Tobacco Use Types Packs/Day Years [...] on filedocumented in this encounter Care Teams Serging Machine Operator Relationship Specialty Start Date End Date Caroline Bray MD [address] [place] [address] PCP - General Pediatrics 11/10/22 01/12/23 documented as of this encounter
--- OUTSIDE RECORDS SUMMARY | 2024-06-30 16:58 | XMS_ITS | Encounter Summary ---
Author Organization [facility] Address [address] [place] [address] Phone Care Team Providers Care Pressure Test Operator Name Role Phone Caroline Bray MD Primary Care Provider [phone] Encounter Details Date Type Department Care Team (Late st Contact Info) Description 08/07/2016 Documentation [facility] Family Medicine [address] [place] [address] Family Medicine, Physician [address] [place], [place] [address] Social History Tobacco Use Types Packs/Day Years [...] on filedocumented in this encounter Care Teams Pressure Test Operator Relationship Specialty Start Date End Date Caroline Bray MD [address] [place] [address] PCP - General Pediatrics 11/10/22 01/12/23 documented as of this encounter
--- OUTSIDE RECORDS SUMMARY | 2024-06-30 16:58 | XMS_ITS | Encounter Summary ---
Author Organization [facility] Address [address] [place] [address] Phone Care Team Providers Care Project Management Name Role Phone Caroline Bray MD Primary Care Provider Encounter Details Date Type Department Care Team (Late st Contact Info) Description 10/01/[address] [facility] Family Medicine [address] [place] [address] Family Medicine, Physician [address] [place], [place] [address]36[address] Social History Tobacco Use Types Packs/Day Years [...] on filedocumented in this encounter Care Teams Project Management Relationship Specialty Start Date End Date Caroline Bray MD [address] [place] [address] PCP - General Pediatrics 11/10/22 01/12/23 documented as of this encounter
--- OUTSIDE RECORDS SUMMARY | 2024-06-30 16:58 | XMS_ITS | Encounter Summary ---
Author Organization [facility] Address [address] [place] [address] Phone Care Team Providers Care Ruby On Rails Consultant Name Role Phone Caroline Bray MD Primary Care Provider [phone] Encounter Details Date Type Department Care Team (Late st Contact Info) Description 06/10/2022 Documentation Only [address] [address] Qing Rodriguez MD Social History [...] on filedocumented in this encounter Care Teams Ruby On Rails Consultant Relationship Specialty Start Date End Date Caroline Bray MD [address] [place] [address] [place] [address] PCP - General Pediatrics 12/31/20 documented as of this encounter
--- OUTSIDE RECORDS SUMMARY | 2024-06-30 16:58 | XMS_ITS | Encounter Summary ---
Author Organization [facility] Address [address] [place] [address] Phone Care Team Providers Care Lawn Care Worker Name Role Phone Caroline Bray MD Primary Care Provider [phone] Encounter Details Date Type Department Care Team (Late st Contact Info) Description 06/10/2022 Documentation Only [address] [address] Qing Rodriguez MD Social History [...] on filedocumented in this encounter Care Teams Lawn Care Worker Relationship Specialty Start Date End Date Caroline Bray MD [address] [place] [address] [place] [address] PCP - General Pediatrics 12/31/20 documented as of this encounter
--- OUTSIDE RECORDS SUMMARY | 2024-06-30 16:59 | XMS_ITS | Encounter Summary ---
Author Organization [facility] Address [address] [place] [address] Phone Care Team Providers Care Segregator Name Role Phone Caroline Bray MD Primary Care Provider Encounter Details Date Type Department Care Team (Late st Contact Info) Description 12/06/[address] [facility] Family Medicine [address] [place] [address] Family Medicine, Physician [address] [place], [place] [address]171 Social History Tobacco Use Types Packs/Day Years [...] on filedocumented in this encounter Care Teams Segregator Relationship Specialty Start Date End Date Caroline Bray MD [address] [place] [address] PCP - General Pediatrics 11/10/22 01/12/23 documented as of this encounter
--- OUTSIDE RECORDS SUMMARY | 2024-06-30 16:59 | XMS_ITS | Encounter Summary ---
Author Organization [facility] Address [address] [place] [address] Phone Care Team Providers Care Stone Rubber Name Role Phone Caroline Bray MD Primary Care Provider Encounter Details Date Type Department Care Team (Late st Contact Info) Description 09/26/2014 Documentation [facility] Family Medicine [address] [place] [address] Family Medicine, Physician [address] [place], [place] [address] Social History Tobacco Use Types Packs/Day Years [...] on filedocumented in this encounter Care Teams Stone Rubber Relationship Specialty Start Date End Date Caroline Bray MD [address] [place] [address] PCP - General Pediatrics 11/10/22 01/12/23 documented as of this encounter
== END 2024-06-30 17:16 | disposition home or self-care (01) ==
LOC: HO.HMCH 16:55
PROVIDERS: PCP Internal Medicine; Visit Provider Internal Medicine
DX: Z00.00 Encounter for general adult medical examination without abnormal findings (principal); G43.009 Migraine without aura, not intractable, without status migrainosus; J45.20 Mild intermittent asthma, uncomplicated; K29.50 Unspecified chronic gastritis without bleeding; K31.84 Gastroparesis; E55.9 Vitamin D deficiency, unspecified; R25.8 Other abnormal involuntary movements; N94.89 Other specified conditions associated with female genital organs and menstrual cycle

== ENCOUNTER → 2024-06-30 16:54 | Outpatient (BNVA) | payer OTHER, SELFPAY | PROVIDERS: PCP Internal Medicine; Visit Provider Internal Medicine | DX: Z00.00 Encounter for general adult medical examination without abnormal findings (principal); G43.009 Migraine without aura, not intractable, without status migrainosus; J45.20 Mild intermittent asthma, uncomplicated; K29.50 Unspecified chronic gastritis without bleeding; K31.84 Gastroparesis; E55.9 Vitamin D deficiency, unspecified; R25.8 Other abnormal involuntary movements; N94.89 Other specified conditions associated with female genital organs and menstrual cycle; Z79.899 Other long term (current) drug therapy | CPT/HCPCS: 96127; 99395 ==

== ENCOUNTER 2024-07-05 07:06 | Outpatient (REF) | payer OTHER, SELFPAY ==
[2024-07-05 07:25] LABS: MANUAL DIFF FLAG NO
[2024-07-05 08:00] LABS: Basophils Percent Auto 0.4 % (0-2); Eosinophils Absolute Auto 0.1 X10*3/uL (0.0-0.4); Eosinophils Percent Auto 1.7 % (0-4); Hematocrit 41.7 % (37.0-47.0); Hemoglobin 13.9 g/dl (12.0-16.0); Imm Gran Abs Auto 0.01 X10*3/uL (0.00-0.03); Imm Gran Pct Auto 0.2 % (0.0-0.4); Lymphocytes Absolute Auto 1.3 X10*3/uL (1.2-4.9); Lymphocytes Percent Auto 27.7 % (20-40); Mean Corpuscular HGB Conc 33.3 g/dl (31.0-35.0); Mean Corpuscular Volume 86.9 fL (80.0-98.0); Mean Platelet Volume 11.7 fL (9.4-12.3); Monocytes Absolute Auto 0.4 X10*3/uL (0.1-1.2); Neutrophils Absolute Auto 2.8 x10*3/uL (2.0-8.3); Platelet Count 214 X10*3/uL (160-400); Red Cell Distribution Width 12.9 % (11.0-16.0); White Blood Count 4.7 X10*3/uL (4.8-10.8)
[2024-07-05 08:53] LABS: Alanine Aminotransferase 22 U/L (0-31); Albumin Level 4.4 g/dL (3.5-5.0); Alkaline Phosphatase 81 U/L (39-117); Anion Gap 12 (12-20); Aspartate Amino Transferase 27 U/L (5-31); Bilirubin Total 0.7 mg/dL (0.0-1.0); Blood Urea Nitrogen 13 mg/dL (9-16); Calcium 9.1 mg/dL (8.4-10.2); Carbon Dioxide 26 mmol/L (22-29); Chloride 107 mmol/L (96-108); Cholesterol 176 mg/dL (<200); Estimated Glomerular Filt Rate > 60; Glucose Fasting 94 mg/dL (60-99); HDL Cholesterol 65 mg/dL (>40); LDL Cholesterol Calculated 100 mg/dL (<100); Potassium 3.8 mmol/L (3.3-5.1); Sodium 141 mmol/L (135-145); Total Protein 7.4 g/dL (6.5-8.0); Triglycerides 59 mg/dL (<150)
[2024-07-05 09:14] LABS: TSH reflex Free T4 1.44 uIU/mL (0.32-4.0); Vitamin D 25-OH Total 11.6 ng/mL (>30)
== END 2024-07-05 07:07 | disposition home or self-care (01) ==
LOC: HO.LAB 07:06
PROVIDERS: PCP Internal Medicine; Visit Provider Internal Medicine
DX: Z00.00 Encounter for general adult medical examination without abnormal findings (principal); D64.9 Anemia, unspecified; E78.00 Pure hypercholesterolemia, unspecified; E55.9 Vitamin D deficiency, unspecified
CPT/HCPCS: 36415; 80053; 80061; 82306; 84443; 85025

== ENCOUNTER 2024-07-20 08:30 | Outpatient (AMB) | payer OTHER, SELFPAY ==
--- OUTSIDE RECORDS SUMMARY | 2024-07-20 08:44 | XMS_ITS | Encounter Summary ---
Author Organization [facility] Address [address] [place] [address] Phone Care Team Providers Care Notch Machine Operator Name Role Phone Caroline Bray MD Primary Care Provider Encounter Details Date Type Department Care Team (Late st Contact Info) Description 06/09/2014 Documentation [facility] Family Medicine [address] [place] [address] Family Medicine, Physician [address] [place], [place] [address] Social History Tobacco Use Types Packs/Day Years [...] on filedocumented in this encounter Care Teams Notch Machine Operator Relationship Specialty Start Date End Date Caroline Bary MD [address] [place] [address] PCP - General Pediatrics 11/10/22 01/12/23 documented as of this encounter
--- OUTSIDE RECORDS SUMMARY | 2024-07-20 08:44 | XMS_ITS | Encounter Summary ---
Author Organization [facility] Address [address] [place] [address] Phone Care Team Providers Care Manager Retail Store Name Role Phone Caroline Bray MD Primary Care Provider [phone] Encounter Details Date Type Department Care Team (Late st Contact Info) Description 2013 Documentation [facility] Family Medicine [address] [place], [place] [phone] Family Medicine, Physician [address] [place], [place] [address]461 Social History Tobacco Use Types Packs/Day Years [...] on filedocumented in this encounter Care Teams Manager Retail Store Relationship Specialty Start Date End Date Caroline Bray MD [address] [place] [address] PCP - General Pediatrics 11/10/22 01/12/23 documented as of this encounter
--- OUTSIDE RECORDS SUMMARY | 2024-07-20 08:44 | XMS_ITS | Encounter Summary ---
Author Organization [facility] Address [address] [place] [address] Phone Care Team Providers Care Senior Physician Name Role Phone Caroline Bray MD Primary Care Provider Encounter Details Date Type Department Care Team (Late st Contact Info) Description 10/01/2016 Documentation [facility] Family Medicine [address] [place] [address] Family Medicine, Physician [address] [place], [place] [address]408[address] Social History Tobacco Use Types Packs/Day Years [...] on filedocumented in this encounter Care Teams Senior Physician Relationship Specialty Start Date End Date Caroline Bray MD [address] [place] [address] PCP - General Pediatrics 11/10/22 01/12/23 documented as of this encounter
--- OUTSIDE RECORDS SUMMARY | 2024-07-20 08:44 | XMS_ITS | Encounter Summary ---
Author Organization [facility] Address [address] [place] [address] Phone Care Team Providers Care County Judge Name Role Phone Caroline Bray MD Primary Care Provider Encounter Details Date Type Department Care Team (Late st Contact Info) Description 09/25/2014 Documentation [facility] Family Medicine [address] [place] [address] Family Medicine, Physician [address] [place], [place] [address]691 Social History Tobacco Use Types Packs/Day Years [...] on filedocumented in this encounter Care Teams County Judge Relationship Specialty Start Date End Date Caroline Bray MD [address] [place] [address] PCP - General Pediatrics 11/10/22 01/12/23 documented as of this encounter
--- OUTSIDE RECORDS SUMMARY | 2024-07-20 08:44 | XMS_ITS | Encounter Summary ---
Author Organization [facility] Address [address] [place] [address] Phone Care Team Providers Care Marketing Ambassador Name Role Phone Caroline Bray MD Primary Care Provider Encounter Details Date Type Department Care Team (Late st Contact Info) Description 10/29/2016 Conversion Encounter [facility] [address] [place] [address] Social History Tobacco Use Types Packs/Day Years [...] on filedocumented in this encounter Care Teams Marketing Ambassador Relationship Specialty Start Date End Date Caroline Bray MD [address] [place] [address] PCP - General Pediatrics 11/10/22 01/12/23 documented as of this encounter
--- OUTSIDE RECORDS SUMMARY | 2024-07-20 08:44 | XMS_ITS | Encounter Summary ---
Author Organization [facility] Address [address] [place] [address] Phone Care Team Providers Care Practice Specialist Name Role Phone Caroline Bray MD Primary Care Provider Encounter Details Date Type Department Care Team (Late st Contact Info) Description 09/17/2014 Documentation [facility] Family Medicine [address] [place] [address] Family Medicine, Physician [address] [place], [place] [address] Social History Tobacco Use Types Packs/Day Years [...] on filedocumented in this encounter Care Teams Practice Specialist Relationship Specialty Start Date End Date Caroline Bray MD [address] [place] [address] PCP - General Pediatrics 11/10/22 01/12/23 documented as of this encounter
--- OUTSIDE RECORDS SUMMARY | 2024-07-20 08:44 | XMS_ITS | Encounter Summary ---
Author Organization [facility] Address [address] [place] [address] Phone Care Team Providers Care Cuff Slitter Name Role Phone Caroline Bray MD Primary Care Provider Encounter Details Date Type Department Care Team (Late st Contact Info) Description 08/15/2014 Documentation [facility] Family Medicine [address] [place] [address] Family Medicine, Physician [address] [place], [place] 8409[address] Social History Tobacco Use Types Packs/Day Years [...] on filedocumented in this encounter Care Teams Cuff Slitter Relationship Specialty Start Date End Date Caroline Bray MD [address] [place] [address] PCP - General Pediatrics 11/10/22 01/12/23 documented as of this encounter
--- OUTSIDE RECORDS SUMMARY | 2024-07-20 08:44 | XMS_ITS | Clinical Summary ---
Author Organization [facility] Address [address] [place] [address] Phone Care Team Providers Care Elementary Librarian Name Role Phone Unavailable Primary Care Provider [...] endoscopies Followed by GI (Dr. Fung) at [facility] Had UGI and SBFT in December that [...] to GI - seeing Dr. Fung at [facility]; gastric emptying study ordered (2021) Assessment & [...] pear, watermelon, all fruit cups, apricot, avocado, laar, blackberry, peach, plums, prunes, avocado, and dry [...] Additional history exists Procedures * Due to [place] [employer] law, this organization might not be sharing sensitive test results. Procedure Name Priority Date/Time Associated Diagnosis Comments CHLAMYDIA AND GONORRHEA, AMPLIFIED Routine 12/17/2021 9:47 AM EDT Special screening examination for chlamydial disease from Last 3 Months or Most Recently Relevant to Health Maintenance Results * Due to [place] [employer] law, this organization might not be sharing sensitive test results. * Chlamydia and Gonorrhoea, Amplified (12/17/2021 9:47 AM EDT) Chlamydia Trachomatis, DNA Probe NEGATIVE (NEG) [facility] Comment: No Chlamydia Trachomatis RNA detected in this patient's sample ? (REFERENCE RANGE/NORMAL VALUE: NOT DETECTED) ? Note: This test uses skating rink manager- mediated amplification method to detect rRNA from C. Trachomatis URINE GC AMP PROBE NEGATIVE (NEG) [facility] Comment: No Neisseria Gonorrhoeae RNA detected in this patient's sample ? (REFERENCE RANGE/NORMAL VALUE: NOT DETECTED) ? NOTE: This test uses skating rink manager-mediated amplification method to detect rRNA from N.Gonorrhoeae. [...] without risk of sexual abuse. Consult the [facility] if needed. Contact phone number . Therapeutic failure or success cannot be determined with the Aptima Combo2 assay since nucleic acid may persist following appropriate antimicrobial therapy. The Centers for Disease Control and Prevention (CDC) recommends confirmatory retesting using culture or a different nucleic acid amplification test when positive results occur, if indicated. Testing performed or reported by [facility], a Service of [facility], [address] [place] [address] Zaki Quezada MD, Well Logging Operator Mud Analysis [facility]# [id number] Urine (Urine) 12/17/2021 9:4 7 AM EDT 12/17/2021 4:44 PM EDT us Caroline Bray MD LAB MICROBIOLOGY - GENERAL ORDERABLES Final Result [facility] from Last 3 Months or Most Recently Relevant to Health Maintenance Insurance [facility] NON PCC [facility] NON PCC
--- OUTSIDE RECORDS SUMMARY | 2024-07-20 08:44 | XMS_ITS | Encounter Summary ---
Author Organization [facility] Address [address] [place] [address] Phone Care Team Providers Care Control Area Operator Name Role Phone Caroline Bray MD Primary Care Provider Encounter Details Date Type Department Care Team (Late st Contact Info) Description 2013 Documentation [facility] Family Medicine [address] [place], [place] [address] Family Medicine, Physician [address] [place], [place] [address] Social History Tobacco Use Types Packs/Day Years [...] on filedocumented in this encounter Care Teams Control Area Operator Relationship Specialty Start Date End Date Caroline Bray MD [address] [place] [address] PCP - General Pediatrics 11/10/22 01/12/23 documented as of this encounter
--- OUTSIDE RECORDS SUMMARY | 2024-07-20 08:45 | XMS_ITS | Clinical Summary ---
Author Organization [facility] Address [address] [address] Phone Care Team Providers Care Palletiser Operator Name Role Phone Caroline Bray MD Primary Care Provider [phone] [phone] Allergies No known active allergies Medications Ibuprofen [...] Followed by Renal - was sent to [place] (Mar 2021) - considering stent vs. surgery [...] B Vaccine Completed 05/30/2002, 03/29/2002, 2001 Insurance [facility] EUGENIO RODRIGUEZ [id number] Care Teams Palletiser Operator Relationship Specialty Start Date End Date Caroline Bray MD [address] [place] [address] EUGENIO Fritz [address] PCP - General Pediatrics 12/31/20
--- OUTSIDE RECORDS SUMMARY | 2024-07-20 08:45 | XMS_ITS | Encounter Summary ---
Author Organization [facility] Address [address] [place] [phone] Phone Care Team Providers Care Strainer Mill Operator Name Role Phone Caroline Bray MD Primary Care Provider [phone] Encounter Details Date Type Department Care Team (Late st Contact Info) Description 06/10/2022 Documentation Only [address] [address] Qing Rodriguez MD Social History [...] on filedocumented in this encounter Care Teams Strainer Mill Operator Relationship Specialty Start Date End Date Caroline Bray MD [address] [place] [address] [place] [address] PCP - General Pediatrics 12/31/20 documented as of this encounter
--- OUTSIDE RECORDS SUMMARY | 2024-07-20 08:45 | XMS_ITS | Encounter Summary ---
Author Organization [facility] Address [address] [place] [address] Phone Care Team Providers Care Head Bookkeeper Name Role Phone Caroline Bray MD Primary Care Provider Encounter Details Date Type Department Care Team (Late st Contact Info) Description 12/06/2014 Documentation [facility] [place] Family Medicine [address] [place] [address] Family Medicine, Physician [address] [place], [place] [address] Social History Tobacco Use Types Packs/Day Years [...] on filedocumented in this encounter Care Teams Head Bookkeeper Relationship Specialty Start Date End Date Caroline Bray MD [address] [place] [address] PCP - General Pediatrics 11/10/22 01/12/23 documented as of this encounter
--- OUTSIDE RECORDS SUMMARY | 2024-07-20 08:45 | XMS_ITS | Encounter Summary ---
Author Organization [facility] Address [address] [facility] [address] [place] [address] Phone Care Team Providers Care Customer Solutions Teammate Name Role Phone Caroline Bray MD Primary Care Provider +1 [phone] Encounter Details Date Type Department Care Team (Late st Contact Info) Description 10/02/2022 Office Communication [facility] 123 [facility] [address] [place] [address] Emily Evangelista Social History Tobacco Use Types [...] filedocumented in this encounter Care Teams Customer Solutions Teammate Relationship Specialty Start Date End Date Caroline Bray MD [address] [place] [address] [place] Fritz [address] PCP - General Pediatrics 12/31/20 documented as of this encounter
--- OUTSIDE RECORDS SUMMARY | 2024-07-20 08:45 | XMS_ITS | Encounter Summary ---
Author Organization [facility] Address [address] [place] [address] Phone Care Team Providers Care Staff Attorney Name Role Phone Caroline Bray MD Primary Care Provider Encounter Details Date Type Department Care Team (Late st Contact Info) Description 11/04/[address] [facility] [place] Family Medicine [address] [place], [place] [id number] Family Medicine, Physician [address] [place], [place] [address] Social History Tobacco Use Types Packs/Day Years [...] on filedocumented in this encounter Care Teams Staff Attorney Relationship Specialty Start Date End Date Caroline Bray MD [address] [place] [address] PCP - General Pediatrics 11/10/22 01/12/23 documented as of this encounter
--- OUTSIDE RECORDS SUMMARY | 2024-07-20 08:45 | XMS_ITS | Encounter Summary ---
Author Organization [facility] Address [address] [place] [phone] Phone Care Team Providers Care Butadiene Converter Utility Operator Name Role Phone Caroline Bray MD Primary Care Provider [phone] [phone] Encounter Details Date Type Department Care Team (Late st Contact Info) Description 06/10/2022 Documentation Only [address] [address] Qing Rodriguez MD Social History [...] on filedocumented in this encounter Care Teams Butadiene Converter Utility Operator Relationship Specialty Start Date End Date Caroline Bray MD [address] [place] [address] [place] [address] PCP - General Pediatrics 12/31/20 documented as of this encounter
--- OUTSIDE RECORDS SUMMARY | 2024-07-20 08:45 | XMS_ITS | Encounter Summary ---
Author Organization [facility] Address [address] [place] [address] Phone Care Team Providers Care Wire Weaver Name Role Phone Caroline Bray MD Primary Care Provider Encounter Details Date Type Department Care Team (Late st Contact Info) Description 02/15/2015 Documentation [facility] [place] [address] [place] [address] Family Medicine, Physician [address] [place], [place] 84[address]81 Social History Tobacco Use Types Packs/Day Years [...] on filedocumented in this encounter Care Teams Wire Weaver Relationship Specialty Start Date End Date Caroline Bray MD [address] [place] [address] PCP - General Pediatrics 11/10/22 01/12/23 documented as of this encounter
--- OUTSIDE RECORDS SUMMARY | 2024-07-20 08:45 | XMS_ITS | Encounter Summary ---
Author Organization [facility] Address [address] [place] [address] Phone Care Team Providers Care Benzene Worker Name Role Phone Caroline Bray MD Primary Care Provider [phone] Encounter Details Date Type Department Care Team (Late st Contact Info) Description 04/27/2016 Documentation [facility] [place] [facility] [place] [address] [place] [address] Family Medicine, Physician [address] [place], [place] 366031 Social History Tobacco Use Types Packs/Day Years [...] on filedocumented in this encounter Care Teams Benzene Worker Relationship Specialty Start Date End Date Caroline Bray MD [address] [place] [address] PCP - General Pediatrics 11/10/22 01/12/23 documented as of this encounter
--- OUTSIDE RECORDS SUMMARY | 2024-07-20 08:45 | XMS_ITS | Encounter Summary ---
Author Organization [facility] Address [address] [place] [address] Phone Care Team Providers Care Double Cut Off Saw Operator Name Role Phone Caroline Bray MD Primary Care Provider Encounter Details Date Type Department Care Team (Late st Contact Info) Description 09/10/2011 Documentation [facility] [place] [address] [place] [address] Family Medicine, Physician [address] [place], [place] 7139[address] Social History Tobacco Use Types Packs/Day Years [...] on filedocumented in this encounter Care Teams Double Cut Off Saw Operator Relationship Specialty Start Date End Date Caroline Bray MD [address] [place] [address] PCP - General Pediatrics 11/10/22 01/12/23 documented as of this encounter
--- OUTSIDE RECORDS SUMMARY | 2024-07-20 08:45 | XMS_ITS | Encounter Summary ---
Author Organization [facility] Address [address] [place] [address] Phone Care Team Providers Care Systems Lead Name Role Phone Caroline Bray MD Primary Care Provider Encounter Details Date Type Department Care Team (Late st Contact Info) Description 05/22/2016 Documentation [facility] [place] Family Medicine [address] [place] [address] Family Medicine, Physician [address] [place], [place] [address] Social History Tobacco Use Types Packs/Day Years [...] on filedocumented in this encounter Care Teams Systems Lead Relationship Specialty Start Date End Date Caroline Bray MD [address] [place] [address] PCP - General Pediatrics 11/10/22 01/12/23 documented as of this encounter
--- OUTSIDE RECORDS SUMMARY | 2024-07-20 08:45 | XMS_ITS | Encounter Summary ---
Author Organization [facility] Address [address] [place] [address] Phone Care Team Providers Care Service Desk Technician Name Role Phone Caroline Bray MD Primary Care Provider Encounter Details Date Type Department Care Team (Late st Contact Info) Description 09/26/2014 Documentation [facility] [place] Family Medicine [address] [place] [address] Family Medicine, Physician [address] [place], [place] [address] Social History Tobacco Use Types Packs/Day Years [...] on filedocumented in this encounter Care Teams Service Desk Technician Relationship Specialty Start Date End Date Caroline Bray MD [address] [place] [address] PCP - General Pediatrics 11/10/22 01/12/23 documented as of this encounter
--- OUTSIDE RECORDS SUMMARY | 2024-07-20 08:45 | XMS_ITS | Encounter Summary ---
Author Organization [facility] Address [address] [place] [address] Phone Care Team Providers Care Instructor Physical Education Name Role Phone Caroline Bray MD Primary Care Provider [phone] Encounter Details Date Type Department Care Team (Late st Contact Info) Description 06/02/2013 Documentation [facility] [place] Family Medicine [address] [place], [place] [phone] Family Medicine, Physician [address] [place], [place] [address] Social History Tobacco Use Types Packs/Day Years [...] on filedocumented in this encounter Care Teams Instructor Physical Education Relationship Specialty Start Date End Date Caroline Bray MD [address] [place] [address] PCP - General Pediatrics 11/10/22 01/12/23 documented as of this encounter
--- OUTSIDE RECORDS SUMMARY | 2024-07-20 08:45 | XMS_ITS | Encounter Summary ---
Author Organization [facility] Address 100 [facility] [address] [place] [address] Phone Care Team Providers Care Data Keyer Name Role Phone Caroline Bray MD Primary Care Provider [phone] Encounter Details Date Type Department Care Team ([facility] st Contact Info) Description 06/01/2022 Office Communication [facility] 123 [facility] [address] [place] [address] Neela Barakat [place] Social History Tobacco Use [...] Doppler and Arous Wednesday 11:30 am in [place] documented in this encounter Plan of Treatment Not on file documented as of this encounter Visit Diagnoses Not on filedocumented in this encounter Care Teams Data Keyer Relationship Specialty Start Date End Date Caroline Bray MD [address] [place] [address] [place] [address] PCP - General Pediatrics 12/31/20 documented as of this encounter
--- OUTSIDE RECORDS SUMMARY | 2024-07-20 08:45 | XMS_ITS | Encounter Summary ---
Author Organization [facility] Address [address] [place] [address] Phone Care Team Providers Care Terminal Gauger Name Role Phone Caroline Bray MD Primary Care Provider Encounter Details Date Type Department Care Team (Late st Contact Info) Description 08/07/2016 Documentation [facility] [place] Family [place] [address] [place] [address] Family Medicine, Physician [address] [place], [place] [address] Social History Tobacco Use Types Packs/Day Years [...] on filedocumented in this encounter Care Teams Terminal Gauger Relationship Specialty Start Date End Date Caroline Bray MD [address] [place] [address] PCP - General Pediatrics 11/10/22 01/12/23 documented as of this encounter
--- NOTE | 2024-07-20 09:06 | A.OFFVIS_ITS ---
Vital Signs 07/20/24 09:06 Comment Unable to check pulse and O2 due to nails. 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: No Accompanied by: Self / Same As Patient Allergies No Known Allergies Allergy (Verified 07/20/24 09:06) Medication List - Last Reconciled 07/20/24 by KERA Clark cholecalciferol (vitamin D3) 250 mcg PO 2XW 90 days famotidine 20 mg PO BEDTIME 30 days gabapentin 100 - 300 mg (1 - 3 x 100 mg) PO BEDTIME 30 days magnesium oxide 400 mg PO BEDTIME 30 days metoclopramide HCl 10 mg (10 mL) PO QID 30 days sumatriptan succinate 50 - 100 mg orally at onset of headache, may repeat in 2 hrs PRN; max 2 tabs per day or 4 tabs/week (may take with Tylenol) 30 days Ventolin HFA 90 mcg/actuation (albuterol sulfate) 2 puffs inhalation Q6H PRN 30 days NS HPI Comments Details: 23-yr-old female presents for f/u visit for migraine and dizziness w/ PMH notable for nutcracker syndrome, GERD, gastroparesis. Pt denies any significant interval medical changes. Interval home sleep study and follow-up in-lab sleep study did not show evidence of sleep apnea or excessive periodic limb movements of sleep. Interval lab work shows decreased vit D level. Last b1-2 level- low norm. Patient's PCP increased her vitamin-D supplement. Has always been prone to feeling exhausted even after sleeping 10+ hrs. Not sure if she snores. Usual bedtime is 8-9pm, and usual wake-up time is 5-5:30am. But sometimes may sleep 6pm-6am, and still have tiredness. Sometimes takes a nap after work around 5:30pm through 8pm, then wakes up eats a snack and goes back to bed. She is prone to restless leg symptoms- occurs when she relaxes and tries to go to bed- feels like she cannot get comfortable. She cannot get comfortable, has creepy crawling sensation. Some leg cramps when waking up. Does have heavy menstrual cycles since stopping Depo. Reports her brother and niece also have hypersomnia symptoms. Migraines are occurring less often, now about 1 x per week, waxing and waning throughout the day. Dizziness comes if standing- not triggered by rolling over or turning her head. Started gabapentin, however has not taken it recently as she did not think she had a refill. States that Sumatriptan has been very helpful. Uses metoclopramide before meals prn for nausea/gastroparesis- has not noticed any effect on migraine. Baseline headache characteristics: Migraines and dizziness and lightheadedness started in 2021 after her renal surgery. Throbbing pain in mid-forehead a/w photophobia, phonophobia, some nausea (but often nauseous), lightheadedness, some external spinning dizziness a/w heart racing, fatigue, activity intolerance. Typically waxes and waned throughout the day. [facility] Medical History Pelvic congestion syndrome Gastritis Asthma GERD (gastroesophageal reflux disease) Vitamin D deficiency Migraine without aura Nutcracker phenomenon of renal vein Surgical History Hx of abdominal surgery History of esophagogastroduodenoscopy (EGD) Hx of colonoscopy Family History Paternal Grandmother Stomach cancer Family/Other Substance use disorder Mental health disorder Social History Household Members Other:: lives with mom Housing: House Alcohol intake: current Alcohol intake frequency: holidays/special occasions only Patient Tobacco Use Status: Never used Tobacco e-Cigarette/Vaping Use: Never Used Second Hand Smoke Exposure: No Substance Use Type: Marijuana service: No Current occupational status: employed 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 Cognitive needs: No Hearing needs: No Vision needs: No Female Reproductive History Menstrual Age of Menarche: 16 Physical Exam Const General: cooperative and no acute distress Orientation/consciousness: patient oriented x3 Resp Effort & Inspection: normal respiratory effort and able to speak in complete sentences Neuro General: patient oriented x3 Cranial nerves: Yes CN's II-XII intact bilaterally Cognition (Neuro): normal cognition Gait exam (Neuro): Normal gait present Motor exam (neuro): 5/5 motor strength present throughout Psych Appearance: grossly normal Mental Status: mental status grossly normal Speech and movement: Normal speech and movement present Affect: normal affect Attitude: cooperative Assessment & Plan Assessment & Plan (1) Vitamin D deficiency: Code(s): E55.9 - Vitamin D deficiency, unspecified Category: Medical (2) Excessive daytime sleepiness: Code(s): G47.19 - Other hypersomnia Category: Medical (3) Migraine without aura: Code(s): G43.009 - Migraine without aura, not intractable, without status migrainosus Category: Medical Qualifiers: Status migrainosus presence: without status migrainosus Intractability: not intractable Qualified Code(s): G43.009 - Migraine without aura, not intractable, without status migrainosus (4) Dizziness: Code(s): R42 - Dizziness and giddiness Category: Medical (5) Muscle cramps: Code(s): R25.2 - Cramp and spasm Category: Medical (6) Sleep difficulties: Code(s): G47.9 - Sleep disorder, unspecified Category: Medical Plan For hypersomnia: Reviewed home sleep study and In-lab PSG which did not show evidence for sleep disordered breathing, sleep apnea, or significant periodic limb movements of sleep. Reviewed interval labs showing vitamin-D deficiency, and low level vitamin B12, and low normal ferritin 19 with otherwise normal iron studies Continue vitamin-D supplement as ordered by PCP. Check labs to round out lab workup. Patient advised to undergo follow-up in-lab PSG with MSLT- advised to hold gabapentin and metoclopramide for 2-3 weeks prior to PSG study. Check UA drug screen for hypersomnia. For overall headache management: Optimize good self-care, including but not limited to maintaining a healthy diet, adequate fluid intake, adequate sleep, and engaging in regular physical activity. For acute headache treatment: Continue Sumatriptan 100mg tab, 1/2 - 1 tab (50-100mg) at onset of headache, may repeat in 2 hours. Max of 2 tabs (200mg) per 24 hours. May adjunct with OTC Tylenol 650-1000mg q 4-6 hours prn. Previous acute migraine medication trials: none other Acute migraine medication contraindications: NSAIDs d/t nutcracker syndrome. For headache prevention medication: May resume Gabapentin 100mg cap- 1-3 caps daily 1 hr before bedtime for headache and RLS s/s- again hold 2-3 weeks prior to MSLT study Previous migraine prevention medication trials: Amitriptyline 25mg qhs- ineffective, patient is very sleepy already, and TCAs may exacerbate RLS s/s. Migraine prevention medication contraindications: caution w/ anti-HTN agents d/t h/o low BP and lightheadedness. Caution w/ Aimovig or Qulipta d/t risk for constipation. Will follow-up upon review of above and patient to follow-up in clinic in 6 months or sooner prn. Orders: Orders Parathyroid Hormone Intact Today E55.9 - Vitamin D deficiency, unspecified, R79.89 - Other specified abnormal findings of blood chemistry Vitamin B12 and Folate Today E55.9 - Vitamin D deficiency, unspecified, R79.89 - Other specified abnormal findings of blood chemistry RT PSG in-lab sleep study Today G47.19 - Other hypersomnia RT sleep testing - MSLT Today G47.19 - Other hypersomnia IRON PROFILE Today G47.34 - Idiopathic sleep related nonobstructive alveolar hypoventilation, R79.0 - Abnormal level of blood mineral Homocysteine Today E55.9 - Vitamin D deficiency, unspecified, R79.89 - Other specified abnormal findings of blood chemistry Methylmalonic Acid Today E55.9 - Vitamin D deficiency, unspecified, R79.89 - Other specified abnormal findings of blood chemistry Drug Screen Urine Today G47.10 - Hypersomnia, unspecified Ferritin Today G47.10 - Hypersomnia, unspecified, R25.8 - Other abnormal involuntary movements, R79.0 - Abnormal level of blood mineral Medications: Refilled gabapentin 100 - 300 mg (1 - 3 x 100 mg) PO BEDTIME 30 days 90 caps 3RF Coding Level of Care Code Est Pt Level 4 (30121) Diagnoses Vitamin D deficiency E55.9 Excessive daytime sleepiness G47.19 Migraine without aura and without status migrainosus, not intractable G43.009 Status migrainosus presence: without status migrainosus Intractability: not intractable Dizziness R42 Muscle cramps R25.2 Sleep difficulties G47.9
== END 2024-07-20 09:49 | disposition home or self-care (01) ==
LOC: HO.HSMS 08:31
PROVIDERS: PCP Internal Medicine; Visit Provider Nurse Practitioner Family
DX: E55.9 Vitamin D deficiency, unspecified (principal); G47.19 Other hypersomnia; G43.009 Migraine without aura, not intractable, without status migrainosus; R42 Dizziness and giddiness; R25.2 Cramp and spasm; G47.9 Sleep disorder, unspecified
CPT/HCPCS: 99214

== ENCOUNTER → 2024-07-20 08:30 | Outpatient (BNVA) | payer OTHER, SELFPAY | PROVIDERS: PCP Internal Medicine; Visit Provider Nurse Practitioner Family | DX: K21.9 Gastro-esophageal reflux disease without esophagitis (principal); K31.84 Gastroparesis; E55.9 Vitamin D deficiency, unspecified; G43.009 Migraine without aura, not intractable, without status migrainosus; G47.19 Other hypersomnia; R42 Dizziness and giddiness; R25.2 Cramp and spasm; G47.9 Sleep disorder, unspecified; R79.89 Other specified abnormal findings of blood chemistry; G47.34 Idiopathic sleep related nonobstructive alveolar hypoventilation; R79.0 Abnormal level of blood mineral; R25.8 Other abnormal involuntary movements | CPT/HCPCS: 99212 ==

== ENCOUNTER 2024-07-31 07:20 | Outpatient (REF) | payer OTHER, SELFPAY ==
--- OUTSIDE RECORDS SUMMARY | 2024-07-31 08:07 | XMS_ITS | Encounter Summary ---
Author Organization [facility] Address [address] [place] [address] Phone Care Team Providers Care Hyperbaric Tech Name Role Phone Caroline Bray MD Primary Care Provider Encounter Details Date Type Department Care Team (Late st Contact Info) Description 09/10/2011 Documentation [facility] Family Medicine [address] [place] [address] Family Medicine, Physician [address] [place], [place] [id number] Social History Tobacco Use Types Packs/Day Years [...] on filedocumented in this encounter Care Teams Hyperbaric Tech Relationship Specialty Start Date End Date Caroline Bray MD [address] [place] [id number] PCP - General Pediatrics 11/10/22 01/12/23 documented as of this encounter
--- OUTSIDE RECORDS SUMMARY | 2024-07-31 08:07 | XMS_ITS | Encounter Summary ---
Author Organization [facility] Address [address] [place] [address] Phone Care Team Providers Care Supervisor Fur Floor Worker Name Role Phone Caroline Bray MD Primary Care Provider Encounter Details Date Type Department Care Team (Late st Contact Info) Description 09/17/2014 Documentation [facility] [place] [address] [place] [address] Family Medicine, Physician [address] [place], [place] [phone] Social History Tobacco Use Types Packs/Day Years [...] on filedocumented in this encounter Care Teams Supervisor Fur Floor Worker Relationship Specialty Start Date End Date Caroline Bray MD [address] [place] [id number] PCP - General Pediatrics 11/10/22 01/12/23 documented as of this encounter
--- OUTSIDE RECORDS SUMMARY | 2024-07-31 08:07 | XMS_ITS | Encounter Summary ---
Author Organization [facility] Address [address] [place] [address] Phone Care Team Providers Care Levers Lace Machine Operator Name Role Phone Caroline Bray MD Primary Care Provider Encounter Details Date Type Department Care Team (Late st Contact Info) Description 09/26/2014 Documentation [facility] [place] [address] [place] [address] Family Medicine, Physician [address] [place], [place] [address] Social History Tobacco Use Types Packs/Day Years [...] on filedocumented in this encounter Care Teams Levers Lace Machine Operator Relationship Specialty Start Date End Date Caroline Bray MD [address] [place] [id number] PCP - General Pediatrics 11/10/22 01/12/23 documented as of this encounter
--- OUTSIDE RECORDS SUMMARY | 2024-07-31 08:07 | XMS_ITS | Encounter Summary ---
Author Organization [facility] Address [address] [facility] [address] [place] [address] Phone Care Team Providers Care Elevator Constructor Supervisor Name Role Phone Caroline Bray MD Primary Care Provider [phone] Encounter Details Date Type Department Care Team ([facility] st Contact Info) Description 06/01/2022 Office Communication [facility] [address] [facility] [address] [place] [address] Neela Barakat MA Social History Tobacco Use [...] Doppler and Arous Wednesday 11:30 am in [place] documented in this encounter Plan of Treatment Not on file documented as of this encounter Visit Diagnoses Not on filedocumented in this encounter Care Teams Elevator Constructor Supervisor Relationship Specialty Start Date End Date Caroline Bray MD [address] [place] [address] [place] [address] PCP - General Pediatrics 12/31/20 documented as of this encounter
--- OUTSIDE RECORDS SUMMARY | 2024-07-31 08:07 | XMS_ITS | Encounter Summary ---
Author Organization [facility] Address [address] [place] [address] Phone Care Team Providers Care Ocean Freight Forwarder Name Role Phone Caroline Bray MD Primary Care Provider [phone] Encounter Details Date Type Department Care Team (Late st Contact Info) Description 08/07/2016 Documentation [facility] Family Medicine [address] [place] [address] Family Medicine, Physician [address] [place], [place] [address] Social History Tobacco Use Types Packs/Day Years [...] on filedocumented in this encounter Care Teams Ocean Freight Forwarder Relationship Specialty Start Date End Date Caroline Bray MD [address] [place] [id number] PCP - General Pediatrics 11/10/22 01/12/23 documented as of this encounter
--- OUTSIDE RECORDS SUMMARY | 2024-07-31 08:07 | XMS_ITS | Encounter Summary ---
Author Organization [facility] Address [address] [place] [address] Phone Care Team Providers Care Fourdrinier Operator Name Role Phone Caroline Bray MD Primary Care Provider Encounter Details Date Type Department Care Team (Late st Contact Info) Description 11/04/2015 Documentation [facility] [place] [address] [place], [place] [phone] Family Medicine, Physician [address] [place], [place] [phone] Social History Tobacco Use Types Packs/Day Years [...] on filedocumented in this encounter Care Teams Fourdrinier Operator Relationship Specialty Start Date End Date Caroline Bray MD [address] [place] [id number] PCP - General Pediatrics 11/10/22 01/12/23 documented as of this encounter
--- OUTSIDE RECORDS SUMMARY | 2024-07-31 08:07 | XMS_ITS | Encounter Summary ---
Author Organization [facility] Address [address] [place] [address] Phone Care Team Providers Care Archival Records Clerk Name Role Phone Caroline Bray MD Primary Care Provider Encounter Details Date Type Department Care Team (Late st Contact Info) Description 05/22/2016 Documentation [facility] Family Medicine [address] [place] [address] Family Medicine, Physician [address] [place], [place] [address] Social History Tobacco Use Types Packs/Day Years [...] on filedocumented in this encounter Care Teams Archival Records Clerk Relationship Specialty Start Date End Date Caroline Bray MD [address] [place] [phone] PCP - General Pediatrics 11/10/22 01/12/23 documented as of this encounter
--- OUTSIDE RECORDS SUMMARY | 2024-07-31 08:07 | XMS_ITS | Encounter Summary ---
Author Organization [facility] Address [address] [place] [address] Phone Care Team Providers Care Birth Certificate Clerk Name Role Phone Caroline Bray MD Primary Care Provider [phone] Encounter Details Date Type Department Care Team (Late st Contact Info) Description 04/27/2016 Documentation [facility] Family Medicine [address] [place] [address] Family Medicine, Physician [address] [place], [place] [address] Social History Tobacco Use Types Packs/Day Years [...] on filedocumented in this encounter Care Teams Birth Certificate Clerk Relationship Specialty Start Date End Date Caroline Bray MD [address] [place] [address] PCP - General Pediatrics 11/10/22 01/12/23 documented as of this encounter
--- OUTSIDE RECORDS SUMMARY | 2024-07-31 08:07 | XMS_ITS | Encounter Summary ---
Author Organization [facility] Address [address] [place] [address] Phone Care Team Providers Care Biometrics Head Name Role Phone Caroline Bray MD Primary Care Provider [phone] Encounter Details Date Type Department Care Team (Late st Contact Info) Description 06/10/2022 Documentation Only [address] [address] Qing Rodriguez MD Social History [...] on filedocumented in this encounter Care Teams Biometrics Head Relationship Specialty Start Date End Date Caroline Bray MD [address] [place] [address] [place] [address] PCP - General Pediatrics 12/31/20 documented as of this encounter
--- OUTSIDE RECORDS SUMMARY | 2024-07-31 08:07 | XMS_ITS | Encounter Summary ---
Author Organization [facility] Address [address] [place] [address] Phone Care Team Providers Care Student Development Coordinator Name Role Phone Caroline Bray MD Primary Care Provider Encounter Details Date Type Department Care Team (Late st Contact Info) Description 2013 Documentation [facility] Family Medicine [address] [place], [place] [phone] Family Medicine, Physician [address] [place], [place] [address] Social History Tobacco Use Types Packs/Day Years [...] on filedocumented in this encounter Care Teams Student Development Coordinator Relationship Specialty Start Date End Date Caroline Bray MD [address] [place] [address] PCP - General Pediatrics 11/10/22 01/12/23 documented as of this encounter
--- OUTSIDE RECORDS SUMMARY | 2024-07-31 08:07 | XMS_ITS | Encounter Summary ---
Author Organization [facility] Address [address] [place] [address] Phone Care Team Providers Care Composition Tile Layer Name Role Phone Caroline Bray MD Primary Care Provider Encounter Details Date Type Department Care Team (Late st Contact Info) Description 10/01/2016 Documentation [facility] Family Medicine [address] [place] [address] Family Medicine, Physician [address] [place], [place] [address] Social History Tobacco Use Types Packs/Day Years [...] on filedocumented in this encounter Care Teams Composition Tile Layer Relationship Specialty Start Date End Date Caroline Bray MD [address] [place] [address] PCP - General Pediatrics 11/10/22 01/12/23 documented as of this encounter
--- OUTSIDE RECORDS SUMMARY | 2024-07-31 08:07 | XMS_ITS | Encounter Summary ---
Author Organization [facility] Address [address] [place] [address] Phone Care Team Providers Care Medical Assisting Program Director Name Role Phone Caroline Bray MD Primary Care Provider Encounter Details Date Type Department Care Team (Late st Contact Info) Description 06/09/2014 Documentation [facility] Family Medicine [address] [place] [address] Family Medicine, Physician [address] [place], [place] [address] Social History Tobacco Use Types Packs/Day Years [...] on filedocumented in this encounter Care Teams Medical Assisting Program Director Relationship Specialty Start Date End Date Caroline Bray MD [address] [place] [address] PCP - General Pediatrics 11/10/22 01/12/23 documented as of this encounter
--- OUTSIDE RECORDS SUMMARY | 2024-07-31 08:07 | XMS_ITS | Encounter Summary ---
Author Organization [facility] Address [address] [place] [address] Phone Care Team Providers Care Flight Instructor Name Role Phone Caroline Bray MD Primary Care Provider Encounter Details Date Type Department Care Team (Late st Contact Info) Description 2013 Documentation [facility] [place] Family Medicine [address] [place], [place] [phone] Family Medicine, Physician [address] [place], [place] [address] Social History Tobacco Use Types Packs/Day Years [...] on filedocumented in this encounter Care Teams Flight Instructor Relationship Specialty Start Date End Date Caroline Bray MD [address] [place] [address] PCP - General Pediatrics 11/10/22 01/12/23 documented as of this encounter
--- OUTSIDE RECORDS SUMMARY | 2024-07-31 08:07 | XMS_ITS | Encounter Summary ---
Author Organization [facility] Address [address] [place] [address] Phone Care Team Providers Care Director Of Social Media Marketing Name Role Phone Caroline Bray MD Primary Care Provider [phone] Encounter Details Date Type Department Care Team (Late st Contact Info) Description 02/15/2015 Documentation [facility] [place] Family Medicine [address] [place] [address] Family Medicine, Physician [address] [place], [place] [address] Social History Tobacco Use Types Packs/Day Years [...] filedocumented in this encounter Care Teams Director Of Social Media Marketing Relationship Specialty Start Date End Date Caroline Bray MD [address] [place] [address] PCP - General Pediatrics 11/10/22 01/12/23 documented as of this encounter
--- OUTSIDE RECORDS SUMMARY | 2024-07-31 08:07 | XMS_ITS | Clinical Summary ---
Author Organization [facility] Address [address] [address] Phone Care Team Providers Care Management And Budget Analyst Name Role Phone Caroline Bray MD Primary Care Provider [phone] Allergies No known active allergies Medications Ibuprofen [...] Followed by Renal - was sent to [place] (Mar 2021) - considering stent vs. surgery [...] B Vaccine Completed 05/30/2002, 03/29/2002, 2001 Insurance [facility] EUGENIO RODRIGUEZ [id number] Care Teams Management And Budget Analyst Relationship Specialty Start Date End Date Caroline Bray MD [address] [place] [address] [place] Fritz [address] PCP - General Pediatrics 12/31/20
--- OUTSIDE RECORDS SUMMARY | 2024-07-31 08:07 | XMS_ITS | Encounter Summary ---
Author Organization [facility] Address [address] [place] [address] Phone Care Team Providers Care Acid Condenser Name Role Phone Caroline Bray MD Primary Care Provider Encounter Details Date Type Department Care Team (Late st Contact Info) Description 08/15/2014 Documentation [facility] [place] Family Medicine [address] [place] [address] Family Medicine, Physician [address] [place], [place] [address] Social History Tobacco Use Types Packs/Day Years [...] on filedocumented in this encounter Care Teams Acid Condenser Relationship Specialty Start Date End Date Caroline Bray MD [address] [place] [address] PCP - General Pediatrics 11/10/22 01/12/23 documented as of this encounter
--- OUTSIDE RECORDS SUMMARY | 2024-07-31 08:07 | XMS_ITS | Encounter Summary ---
Author Organization [facility] Address [address] [place] [address] Phone Care Team Providers Care Facility Rehab Director Name Role Phone Caroline Bray MD Primary Care Provider Encounter Details Date Type Department Care Team (Late st Contact Info) Description 10/29/2016 Conversion Encounter [facility] [address] [place] [address] Social History Tobacco Use Types Packs/Day Years [...] on filedocumented in this encounter Care Teams Facility Rehab Director Relationship Specialty Start Date End Date Caroline Bray MD [address] [place] [address] PCP - General Pediatrics 11/10/22 01/12/23 documented as of this encounter
--- OUTSIDE RECORDS SUMMARY | 2024-07-31 08:07 | XMS_ITS | Encounter Summary ---
Author Organization [facility] Address 100 [facility] [address] [place] [address] Phone Care Team Providers Care Manager Leasing Name Role Phone Caroline Bray MD Primary Care Provider [phone] Encounter Details Date Type Department Care Team (Late st Contact Info) Description 10/02/2022 Office Communication [facility] 123 [facility] [address] [place] [address] Emily Evangelista Social History Tobacco [...] filedocumented in this encounter Care Teams Manager Leasing Relationship Specialty Start Date End Date Caroline Bray MD [address] [place] [address] [place] Fritz [address] PCP - General Pediatrics 12/31/20 documented as of this encounter
--- OUTSIDE RECORDS SUMMARY | 2024-07-31 08:07 | XMS_ITS | Encounter Summary ---
Author Organization [facility] Address [address] [place] [address] Phone Care Team Providers Care Customs And Border Protection Inspector Name Role Phone Caroline Bray MD Primary Care Provider [phone] Encounter Details Date Type Department Care Team (Late st Contact Info) Description 09/25/2014 Documentation [facility] Family Medicine [address] [place] [address] Family Medicine, Physician [address] [place], [place] [address] Social History Tobacco Use Types Packs/Day Years [...] on filedocumented in this encounter Care Teams Customs And Border Protection Inspector Relationship Specialty Start Date End Date Caroline Bray MD [address] [place] [address] PCP - General Pediatrics 11/10/22 01/12/23 documented as of this encounter
--- OUTSIDE RECORDS SUMMARY | 2024-07-31 08:07 | XMS_ITS | Clinical Summary ---
Author Organization [facility] Address [address] [place] [address] Phone Care Team Providers Care Senior User Experience Architect Name Role Phone Unavailable Primary Care Provider [...] endoscopies Followed by GI (Dr. Fung) at [facility] Had UGI and SBFT in December that [...] to GI - seeing Dr. Fung at [facility]; gastric emptying study ordered (2021) Assessment & [...] Sister Annita Jusin o OCD Sister Annita Gissle Relation Name Status Comments Brother aMrio Kenji Alive Cousin Father Octaviano Chauhan Alive [...] Additional history exists Procedures * Due to [place] [employer] law, this organization might not be sharing sensitive test results. Procedure Name Priority Date/Time Associated Diagnosis Comments CHLAMYDIA AND GONORRHEA, AMPLIFIED Routine 12/17/2021 9:47 AM EDT Special screening examination for chlamydial disease from Last 3 Months or Most Recently Relevant to Health Maintenance Results * Due to [place] VOZ law, this organization might not be sharing sensitive test results. * Chlamydia and Gonorrhoea, Amplified (12/17/2021 9:47 AM EDT) Chlamydia Trachomatis, DNA Probe NEGATIVE (NEG) [facility] Comment: No Chlamydia Trachomatis RNA detected in this patient's sample ? (REFERENCE RANGE/NORMAL VALUE: NOT DETECTED) ? Note: This test uses chest painting and sealing supervisor- mediated amplification method to detect rRNA from C. Trachomatis URINE GC AMP PROBE NEGATIVE (NEG) [facility] Comment: No Neisseria Gonorrhoeae RNA detected in this patient's sample ? (REFERENCE RANGE/NORMAL VALUE: NOT DETECTED) ? NOTE: This test uses chest painting and sealing supervisor-mediated amplification method to detect rRNA from N.Gonorrhoeae. [...] without risk of sexual abuse. Consult the [facility] if needed. Contact phone number . Therapeutic failure or success cannot be determined with the Aptima Combo2 assay since nucleic acid may persist following appropriate antimicrobial therapy. The Centers for Disease Control and Prevention (CDC) recommends confirmatory retesting using culture or a different nucleic acid amplification test when positive results occur, if indicated. Testing performed or reported by [facility], a Service of [facility], [address] [place] [address] Zaki Quezada MD, Platen Drier Operator [facility]# [id number] Urine (Urine) 12/17/2021 9:4 7 AM EDT 12/17/2021 4:44 PM EDT us Caroline Bray MD LAB MICROBIOLOGY - GENERAL ORDERABLES Final Result [facility] from Last 3 Months or Most Recently Relevant to Health Maintenance Insurance [facility] NON PCC [facility] NON PCC
--- OUTSIDE RECORDS SUMMARY | 2024-07-31 08:07 | XMS_ITS | Encounter Summary ---
Author Organization [facility] Address [address] [place] [address] Phone Care Team Providers Care Mobile Manager Name Role Phone Caroline Bray MD Primary Care Provider Encounter Details Date Type Department Care Team (Late st Contact Info) Description 12/06/2014 Documentation [facility] Family Medicine [address] [place] [address] Family Medicine, Physician [address] [place], [place] [address] Social History Tobacco Use Types Packs/Day Years [...] on filedocumented in this encounter Care Teams Mobile Manager Relationship Specialty Start Date End Date Caroline Bray MD [address] [place] [address] PCP - General Pediatrics 11/10/22 01/12/23 documented as of this encounter
--- OUTSIDE RECORDS SUMMARY | 2024-07-31 08:07 | XMS_ITS | Encounter Summary ---
Author Organization [facility] Address [address] [place] [address] Phone Care Team Providers Care Intelligent Systems Engineer Name Role Phone Caroline Bray MD Primary Care Provider Encounter Details Date Type Department Care Team (Late st Contact Info) Description 06/02/2013 Documentation [facility] Family Medicine [address] [place], [place] [phone] Family Medicine, Physician [address] [place], [place] [address] Social History Tobacco Use Types Packs/Day Years [...] on filedocumented in this encounter Care Teams Intelligent Systems Engineer Relationship Specialty Start Date End Date Caroline Bray MD [address] [place] [address] PCP - General Pediatrics 11/10/22 01/12/23 documented as of this encounter
--- OUTSIDE RECORDS SUMMARY | 2024-07-31 08:07 | XMS_ITS | Encounter Summary ---
Author Organization [facility] Address [address] [place] [phone] Phone Care Team Providers Care Automotive Dismantler Name Role Phone Caroline Bray MD Primary Care Provider [phone] Encounter Details Date Type Department Care Team (Late st Contact Info) Description 06/10/2022 Documentation Only [address] [address] Qing Rodriguez MD Social History [...] on filedocumented in this encounter Care Teams Automotive Dismantler Relationship Specialty Start Date End Date Caroline Bray MD [address] [place] [address] [place] [address] PCP - General Pediatrics 12/31/20 documented as of this encounter
[2024-07-31 09:05] LABS: Iron 40 mcg/dL (30-160); Percent Iron Saturation 10 % (15-50); Total Iron Binding Capacity 384 mcg/dL (228-428); Unsaturated Iron Binding 344 ug/dL
[2024-07-31 09:06] LABS: Parathyroid Hormone Intact 112.9 pg/mL (8.7-77.1)
[2024-07-31 09:19] LABS: Ferritin 27 ng/mL (10-122)
[2024-07-31 09:35] LABS: Folate 4.9 ng/mL (> or = 4.0); Vitamin B12 392 pg/mL (200-900)
[2024-08-02 18:39] LABS: Homocysteine 24.4 umol/L (< or = 10.9)
[2024-08-03 06:24] LABS: Methylmalonic Acid 122 nmol/L (55-335)
== END 2024-07-31 07:21 | disposition home or self-care (01) ==
LOC: HO.LAB 07:20
PROVIDERS: Absent Provider Nurse Practitioner Family; PCP Internal Medicine; Visit Provider Internal Medicine Gastroenterology
DX: K31.84 Gastroparesis (principal); R11.2 Nausea with vomiting, unspecified; R79.89 Other specified abnormal findings of blood chemistry; E55.9 Vitamin D deficiency, unspecified; R79.0 Abnormal level of blood mineral; G47.34 Idiopathic sleep related nonobstructive alveolar hypoventilation; G47.10 Hypersomnia, unspecified; R25.8 Other abnormal involuntary movements; R10.9 Unspecified abdominal pain; K21.9 Gastro-esophageal reflux disease without esophagitis; K29.50 Unspecified chronic gastritis without bleeding
CPT/HCPCS: 36415; 82607; 82728; 82746; 83090; 83540; 83921; 83970; 99212

== ENCOUNTER 2024-07-31 07:20 | Outpatient (AMB) | payer OTHER, SELFPAY ==
--- OUTSIDE RECORDS SUMMARY | 2024-07-31 07:22 | XMS_ITS | Encounter Summary ---
Author Organization [facility] Address [address] [place] [address] Phone Care Team Providers Care Manager Telemarketing Name Role Phone Caroline Bray MD Primary Care Provider [phone] [phone] Encounter Details Date Type Department Care Team (Late st Contact Info) Description 06/10/2022 Documentation Only [address] [address] Qing Rodriguez MD Social History [...] filedocumented in this encounter Care Teams Manager Telemarketing Relationship Specialty Start Date End Date Caroline Bray MD [address] [place] [address] [place] [address] PCP - General Pediatrics 12/31/20 documented as of this encounter
--- OUTSIDE RECORDS SUMMARY | 2024-07-31 07:22 | XMS_ITS | Clinical Summary ---
Author Organization [facility] Address [address] [address] Phone Care Team Providers Care Assistant Boiler Operator Name Role Phone Caroline Bray MD Primary Care Provider [phone] -[phone] Allergies No known active allergies Medications Ibuprofen [...] Followed by Ren[facility] - was sent to [place] (Mar 2021) - considering stent vs. surgery [...] B Vaccine Completed 05/30/2002, 03/29/2002, 2001 Insurance [facility] EUGENIO RODRIGUEZ [id number] Care Teams Assistant Boiler Operator Relationship Specialty Start Date End Date Caroline Bray MD [address] [place] [address] EUGENIO Fritz [address] PCP - General Pediatrics 12/31/20
--- OUTSIDE RECORDS SUMMARY | 2024-07-31 07:22 | XMS_ITS | Encounter Summary ---
Author Organization [facility] Address [address] [place] [phone] Phone Care Team Providers Care Anesthesiologist Name Role Phone Caroline Bray MD Primary Care Provider [phone] [phone] Encounter Details Date Type Department Care Team (Late st Contact Info) Description 06/10/2022 Documentation Only [address] [address] Qing Rodriguez MD Social History [...] on filedocumented in this encounter Care Teams Anesthesiologist Relationship Specialty Start Date End Date Caroline Bray MD [address] [place] [address] [place] [address] PCP - General Pediatrics 12/31/20 documented as of this encounter
--- OUTSIDE RECORDS SUMMARY | 2024-07-31 07:22 | XMS_ITS | Encounter Summary ---
Author Organization [facility] Address 100 [facility] [address] [place] [address] Phone Care Team Providers Care Landscape Painter Name Role Phone Caorline Bray MD Primary Care Provider [phone] [phone] Encounter Details Date Type Department Care Team (Late st Contact Info) Description 10/02/2022 Office Communication [facility] 123 [facility] [address] [place] [address] Emily Evangelista Social History Tobacco [...] on filedocumented in this encounter Care Teams Landscape Painter Relationship Specialty Start Date End Date Caroline Bray MD [address] [place] [address] [place]GEN[place] Fritz [address] PCP - General Pediatrics 12/31/20 documented as of this encounter
--- OUTSIDE RECORDS SUMMARY | 2024-07-31 07:22 | XMS_ITS | Encounter Summary ---
Author Organization [facility] Address 100 [facility] [address] [place] [address] Phone Care Team Providers Care Gear Hobber Name Role Phone Caroline Bray MD Primary Care Provider [phone] Encounter Details Date Type Department Care Team ([facility] st Contact Info) Description 06/01/2022 Office Communication [facility] 123 [facility] [address] [place] [address] Neela Barakat MA Social History Tobacco Use [...] Doppler and Arous Wednesday 11:30 am in [place] documented in this encounter Plan of Treatment Not on file documented as of this encounter Visit Diagnoses Not on filedocumented in this encounter Care Teams Gear Hobber Relationship Specialty Start Date End Date Caroline Bray MD [address] [place] [address] [place] [address] PCP - General Pediatrics 12/31/20 documented as of this encounter
--- NOTE | 2024-07-31 07:26 | MHC.OFFVIS ---
Vital Signs 07/31/24 07:32 Height 5 ft 3 in Weight 140 lb BMI 24.8 BP 92/58 L Blood Pressure Location Lt brachial Position Sitting Pulse 66 Intake Visit Reasons: 3 mo Intake Note: Patient follow up for abdominal pain/bloating and US results. Patient cc: abdominal bloating and nauseas. Denies any other GI issues. 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: No Accompanied by: Self / Same As Patient Allergies No Known Allergies Allergy (Verified 07/20/24 09:06) Medication List - Last Reconciled 07/31/24 by Jass Fung MD cholecalciferol (vitamin D3) 250 mcg PO 2XW 90 days famotidine 20 mg PO BEDTIME 30 days gabapentin 100 - 300 mg (1 - 3 x 100 mg) PO BEDTIME 30 days magnesium oxide 400 mg PO BEDTIME 30 days metoclopramide HCl 10 mg (10 mL) PO QID 30 days sumatriptan succinate 50 - 100 mg orally at onset of headache, may repeat in 2 hrs PRN; max 2 tabs per day or 4 tabs/week (may take with Tylenol) 30 days Ventolin HFA 90 mcg/actuation (albuterol sulfate) 2 puffs inhalation Q6H PRN 30 days NS HPI HPI 3 mo: Details: GI CLINIC VISIT FOR THIS 23-YEAR-OLD FEMALE FOR FU OF IDIOPATHIC GASTROPARESIS ASSOCIATED WITH NAUSEA VOMITING DIARRHEA AND ABDOMINAL PAIN. Pt has a history of nutcracker syndrome,? 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 Pt scheduled for an urgent FU appt since she called with symptoms of nausea and vomiting: patient called to report she is experiencing nausea, about two episodes of vomiting daily for the last week as well as abdominal pain and red bloody mucus in her stools. Patient reports she has noted a decrease in her appetite. patient denies fever or chills. I advised patient that I would send a message to you to advise but that it will be likely that she will need to go to the ED for furthe eval as you do not have any availability soon. please advise TODAY'S VISIT: Patient cc: abdominal bloating and nauseas. Scheduled for a CT scan next week and a FU with Vascular Surgery (Dr Morejon in [place]) Having nausea and bloating over the past 2 weeks Has to stop eating in the middle of her meal due to nausea. Wt has been stable Has gained 10 lbs over the past 6 months Has been having abd cramping since end of Feb/early Mar She had a heavy period which was followed by lower abd/pelvic pain. States test was negative Cramps can be bad and can get bad pain in the pelvis and bottom of the belly. Can be sitting, standing or walking around. Pain lasts a few min and then goes away and comes back later Lying down does not help the pain. PAST VISITS: Nausea is not as bad - can occur after eating and is less frequent. Pain id bad a few days before her periods, gets worse with her periods. Last period was late and light and spotty. Usually has nausea when she wakes up and takes Promethazine Occasionally has nausea lasting the entire day Still tries to eat even if she is not hungry. Taking regular diet and blendarized diet depending on how she feels Taking metoclopramide twice a day since she does not have breakfast. Wt has been stable Denies constipation or diarrhea. Last few weeks has not had a good appetite Belly feels sore if she is lying on the back Feels better if she curls up in a ball Wakes up with abd pain if she is lying on her back. Hard to sleep on the side since her hips lock up feels Ok - about the same Nausea is not as bad - still has nausea in the morning and does not eat till 1-2 pm Denies recent vomiting Taking metoclopramide three times a day before meals Has a bad cough with phlegm and acid for the past month Saw her PCP and prescribed antibiotics - cough has not improved - gotton worse EGD and flex sig results reviewed with the patient She was feeling better after the EGD. Has been feeling nauseous for the last few days after eating. Taking metoclopramide three times a day and has been helping. Certain days she has nausea and vomiting after eating. Eats a lot of rice, bread and cracker. Has been trying to do smoothies. Does not eat breakfast in the am. Has nausea and gagging when she wakes up Eats lunch and dinner. Intermittent reflux symptoms Planning to have a Thanksgiving with her friends and separate dinner at her Mom's Noted nausea and vomiting and abdominal pain since last week Thought she had a stomach bug usually upto 2 episodes a day Feels a knot in her stomach and then food comes up Not always related to eating. Has a cramping feeling after eating. Also has diarrhea with 2-3 BMs a day. Intermittent dysphagia to liquids. Taking Metoclopramide twice a day and nausea medication prn Nausea medication works in 15 to 20 min if she takes it early enough Patient follow up of gastroparesis. Difficult to keep anything down for the past week Any time she eats anything and has post prandial vomiting Does not eat big meals - takes rice, beans and pasta Patient denies any GI issues. Appetite has improved with medications. Still has intermittent right lower abd cramps. Can wake up from sleep because of abdominal pain. Has been doing ok. Medication is helping - makes her feel drowsy - feels like a Zombie. Has cramps and feels sick in the morning. Has upset stomach if she eats breakfast. Has a small lunch. Continues to have RLQ pain and diarrhea 1-2 times a day with watery stools with mucous and no blood. Has gained some wt after thansgiving. Had surgery in June at [facility] in [place] and everything was ok Was not eating much for 3-4 months after the surgery. Once her appetite came back and she started eating more, she started feeling sick Bad cramps in the lower portion of the stomach - feels worse after taking breakfast Has been skipping breakfast. Has been trying to eat small portions. Some days she tries to eat and had to spit it back out due to nausea or smell of food. Lost a lot of wt after the surgery.? Started gaining the wt back 2 months ago. Denies dysphagia or change in BMs. Started feeling sick again Taking Promethazine every other day with partial control of nausea Continues to have nausea sometimes after she eats. Diagnosed with left renal vein stenosis and being scheduled for left renal vein stent placement at [facility] by Dr Del Real Did not have stent placed - additinal contrast studies are planned And possible surgery Abd pain is attributed to above. Notes nausea when she wakes up in the morning and goes away in 1-2 hrs. Does not have an appetite - feels full until dinner. Feels sick if she forces herself to eat. A GES at [facility] 1-2 yrs ago was normal. Feeling about the same. Hurts a lot when her bladder feels full before she has to use the bathroom. The pain goes away and it feels sore to touch in the lower stomach area. Denies pain with BMs. Denies having any diarrhea - has a formed BM 2-3 times a day Has not been feeling as nauseous lately and takes Seeing a County [employer] Director and being referred to a urologist. Started having abdominal pain at age 15 yrs. Pain is left sided and radiates to the lower abdomen - sometimes radiates to the back. Feels like bad cramping and hurts to walk. Unable to identify precipitating factors - sometimes after eating - no clear precipitating foods. Can have pain when she is hungry. No clear relieving factors - tries to lay down and relax. Notes nausea after eating - no vomiting. Has 3-4 BMs a day without loose or hard stools. Can have diarrhea once every couple of weeks - lasts for a day and resolves spontaneously. Notes mucous in the stool and denies rectal bleeding. Eats once a day - takes a couple of bites and feels full after. Patient denies symptoms of heartburn, dysphagia, change in appetite or weight.? Denies recent change in bowel habits, constipation, diarrhea, black stools or rectal bleeding. Wt loss of 30 lbs - lost in Feb 2020 and has not been able to gain it back. Gains a few lbs and then looses wt again. Has a Depo shot every 3 months - does not have a period just intermittent spotting Notes pain in knees and hips - played soccer and soft ball. Denies mouth ulcers or eye problems. Tried different diets in the past - without a change in symptoms. Taking rice, beans and chicken at present. Tried Omeprazole and Pepcid and was not helpful Patient denies major cardiac or pulmonary problems, loud snoring or sleep apnea Denies problems with anesthesia in the past. Denies being on chronic anticoagulation, aspirin or NSAIDS. Mom had H Pylori - has similar symptoms as the patient - takes Omeprazole and feels fine. Patient denies known family history of colon polyps, colon cancer or other GI malignancies. Paternal GM of stomach cancer. 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 Lives with Mom and has no?children IMAGING STUDIES:?05/02/21 GASTRIC EMPTYING STUDY SHOWED: Retention in the stomach at each time interval was: 1 hour 79% (normal 37%-90%) 2 hours 69% (normal 30%-60%) 3 hours 50% 4 hours 35% (normal 0%-10%) 02/2021 ABD US WITH DOPPLER SHOWED:Normal appearing kidneys. Findings are suggestive of nut crackersyndrome, similar to the CT scan with narrowing of the renal veinbetween the aorta and SMA. In the area of stenosis, velocityacceleration is seen as described above. 12/2020 UGISBFT SHOWED:No definite jejunal or ileal mucosal abnormality with limited evaluation of the terminal ileum.Rapid transit of contrast to the colon without need for delayed imaging. 09/06/[address] SCAN SHOWED:Small, small bowel mesentery lymph nodes. No enlarged lymph nodes seen. 2 x 3 cm right adnexal cyst. Question of cracker syndrome of the left renal vein.ENDOSCOPIC STUDIES: 12/25/22 EGS AND FLEX SIG SHOWED: STOMACH: Mild antral gastritis. Pyloric balloon dilation was performed with a 19 mm (57 F) CRE balloon x 60 seconds. Botox (100 Units) was injected into the pylorus (25 units in each quadrant) DUODENUM: Normal - biopsied to check for celiac sprue Flexible sigmoidoscopy Findings: Minimal rectal erythema - likely due to prep - biopsies were obtained to check for IBD BIOPSIES SHOWED: A. Stomach, antrum, biopsy: Gastric antral mucosa with mild chronic inactive gastritis; negative for Helicobacter pylori, intestinal metaplasia and dysplasia. B. Small bowel, biopsy: Small bowel mucosa within normal limits; preserved villous architecture and no increased intraepithelial lymphocytes seen. C. Colon, left, biopsy: Colonic mucosa within normal limits; negative for active, chronic or microscopic colitis 09/16/22 CAPSULE ENDOSCOPY SHOWED: esophagus was normal. nodular appearing stomach mucosa in proximal stomach, rest of mucosa was normal. Some delay of capsule into duodneum, with some erythema in bulb. Patchy erythema in mid and distal ileum with some congestion. Cecum not reached Conclusion: Nodular gastric mucosa possible gastroparesis patchy ileal erythema and erythema of duodenal bulb consider further work up with CTe or GES if clinical suspicion of gastroparesis check nsaid hx use check h pylori PFSH Medical History Pelvic congestion syndrome Gastritis Asthma GERD (gastroesophageal reflux disease) Vitamin D deficiency Migraine without aura Nutcracker phenomenon of renal vein Surgical History Hx of abdominal surgery History of esophagogastroduodenoscopy (EGD) Hx of colonoscopy Family History Paternal Grandmother Stomach cancer Family/Other Substance use disorder Mental health disorder Social History Household Members Other:: lives with mom Housing: House Alcohol intake: current Alcohol intake frequency: holidays/special occasions only Patient Tobacco Use Status: Never used Tobacco e-Cigarette/Vaping Use: Never Used Second Hand Smoke Exposure: No Substance Use Type: Marijuana service: No Current occupational status: employed 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 Cognitive needs: No Hearing needs: No Vision needs: No Female Reproductive History Menstrual Age of Menarche: 16 Review of Systems Const All systems reviewed & are unremarkable except as noted in HPI and below Physical Exam Vital Signs: Last Vital Signs Pulse 66 07/31/24 07:32 BP 92/58 L 07/31/24 07:32 BMI result Body Mass Index 24.8 Const General: healthy appearing and no acute distress Nutritional Appearance: average body habitus Orientation/consciousness: patient oriented x3 Limitations: no limitations HEENT Head: Yes normal to inspection Ears: hearing grossly normal bilaterally Eyes Sclerae: sclerae normal Pupils: Equal, round and reactive pupils present Neck Neck: Yes normal visual inspection Chest Chest palpation & inspection: normal inspection of the chest Resp Effort & Inspection: normal respiratory effort Auscultation: clear to auscultation bilaterally Cardio Palpation: normal PMI Rate: regular rate Rhythm: regular rhythm Heart sounds: S1 normal heart sound present, S2 normal heart sound present and no murmurs GI Palpation (GI): Soft to palpation, nontender and No hepatosplenomegaly present Auscultation: normal bowel sounds Rectal Exam - Female: deferred Skin General skin exam: no rashes or lesions noted Neuro General: patient oriented x3, gait normal and moves all extremities Cranial nerves: Yes Equal, round and reactive pupils present Psych Appearance: grossly normal Mental Status: mental status grossly normal Assessment & Plan Assessment & Plan (1) Nausea and vomiting: Code(s): R11.2 - Nausea with vomiting, unspecified Category: Medical (2) Abdominal pain: Code(s): R10.9 - Unspecified abdominal pain Category: Medical (3) Chronic diarrhea: Code(s): K52.9 - Noninfective gastroenteritis and colitis, unspecified Category: Medical (4) Gastroparesis: Code(s): K31.84 - Gastroparesis Category: Medical (5) GERD (gastroesophageal reflux disease): Code(s): K21.9 - Gastro-esophageal reflux disease without esophagitis Category: Medical (6) Vitamin B12 deficiency: Code(s): E53.8 - Deficiency of other specified B group vitamins Category: Medical (7) Gastritis: Code(s): K29.70 - Gastritis, unspecified, without bleeding Category: Medical Qualifiers: Gastritis type: unspecified gastritis Chronicity: chronic Gastritis bleeding: without bleeding Qualified Code(s): K29.50 - Unspecified chronic gastritis without bleeding (8) Low ferritin level: Code(s): R79.0 - Abnormal level of blood mineral Category: Medical (9) Nausea: Code(s): R11.0 - Nausea Category: Medical Plan 23 YF with depression followed in GI for abdominal pain, nausea, vomiting and chronic diarrhea. 04/2016 EGD AND COLONOSCOPY performed at [facility] were normal with chronic gastritis on stomach biopsies. 09/2017 EGD was normal with normal biopsies from esophagus stomach and duodenum. ? 08/[address] scan showed?Small, small bowel mesentery lymph nodes. No enlarged lymph nodes seen. 2 x 3 cm right adnexal cyst. Question of cracker syndrome of the left renal vein. UGI with SBFT was normal. Celiac and IBD serologies were negative and fecal calprotectin was not approved by her insurance GES showed gastroparesis.? Patient handout on gastroparesis from up-to-date was given to the patient Pt advised dietary modification for gastroparesis and start Metoclopramide 5 mg three times daily for gastroparesis on her previous visit. Advised to decrease Metoclopramide to 1-2 times daily due to drowsiness Continue promethazine for nausea and dicyclomine at bedtime for abdominal pain. 05/14/22 Pt advised to schedule a Capsule Study (with patency test) to rule out Crohn's disease (intermittent RLQ pain which can wake her up at night and diarrhea) 08/2022 Capsule Study showed: Conclusion: Nodular gastric mucosa possible gastroparesis patchy ileal erythema and erythema of duodenal bulb consider further work up with CTe or GES if clinical suspicion of gastroparesis check nsaid hx use check h pylori 10/08/22 Pt advised to go on a liquid diet x 24 hours and then blenderized food until nausea and vomiting resolves Continue Metoclopramide 5 mg twice a day Switch from promethazine to prochlorperazine for nausea and vomting Re submit stool for fecal calprotectin 12/24/22 Pt advised to schedule an EGD and flex sig - done 12/25/22 Increase Metoclopramide to three times a day (instead of twice daily) 01/14/23 Pt advised a trail of blendarized diet and start Omeprazole at bedtime for GERD (Increase to twice daily if symptoms persist after a week) 02/25/23 Pt advised to take Famotidine 20 mg at bedtime for nocturnal cough (suspected GERD) 04/06/24 Advised Pelvic US for evaluation of lower abd/pelvic pain On 04/28/24 @ 18:57 Jass Fung Wrote To Stephanie Mai Pt called and US results were reviewed with her: 1. Normal uterus, endometrium, and bilateral ovaries. 2. Mildly dilated vasculature in the adnexal regions and periphery of the uterus, nonspecific but can be associated with pelvic congestion syndrome. 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 Forwarding US report to Stephanie Mai Pt advised to schedule a FU appt with her 07/31/24 Advised to take smaller meals and Ondansetron prn for nausea FU in 3 months Medications: New ondansetron 4 mg PO Q8H 30 days PRN 60 tabs 3RF nausea and vomiting R11.0 - Nausea Coding Level of Care Code Est Pt Level 3 (39237) Diagnoses Nausea and vomiting R11.2 Abdominal pain R10.9 Chronic diarrhea K52.9 Gastroparesis K31.84 GERD (gastroesophageal reflux disease) K21.9 Vitamin B12 deficiency E53.8 Chronic gastritis without bleeding, unspecified gastritis type K29.50 Gastritis type: unspecified gastritis Chronicity: chronic Gastritis bleeding: without bleeding Low ferritin level R79.0 Nausea R11.0 Time Spent (min) 18
[2024-07-31 07:32] VITALS: BP 92/58; PULSE 66; BMI 24.8
== END 2024-07-31 09:04 | disposition home or self-care (01) ==
LOC: HO.HGI 07:21
PROVIDERS: PCP Internal Medicine; Visit Provider Internal Medicine Gastroenterology
DX: R11.2 Nausea with vomiting, unspecified (principal); R10.9 Unspecified abdominal pain; K52.9 Noninfective gastroenteritis and colitis, unspecified; K31.84 Gastroparesis; K21.9 Gastro-esophageal reflux disease without esophagitis; E53.8 Deficiency of other specified B group vitamins; K29.50 Unspecified chronic gastritis without bleeding; R79.0 Abnormal level of blood mineral; R11.0 Nausea
CPT/HCPCS: 99213

== ENCOUNTER 2024-08-10 14:19 | Outpatient (REF) | payer OTHER, SELFPAY ==
--- NOTE | ~2024-08-10 | CT_ITS ---
EXAMINATION: CT ABDOMEN PELVIS WITH IV CONTRAST HISTORY: PELVIC PAIN, PERINEAL PAIN COMPARISON: Comparison is made with the prior examination dated 09/06/2021. TECHNIQUE: CT scan of the abdomen and pelvis was performed following administration of 85 mL Omnipaque 350 using standard departmental protocol. Coronal and sagittal reformatted images were generated and reviewed. Oral contrast material was not administered at the request of the referring physician. This CT exam was performed with one or more of the following dose reduction techniques: automated exposure control, adjustment of the mA and/or kV according to patient size, use of iterative reconstruction technique. DLP: 337 mGy-cm FINDINGS: LOWER CHEST: The visualized lung bases are clear. There is no pleural effusion. CARDIOVASCULATURE: The heart is normal in size. There is no pericardial effusion. LIVER: The liver is normal in size and contour. No liver mass is identified. The hepatic and portal veins are patent. GALLBLADDER / BILE DUCTS: The gallbladder is unremarkable. There is no intra or extrahepatic biliary ductal dilatation. SPLEEN: The spleen is normal in size. No focal splenic lesion is identified. PANCREAS: The pancreas is unremarkable in appearance. ADRENAL GLANDS: Within normal limits. KIDNEYS/RETROPERITONEUM: No renal calculi are identified. There is no hydronephrosis. No renal masses are identified. LYMPH NODES: No abdominal or pelvic lymphadenopathy. VASCULATURE: The abdominal aorta is normal in caliber. Again seen is a dilated left gonadal vein with multiple dilated veins in the pelvis bilaterally, left greater than right. MESENTERY/PERITONEUM: There is a small amount of free fluid in the cul-de-sac. No masses. There is no free intraperitoneal gas. STOMACH: There is debris in the stomach. SMALL BOWEL: The small bowel is normal in caliber. COLON: The colon is unremarkable. APPENDIX: Normal. URINARY BLADDER/PELVIC ORGANS: The urinary bladder is unremarkable. The uterus is normal in size. There are follicles in both ovaries. BONES / SOFT TISSUES: No suspicious bony or soft tissue abnormalities. CT/CT abdomen pelvis w IV con IMPRESSION: Dilated left femoral vein with multiple dilated veins in the pelvis bilaterally, left greater than right. 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 Clinical correlation is recommended. Electronically signed by: Major Colon MD 08/10/2024 03:46 PM EDT RP
--- OUTSIDE RECORDS SUMMARY | 2024-08-10 14:28 | XMS_ITS | Clinical Summary ---
Author Organization [facility] Address [address] [place] [address] Phone Care Team Providers Care Campground Attendant Name Role Phone Unavailable Primary Care Provider [...] endoscopies Followed by GI (Dr. Fung) at [facility] Had UGI and SBFT in December that [...] to GI - seeing Dr. Fung at [facility]; gastric emptying study ordered (2021) Assessment & [...] Additional history exists Procedures * Due to [place] [employer] law, this organization might not be sharing sensitive test results. Procedure Name Priority Date/Time Associated Diagnosis Comments CHLAMYDIA AND GONORRHEA, AMPLIFIED Routine 12/17/2021 9:47 AM EDT Special screening examination for chlamydial disease from Last 3 Months or Most Recently Relevant to Health Maintenance Results * Due to [place] [employer] law, this organization might not be sharing sensitive test results. * Chlamydia and Gonorrhoea, Amplified (12/17/2021 9:47 AM EDT) Chlamydia Trachomatis, DNA Probe NEGATIVE (NEG) [facility] Comment: No Chlamydia Trachomatis RNA detected in this patient's sample ? (REFERENCE RANGE/NORMAL VALUE: NOT DETECTED) ? Note: This test uses desk maker- mediated amplification method to detect rRNA from C. Trachomatis URINE GC AMP PROBE NEGATIVE (NEG) [facility] Comment: No Neisseria Gonorrhoeae RNA detected in this patient's sample ? (REFERENCE RANGE/NORMAL VALUE: NOT DETECTED) ? NOTE: This test uses desk maker-mediated amplification method to detect rRNA from N.Gonorrhoeae. [...] without risk of sexual abuse. Consult the [facility] if needed. Contact phone number . Therapeutic failure or success cannot be determined with the Aptima Combo2 assay since nucleic acid may persist following appropriate antimicrobial therapy. The Centers for Disease Control and Prevention (CDC) recommends confirmatory retesting using culture or a different nucleic acid amplification test when positive results occur, if indicated. Testing performed or reported by [facility], a Service of [facility], [address] [place] [address] Zaki Quezada MD, Sharepoint Solutions Developer [facility]# [id number] Urine (Urine) 12/17/2021 9:4 7 AM EDT 12/17/2021 4:44 PM EDT us Caroline Bray MD LAB MICROBIOLOGY - GENERAL ORDERABLES Final Result [facility] from Last 3 Months or Most Recently Relevant to Health Maintenance Insurance [facility] NON PCC [facility] NON PCC
[2024-08-10 15:20] LABS: Hemoglobin 13.7 g/dl (12.0-16.0)
[2024-08-10] MEDS: iohexoL 350 MG/ML 100 ML INFUS..BTL IV (15:22)
[2024-08-10 15:33] LABS: Appearance Urine Clear; Color Urine Yellow; Glucose Urine UA Negative (Negative); Leukocyte Esterase Urine Negative (Negative); Nitrite Urine Negative (Negative); PH 6.5 (5.0-9.0); Specific Gravity - Urine >= 1.030 (1.005-1.025); Urine Blood Negative (Negative); Urine Ketones Negative (Negative); Urine Protein Negative (Neg-Trace)
[2024-08-10 15:36] LABS: Anion Gap 11 (12-20); Blood Urea Nitrogen 17 mg/dL (9-16); Calcium 9.4 mg/dL (8.4-10.2); Carbon Dioxide 27 mmol/L (22-29); Chloride 103 mmol/L (96-108); Estimated Glomerular Filt Rate > 60; Potassium 4.2 mmol/L (3.3-5.1); Sodium 137 mmol/L (135-145)
[2024-08-10 15:36] LABS: Amphetamine Screen Urine Not Detected (Not Detect); Barbiturates, Urine Not Detected (Not Detect); Benzodiazepines Screen Urine Not Detected (Not Detect); Buprenorphine Scr Not Detected (Not Detect); Cannabinoid Screen Urine POSITIVE (Not Detect); Cocaine Screen Urine Not Detected (Not Detect); Fentanyl, urine Not Detected (Not Detect); Methadone Screen, Urine Not Detected (Not Detect); Opiate Screen Urine Not Detected (Not Detect); Oxycodone Screen Urine Not Detected (Not Detect); Phencyclidine Screen Urine Not Detected (Not Detect)
[2024-08-10 16:29] LABS: Creatinine Urine 123.12 mg/dL; Microalbum/Creatinine Ratio Ur 9.7 ug/mg cr (<30); Total Protein Urine Random < 7 mg/dL (<12)
== END 2024-08-10 14:20 | disposition home or self-care (01) ==
LOC: HO.CT 14:19
PROVIDERS: Nurse Practitioner Family; Absent Provider Internal Medicine; PCP Internal Medicine; Visit Provider Nurse Practitioner Family
DX: I87.1 Compression of vein (principal); M54.6 Pain in thoracic spine; G89.29 Other chronic pain; R30.0 Dysuria; G47.10 Hypersomnia, unspecified; Z00.00 Encounter for general adult medical examination without abnormal findings
CPT/HCPCS: 36415; 74177; 80051; 80307; 81003; 82043; 82310; 82565; 82570; 84156; 84520; 85014; 85018; Q9967

== ENCOUNTER → 2024-08-10 14:21 | Outpatient (BNV) | payer OTHER, SELFPAY | PROVIDERS: Absent Provider Internal Medicine; PCP Internal Medicine; Visit Provider Radiology Diagnostic Radiology | DX: R10.2 Pelvic and perineal pain (principal) | CPT/HCPCS: 74177 ==

== ENCOUNTER 2024-09-14 15:58 | Outpatient (REF) | payer OTHER, SELFPAY ==
--- OUTSIDE RECORDS SUMMARY | 2024-09-14 16:01 | XMS_ITS | Encounter Summary ---
Author Organization [facility] Address 100 [facility] [address] [place] [address] Phone Care Team Providers Care Rabbit Dresser Name Role Phone Caroline Bray MD Primary Care Provider [phone] Encounter Details Date Type Department Care Team ([facility] st Contact Info) Description 06/01/2022 Office Communication [facility] 123 [facility] [address] [place] [address] Neela Barakat MA Social History Tobacco Use [...] Doppler and Arous Wednesday 11:30 am in [place] documented in this encounter Plan of Treatment Not on file documented as of this encounter Visit Diagnoses Not on filedocumented in this encounter Care Teams Rabbit Dresser Relationship Specialty Start Date End Date Caroline Bray MD [address] [place] [address] [place] [address] PCP - General Pediatrics 12/31/20 documented as of this encounter
--- OUTSIDE RECORDS SUMMARY | 2024-09-14 16:01 | XMS_ITS | Clinical Summary ---
Author Organization [facility] Address [address] [place] [address] Phone Care Team Providers Care Home And School Visitor Name Role Phone Unavailable Primary Care Provider [...] endoscopies Followed by GI (Dr. Fung) at [facility] UGI and SBFT in December that [...] to GI - seeing Dr. Fung at [facility]; gastric emptying study ordered (2021) Assessment & [...] 69 04/09/2022 8:06 AM EST Temperature 36.7 C (98 F) 09/22/2022 4:02 PM EDT Respiratory Rate - [...] 09/05/2022 09/05/2012, 02/02/2006, 05/14/2003, Additional history exists COVID-19 Vaccine (5 - 2023-2 5 season) 2023 12/17/2021, 05/21/2021, 07/12/2020, Additional history exists Influenza Vaccines (#1) 2024 12/05/19, 01/21/2021, 11/27/2019, Additional history exists Hepatitis B Vaccines Completed 05/30/2002, 03/29/2002, 2001 HIB Vaccines Completed 12/29/2002, 03/15, 2001, Additional history exists Pneumococcal Vaccine Completed 12/29/2002, 03/29/2002, 2001, Additional history exists IPV Vaccines Completed 02/02/2006, 05/13, 2001, Additional history exists MMR Vaccines Completed 02/02/2006, 08/28/2002 Varicella Vaccines Completed 02/14/2007, 08/28/2002 HPV Vaccines Completed 09/21/2014, 10/2013, 09/19/2013 Hepatitis A Vaccines Completed 09/21/2014, 09/20/19 Men B Vaccine Completed 05/15/2019, 12/14, 11/09/2018 Meningococcal Vaccine Completed 05/15/2019 , 01/10/2019, 11/09/2018, Additional history exists Procedures * Due to [place] [employer] law, this organization might not be sharing sensitive test results. Procedure Name Priority Date/Time Associated Diagnosis Comments CHLAMYDIA AND GONORRHEA, AMPLIFIED Routine 12/17/2021 9:47 AM EDT Special screening examination for chlamydial disease from Last 3 Months or Most Recently Relevant to Health Maintenance Results * Due to [place] [employer] law, this organization might not be sharing sensitive test results. * Chlamydia and Gonorrhoea, Amplified (12/17/2021 9:47 AM EDT) Chlamydia Trachomatis, DNA Probe NEGATIVE (NEG) [facility] Comment: No Chlamydia Trachomatis RNA detected in this patient's sample (REFERENCE RANGE/NORMAL VALUE: NOT DETECTED) Note: This test uses short story writer- mediated amplification method to detect rRNA from C. Trachomatis URINE GC AMP PROBE NEGATIVE (NEG) [facility] Comment: No Neisseria Gonorrhoeae RNA detected in this patient's sample (REFERENCE RANGE/NORMAL VALUE: NOT DETECTED) NOTE: This test uses short story writer-mediated amplification method to detect rRNA from N.Gonorrhoeae. [...] without risk of sexual abuse. Consult the [facility] if needed. Contact phone number . Therapeutic failure or success cannot be determined with the Aptima Combo2 assay since nucleic acid may persist following appropriate antimicrobial therapy. The Centers for Disease Control and Prevention (CDC) recommends confirmatory retesting using culture or a different nucleic acid amplification test when positive results occur, if indicated. Testing performed or reported by [facility], a Service of [facility], [place] [address] Zaki Quezada MD, Piece Work Inspector [facility]# [id number] Urine (Urine) 12/17/2021 9:4 7 AM EDT 12/17/2021 4:44 PM EDT us Caroline Bray MD LAB MICROBIOLOGY - GENERAL ORDERABLES Final Result [facility] from Last 3 Months or Most Recently Relevant to Health Maintenance Insurance [facility] NON PCC [facility] Address: [address] [address] [place] [address] [facility]
[2024-09-14 16:12] LABS: MANUAL DIFF FLAG NO
[2024-09-14 17:18] LABS: Hematocrit 39.3 % (37.0-47.0); Hemoglobin 13.5 g/dl (12.0-16.0); Imm Gran Abs Auto 0.01 X10*3/uL (0.00-0.03); Imm Gran Pct Auto 0.2 % (0.0-0.4); Lymphocytes Absolute Auto 1.4 X10*3/uL (1.2-4.9); Mean Corpuscular HGB Conc 34.4 g/dl (31.0-35.0); Mean Corpuscular Hemoglobin 29.3 pg (27.0-33.0); Mean Corpuscular Volume 85.2 fL (80.0-98.0); NRBC Abs Auto 0.000 X10*3/uL (0.0-0.012); NRBC Pct Auto 0.0 /100WBC (0.0-0.2); Platelet Count 221 X10*3/uL (160-400); Red Blood Count 4.61 X10*6/uL (4.20-5.50); White Blood Count 5.8 X10*3/uL (4.8-10.8)
[2024-09-14 17:24] LABS: INTERNATIONAL NORM RATIO 1.0 (0.9-1.1); Prothrombin Time 12.0 SEC (10.9-12.4)
[2024-09-14 17:39] LABS: Anion Gap 13 (12-20); Blood Urea Nitrogen 7 mg/dL (9-16); Calcium 9.2 mg/dL (8.4-10.2); Carbon Dioxide 25 mmol/L (22-29); Chloride 105 mmol/L (96-108); Estimated Glomerular Filt Rate > 60; Potassium 3.8 mmol/L (3.3-5.1); Sodium 139 mmol/L (135-145)
== END 2024-09-14 15:59 | disposition home or self-care (01) ==
LOC: HO.LAB 15:58
PROVIDERS: PCP Internal Medicine; Visit Provider Surgery Vascular Surgery
DX: N94.89 Other specified conditions associated with female genital organs and menstrual cycle (principal); I87.1 Compression of vein
CPT/HCPCS: 36415; 80048; 85025; 85610

== ENCOUNTER → 2024-09-18 15:22 | Outpatient (REF) | payer OTHER, SELFPAY ==
--- NOTE | 2024-09-18 | ECG_ITS ---
Test Reason : 187.1 Blood Pressure : */* mmHG Vent. Rate : 64 BPM Atrial Rate : 64 BPM P-R Int : 168 ms QRS Dur : 86 ms QT Int : 406 ms P-R-T Axes : 0 78 37 degrees QTcB Int : 418 ms Normal sinus rhythm Normal ECG When compared with ECG of 16-Nov-2022 00:25, No significant change was found Referred By: Abimael Morejon Electronically Signed By: Aidan Pennington
--- OUTSIDE RECORDS SUMMARY | 2024-09-18 15:39 | XMS_ITS | Clinical Summary ---
Author Organization [facility] Address [address] [place] [address] Phone Care Team Providers Care Aviation Maintenance Instructor Name Role Phone Unavailable Primary Care Provider [...] endoscopies Followed by GI (Dr. Fung) at [facility] Had UGI and SBFT in [...] to GI - seeing Dr. Fung at [facility]; gastric emptying study ordered (2021) [...] Additional history exists Procedures * Due to [place] [employer] law, this organization might not be sharing sensitive test results. Procedure Name Priority Date/Time Associated Diagnosis Comments CHLAMYDIA AND GONORRHEA, AMPLIFIED Routine 12/17/2021 9:47 AM EDT Special screening examination for chlamydial disease from Last 3 Months or Most Recently Relevant to Health Maintenance Results * Due to [place] [employer] law, this organization might not be sharing sensitive test results. * Chlamydia and Gonorrhoea, Amplified (12/17/2021 9:47 AM EDT) Chlamydia Trachomatis, DNA Probe NEGATIVE (NEG) [facility] Comment: No Chlamydia Trachomatis RNA detected in this patient's sample (REFERENCE RANGE/NORMAL VALUE: NOT DETECTED) Note: This test uses sales agent marine insurance- mediated amplification method to detect rRNA from C. Trachomatis URINE GC AMP PROBE NEGATIVE (NEG) [facility] Comment: No Neisseria Gonorrhoeae RNA detected in this patient's sample (REFERENCE RANGE/NORMAL VALUE: NOT DETECTED) NOTE: This test uses sales agent marine insurance-mediated amplification method to detect rRNA from N.Gonorrhoeae. [...] without risk of sexual abuse. Consult the [facility] if needed. Contact phone number . Therapeutic failure or success cannot be determined with the Aptima Combo2 assay since nucleic acid may persist following appropriate antimicrobial therapy. The Centers for Disease Control and Prevention (CDC) recommends confirmatory retesting using culture or a different nucleic acid amplification test when positive results occur, if indicated. Testing performed or reported by [facility], a Service of [facility], [place] [address] Zaki Quezada MD, Corrective And Manual Arts Therapist [facility]# [id number] Urine (Urine) 12/17/2021 9:4 7 AM EDT 12/17/2021 4:44 PM EDT us Caroline Bray MD LAB MICROBIOLOGY - GENERAL ORDERABLES Final Result [facility] from Last 3 Months or Most Recently Relevant to Health Maintenance Insurance [facility] NON PCC [facility] Address: [address] [address] [place] [address] [facility] NON PCC
--- OUTSIDE RECORDS SUMMARY | 2024-09-18 15:39 | XMS_ITS | Encounter Summary ---
Author Organization [facility] Address [address] [facility] [address] [place] [address] Phone Care Team Providers Care Crossing Tender Name Role Phone Caroline Bray MD Primary Care Provider [phone] Encounter Details Date Type Department Care Team ([facility] st Contact Info) Description 06/01/2022 Office Communication [facility] [address] [facility] [address] [place] [address] Neela Barakat MA Social History Tobacco Use [...] Doppler and Arous Wednesday 11:30 am in [place] documented in this encounter Plan of Treatment Not on file documented as of this encounter Visit Diagnoses Not on filedocumented in this encounter Care Teams Crossing Tender Relationship Specialty Start Date End Date Caroline Bray MD [address] [place] [address] [place] [address] PCP - General Pediatrics 12/31/20 documented as of this encounter
== END ==
LOC: HO.CARD 15:22
PROVIDERS: PCP Internal Medicine; Visit Provider Surgery Vascular Surgery
DX: I87.1 Compression of vein (principal); N94.89 Other specified conditions associated with female genital organs and menstrual cycle
CPT/HCPCS: 93005

== ENCOUNTER → 2024-09-18 15:29 | Outpatient (BNV) | payer OTHER, SELFPAY | PROVIDERS: PCP Internal Medicine; Visit Provider Internal Medicine Cardiovascular Disease | DX: I87.1 Compression of vein (principal) | CPT/HCPCS: 93010 ==

== ENCOUNTER 2024-11-02 | Outpatient (REF) | payer OTHER, SELFPAY ==
--- OUTSIDE RECORDS SUMMARY | 2024-11-20 11:41 | XMS_ITS | Clinical Summary ---
Author Organization [facility] Address [address] [place] [address] Phone Care Team Providers Care Stripper Latex Name Role Phone Unavailable Primary Care Provider [...] endoscopies Followed by GI (Dr. Fung) at [facility] Had UGI and SBFT in December that [...] to GI - seeing Dr. Fung at [facility]; gastric emptying study ordered (2021) Assessment & [...] 05/14/2003, Additional history exists Influenza Vaccines (#1) 2024 12/05/19, 01/21/2021, 11/27/2019, Additional history exists COVID-19 Vaccine (2024-2 6 season) 2024 12/17/2021, 05/21/2021, 07/12/2020, Additional history exists Hepatitis [...] Additional history exists Procedures * Due to [place] [employer] law, this organization might not be sharing sensitive test results. Procedure Name Priority Date/Time Associated Diagnosis Comments CHLAMYDIA AND GONORRHEA, AMPLIFIED Routine 12/17/2021 9:47 AM EDT Special screening examination for chlamydial disease from Last 3 Months or Most Recently Relevant to Health Maintenance Results * Due to [place] [employer] law, this organization might not be sharing sensitive test results. * Chlamydia and Gonorrhoea, Amplified (12/17/2021 9:47 AM EDT) Chlamydia Trachomatis, DNA Probe NEGATIVE (NEG) [facility] Comment: No Chlamydia Trachomatis RNA detected in this patient's sample (REFERENCE RANGE/NORMAL VALUE: NOT DETECTED) Note: This test uses print line inspector- mediated amplification method to detect rRNA from C. Trachomatis URINE GC AMP PROBE NEGATIVE (NEG) [facility] Comment: No Neisseria Gonorrhoeae RNA detected in this patient's sample (REFERENCE RANGE/NORMAL VALUE: NOT DETECTED) NOTE: This test uses print line inspector-mediated amplification method to detect rRNA from N.Gonorrhoeae. [...] without risk of sexual abuse. Consult the [facility] if needed. Contact phone number . Therapeutic failure or success cannot be determined with the Aptima Combo2 assay since nucleic acid may persist following appropriate antimicrobial therapy. The Centers for Disease Control and Prevention (CDC) recommends confirmatory retesting using culture or a different nucleic acid amplification test when positive results occur, if indicated. Testing performed or reported by [facility], a Service of [facility], [place] [address] Zaki Quezada MD, Glass Furnace Operator [facility]# [id number] Urine (Urine) 12/17/2021 9:4 7 AM EDT 12/17/2021 4:44 PM EDT us Caroline Bray MD LAB MICROBIOLOGY - GENERAL ORDERABLES Final Result [facility] from Last 3 Months or Most Recently Relevant to Health Maintenance Insurance [facility] NON PCC [facility] NON PCC
--- OUTSIDE RECORDS SUMMARY | 2024-11-20 11:41 | XMS_ITS | Encounter Summary ---
Author Organization [facility] Address [address] [place] [address] Phone Care Team Providers Care Live In Housekeeper Name Role Phone Caroline Bray MD Primary Care Provider Encounter Details Date Type Department Care Team (Late st Contact Info) Description 2013 Documentation [facility] [address] [place], [place] [phone] Family Medicine, Physician [address] [place], [place] [phone] Social History Tobacco Use Types Packs/Day Years [...] on filedocumented in this encounter Care Teams Live In Housekeeper Relationship Specialty Start Date End Date Caroline Bray MD [address] [place] [id number] PCP - General Pediatrics 11/10/22 01/12/23 documented as of this encounter
--- OUTSIDE RECORDS SUMMARY | 2024-11-20 11:41 | XMS_ITS | Encounter Summary ---
Author Organization [facility] Address [address] [place] [address] Phone Care Team Providers Care Client Services Vice President Name Role Phone Caroline Bray MD Primary Care Provider Encounter Details Date Type Department Care Team (Late st Contact Info) Description 08/15/2014 Documentation [facility] [place] Family Medicine [address] [place] [address] Family Medicine, Physician [address] [place], [place] [address] Social History Tobacco Use Types Packs/Day Years [...] on filedocumented in this encounter Care Teams Client Services Vice President Relationship Specialty Start Date End Date Caroline Bray MD [address] [place] [phone] PCP - General Pediatrics 11/10/22 01/12/23 documented as of this encounter
--- OUTSIDE RECORDS SUMMARY | 2024-11-20 11:41 | XMS_ITS | Encounter Summary ---
Author Organization [facility] Address [address] [place] [address] Phone Care Team Providers Care Cotton Weigher Operator Name Role Phone Caroline Bray MD Primary Care Provider [phone] Encounter Details Date Type Department Care Team (Late st Contact Info) Description 06/09/[address] [facility] [place] Family Medicine [address] [place] [address] Family Medicine, Physician [address] [place], [place] [address]891 Social History Tobacco Use Types Packs/Day Years [...] on filedocumented in this encounter Care Teams Cotton Weigher Operator Relationship Specialty Start Date End Date Caroline Bray MD [address] [place] [phone] PCP - General Pediatrics 11/10/22 01/12/23 documented as of this encounter
--- OUTSIDE RECORDS SUMMARY | 2024-11-20 11:41 | XMS_ITS | Encounter Summary ---
Author Organization [facility] Address [address] [place] [address] Phone Care Team Providers Care Explosive Operator Fuse Name Role Phone Caroline Bray MD Primary Care Provider Encounter Details Date Type Department Care Team (Late st Contact Info) Description 10/29/2016 Conversion Encounter [facility] [address] [place] [address] Social History Tobacco Use Types Packs/Day Years [...] on filedocumented in this encounter Care Teams Explosive Operator Fuse Relationship Specialty Start Date End Date Caroline Bray MD [address] [place] [address] PCP - General Pediatrics 11/10/22 01/12/23 documented as of this encounter
--- OUTSIDE RECORDS SUMMARY | 2024-11-20 11:41 | XMS_ITS | Encounter Summary ---
Author Organization [facility] Address [address] [place] [address] Phone Care Team Providers Care Medical Technologist Microbiology Name Role Phone Caroline Bray MD Primary Care Provider Encounter Details Date Type Department Care Team (Late st Contact Info) Description 2013 Documentation [facility] [place] Family Medicine [address] [place], [place] [id number] Family Medicine, Physician [address] [place], [place] 6[address] Social History Tobacco Use Types Packs/Day Years [...] filedocumented in this encounter Care Teams Medical Technologist Microbiology Relationship Specialty Start Date End Date Caroline Bray MD [address] [place] [address] PCP - General Pediatrics 11/10/22 01/12/23 documented as of this encounter
--- OUTSIDE RECORDS SUMMARY | 2024-11-20 11:41 | XMS_ITS | Encounter Summary ---
Author Organization [facility] Address [address] [place] [address] Phone Care Team Providers Care Commutator Tester Name Role Phone Caroline Bray MD Primary Care Provider Encounter Details Date Type Department Care Team (Late st Contact Info) Description 09/25/2014 Documentation [facility] [place] [address] [place] [address] Family Medicine, Physician [address] [place], [place] 735471 Social History Tobacco Use Types Packs/Day Years [...] on filedocumented in this encounter Care Teams Commutator Tester Relationship Specialty Start Date End Date Caroline Bray MD [address] [place] [address] PCP - General Pediatrics 11/10/22 01/12/23 documented as of this encounter
--- OUTSIDE RECORDS SUMMARY | 2024-11-20 11:41 | XMS_ITS | Encounter Summary ---
Author Organization [facility] Address [address] [place] [address] Phone Care Team Providers Care Puncher And Fastener Name Role Phone Caroline Bray MD Primary Care Provider Encounter Details Date Type Department Care Team (Late st Contact Info) Description 10/01/2016 Documentation [facility] [place] Family Medicine [address] [place] [address] Family Medicine, Physician [address] [place], [place] [address]091 Social History Tobacco Use Types Packs/Day Years [...] on filedocumented in this encounter Care Teams Puncher And Fastener Relationship Specialty Start Date End Date Caroline Bray MD [address] [place] [address] PCP - General Pediatrics 11/10/22 01/12/23 documented as of this encounter
--- OUTSIDE RECORDS SUMMARY | 2024-11-20 11:41 | XMS_ITS | Encounter Summary ---
Author Organization [facility] Address [address] [place] [address] Phone Care Team Providers Care Business Management Analyst Name Role Phone Caroline Bray MD Primary Care Provider Encounter Details Date Type Department Care Team (Late st Contact Info) Description 09/17/2014 Documentation [facility] [place] Family Medicine [address] [place] [address] Family Medicine, Physician [address] [place], [place] [address]231 Social History Tobacco Use Types Packs/Day Years [...] filedocumented in this encounter Care Teams Business Management Analyst Relationship Specialty Start Date End Date Caroline Bray MD [address] [place] [phone] PCP - General Pediatrics 11/10/22 01/12/23 documented as of this encounter
--- OUTSIDE RECORDS SUMMARY | 2024-11-20 11:42 | XMS_ITS | Encounter Summary ---
Author Organization [facility] Address [address] [place] [address] Phone Care Team Providers Care Silk Screen Etcher Name Role Phone Caroline Bray MD Primary Care Provider Encounter Details Date Type Department Care Team (Late st Contact Info) Description 09/10/2011 Documentation [facility] [place] [address] [place] [address] Family Medicine, Physician [address] [place], [place] [address]357[address] Social History Tobacco Use Types Packs/Day Years [...] on filedocumented in this encounter Care Teams Silk Screen Etcher Relationship Specialty Start Date End Date Caroline Bray MD [address] [place] [phone] PCP - General Pediatrics 11/10/22 01/12/23 documented as of this encounter
--- OUTSIDE RECORDS SUMMARY | 2024-11-20 11:42 | XMS_ITS | Encounter Summary ---
Author Organization [facility] Address [address] [place] [address] Phone Care Team Providers Care Desk Pens Assembler Name Role Phone Caroline Bray MD Primary Care Provider [phone] Encounter Details Date Type Department Care Team (Late st Contact Info) Description 05/22/2016 Documentation [facility] [place] Family Medicine [address] [place] [address] Family Medicine, Physician [address] [place], [place] [address]048[address] Social History Tobacco Use Types Packs/Day Years [...] on filedocumented in this encounter Care Teams Desk Pens Assembler Relationship Specialty Start Date End Date Caroline Bray MD [address] [place] [address] PCP - General Pediatrics 11/10/22 01/12/23 documented as of this encounter
--- OUTSIDE RECORDS SUMMARY | 2024-11-20 11:42 | XMS_ITS | Encounter Summary ---
Author Organization [facility] Address [address] [place] [address] Phone Care Team Providers Care Box Spring Maker Name Role Phone Caroline Bray MD Primary Care Provider Encounter Details Date Type Department Care Team (Late st Contact Info) Description 04/27/2016 Documentation [facility] [place] Family Medicine [address] [place] [address] Family Medicine, Physician [address] [place], [place] 9[address] Social History Tobacco Use Types Packs/Day Years [...] on filedocumented in this encounter Care Teams Box Spring Maker Relationship Specialty Start Date End Date Caroline Bray MD [address] [place] [phone] PCP - General Pediatrics 11/10/22 01/12/23 documented as of this encounter
--- OUTSIDE RECORDS SUMMARY | 2024-11-20 11:42 | XMS_ITS | Encounter Summary ---
Author Organization [facility] Address [address] [place] [address] Phone Care Team Providers Care Wallpaper Consultant Name Role Phone Caorline Bray MD Primary Care Provider Encounter Details Date Type Department Care Team (Late st Contact Info) Description 02/15/2015 Documentation [facility] [place] [address] [place] [address] Family Medicine, Physician [address] [place], [place] 6[address] Social History Tobacco Use Types Packs/Day Years [...] on filedocumented in this encounter Care Teams Wallpaper Consultant Relationship Specialty Start Date End Date Caroline Bray MD [address] [place] [phone] PCP - General Pediatrics 11/10/22 01/12/23 documented as of this encounter
--- OUTSIDE RECORDS SUMMARY | 2024-11-20 11:42 | XMS_ITS | Encounter Summary ---
Author Organization [facility] Address [address] [place] [address] Phone Care Team Providers Care Top Collar Baster Name Role Phone Caroline Bray MD Primary Care Provider Encounter Details Date Type Department Care Team (Late st Contact Info) Description 12/06/2014 Documentation [facility] [place] Family Medicine [address] [place] [address] Family Medicine, Physician [address] [place], [place] [address] Social History Tobacco Use Types Packs/Day Years [...] on filedocumented in this encounter Care Teams Top Collar Baster Relationship Specialty Start Date End Date Caroline Bray MD [address] [place] [phone] PCP - General Pediatrics 11/10/22 01/12/23 documented as of this encounter
--- OUTSIDE RECORDS SUMMARY | 2024-11-20 11:42 | XMS_ITS | Encounter Summary ---
Author Organization [facility] Address [address] [place] [address] Phone Care Team Providers Care Reel Cart Operator Name Role Phone Caroline Bray MD Primary Care Provider [phone] Encounter Details Date Type Department Care Team (Late st Contact Info) Description 09/26/2014 Documentation [facility] [place] Family Medicine [address] [place] [address] Family Medicine, Physician [address] [place], [place] [address]27[address] Social History Tobacco Use Types Packs/Day Years [...] on filedocumented in this encounter Care Teams Reel Cart Operator Relationship Specialty Start Date End Date Caroline Bray MD [address] [place] [phone] PCP - General Pediatrics 11/10/22 01/12/23 documented as of this encounter
--- OUTSIDE RECORDS SUMMARY | 2024-11-20 11:42 | XMS_ITS | Encounter Summary ---
Author Organization [facility] Address [address] [place] [phone] Phone Care Team Providers Care Manager Of Compensation Name Role Phone Caroline Bray MD Primary Care Provider [phone] Encounter Details Date Type Department Care Team (Late st Contact Info) Description 06/10/2022 Documentation Only [address] [phone] Qing Rodriguez MD Social History [...] filedocumented in this encounter Care Teams Manager Of Compensation Relationship Specialty Start Date End Date Caroline Bray MD [address] [place] [address] [place] [address] PCP - General Pediatrics 12/31/20 documented as of this encounter
--- OUTSIDE RECORDS SUMMARY | 2024-11-20 11:42 | XMS_ITS | Encounter Summary ---
Author Organization [facility] Address [address] [place] [address] Phone Care Team Providers Care Certified Pharmacy Tech Name Role Phone Caroline Bray MD Primary Care Provider Encounter Details Date Type Department Care Team (Late st Contact Info) Description 06/02/2013 Documentation [facility] [place] Family Medicine [address] [place], [place] [phone] Family Medicine, Physician [address] [place], [place] 84[address] Social History Tobacco Use Types Packs/Day Years [...] on filedocumented in this encounter Care Teams Certified Pharmacy Tech Relationship Specialty Start Date End Date Caroline Bray MD [address] [place] [phone] PCP - General Pediatrics 11/10/22 01/12/23 documented as of this encounter
--- OUTSIDE RECORDS SUMMARY | 2024-11-20 11:42 | XMS_ITS | Encounter Summary ---
Author Organization [facility] Address [address] [place] [address] Phone Care Team Providers Care Shaping Machine Operator Name Role Phone Caroline Bray MD Primary Care Provider Encounter Details Date Type Department Care Team (Late st Contact Info) Description 08/07/2016 Documentation [facility] [place] [facility] [place] [address] [place] [address] Family Medicine, Physician [address] [place], [place] [address] Social History Tobacco Use Types Packs/Day Years [...] on filedocumented in this encounter Care Teams Shaping Machine Operator Relationship Specialty Start Date End Date Caroline Bray MD [address] [place] [phone] PCP - General Pediatrics 11/10/22 01/12/23 documented as of this encounter
--- OUTSIDE RECORDS SUMMARY | 2024-11-20 11:42 | XMS_ITS | Clinical Summary ---
Author Organization [facility] Address [address] [place] [address] [place] [address] Phone Care Team Providers Care Dean Of Women Name Role Phone French Stewart MD Primary Care Provider [phone] [phone] Don Del Real MD Unavailable Allergies Active Allergy Reactions Criticality Noted Date Comments Pollen Extracts 11/09/2017 Seasonal allergies Medications cyanocobalamin, vitamin B-12, 1,000 mcg Subl sublingual tablet VITAMIN B-12 1000 MCG SUBL Active SUMAtriptan (IMITREX) 100 MG tablet Take 100 mg by mouth once as needed for migraine. 5 Active ondansetron (ZOFRAN-ODT) 4 MG disintegrating tablet Take 4 mg by mouth every 8 (eight) hours. 5 Active dicyclomine (BENTYL) 10 MG capsule Take 10 mg by mouth 4 (four) times a day before meals and nightly. Active gabapentin (NEURONTIN) 100 MG capsule Take 100 mg by mouth. 5 Active Active Problems Problem Noted Date Diagnosed Date Pelvic congestion syndrome 08/17/2024 Assessment & Plan (10/19/2024 11:20 AM EDT): Zaynab Franks is a 24 y.o. 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 I am quite pleased with her recovery, and I expect continued improvement in terms of her pelvic symptoms. I will plan to see her back in 6 months time with an ultrasound of her left renal vein for follow-up after her renal vein transposition. If her ultrasound is normal at that time, and her symptoms continue to have improved, I would likely be able to discharge her. Of course, I will be happy to see her in the future on an as needed basis, or sooner than 6 months if necessary. 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 She began having symptoms of lower pelvic cramping and discomfort approximately 2 months ago that has been persistent. Symptoms are exacerbated with prolonged periods of walking or standing and are alleviated with warm compresses to the area. She is also experienced changes in her menstrual cycle of heavy bleeding requiring frequent pad changes and a longer duration of menses. Given her symptoms she did have a recent abdominal/pelvis and transvaginal ultrasound which demonstrated mild prominence in the vasculature in the adnexa and periphery of the uterus and was therefore referred to our clinic for concerns of pelvic congestion syndrome. On examination, she has no evidence of vaginal varices or hemorrhoids. The left lower extremity diameter is not significantly larger than the contralateral right side. We discussed renal vein transposition can typically relieve ovarian vein pressure however ovarian vein congestion was not specifically addressed during her surgery to my knowledge. I reviewed her case with Dr. Abimael Morejon and we will plan to obtain a CT venogram of the abdomen and pelvis for further evaluation. She typically receives her imaging at [facility] and I will have our office coordinate for this. Once imaging is obtained I will arrange for her to follow-up with Dr. Abimael Morejon to review results. Patient is understanding and agreement with this plan. Gastroparesis 01/07/2022 Overview (08/17/2024): Had gastric emptying study Microhematuria 04/03/2021 Chronic abdominal pain 12/30/2020 Overview (08/17/2024): Had been followed by Vandana SÁNCHEZ Has had 2 colonoscopies and 2 endoscopies [place]. [place] [facility] [place]GI and SBFT in December that were normal Had lots of blood tests done Has a gastric emptying test scheduled (2021) Major depressive disorder 01/22/2020 Overview (08/17/2024): Has tried counseling - doesn't really like it, tried meditation - didn't like it. Dec 2021 - somewhat improved of parent 11/27/2019 Overview (08/17/2024): Dad committed suicide in 2009 Irritable bowel syndrome without diarrhea 2017 Overview (08/17/2024): Hx of H.pylori. Followed by Vandana SÁNCHEZ [...] to GI - [place]. 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 surgery Assessment & Plan (08/17/2024 12:36 PM EDT): Zaynab Franks is a 23 y.o. female with history of left renal vein transposition roughly 3 years ago for nutcracker syndrome. She is now had intermittent pelvic pain, and CT findings suggestive of pelvic congestion syndrome. Additionally, the CT scan suggest dilation of the left femoral vein which raises my concern for possible May-Thurner syndrome. This may be the culprit lesion for her pelvic congestion symptoms. Alternatively, she may have ovarian vein reflux, but I would consider this to be unlikely particularly in the setting of her previous renal vein transposition. We may have ligated her ovarian vein at that time. I suggested her the following plan: 1. I will arrange for her to undergo a bilateral iliac venogram and left renal and ovarian venogram likely via bilateral femoral venous access. This also include bilateral intravascular sonography of the iliac veins, as well as the left renal and ovarian vein. 2. I explained that she may ultimately be diagnosed with May-Thurner syndrome, however, I suggested not stenting her left renal vein given her age and her possible future pregnancies. I am concerned about potential extrinsic compression of the iliac vein stents with uterus expansion during . She is in agreement with that. I will also try to obtain the CT finding results from [facility], so that I may be able to review this prior to her venogram. Encounters Date Type Department Care Team Description 10/19/2024 11:00 AM EDT Follow-Up [facility] [address] [place] [address] Abimael Morejon MD Pelvic congestion syndrome (Primary Dx) 10/06/2024 Orders Only [facility] [place] [address] ProviderBrina MD 10/04/2024 Telephone [facility] [address] [address] Vera Weston RN Post Discharge Follow Up Call 10/03/2024 12:30 PM EDT Procedure visit [facility] [address] [address] Abimael Morejon MD Pelvic congestion syndrome (Primary Dx) 09/29/2024 Telephone [facility] [address] [place] [phone] Vera Weston RN 09/21/2024 Telephone [facility] [address] [address] Vera Weston, RN Post Discharge Follow Up Call 09/19/2024 9:30 AM EDT Procedure visit [facility] [address] [address] Abimael Morejon MD May-Thurner syndrome (Primary Dx); Pelvic congestion syndrome 09/19/2024 Orders Only [facility] [address] [address] Brina Denson MD 09/18/2024 Orders Only [facility] [address] [address] Brina Denson MD 09/14/2024 Telephone [facility] [address] [address] Vera Weston RN Pre-op Education/coordinati on from Last 3 Months Family History Medical History Relation Comments Cancer Unspecified Clotting disorder Unspecified Diabetes Unspecified Hypertension Unspecified Relation Status Comments Unspecified Social History Tobacco Use Types Packs/Day Years Used Date Smoking Tobacco: Never Tobacco Cessation:Counseling Given: Not Answered Education Answer Date Recorded Are you interested in more education? Not on vimal e 06/08/2024 Are you concerned about learning? Not on file 06/08/2024 No 06/08/2024 No 06/08/2024 Digital Access Answer Date Recorded No 06/08/2024 No 06/08/2024 Reliable internet access at home? Not on file 06/08/2024 Device with a working camera? Not on file Comments Unknown Sex and Gender Information Value Date Recorded Sex Assigned at Female 06/28/2024 4:09 PM EDT Legal Sex Female 1:31 PM EDT Gender Identity Female 06/28/2024 4:09 PM EDT Sexual Orientation Straight 06/28/2024 4: 09 PM EDT Last Filed Vital Signs Vital Sign Reading Time Taken Comments Blood Pressure 118/80 10/19/2024 11:04 AM EDT Pulse 64 06/27/2024 3:23 PM EDT Temperature 36.5 C (97.7 F) 02/10/2022 8:39 AM EST Respiratory Rate 16 08/07/2021 9:03 AM EDT Oxygen Saturation - - Inhaled Oxygen Concentration - - Weight 63.5 kg (140 lb) 06/27/2024 3:23 PM EDT Height 160 cm (5' 3 ) 06/27/2024 3:23 PM EDT Body Mass Index 24.8 06/27/2024 3:23 PM EDT Plan of Treatment Upcoming Encounters Date Type Department Care Team (Late st Contact Info) Description 04/26/2025 9:00 AM EST Office Visit [facility] [address] [place] [address] 04/26/2025 9:45 AM EST Follow-Up [facility] [address] [place] [address] Abimael Morejon MD [address] [place] [address] [address] [place] [address] [email or web address] [facility] Health Maintenance Due Date Last Done Comments DEPRESSION SCREENING 2013 HPV VACCINES (1 - 3-dose series) 2016 CHLAMYDIA SCREENING 2017 MENINGOCOCCAL VACCINES (B) ( 1 of 2 - Standard) 2017 HEPATITIS C SCREENING 08/26/2019 HIV ONE-TIME SCREENING (18-6 5 YEARS) 08/26/2019 PAP SMEAR 2022 Adult Td,Tdap Booster 09/05/2022 09/05/2012 INFLUENZA VACCINE (#1) 2024 COVID-19 VACCINE ( - 2023-2 5 season) 2024 SMOKING Hx and SMOKELESS TOBACCO SCREENING 10/19/2025 10/19/2024 MENINGOCOCCAL VACCINES (ACWY) Completed , 09/05/2012 HEPATITIS A VACCINES Aged Out No long er eligible based on patient's age to complete this topic HIB VACCINES Aged Out No longer eligi ble based on patient's age to complete this topic PNEUMOCOCCAL VACCINES (0-49 years) Aged Out No longer eligible b ased on patient's age to complete this topic Medical Devices Not on file Procedures Procedure Name Priority Date/Time Associated Diagnosis Comments OUTSIDE IMAGING Routine 10/06/2024 12:32 PM EDT OUTSIDE ECG Routine 09/19/2024 7:37 AM EDT PT-INR Routine 09/18/2024 12:00 PM EDT CBC Routine 09/18/2024 12:00 PM EDT BASIC METABOLIC PANEL Routine 09/18/2024 12:00 PM EDT from Last 3 Months Results * Outside Imaging Report Only (10/06/2024 12:32 PM EDT) Historical Provider IMG XR CHEST Final Res ult * Outside ECG Report Only (09/19/2024 7:37 AM EDT) Historical Provider ECG ORDERABLES Final Res ult * PT-INR (09/18/2024 12:00 PM EDT) Historical Provider LAB BLOOD ORDERABLES Marine l Result * CBC (09/18/2024 12:00 PM EDT) Historical Provider LAB BLOOD ORDERABLES Marine l Result * Basic metabolic panel (09/18/2024 12:00 PM EDT) Historical Provider LAB BLOOD ORDERABLES Marine l Result from Last 3 Months Insurance [facility] [employer] PUBLIC [employer] [place] [employer] * Guarantor: MOTHER FRANKS Account Type Relation to Patient Date of Phone Billing Address Personal/Family Mother [address] [facility] [address] [employer] [facility] [employer] Care Teams Dean Of Women Relationship Specialty Start Date End Date French Stewart MD [address] [place] [address] Dr Meier [facility] [place] [address] PCP - General Internal Medicine 06/08/24 Don Del Real MD [address] [place] [address] Nephrology 10/19/24 Additional Source Comments The information contained in this document represents components of the legal health record. It is not the complete legal health record.[facility]
--- OUTSIDE RECORDS SUMMARY | 2024-11-20 11:42 | XMS_ITS | Encounter Summary ---
Author Organization [facility] Address [address] [place] [address] Phone Care Team Providers Care Supervisor Press Room Name Role Phone Caroline Bray MD Primary Care Provider [phone] [phone] Encounter Details Date Type Department Care Team (Late st Contact Info) Description 06/10/2022 Documentation Only [address] [address] Qing Rodriguez MD Social History [...] filedocumented in this encounter Care Teams Supervisor Press Room Relationship Specialty Start Date End Date Caroline Bray MD [address] [place] [address] [place] [address] PCP - General Pediatrics 12/31/20 documented as of this encounter
--- OUTSIDE RECORDS SUMMARY | 2024-11-20 11:42 | XMS_ITS | Clinical Summary ---
Author Organization [facility] Address [address] [address] Phone Care Team Providers Care Deployment Engineer Name Role Phone Caroline Bray MD Primary Care Provider [phone] [phone] Allergies No known active allergies Medications Ibuprofen [...] Followed by Renal - was sent to [facility] (Mar 2021) - considering stent vs. surgery [...] 2001, Additional history exists Influenza Vaccine (#1) 2024 2, 01/21/2021, 11/27/2019, Additional history exists Hepatitis B Vaccine Completed 05/30/2002, 03/29/2002, 2001 Insurance [facility] EUGENIO RODRIGUEZ [id number] Care Teams Deployment Engineer Relationship Specialty Start Date End Date Caroline Bray MD [address] [place] [address] [place] Fritz [address] PCP - General Pediatrics 12/31/20
--- OUTSIDE RECORDS SUMMARY | 2024-11-20 11:42 | XMS_ITS | Encounter Summary ---
Author Organization [facility] Address 100 [facility] [address] [place] [address] Phone Care Team Providers Care National Recruiter Name Role Phone Caroline Bray MD Primary Care Provider [phone] [phone] Encounter Details Date Type Department Care Team (Late st Contact Info) Description 10/02/2022 Office Communication [facility] [address] [place] [address] Emily Evangelista Social History Tobacco Use Types [...] on filedocumented in this encounter Care Teams National Recruiter Relationship Specialty Start Date End Date Caroline Bray MD [address] [place] [address] [place] Fritz [address] PCP - General Pediatrics 12/31/20 documented as of this encounter
--- OUTSIDE RECORDS SUMMARY | 2024-11-20 11:42 | XMS_ITS | Encounter Summary ---
Author Organization [facility] Address [address] [place] [address] Phone Care Team Providers Care Commercial Insurance Underwriter Name Role Phone Caroline Bray MD Primary Care Provider Encounter Details Date Type Department Care Team (Late st Contact Info) Description 11/04/2015 Documentation [facility] [address] [place] [address] Family Medicine, Physician [address] [place], [place] [address] Social History Tobacco Use Types Packs/Day Years [...] on filedocumented in this encounter Care Teams Commercial Insurance Underwriter Relationship Specialty Start Date End Date Caroline Bray MD [address] [place] [address] PCP - General Pediatrics 11/10/22 01/12/23 documented as of this encounter
--- OUTSIDE RECORDS SUMMARY | 2024-11-20 11:42 | XMS_ITS | Encounter Summary ---
Author Organization [facility] Address 100 [facility] [address] [place] [address] Phone Care Team Providers Care Cold Strip Feeder Name Role Phone Caroline Bray MD Primary Care Provider [phone] [phone] Encounter Details Date Type Department Care Team ([facility] st Contact Info) Description 06/01/2022 Office Communication [facility] [address] [facility] [address] [place] [address] Neela Barakat MA Social History Tobacco Use [...] Doppler and Arous Wednesday 11:30 am in [place] documented in this encounter Plan of Treatment Not on file documented as of this encounter Visit Diagnoses Not on filedocumented in this encounter Care Teams Cold Strip Feeder Relationship Specialty Start Date End Date Caroline Bray MD [address] [place] [address] [place] [address] PCP - General Pediatrics 12/31/20 documented as of this encounter
== END 2024-11-02 00:01 | disposition home or self-care (01) ==
LOC: CF
PROVIDERS: PCP Internal Medicine; Visit Provider Internal Medicine Gastroenterology
DX: K21.9 Gastro-esophageal reflux disease without esophagitis (principal); K82.9 Disease of gallbladder, unspecified; K31.84 Gastroparesis; K52.9 Noninfective gastroenteritis and colitis, unspecified; R05.9 Cough, unspecified; R10.2 Pelvic and perineal pain; R10.30 Lower abdominal pain, unspecified
CPT/HCPCS: 99212

== ENCOUNTER 2024-11-02 07:24 | Outpatient (AMB) | payer OTHER, SELFPAY ==
--- OUTSIDE RECORDS SUMMARY | 2024-11-02 07:27 | XMS_ITS | Encounter Summary ---
Author Organization [facility] Address [address] [facility] [address] [place] [address] Phone Care Team Providers Care Thread Grinder Tool Name Role Phone Caroline Bray MD Primary Care Provider [phone] Encounter Details Date Type Department Care Team ([facility] st Contact Info) Description 06/01/2022 Office Communication [facility] [address] [facility] [address] [place] [address] Neela Barakat MA Social History Tobacco Use [...] Doppler and Arous Wednesday 11:30 am in [place] documented in this encounter Plan of Treatment Not on file documented as of this encounter Visit Diagnoses Not on filedocumented in this encounter Care Teams Thread Grinder Tool Relationship Specialty Start Date End Date Caroline Bray MD [address] [place] [address] [place] [address] PCP - General Pediatrics 12/31/20 documented as of this encounter
--- OUTSIDE RECORDS SUMMARY | 2024-11-02 07:27 | XMS_ITS | Clinical Summary ---
Author Organization [facility] Address [address] [place] [address] Phone Care Team Providers Care Crew Supervisor Name Role Phone Unavailable Primary Care Provider [...] endoscopies Followed [place] ([place]. Fung) [place] [facility] [place]GI and SBFT in [...] to GI - [place]. Fung [place] [facility]; gastric emptying study ordered (2021) [...] Additional history exists Procedures * Due to [place] [employer] law, this organization might not be sharing sensitive test results. Procedure Name Priority Date/Time Associated Diagnosis Comments CHLAMYDIA AND GONORRHEA, AMPLIFIED Routine 12/17/2021 9:47 AM EDT Special screening examination for chlamydial disease from Last 3 Months or Most Recently Relevant to Health Maintenance Results * Due to [place] [employer] law, this organization might not be sharing sensitive test results. * Chlamydia and Gonorrhoea, Amplified (12/17/2021 9:47 AM EDT) Chlamydia Trachomatis, DNA Probe NEGATIVE (NEG) [facility] Comment: No Chlamydia Trachomatis RNA detected in this patient's sample (REFERENCE RANGE/NORMAL VALUE: NOT DETECTED) Note: This test uses critical care transport nurse- mediated amplification method to detect rRNA from C. Trachomatis URINE GC AMP PROBE NEGATIVE (NEG) [facility] Comment: No Neisseria Gonorrhoeae RNA detected in this patient's sample (REFERENCE RANGE/NORMAL VALUE: NOT DETECTED) NOTE: This test uses critical care transport nurse-mediated amplification method to detect rRNA from N.Gonorrhoeae. [...] without risk of sexual abuse. Consult the [facility] if needed. Contact phone number . Therapeutic failure or success cannot be determined with the Aptima Combo2 assay since nucleic acid may persist following appropriate antimicrobial therapy. The Centers for Disease Control and Prevention (CDC) recommends confirmatory retesting using culture or a different nucleic acid amplification test when positive results occur, if indicated. Testing performed or reported by [facility], a Service of [facility], [place] [address] Zaki Quezada MD, Orthopedic Rn [facility]# [id number] Urine (Urine) 12/17/2021 9:4 7 AM EDT 12/17/2021 4:44 PM EDT us Caroline Bray MD LAB MICROBIOLOGY - GENERAL ORDERABLES Final Result [facility] from Last 3 Months or Most Recently Relevant to Health Maintenance Insurance [facility] NON PCC [facility] Address: [address] [address] [place] [address] [facility] NON PCC
--- NOTE | 2024-11-02 07:30 | A.OFFVIS_ITS ---
Vital Signs 11/02/24 07:36 Height 5 ft 3 in Weight 141 lb BMI 25.0 BP 99/60 Blood Pressure Location Lt brachial Position Sitting Pulse 75 Pulse Oximetry (%) 98 Oxygen Delivery Method Room Air Intake Visit Reasons: abdominal bloating Allergies No Known Allergies Allergy (Verified 11/02/24 07:30) Medication List - Last Reconciled 11/02/24 by Jass Fung MD cholecalciferol (vitamin D3) 250 mcg PO 2XW 90 days famotidine 20 mg PO BEDTIME 30 days metoclopramide HCl 10 mg (10 mL) PO QID 30 days ondansetron 4 mg PO Q8H PRN 30 days sumatriptan succinate 50 - 100 mg orally at onset of headache, may repeat in 2 hrs PRN; max 2 tabs per day or 4 tabs/week (may take with Tylenol) 30 days Ventolin HFA 90 mcg/actuation (albuterol sulfate) 2 puffs inhalation Q6H PRN 30 days NS HPI HPI abdominal bloating: Details: GI CLINIC VISIT FOR THIS 24-YEAR-OLD FEMALE FOR FU OF IDIOPATHIC GASTROPARESIS ASSOCIATED WITH NAUSEA VOMITING DIARRHEA AND ABDOMINAL PAIN. Pt has a history of nutcracker syndrome,? 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 TODAY'S VISIT: Patient cc: abdominal bloating and nauseas. Cramping is not as bad - having a lot of nausea 10/03/24 Seen by Vascular surgery and had a venogram with insertion of filers and coils into the vein Does not have much of an appetite and ends up throwing up afterwards Has been eating really light. Switches to liquid diet when she notices increased nausea PAST VISITS: Scheduled for a CT scan next week and a FU with Vascular Surgery (Dr Morejon in [place]) Having nausea and bloating over the past 2 weeks Has to stop eating in the middle of her meal due to nausea. Wt has been stable Has gained 10 lbs over the past 6 months Has been having abd cramping since end of Feb/early Mar She had a heavy period which was followed by lower abd/pelvic pain. States test was negative Cramps can be bad and can get bad pain in the pelvis and bottom of the belly. Can be sitting, standing or walking around. Pain lasts a few min and then goes away and comes back later Lying down does not help the pain. Nausea is not as bad - can occur after eating and is less frequent. Pain id bad a few days before her periods, gets worse with her periods. Last period was late and light and spotty. Usually has nausea when she wakes up and takes Promethazine Occasionally has nausea lasting the entire day Still tries to eat even if she is not hungry. Taking regular diet and blendarized diet depending on how she feels Taking metoclopramide twice a day since she does not have breakfast. Wt has been stable Denies constipation or diarrhea. Last few weeks has not had a good appetite Belly feels sore if she is lying on the back Feels better if she curls up in a ball Wakes up with abd pain if she is lying on her back. Hard to sleep on the side since her hips lock up Pt scheduled for an urgent FU appt since she called with symptoms of nausea and vomiting: patient called to report she is experiencing nausea, about two episodes of vomiting daily for the last week as well as abdominal pain and red bloody mucus in her stools. Patient reports she has noted a decrease in her appetite. patient denies fever or chills. I advised patient that I would send a message to you to advise but that it will be likely that she will need to go to the ED for furthe eval as you do not have any availability soon. please advise feels Ok - about the same Nausea is not as bad - still has nausea in the morning and does not eat till 1-2 pm Denies recent vomiting Taking metoclopramide three times a day before meals Has a bad cough with phlegm and acid for the past month Saw her PCP and prescribed antibiotics - cough has not improved - gotton worse EGD and flex sig results reviewed with the patient She was feeling better after the EGD. Has been feeling nauseous for the last few days after eating. Taking metoclopramide three times a day and has been helping. Certain days she has nausea and vomiting after eating. Eats a lot of rice, bread and cracker. Has been trying to do smoothies. Does not eat breakfast in the am. Has nausea and gagging when she wakes up Eats lunch and dinner. Intermittent reflux symptoms Planning to have a Thanksgiving with her friends and separate dinner at her Mom's Noted nausea and vomiting and abdominal pain since last week Thought she had a stomach bug usually upto 2 episodes a day Feels a knot in her stomach and then food comes up Not always related to eating. Has a cramping feeling after eating. Also has diarrhea with 2-3 BMs a day. Intermittent dysphagia to liquids. Taking Metoclopramide twice a day and nausea medication prn Nausea medication works in 15 to 20 min if she takes it early enough Patient follow up of gastroparesis. Difficult to keep anything down for the past week Any time she eats anything and has post prandial vomiting Does not eat big meals - takes rice, beans and pasta Patient denies any GI issues. Appetite has improved with medications. Still has intermittent right lower abd cramps. Can wake up from sleep because of abdominal pain. Has been doing ok. Medication is helping - makes her feel drowsy - feels like a Zombie. Has cramps and feels sick in the morning. Has upset stomach if she eats breakfast. Has a small lunch. Continues to have RLQ pain and diarrhea 1-2 times a day with watery stools with mucous and no blood. Has gained some wt after thansgiving. Had surgery in June at [facility] in [place] and everything was ok Was not eating much for 3-4 months after the surgery. Once her appetite came back and she started eating more, she started feeling sick Bad cramps in the lower portion of the stomach - feels worse after taking breakfast Has been skipping breakfast. Has been trying to eat small portions. Some days she tries to eat and had to spit it back out due to nausea or smell of food. Lost a lot of wt after the surgery.? Started gaining the wt back 2 months ago. Denies dysphagia or change in BMs. Started feeling sick again Taking Promethazine every other day with partial control of nausea Continues to have nausea sometimes after she eats. Diagnosed with left renal vein stenosis and being scheduled for left renal vein stent placement at [facility] by Dr Del Real Did not have stent placed - additinal contrast studies are planned And possible surgery Abd pain is attributed to above. Notes nausea when she wakes up in the morning and goes away in 1-2 hrs. Does not have an appetite - feels full until dinner. Feels sick if she forces herself to eat. A GES at [facility] 1-2 yrs ago was normal. Feeling about the same. Hurts a lot when her bladder feels full before she has to use the bathroom. The pain goes away and it feels sore to touch in the lower stomach area. Denies pain with BMs. Denies having any diarrhea - has a formed BM 2-3 times a day Has not been feeling as nauseous lately and takes Seeing a Studio Technician Video Operator and being referred to a urologist. Started having abdominal pain at age 15 yrs. Pain is left sided and radiates to the lower abdomen - sometimes radiates to the back. Feels like bad cramping and hurts to walk. Unable to identify precipitating factors - sometimes after eating - no clear precipitating foods. Can have pain when she is hungry. No clear relieving factors - tries to lay down and relax. Notes nausea after eating - no vomiting. Has 3-4 BMs a day without loose or hard stools. Can have diarrhea once every couple of weeks - lasts for a day and resolves spontaneously. Notes mucous in the stool and denies rectal bleeding. Eats once a day - takes a couple of bites and feels full after. Patient denies symptoms of heartburn, dysphagia, change in appetite or weight.? Denies recent change in bowel habits, constipation, diarrhea, black stools or rectal bleeding. Wt loss of 30 lbs - lost in Feb 2020 and has not been able to gain it back. Gains a few lbs and then looses wt again. Has a Depo shot every 3 months - does not have a period just intermittent spotting Notes pain in knees and hips - played soccer and soft ball. Denies mouth ulcers or eye problems. Tried different diets in the past - without a change in symptoms. Taking rice, beans and chicken at present. Tried Omeprazole and Pepcid and was not helpful Patient denies major cardiac or pulmonary problems, loud snoring or sleep apnea Denies problems with anesthesia in the past. Denies being on chronic anticoagulation, aspirin or NSAIDS. Mom had H Pylori - has similar symptoms as the patient - takes Omeprazole and feels fine. Patient denies known family history of colon polyps, colon cancer or other GI malignancies. Paternal GM of stomach cancer. 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 Lives with Mom and has no?children IMAGING STUDIES:?05/02/21 GASTRIC EMPTYING STUDY SHOWED: Retention in the stomach at each time interval was: 1 hour 79% (normal 37%-90%) 2 hours 69% (normal 30%-60%) 3 hours 50% 4 hours 35% (normal 0%-10%) 02/2021 ABD US WITH DOPPLER SHOWED:Normal appearing kidneys. Findings are suggestive of nut crackersyndrome, similar to the CT scan with narrowing of the renal veinbetween the aorta and SMA. In the area of stenosis, velocityacceleration is seen as described above. 12/2020 UGISBFT SHOWED:No definite jejunal or ileal mucosal abnormality with limited evaluation of the terminal ileum.Rapid transit of contrast to the colon without need for delayed imaging. 09/06/[address] SCAN SHOWED:Small, small bowel mesentery lymph nodes. No enlarged lymph nodes seen. 2 x 3 cm right adnexal cyst. Question of cracker syndrome of the left renal vein.ENDOSCOPIC STUDIES: 12/25/22 EGS AND FLEX SIG SHOWED: STOMACH: Mild antral gastritis. Pyloric balloon dilation was performed with a 19 mm (57 F) CRE balloon x 60 seconds. Botox (100 Units) was injected into the pylorus (25 units in each quadrant) DUODENUM: Normal - biopsied to check for celiac sprue Flexible sigmoidoscopy Findings: Minimal rectal erythema - likely due to prep - biopsies were obtained to check for IBD BIOPSIES SHOWED: A. Stomach, antrum, biopsy: Gastric antral mucosa with mild chronic inactive gastritis; negative for Helicobacter pylori, intestinal metaplasia and dysplasia. B. Small bowel, biopsy: Small bowel mucosa within normal limits; preserved villous architecture and no increased intraepithelial lymphocytes seen. C. Colon, left, biopsy: Colonic mucosa within normal limits; negative for active, chronic or microscopic colitis 09/16/22 CAPSULE ENDOSCOPY SHOWED: esophagus was normal. nodular appearing stomach mucosa in proximal stomach, rest of mucosa was normal. Some delay of capsule into duodneum, with some erythema in bulb. Patchy erythema in mid and distal ileum with some congestion. Cecum not reached Conclusion: Nodular gastric mucosa possible gastroparesis patchy ileal erythema and erythema of duodenal bulb consider further work up with CTe or GES if clinical suspicion of gastroparesis check nsaid hx use check h pyloRI PFSH Medical History Pelvic congestion syndrome Gastritis Asthma GERD (gastroesophageal reflux disease) Vitamin D deficiency Migraine without aura Nutcracker phenomenon of renal vein Surgical History Hx of abdominal surgery History of esophagogastroduodenoscopy (EGD) Hx of colonoscopy Family History Paternal Grandmother Stomach cancer Family/Other Substance use disorder Mental health disorder Social History Household Members Other:: lives with mom Housing: House Alcohol intake: current Alcohol intake frequency: holidays/special occasions only Patient Tobacco Use Status: Never used Tobacco e-Cigarette/Vaping Use: Never Used Second Hand Smoke Exposure: No Substance Use Type: Marijuana service: No Current occupational status: employed 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 Cognitive needs: No Hearing needs: No Vision needs: No Female Reproductive History Menstrual Age of Menarche: 16 Review of Systems Const All systems reviewed & are unremarkable except as noted in HPI and below Physical Exam Vital Signs: Last Vital Signs Pulse 75 11/02/24 07:36 BP 99/60 11/02/24 07:36 Pulse Ox 98 11/02/24 07:36 Oxygen Delivery Method Room Air 11/02/24 07:36 BMI result Body Mass Index 25.0 Const General: healthy appearing and no acute distress Nutritional Appearance: average body habitus Orientation/consciousness: patient oriented x3 Limitations: no limitations HEENT Head: Yes normal to inspection Ears: hearing grossly normal bilaterally Eyes Sclerae: sclerae normal Pupils: Equal, round and reactive pupils present Neck Neck: Yes normal visual inspection Chest Chest palpation & inspection: normal inspection of the chest Resp Effort & Inspection: normal respiratory effort Auscultation: clear to auscultation bilaterally Cardio Palpation: normal PMI Rate: regular rate Rhythm: regular rhythm Heart sounds: S1 normal heart sound present, S2 normal heart sound present and no murmurs GI Palpation (GI): Soft to palpation, nontender and No hepatosplenomegaly present Auscultation: normal bowel sounds Rectal Exam - Female: deferred Skin General skin exam: no rashes or lesions noted Neuro General: patient oriented x3, gait normal and moves all extremities Cranial nerves: Yes Equal, round and reactive pupils present Psych Appearance: grossly normal Mental Status: mental status grossly normal Assessment & Plan Assessment & Plan (1) Nausea and vomiting: Code(s): R11.2 - Nausea with vomiting, unspecified Category: Medical (2) Abdominal pain: Code(s): R10.9 - Unspecified abdominal pain Category: Medical (3) Chronic diarrhea: Code(s): K52.9 - Noninfective gastroenteritis and colitis, unspecified Category: Medical (4) Gastroparesis: Code(s): K31.84 - Gastroparesis Category: Medical (5) GERD (gastroesophageal reflux disease): Code(s): K21.9 - Gastro-esophageal reflux disease without esophagitis Category: Medical Plan 24 YF with depression followed in GI for abdominal pain, nausea, vomiting and chronic diarrhea. 04/2016 EGD and Colonoscopy performed at [facility] were normal with chronic gastritis on stomach biopsies. 09/2017 EGD was normal with normal biopsies from esophagus stomach and duodenum. ? 08/[address] scan showed?Small, small bowel mesentery lymph nodes. No enlarged lymph nodes seen. 2 x 3 cm right adnexal cyst. Question of cracker syndrome of the left renal vein. UGI with SBFT was normal. Celiac and IBD serologies were negative and fecal calprotectin was not approved by her insurance GES showed gastroparesis.? Patient handout on gastroparesis from up-to-date was given to the patient Pt advised dietary modification for gastroparesis and start Metoclopramide 5 mg three times daily for gastroparesis on her previous visit. Advised to decrease Metoclopramide to 1-2 times daily due to drowsiness Continue promethazine for nausea and dicyclomine at bedtime for abdominal pain. 05/14/22 Pt advised to schedule a Capsule Study (with patency test) to rule out Crohn's disease (intermittent RLQ pain which can wake her up at night and diarrhea) 08/2022 Capsule Study showed: Nodular gastric mucosa possible gastroparesis patchy ileal erythema and erythema of duodenal bulb consider further work up with CTe or GES if clinical suspicion of gastroparesis check nsaid hx use check h pylori 10/08/22 Pt advised to go on a liquid diet x 24 hours and then blenderized food until nausea and vomiting resolves Continue Metoclopramide 5 mg twice a day Switch from promethazine to prochlorperazine for nausea and vomting Re submit stool for fecal calprotectin 12/24/22 Pt advised to schedule an EGD and flex sig - done 12/25/22 Increase Metoclopramide to three times a day (instead of twice daily) 01/14/23 Pt advised a trail of blendarized diet and start Omeprazole at bedtime for GERD (Increase to twice daily if symptoms persist after a week) 02/25/23 Pt advised to take Famotidine 20 mg at bedtime for nocturnal cough (suspected GERD) 04/06/24 Advised Pelvic US for evaluation of lower abd/pelvic pain On 04/28/24 @ 18:57 Jass Fung Wrote To Stephanei Mai Pt called and US results were reviewed with her: 1. Normal uterus, endometrium, and bilateral ovaries. 2. Mildly dilated vasculature in the adnexal regions and periphery of the uterus, nonspecific but can be associated with pelvic congestion syndrome. 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 Forwarding US report to Stephanie Mai and pt was advised to schedule a FU appt with her Per Stephanie Mai: Patient is interested in having a consult with Interventional Radiology and has a provider she saw Mr. That treated her nutcracker syndrome through Radiology ablation. ([facility] in [place]) 07/31/24 Advised to take smaller meals and Ondansetron prn for nausea 11/02/24 Pt advised to schedule a GES to FU on gastroparesis She would like to switch back to Metoclopramide tab instead of liquid Resume promethazine 12.5 mg q.6 hourly p.r.n. for nausea. FU in 3 months Orders: Orders NM gastric emptying study Today K3.84 - Gastroparesis Medications: New metoclopramide HCl 10 mg PO Q8H 270 tabs 1RF 90 days K31.84 - Gastroparesis promethazine 12.5 mg PO Q6H PRN 60 tabs 3RF for nausea/vomiting 30 days K58.1 - Irritable bowel syndrome with constipation, R11.0 - Nausea Coding Level of Care Code Est Pt Level 4 (92639) Diagnoses Nausea and vomiting R11.2 Abdominal pain R10.9 Chronic diarrhea K52.9 Gastroparesis K31.84 GERD (gastroesophageal reflux disease) K21.9 Time Spent (min) 22
--- NOTE | 2024-11-02 07:32 | MHC.OFFVIS ---
Vital Signs 11/02/24 07:36 Height 5 ft 3 in Weight 141 lb BMI 25.0 BP 99/60 Blood Pressure Location Lt brachial Position Sitting Pulse 75 Pulse Oximetry (%) 98 Oxygen Delivery Method Room Air Intake Visit Reasons: abdominal bloating Intake Note: Patient new consult for abdominal pain. Patient cc: poor appetite due nauseas. Gastrointestinal Technician Required: No Accompanied by: Self / Same As Patient Allergies No Known Allergies Allergy (Verified 11/02/24 07:30) Medication List - Last Reconciled 11/02/24 by Jass Fung MD cholecalciferol (vitamin D3) 250 mcg PO 2XW 90 days famotidine 20 mg PO BEDTIME 30 days metoclopramide HCl 10 mg (10 mL) PO QID 30 days ondansetron 4 mg PO Q8H PRN 30 days sumatriptan succinate 50 - 100 mg orally at onset of headache, may repeat in 2 hrs PRN; max 2 tabs per day or 4 tabs/week (may take with Tylenol) 30 days Ventolin HFA 90 mcg/actuation (albuterol sulfate) 2 puffs inhalation Q6H PRN 30 days NS PFSH Medical History Pelvic congestion syndrome Gastritis Asthma GERD (gastroesophageal reflux disease) Vitamin D deficiency Migraine without aura Nutcracker phenomenon of renal vein Surgical History Hx of abdominal surgery History of esophagogastroduodenoscopy (EGD) Hx of colonoscopy Family History Paternal Grandmother Stomach cancer Family/Other Substance use disorder Mental health disorder Social History Household Members Other:: lives with mom Housing: House Alcohol intake: current Alcohol intake frequency: holidays/special occasions only Patient Tobacco Use Status: Never used Tobacco e-Cigarette/Vaping Use: Never Used Second Hand Smoke Exposure: No Substance Use Type: Marijuana service: No Current occupational status: employed 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
[2024-11-02 07:36] VITALS: BP 99/60; PULSE 75; O2SAT 98; BMI 25.0
== END 2024-11-02 08:05 | disposition home or self-care (01) ==
PROVIDERS: PCP Internal Medicine; Visit Provider Internal Medicine Gastroenterology
DX: R11.2 Nausea with vomiting, unspecified (principal); R10.9 Unspecified abdominal pain; K52.9 Noninfective gastroenteritis and colitis, unspecified; K31.84 Gastroparesis; K21.9 Gastro-esophageal reflux disease without esophagitis
CPT/HCPCS: 99214

== ENCOUNTER → 2025-01-01 07:59 | Outpatient (REF) | payer OTHER, SELFPAY ==
--- NOTE | ~2025-01-01 | NM_ITS ---
EXAMINATION: [place] RADIONUCLIDE SOLID FOOD GASTRIC EMPTYING 4-HOUR STUDY CLINICAL INFORMATION: K31.84 - Gastroparesis COMPARISON: There are no prior studies available for comparison. TECHNIQUE: A standard meal consisting of 4 oz of Egg Beaters brand tagged with 0.97 mCi Tc-99m Sulfur Colloid, 6 oz water and 2 slices of toast with jelly was administered orally to the patient. Images were obtained using a dual head gamma camera in the anterior and posterior projections over of the stomach immediately post ingestion and at hourly intervals up to 4 hours post ingestion. The anterior and posterior counts at each time interval were averaged using the geometric mean and expressed as percentage of the immediate post ingestion counts. FINDINGS: There is visualization of activity in the stomach immediately post ingestion. As the study progresses, there is clearance of activity from the stomach and visualization of progressively increasing small bowel activity. By the end of the study, there is almost no retention noted in the stomach. Retention in the stomach at each time interval was: 1 hour 83% (normal 37%-90%) 2 hours 60% (normal 30%-60%) 3 hours 15% 4 hours 3% (normal 0%-10%) [place] gastric emptying study IMPRESSION: Normal 4-hour solid food gastric emptying study. For solid meal, rapid gastric emptying is less than 30% at 60 minutes. Delayed gastric emptying criteria is more than 60% remaining at 120 minutes or more than 10% at 240 minutes. The 4-hour value is the best discriminator of a normal or abnormal result). Gastric emptying study grading per JNMT Consensus Recommendations in 2008 (https://tech.snmjournals.org/content/36/44) Grade 1 (mild retention): 11-20% at 4h Grade 2 (moderate retention): 21-35% at 4h Grade 3 (severe retention): 36-50% at 4h Grade 4 (very severe retention): >50% retention at 4h Electronically signed by: Major Colon MD 01/01/2025 01:45 PM EDT
--- OUTSIDE RECORDS SUMMARY | 2025-01-01 08:05 | XMS_ITS | Encounter Summary ---
Author Organization [facility] Address [address] [place] [address] Phone Care Team Providers Care Rubber Goods Inspector Name Role Phone Caroline Bray MD Primary Care Provider Encounter Details Date Type Department Care Team (Late st Contact Info) Description 08/15/2014 Documentation [facility] Family Medicine [address] [place] [address] Family Medicine, Physician [address] [place], [place] [address] Social History Tobacco Use Types Packs/Day Years [...] on filedocumented in this encounter Care Teams Rubber Goods Inspector Relationship Specialty Start Date End Date Caroline Bray MD [address] [place] [address] PCP - General Pediatrics 11/10/22 01/12/23 documented as of this encounter
--- OUTSIDE RECORDS SUMMARY | 2025-01-01 08:05 | XMS_ITS | Encounter Summary ---
Author Organization [facility] Address [address] [place] [address] Phone Care Team Providers Care Woven Label Designer Name Role Phone Caroline Bray MD Primary Care Provider Encounter Details Date Type Department Care Team (Late st Contact Info) Description 09/17/2014 Documentation [facility] Family Medicine [address] [place] [address] Family Medicine, Physician [address] [place], [place] [address] Social History Tobacco Use Types Packs/Day Years [...] on filedocumented in this encounter Care Teams Woven Label Designer Relationship Specialty Start Date End Date Caroline Bray MD [address] [place] [address] PCP - General Pediatrics 11/10/22 01/12/23 documented as of this encounter
--- OUTSIDE RECORDS SUMMARY | 2025-01-01 08:05 | XMS_ITS | Clinical Summary ---
Author Organization [facility] Address [address] [place] [address] Phone Care Team Providers Care Control Panel Operator Name Role Phone Unavailable Primary Care Provider [...] endoscopies Followed by GI (Dr. Fung) [place] [facility] Had UGI and SBFT in December that [...] to GI - seeing Dr. Fung at [facility]; gastric emptying study ordered (2021) Assessment & [...] Center in November 2018 - undergoing work-up. Encounters Date Type Department Care Team Description 12/01/2024 Telephone [facility] [address] [place] [address] Kirstin Mckinnon MD medical records from Last 3 Months Immunizations Immunization Administration Dates Next Due COVID-19 [...] History Relation Name Comments Obesity Brother Mario Kenji Strabismus Brother Mario Kenji ADD / ADHD Cousin Breast cancer Cousin Depression Father Octaviano Chauhan Strabismus Father Octaviano Jusino Breast cancer Father's Sister Asthma Maternal Grandmother Diabetes Maternal Grandmother Cancer (Childhood Onset) Paternal Grandmother Anxiety disorder Sister Annita Chauhan Bipolar disorder Sister Annita Chauhan Bronchopulmonary dysplasia Sister Annita Underwood o OCD Sister Annita Chauhan Relation Name Status Comments Brother Mario Franks Alive Cousin Father Octaviano Chauhan Alive Father's [...] 09/19/2013 Hepatitis A Vaccines Completed 09/21/2014, 09/20/19 14 Men B Vaccine Completed 05/15/2019, 12/14, 11/09/2018 Meningococcal Vaccine Completed 05/15/2019 , 01/10/2019, 11/09/2018, Additional history exists Procedures * Due to [facility] law, this organization might not be sharing sensitive test results. Procedure Name Priority Date/Time Associated Diagnosis Comments CHLAMYDIA AND GONORRHEA, AMPLIFIED Routine 12/17/2021 9:47 AM EDT Special screening examination for chlamydial disease from Last 3 Months or Most Recently Relevant to Health Maintenance Results * Due to [place] [employer] law, this organization might not be sharing sensitive test results. * Chlamydia and Gonorrhoea, Amplified (12/17/2021 9:47 AM EDT) Chlamydia Trachomatis, DNA Probe NEGATIVE (NEG) [facility] Comment: No Chlamydia Trachomatis RNA detected in this patient's sample (REFERENCE RANGE/NORMAL VALUE: NOT DETECTED) Note: This test uses e m assembler- mediated amplification method to detect rRNA from C. Trachomatis URINE GC AMP PROBE NEGATIVE (NEG) [facility] Comment: No Neisseria Gonorrhoeae RNA detected in this patient's sample (REFERENCE RANGE/NORMAL VALUE: NOT DETECTED) NOTE: This test uses e m assembler-mediated amplification method to detect rRNA from N.Gonorrhoeae. [...] without risk of sexual abuse. Consult the [facility] if needed. Contact phone number . Therapeutic failure or success cannot be determined with the Aptima Combo2 assay since nucleic acid may persist following appropriate antimicrobial therapy. The Centers for Disease Control and Prevention (CDC) recommends confirmatory retesting using culture or a different nucleic acid amplification test when positive results occur, if indicated. Testing performed or reported by [facility], a Service of [facility], [address] [place] [address] Zaki Quezada MD, Company Driver [facility]# [id number] Urine (Urine) 12/17/2021 9:4 7 AM EDT 12/17/2021 4:44 PM EDT us Caroline Bray MD LAB MICROBIOLOGY - GENERAL ORDERABLES Final Result [facility] from Last 3 Months or Most Recently Relevant to Health Maintenance Insurance [facility] [place] [id number]
--- OUTSIDE RECORDS SUMMARY | 2025-01-01 08:05 | XMS_ITS | Encounter Summary ---
Author Organization [facility] Address [address] [place] [address] Phone Care Team Providers Care Printer Assistant Name Role Phone Caroline Bray MD Primary Care Provider Encounter Details Date Type Department Care Team (Late st Contact Info) Description 06/09/2014 Documentation [facility] [address] [place] [address] Family Medicine, Physician [address] [place], [place] [phone] Social History Tobacco Use Types Packs/Day Years [...] on filedocumented in this encounter Care Teams Printer Assistant Relationship Specialty Start Date End Date Caroline Bray MD [address] [place] [address] PCP - General Pediatrics 11/10/22 01/12/23 documented as of this encounter
--- OUTSIDE RECORDS SUMMARY | 2025-01-01 08:06 | XMS_ITS | Encounter Summary ---
Author Organization [facility] Address [address] [place] [address] Phone Care Team Providers Care Decal Cutter Name Role Phone Caroline Bray MD Primary Care Provider Encounter Details Date Type Department Care Team (Late st Contact Info) Description 10/29/2016 Conversion Encounter [facility] [address] [place] [address] Social History Tobacco Use Types Packs/Day Years [...] on filedocumented in this encounter Care Teams Decal Cutter Relationship Specialty Start Date End Date Caroline Bray MD [address] [place] [address] PCP - General Pediatrics 11/10/22 01/12/23 documented as of this encounter
--- OUTSIDE RECORDS SUMMARY | 2025-01-01 08:06 | XMS_ITS | Encounter Summary ---
Author Organization [facility] Address [address] [place] [address] Phone Care Team Providers Care Hooking Machine Operator Name Role Phone Caroline Bray MD Primary Care Provider Encounter Details Date Type Department Care Team (Late st Contact Info) Description 09/25/2014 Documentation [facility] [address] [place] [address] Family Medicine, Physician [address] [place], [place] [phone] Social History Tobacco Use Types Packs/Day Years [...] on filedocumented in this encounter Care Teams Hooking Machine Operator Relationship Specialty Start Date End Date Caroline Bray MD [address] [place] [address] PCP - General Pediatrics 11/10/22 01/12/23 documented as of this encounter
--- OUTSIDE RECORDS SUMMARY | 2025-01-01 08:07 | XMS_ITS | Encounter Summary ---
Author Organization [facility] Address [address] [place] [address] Phone Care Team Providers Care Junior Technical Writer Name Role Phone aCroline Bray MD Primary Care Provider Encounter Details Date Type Department Care Team (Late st Contact Info) Description 09/10/2011 Documentation [facility] [place] Family Medicine [address] [place] [address] Family Medicine, Physician [address] [place], [place] 265641 Social History Tobacco Use Types Packs/Day Years [...] on filedocumented in this encounter Care Teams Junior Technical Writer Relationship Specialty Start Date End Date Caroline Bray MD [address] [place] [address] PCP - General Pediatrics 11/10/22 01/12/23 documented as of this encounter
--- OUTSIDE RECORDS SUMMARY | 2025-01-01 08:07 | XMS_ITS | Clinical Summary ---
Author Organization [facility] Address [address] [address] Phone Care Team Providers Care County Extension Agent Name Role Phone Caroline Bray MD Primary Care Provider +1 [phone] Allergies No known active allergies Medications Ibuprofen [...] Followed by Renal - was sent to [place] (Mar 2021) - considering stent vs. surgery [...] B Vaccine Completed 05/30/2002, 03/29/2002, 2001 Insurance [facility] EUGENIO RODRIGUEZ [id number] Care Teams County Extension Agent Relationship Specialty Start Date End Date Caroline Bray MD [address] [place] [address] [place] Fritz [address] PCP - General Pediatrics 12/31/20
--- OUTSIDE RECORDS SUMMARY | 2025-01-01 08:07 | XMS_ITS | Encounter Summary ---
Author Organization [facility] Address [address] [place] [address] Phone Care Team Providers Care Telegraph Service Rater Name Role Phone Caroline Bray MD Primary Care Provider Encounter Details Date Type Department Care Team (Late st Contact Info) Description 2013 Documentation [facility] [place] Family Medicine [address] [place], [place] [id number] Family Medicine, Physician [address] [place], [place] [address]61 Social History Tobacco Use Types Packs/Day Years [...] on filedocumented in this encounter Care Teams Telegraph Service Rater Relationship Specialty Start Date End Date Caroline Bray MD [address] [place] [address] PCP - General Pediatrics 11/10/22 01/12/23 documented as of this encounter
--- OUTSIDE RECORDS SUMMARY | 2025-01-01 08:07 | XMS_ITS | Clinical Summary ---
Author Organization [facility] Address [address] [place] [address] Phone Care Team Providers Care Nutrition Services Aide Name Role Phone French Stewart MD Primary Care Provider +1 [phone] Don Del Real MD Unavailable Allergies Active [...] evaluation. She typically receives her imaging at [place] and I will have our office coordinate [...] endoscopies Followed by GI (Dr. Fung) at [facility] Had UGI and SBFT in December that [...] to GI - seeing Dr. 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 surgery [...] to obtain the CT finding results from [place], so that I may be able to review this prior to her venogram. Encounters Date Type Department Care Team Description 10/19/2024 11:00 AM EDT Follow-Up [facility] [address] [place] [address] Abimael Morejon MD Pelvic congestion syndrome (Primary Dx) 10/06/2024 Orders Only [facility] [address] [place] [address] ProviderBrina MD 10/04/2024 Telephone [facility] [address] [address] Vera Weston RN Post Discharge Follow Up Call 10/03/2024 12:30 PM EDT Procedure visit [facility] [address] [place] [address] Abimael Morejon MD Pelvic congestion syndrome (Primary Dx) from Last 3 Months Family History Medical [...] EST Office Visit [facility] [place] [address] 04/26/2025 9:45 AM EST Follow-Up [facility] [address] [place], [place] [address] [place] [address] Abimael Morejon MD [address] [place] [address] 3rd [place] [address] Health Maintenance Due Date Last Done Comments DEPRESSION SCREENING 2013 HPV VACCINES (1 - 3-dose series) 2016 CHLAMYDIA SCREENING 2017 MENINGOCOCCAL VACCINES (B) ( 1 of 2 - Standard) 2017 HEPATITIS C SCREENING 08/26/2019 HIV ONE-TIME SCREENING (18-6 5 YEARS) 08/26/2019 PAP SMEAR 2022 Adult Td,Tdap Booster 09/05/2022 09/05/2012 INFLUENZA VACCINE (#1) 2024 COVID-19 VACCINE (1 - 2024-2 6 season) 2024 SMOKING Hx and SMOKELESS TOBACCO [...] OUTSIDE IMAGING Routine 10/06/2024 12:32 PM EDT from Last 3 Months Results * Outside Imaging Report Only (10/06/2024 12:32 PM EDT) us Historical Provider MD AMADOR XR CHEST Final Res ult from Last [address] [place] [address] [place] [address] [facility] [place] [address] [facility] Member Subscriber Plan / Payer (Ef fective 2016-Present) Name:Zaynab Franks Relation to Subscriber:Self Name:Zaynab Franks Payer ID:[id number] (NAIC) Group ID:Not on file Type:Medicaid Address: [place] [id number] Care Teams Nutrition Services Aide Relationship Specialty Start Date End Date French Stewart MD [address] [place] [address] PCP - General Internal Medicine 06/08/24 Don Del Real MD [address] [place] [address] Nephrology 10/19/24 Additional Source Comments The information contained in this document represents components of the legal health record. It is not the complete legal health record.[facility]
--- OUTSIDE RECORDS SUMMARY | 2025-01-01 08:07 | XMS_ITS | Encounter Summary ---
Author Organization [facility] Address [address] [place] [address] Phone Care Team Providers Care Outside Production Inspector Name Role Phone Caroline Bray MD Primary Care Provider Encounter Details Date Type Department Care Team (Late st Contact Info) Description 2013 Documentation [facility] [place] [address] [place], [place] [phone] Family Medicine, Physician [address] [place], [place] 008451 Social History Tobacco Use Types Packs/Day Years [...] on filedocumented in this encounter Care Teams Outside Production Inspector Relationship Specialty Start Date End Date Caroline Bray MD [address] [place] [address] PCP - General Pediatrics 11/10/22 01/12/23 documented as of this encounter
--- OUTSIDE RECORDS SUMMARY | 2025-01-01 08:07 | XMS_ITS | Encounter Summary ---
Author Organization [facility] Address [address] [place] [address] Phone Care Team Providers Care Joinery Patternmaker Name Role Phone Caroline Bray MD Primary Care Provider Encounter Details Date Type Department Care Team (Late st Contact Info) Description 10/01/2016 Documentation [facility] [place] [address] [place] [address] Family Medicine, Physician [address] [place], [place] 663181 Social History Tobacco Use Types Packs/Day Years [...] on filedocumented in this encounter Care Teams Joinery Patternmaker Relationship Specialty Start Date End Date Caroline Bray MD [address] [place] [address] PCP - General Pediatrics 11/10/22 01/12/23 documented as of this encounter
--- OUTSIDE RECORDS SUMMARY | 2025-01-01 08:07 | XMS_ITS | Encounter Summary ---
Author Organization [facility] Address [address] [place] [address] Phone Care Team Providers Care Mining Captain Name Role Phone Caroline Bray MD Primary Care Provider Encounter Details Date Type Department Care Team (Late st Contact Info) Description 06/02/2013 Documentation [facility] [place] [address] [place], [place] [phone] Family Medicine, Physician [address] [place], [place] 5[address]31 Social History Tobacco Use Types Packs/Day Years [...] on filedocumented in this encounter Care Teams Mining Captain Relationship Specialty Start Date End Date Caroline Bray MD [address] [place] [address] PCP - General Pediatrics 11/10/22 01/12/23 documented as of this encounter
--- OUTSIDE RECORDS SUMMARY | 2025-01-01 08:07 | XMS_ITS | Encounter Summary ---
Author Organization [facility] Address 100 [facility] [address] [place] [address] Phone Care Team Providers Care Warehouse Loader Name Role Phone Caroline Bray MD Primary Care Provider [phone] [phone] Encounter Details Date Type Department Care Team ([facility] st Contact Info) Description 06/01/2022 Office Communication [facility] 123 [facility] [address] [place] [address] Neela Barakat MA Social History Tobacco Use [...] Doppler and Arous Wednesday 11:30 am in [place] documented in this encounter Plan of Treatment Not on file documented as of this encounter Visit Diagnoses Not on filedocumented in this encounter Care Teams Warehouse Loader Relationship Specialty Start Date End Date Caroline Bray MD [address] [place] [address] [place] [address] PCP - General Pediatrics 12/31/20 documented as of this encounter
--- OUTSIDE RECORDS SUMMARY | 2025-01-01 08:07 | XMS_ITS | Encounter Summary ---
Author Organization [facility] Address [address] [facility] [address] [place] [address] Phone Care Team Providers Care Promotions Firm Accounts Manager Name Role Phone Caroline Bray MD Primary Care Provider [phone] [phone] Encounter Details Date Type Department Care Team (Late st Contact Info) Description 10/02/2022 Office Communication [facility] 123 [facility] [address] [place] [phone] Emily Evangelista Social History Tobacco Use Types [...] on filedocumented in this encounter Care Teams Promotions Firm Accounts Manager Relationship Specialty Start Date End Date Caroline Bray MD [address] [place] [address] EUGEN[place] Fritz [address] PCP - General Pediatrics 12/31/20 documented as of this encounter
--- OUTSIDE RECORDS SUMMARY | 2025-01-01 08:07 | XMS_ITS | Encounter Summary ---
Author Organization [facility] Address [address] [place] [address] Phone Care Team Providers Care Detector Car Operator Name Role Phone Caroline Bray MD Primary Care Provider [phone] [phone] Encounter Details Date Type Department Care Team (Late st Contact Info) Description 06/10/2022 Documentation Only [address] [address] Qing Rodriguez MD Social History [...] on filedocumented in this encounter Care Teams Detector Car Operator Relationship Specialty Start Date End Date Caroline Bray MD [address] [place] [address] [place] [address] PCP - General Pediatrics 12/31/20 documented as of this encounter
--- OUTSIDE RECORDS SUMMARY | 2025-01-01 08:07 | XMS_ITS | Encounter Summary ---
Author Organization [facility] Address [address] [place] [phone] Phone Care Team Providers Care Wildlife And Game Protector Name Role Phone Caroline Bray MD Primary Care Provider [phone] [phone] Encounter Details Date Type Department Care Team (Late st Contact Info) Description 06/10/2022 Documentation Only [address] [address] Qing Rodriguez MD Social History [...] on filedocumented in this encounter Care Teams Wildlife And Game Protector Relationship Specialty Start Date End Date Caroline Bray MD [address] [place] [address] [place] [address] PCP - General Pediatrics 12/31/20 documented as of this encounter
--- OUTSIDE RECORDS SUMMARY | 2025-01-01 08:08 | XMS_ITS | Encounter Summary ---
Author Organization [facility] Address [address] [place] [address] Phone Care Team Providers Care Rn Or Lpn Name Role Phone Caroline Bray MD Primary Care Provider Encounter Details Date Type Department Care Team (Late st Contact Info) Description 02/15/2015 Documentation [facility] [place] [place] [address] [place] [address] Family Medicine, Physician [address] [place], [place] [address] Social History Tobacco Use Types Packs/Day Years [...] on filedocumented in this encounter Care Teams Rn Or Lpn Relationship Specialty Start Date End Date Caroline Bray MD [address] [place] [address] PCP - General Pediatrics 11/10/22 01/12/23 documented as of this encounter
--- OUTSIDE RECORDS SUMMARY | 2025-01-01 08:08 | XMS_ITS | Encounter Summary ---
Author Organization [facility] Address [address] [place] [address] Phone Care Team Providers Care Legal Arbitrator Name Role Phone Caroline Bray MD Primary Care Provider [phone] Encounter Details Date Type Department Care Team (Late st Contact Info) Description 12/06/2014 Documentation [facility] [place] Family Medicine [address] [place] [address] Family Medicine, Physician [address] [place], [place] [address] Social History Tobacco Use Types Packs/Day Years [...] on filedocumented in this encounter Care Teams Legal Arbitrator Relationship Specialty Start Date End Date Caroline Bray MD [address] [place] [address] PCP - General Pediatrics 11/10/22 01/12/23 documented as of this encounter
--- OUTSIDE RECORDS SUMMARY | 2025-01-01 08:08 | XMS_ITS | Encounter Summary ---
Author Organization [facility] Address [address] [place] [address] Phone Care Team Providers Care Industrial Equipment Wirer Name Role Phone Caroline Bray MD Primary Care Provider Encounter Details Date Type Department Care Team (Late st Contact Info) Description 04/27/2016 Documentation [facility] [place] [address] [place] [address] Family Medicine, Physician [address] [place], [place] [address] Social History Tobacco Use Types Packs/Day Years [...] on filedocumented in this encounter Care Teams Industrial Equipment Wirer Relationship Specialty Start Date End Date Caroline Bray MD [address] [place] [address] PCP - General Pediatrics 11/10/22 01/12/23 documented as of this encounter
--- OUTSIDE RECORDS SUMMARY | 2025-01-01 08:08 | XMS_ITS | Encounter Summary ---
Author Organization [facility] Address [address] [place] [address] Phone Care Team Providers Care Stabilizing Machine Operator Name Role Phone Caroline Bray MD Primary Care Provider Encounter Details Date Type Department Care Team (Late st Contact Info) Description 08/07/2016 Documentation [facility] [place] Family Medicine [address] [place] [address] Family Medicine, Physician [address] [place], [place] [address]37[address] Social History Tobacco Use Types Packs/Day Years [...] on filedocumented in this encounter Care Teams Stabilizing Machine Operator Relationship Specialty Start Date End Date Caroline Bray MD [address] [place] [address] PCP - General Pediatrics 11/10/22 01/12/23 documented as of this encounter
--- OUTSIDE RECORDS SUMMARY | 2025-01-01 08:08 | XMS_ITS | Encounter Summary ---
Author Organization [facility] Address [address] [place] [address] Phone Care Team Providers Care Merchandise Carrier Name Role Phone Caroline Bray MD Primary Care Provider [phone] Encounter Details Date Type Department Care Team (Late st Contact Info) Description 09/26/2014 Documentation [facility] [place] Family Medicine [address] [place] [address] Family Medicine, Physician [address] [place], [place] 8824[address] Social History Tobacco Use Types Packs/Day Years [...] on filedocumented in this encounter Care Teams Merchandise Carrier Relationship Specialty Start Date End Date Caroline Bray MD [address] [place] [address] PCP - General Pediatrics 11/10/22 01/12/23 documented as of this encounter
--- OUTSIDE RECORDS SUMMARY | 2025-01-01 08:08 | XMS_ITS | Encounter Summary ---
Author Organization [facility] Address [address] [place] [address] Phone Care Team Providers Care Utility Spray Operator Name Role Phone Caroline Bray MD Primary Care Provider [phone] Encounter Details Date Type Department Care Team (Late st Contact Info) Description 05/22/2016 Documentation [facility] [place] [address] [place] [address] Family Medicine, Physician [address] [place], [place] [address] Social History Tobacco Use Types Packs/Day Years [...] on filedocumented in this encounter Care Teams Utility Spray Operator Relationship Specialty Start Date End Date Caroline Bray MD [address] [place] [address] PCP - General Pediatrics 11/10/22 01/12/23 documented as of this encounter
--- OUTSIDE RECORDS SUMMARY | 2025-01-01 08:08 | XMS_ITS | Encounter Summary ---
Author Organization [facility] Address [address] [place] [address] Phone Care Team Providers Care Helicopter Engineer Name Role Phone Caroline Bray MD Primary Care Provider Encounter Details Date Type Department Care Team (Late st Contact Info) Description 11/04/2015 Documentation [facility] [place] [address] [place] [address] Family Medicine, Physician [address] [place], [place] [address] Social History Tobacco Use Types Packs/Day Years [...] on filedocumented in this encounter Care Teams Helicopter Engineer Relationship Specialty Start Date End Date Caroline Bray MD [address] [place] [address] PCP - General Pediatrics 11/10/22 01/12/23 documented as of this encounter
== END ==
LOC: HO.NUCMED 07:59
PROVIDERS: PCP Internal Medicine; Visit Provider Internal Medicine Gastroenterology
DX: K31.84 Gastroparesis (principal)
CPT/HCPCS: 78264; A9541

== ENCOUNTER → 2025-01-01 08:00 | Outpatient (BNV) | payer OTHER, SELFPAY | PROVIDERS: PCP Internal Medicine; Visit Provider Radiology Diagnostic Radiology | DX: K31.84 Gastroparesis (principal) | CPT/HCPCS: 78264 ==

== ENCOUNTER 2025-01-08 07:16 | Outpatient (AMB) | payer OTHER, SELFPAY ==
--- NOTE | 2025-01-08 07:20 | A.OFFVIS_ITS ---
Vital Signs 01/08/25 07:21 Height 5 ft 3 in Weight 138 lb 14.259 oz BMI 24.6 BP 113/77 Blood Pressure Location Lt brachial Position Sitting Pulse 64 Intake Visit Reasons: 2m Intake Note: Zaynab presents in the office as a 2 month follow up. CC: She states that she is not having any concerns at this time. Afternoon Babysitter Required: No Allergies No Known Allergies Allergy (Verified 01/08/25 07:23) Medication List - Last Reconciled 01/08/25 by Jass Fung MD cholecalciferol (vitamin D3) 250 mcg PO 2XW 90 days famotidine 20 mg PO BEDTIME 30 days metoclopramide HCl 10 mg PO Q8H 90 days promethazine 12.5 mg PO Q6H PRN 30 days sumatriptan succinate 50 - 100 mg orally at onset of headache, may repeat in 2 hrs PRN; max 2 tabs per day or 4 tabs/week (may take with Tylenol) 30 days Ventolin HFA 90 mcg/actuation (albuterol sulfate) 2 puffs inhalation Q6H PRN 30 days NS HPI HPI 2m: Details: GI CLINIC VISIT FOR THIS 24-YEAR-OLD FEMALE FOR FU OF IDIOPATHIC GASTROPARESIS ASSOCIATED WITH NAUSEA VOMITING DIARRHEA AND ABDOMINAL PAIN. Pt has a history of nutcracker syndrome,? 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 TODAY'S VISIT: Doing OK GES results were reviewed - normal Notes nausea (when she wakes up in the morning) here and there and not as bad as it used to be Sometimes has nausea after eating which goes away after 20 min. Takes one meal a day - dinner. Able to take only 1/2 of a protein shake and feels full - advised to drink at least protein shake during the day. 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 Takes Marijuana 1-2 times a month and denies taking it daily PAST VISITS: Patient complains of abdominal bloating and nauseas. Cramping is not as bad - having a lot of nausea 10/03/24 Seen by Vascular surgery and had a venogram with insertion of filers and coils into the vein Does not have much of an appetite and ends up throwing up afterwards Has been eating really light. Switches to liquid diet when she notices increased nausea Scheduled for a CT scan next week and a FU with Vascular Surgery (Dr Morejon in [place]) Having nausea and bloating over the past 2 weeks Has to stop eating in the middle of her meal due to nausea. Wt has been stable Has gained 10 lbs over the past 6 months Has been having abd cramping since end of Feb/early Mar She had a heavy period which was followed by lower abd/pelvic pain. States test was negative Cramps can be bad and can get bad pain in the pelvis and bottom of the belly. Can be sitting, standing or walking around. Pain lasts a few min and then goes away and comes back later Lying down does not help the pain. Nausea is not as bad - can occur after eating and is less frequent. Pain id bad a few days before her periods, gets worse with her periods. Last period was late and light and spotty. Usually has nausea when she wakes up and takes Promethazine Occasionally has nausea lasting the entire day Still tries to eat even if she is not hungry. Taking regular diet and blendarized diet depending on how she feels Taking metoclopramide twice a day since she does not have breakfast. Wt has been stable Denies constipation or diarrhea. Last few weeks has not had a good appetite Belly feels sore if she is lying on the back Feels better if she curls up in a ball Wakes up with abd pain if she is lying on her back. Hard to sleep on the side since her hips lock up Pt scheduled for an urgent FU appt since she called with symptoms of nausea and vomiting: patient called to report she is experiencing nausea, about two episodes of vomiting daily for the last week as well as abdominal pain and red bloody mucus in her stools. Patient reports she has noted a decrease in her appetite. patient denies fever or chills. I advised patient that I would send a message to you to advise but that it will be likely that she will need to go to the ED for furthe eval as you do not have any availability soon. please advise feels Ok - about the same Nausea is not as bad - still has nausea in the morning and does not eat till 1-2 pm Denies recent vomiting Taking metoclopramide three times a day before meals Has a bad cough with phlegm and acid for the past month Saw her PCP and prescribed antibiotics - cough has not improved - gotton worse EGD and flex sig results reviewed with the patient She was feeling better after the EGD. Has been feeling nauseous for the last few days after eating. Taking metoclopramide three times a day and has been helping. Certain days she has nausea and vomiting after eating. Eats a lot of rice, bread and cracker. Has been trying to do smoothies. Does not eat breakfast in the am. Has nausea and gagging when she wakes up Eats lunch and dinner. Intermittent reflux symptoms Planning to have a Thanksgiving with her friends and separate dinner at her Mom's Noted nausea and vomiting and abdominal pain since last week Thought she had a stomach bug usually upto 2 episodes a day Feels a knot in her stomach and then food comes up Not always related to eating. Has a cramping feeling after eating. Also has diarrhea with 2-3 BMs a day. Intermittent dysphagia to liquids. Taking Metoclopramide twice a day and nausea medication prn Nausea medication works in 15 to 20 min if she takes it early enough Patient follow up of gastroparesis. Difficult to keep anything down for the past week Any time she eats anything and has post prandial vomiting Does not eat big meals - takes rice, beans and pasta Patient denies any GI issues. Appetite has improved with medications. Still has intermittent right lower abd cramps. Can wake up from sleep because of abdominal pain. Has been doing ok. Medication is helping - makes her feel drowsy - feels like a Zombie. Has cramps and feels sick in the morning. Has upset stomach if she eats breakfast. Has a small lunch. Continues to have RLQ pain and diarrhea 1-2 times a day with watery stools with mucous and no blood. Has gained some wt after thansgiving. Had surgery in June at [facility] in [place] and everything was ok Was not eating much for 3-4 months after the surgery. Once her appetite came back and she started eating more, she started feeling sick Bad cramps in the lower portion of the stomach - feels worse after taking breakfast Has been skipping breakfast. Has been trying to eat small portions. Some days she tries to eat and had to spit it back out due to nausea or smell of food. Lost a lot of wt after the surgery.? Started gaining the wt back 2 months ago. Denies dysphagia or change in BMs. Started feeling sick again Taking Promethazine every other day with partial control of nausea Continues to have nausea sometimes after she eats. Diagnosed with left renal vein stenosis and being scheduled for left renal vein stent placement at [facility] by Dr Del Real Did not have stent placed - additinal contrast studies are planned And possible surgery Abd pain is attributed to above. Notes nausea when she wakes up in the morning and goes away in 1-2 hrs. Does not have an appetite - feels full until dinner. Feels sick if she forces herself to eat. A GES at [facility] 1-2 yrs ago was normal. Feeling about the same. Hurts a lot when her bladder feels full before she has to use the bathroom. The pain goes away and it feels sore to touch in the lower stomach area. Denies pain with BMs. Denies having any diarrhea - has a formed BM 2-3 times a day Has not been feeling as nauseous lately and takes Seeing a Corporate Logistics Manager and being referred to a urologist. Started having abdominal pain at age 15 yrs. Pain is left sided and radiates to the lower abdomen - sometimes radiates to the back. Feels like bad cramping and hurts to walk. Unable to identify precipitating factors - sometimes after eating - no clear precipitating foods. Can have pain when she is hungry. No clear relieving factors - tries to lay down and relax. Notes nausea after eating - no vomiting. Has 3-4 BMs a day without loose or hard stools. Can have diarrhea once every couple of weeks - lasts for a day and resolves spontaneously. Notes mucous in the stool and denies rectal bleeding. Eats once a day - takes a couple of bites and feels full after. Patient denies symptoms of heartburn, dysphagia, change in appetite or weight.? Denies recent change in bowel habits, constipation, diarrhea, black stools or rectal bleeding. Wt loss of 30 lbs - lost in Feb 2020 and has not been able to gain it back. Gains a few lbs and then looses wt again. Has a Depo shot every 3 months - does not have a period just intermittent spotting Notes pain in knees and hips - played soccer and soft ball. Denies mouth ulcers or eye problems. Tried different diets in the past - without a change in symptoms. Taking rice, beans and chicken at present. Tried Omeprazole and Pepcid and was not helpful Patient denies major cardiac or pulmonary problems, loud snoring or sleep apnea Denies problems with anesthesia in the past. Denies being on chronic anticoagulation, aspirin or NSAIDS. Mom had H Pylori - has similar symptoms as the patient - takes Omeprazole and feels fine. Patient denies known family history of colon polyps, colon cancer or other GI malignancies. Paternal GM of stomach cancer. Works for [employer]. Lives with Mom and has no?children IMAGING STUDIES:?05/02/21 GASTRIC EMPTYING STUDY SHOWED: Retention in the stomach at each time interval was: 1 hour 79% (normal 37%-90%) 2 hours 69% (normal 30%-60%) 3 hours 50% 4 hours 35% (normal 0%-10%) 02/2021 ABD US WITH DOPPLER SHOWED:Normal appearing kidneys. Findings are rodriguez ggestive of nut crackersyndrome, similar to the CT scan with narrowing of the renal veinbetween the aorta and SMA. In the area of stenosis, velocityacceleration is seen as described above. 12/2020 UGISBFT SHOWED:No definite jejunal or ileal mucosal abnormality with limited evaluation of the terminal ileum.Rapid transit of contrast to the colon without need for delayed imaging. 09/06/[address] SCAN SHOWED:Small, small bowel mesentery lymph nodes. No enlarged lymph nodes seen. 2 x 3 cm right adnexal cyst. Question of cracker syndrome of the left renal vein.ENDOSCOPIC STUDIES: 12/25/22 EGS AND FLEX SIG SHOWED: STOMACH: Mild antral gastritis. Pyloric balloon dilation was performed with a 19 mm (57 F) CRE balloon x 60 seconds. Botox (100 Units) was injected into the pylorus (25 units in each quadrant) DUODENUM: Normal - biopsied to check for celiac sprue Flexible sigmoidoscopy Findings: Minimal rectal erythema - likely due to prep - biopsies were obtained to check for IBD BIOPSIES SHOWED: A. Stomach, antrum, biopsy: Gastric antral mucosa with mild chronic inactive gastritis; negative for Helicobacter pylori, intestinal metaplasia and dysplasia. B. Small bowel, biopsy: Small bowel mucosa within normal limits; preserved villous architecture and no increased intraepithelial lymphocytes seen. C. Colon, left, biopsy: Colonic mucosa within normal limits; negative for active, chronic or microscopic colitis 09/16/22 CAPSULE ENDOSCOPY SHOWED: esophagus was normal. nodular appearing stomach mucosa in proximal stomach, rest of mucosa was normal. Some delay of capsule into duodneum, with some erythema in bulb. Patchy erythema in mid and distal ileum with some congestion. Cecum not reached Conclusion: Nodular gastric mucosa possible gastroparesis patchy ileal erythema and erythema of duodenal bulb consider further work up with CTe or GES if clinical suspicion of gastroparesis check nsaid hx use check h pylori PFSH Medical History Pelvic congestion syndrome Gastritis Asthma GERD (gastroesophageal reflux disease) Vitamin D deficiency Migraine without aura Nutcracker phenomenon of renal vein Surgical History Hx of abdominal surgery History of esophagogastroduodenoscopy (EGD) Hx of colonoscopy Family History (Updated 01/08/25 @ 07:23 by EMORY Alcantar) Paternal Grandmother Stomach cancer Family/Other Substance use disorder Mental health disorder Paternal Uncle Colon cancer Social History Household Members Other:: lives with mom Housing: House Alcohol intake: current Alcohol intake frequency: holidays/special occasions only Patient Tobacco Use Status: Never used Tobacco e-Cigarette/Vaping Use: Never Used Second Hand Smoke Exposure: No Substance Use Type: Marijuana service: No Current occupational status: employed 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 Cognitive needs: No Hearing needs: No Vision needs: No Female Reproductive History Menstrual Age of Menarche: 16 Review of Systems Const All systems reviewed & are unremarkable except as noted in HPI and below Physical Exam Vital Signs: Last Vital Signs Pulse 64 01/08/25 07:21 BP 113/77 01/08/25 07:21 BMI result Body Mass Index 24.6 Const General: healthy appearing and no acute distress Nutritional Appearance: average body habitus Orientation/consciousness: patient oriented x3 Limitations: no limitations HEENT Head: Yes normal to inspection Ears: hearing grossly normal bilaterally Eyes Sclerae: sclerae normal Pupils: Equal, round and reactive pupils present Neck Neck: Yes normal visual inspection Chest Chest palpation & inspection: normal inspection of the chest Resp Effort & Inspection: normal respiratory effort Auscultation: clear to auscultation bilaterally Cardio Palpation: normal PMI Rate: regular rate Rhythm: regular rhythm Heart sounds: S1 normal heart sound present, S2 normal heart sound present and no murmurs GI Palpation (GI): Soft to palpation, nontender and No hepatosplenomegaly present Auscultation: normal bowel sounds Rectal Exam - Female: deferred Skin General skin exam: no rashes or lesions noted Neuro General: patient oriented x3, gait normal and moves all extremities Cranial nerves: Yes Equal, round and reactive pupils present Psych Appearance: grossly normal Mental Status: mental status grossly normal Assessment & Plan Assessment & Plan (1) Gastroparesis: Code(s): K31.84 - Gastroparesis Category: Medical (2) GERD (gastroesophageal reflux disease): Code(s): K21.9 - Gastro-esophageal reflux disease without esophagitis Category: Medical (3) Abdominal pain: Code(s): R10.9 - Unspecified abdominal pain Category: Medical (4) Chronic diarrhea: Code(s): K52.9 - Noninfective gastroenteritis and colitis, unspecified Category: Medical Plan 24 YF with depression followed in GI for abdominal pain, nausea, vomiting and chronic diarrhea. 04/2016 EGD and Colonoscopy performed at [facility] were normal with chronic gastritis on stomach biopsies. 09/2017 EGD was normal with normal biopsies from esophagus stomach and duodenum. ? 08/[address] scan showed?small, small bowel mesentery lymph nodes. No enlarged lymph nodes seen. 2 x 3 cm right adnexal cyst. Question of cracker syndrome of the left renal vein. UGI with SBFT was normal. Celiac and IBD serologies were negative and fecal calprotectin was not approved by her insurance GES showed gastroparesis.? Patient handout on gastroparesis from up-to-date was given to the patient Pt advised dietary modification for gastroparesis and start Metoclopramide 5 mg three times daily for gastroparesis on her previous visit. Advised to decrease Metoclopramide to 1-2 times daily due to drowsiness Continue promethazine for nausea and dicyclomine at bedtime for abdominal pain. 05/14/22 Pt advised to schedule a Capsule Study (with patency test) to rule out Crohn's disease (intermittent RLQ pain which can wake her up at night and diarrhea) 08/2022 Capsule Study showed: Nodular gastric mucosa possible gastroparesis patchy ileal erythema and erythema of duodenal bulb consider further work up with CTe or GES if clinical suspicion of gastroparesis check nsaid hx use check h pylori 10/08/22 Pt advised to go on a liquid diet x 24 hours and then blenderized food until nausea and vomiting resolves Continue Metoclopramide 5 mg twice a day Switch from promethazine to prochlorperazine for nausea and vomting Re submit stool for fecal calprotectin 12/24/22 Pt advised to schedule an EGD and flex sig - done 12/25/22 Increase Metoclopramide to three times a day (instead of twice daily) 01/14/23 Pt advised a trail of blendarized diet and start Omeprazole at bedtime for GERD (Increase to twice daily if symptoms persist after a week) 02/25/23 Pt advised to take Famotidine 20 mg at bedtime for nocturnal cough (suspected GERD) 04/06/24 Advised Pelvic US for evaluation of lower abd/pelvic pain On 04/28/24 @ 18:57 Jass Fung Wrote To Stephanie Mai Pt called and US results were reviewed with her: 1. Normal uterus, endometrium, and bilateral ovaries. 2. Mildly dilated vasculature in the adnexal regions and periphery of the uterus, nonspecific but can be associated with pelvic congestion syndrome. 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 Forwarding US report to Stephanie Mai and pt was advised to schedule a FU appt with her Per Stephanie Mai: Patient is interested in having a consult with Interventional Radiology and has a provider she saw who treated her nutcracker syndrome through Radiology ablation. ([facility] in [place]) 07/31/24 Advised to take smaller meals and Ondansetron prn for nausea 11/02/24 Pt advised to schedule a GES to FU on gastroparesis She would like to switch back to Metoclopramide tab instead of liquid Resume promethazine 12.5 mg q.6 hourly p.r.n. for nausea. 01/08/25 GES results were reviewed - normal Able to take only 1/2 of a protein shake and feels full - advised to drink at least protein shake during the day. Takes Famotidine intermittently and advised to take it every day Continue metoclopramide daily and promethazine p.r.n. FU in 6 months Coding Level of Care Code Est Pt Level 3 (03785) Diagnoses Gastroparesis K31.84 GERD (gastroesophageal reflux disease) K21.9 Abdominal pain R10.9 Chronic diarrhea K52.9 Time Spent (min) 21
--- OUTSIDE RECORDS SUMMARY | 2025-01-08 07:20 | XMS_ITS | Encounter Summary ---
Author Organization [facility] Address [address] [place] [address] Phone Care Team Providers Care Transition Assistant Name Role Phone Caroline Bray MD Primary Care Provider Encounter Details Date Type Department Care Team (Late st Contact Info) Description 08/15/2014 Documentation [facility] [place] [address] [place] [address] Family Medicine, Physician [address] [place], [place] [address]65[address] Social History Tobacco Use Types Packs/Day Years [...] on filedocumented in this encounter Care Teams Transition Assistant Relationship Specialty Start Date End Date Caroline Bray MD [address] [place] [address] PCP - General Pediatrics 11/10/22 01/12/23 documented as of this encounter
--- OUTSIDE RECORDS SUMMARY | 2025-01-08 07:20 | XMS_ITS | Encounter Summary ---
Author Organization [facility] Address [address] [place] [address] Phone Care Team Providers Care Procedures Analyst Name Role Phone Caroline Bray MD Primary Care Provider [phone] Encounter Details Date Type Department Care Team (Late st Contact Info) Description 10/01/2016 Documentation [facility] Family Medicine [address] [place] [address] Family Medicine, Physician [address] [place], [place] 400351 Social History Tobacco Use Types Packs/Day Years [...] on filedocumented in this encounter Care Teams Procedures Analyst Relationship Specialty Start Date End Date Caroline Bray MD [address] [place] [address] PCP - General Pediatrics 11/10/22 01/12/23 documented as of this encounter
--- OUTSIDE RECORDS SUMMARY | 2025-01-08 07:20 | XMS_ITS | Encounter Summary ---
Author Organization [facility] Address [address] [place] [address] Phone Care Team Providers Care Dampener Name Role Phone Caroline Bray MD Primary Care Provider Encounter Details Date Type Department Care Team (Late st Contact Info) Description 08/07/2016 Documentation [facility] [place] [address] [place] [address] Family Medicine, Physician [address] [place], [place] 467261 Social History Tobacco Use Types Packs/Day Years [...] on filedocumented in this encounter Care Teams Dampener Relationship Specialty Start Date End Date Caroline Bray MD [address] [place] [address] PCP - General Pediatrics 11/10/22 01/12/23 documented as of this encounter
--- OUTSIDE RECORDS SUMMARY | 2025-01-08 07:20 | XMS_ITS | Encounter Summary ---
Author Organization [facility] Address [address] [place] [address] Phone Care Team Providers Care Supervisor Nut Processing Name Role Phone Caroline Bray MD Primary Care Provider Encounter Details Date Type Department Care Team (Late st Contact Info) Description 12/06/2014 Documentation [facility] [place] [address] [place] [address] Family Medicine, Physician [address] [place], [place] [address] Social History Tobacco Use Types Packs/Day Years [...] filedocumented in this encounter Care Teams Supervisor Nut Processing Relationship Specialty Start Date End Date Caroline Bray MD [address] [place] [address] PCP - General Pediatrics 11/10/22 01/12/23 documented as of this encounter
--- OUTSIDE RECORDS SUMMARY | 2025-01-08 07:20 | XMS_ITS | Encounter Summary ---
Author Organization [facility] Address [address] [place] [address] Phone Care Team Providers Care Cabinet Mounter Name Role Phone Caroline Bray MD Primary Care Provider Encounter Details Date Type Department Care Team (Late st Contact Info) Description 09/17/2014 Documentation [facility] [place] Family Medicine [address] [place] [address] Family Medicine, Physician [address] [place], [place] [address] Social History Tobacco Use Types Packs/Day Years [...] on filedocumented in this encounter Care Teams Cabinet Mounter Relationship Specialty Start Date End Date Caroline Bray MD [address] [place] [phone] PCP - General Pediatrics 11/10/22 01/12/23 documented as of this encounter
--- OUTSIDE RECORDS SUMMARY | 2025-01-08 07:20 | XMS_ITS | Encounter Summary ---
Author Organization [facility] Address [address] [place] [address] Phone Care Team Providers Care On Awake Counselor Name Role Phone Caroline Bray MD Primary Care Provider Encounter Details Date Type Department Care Team (Late st Contact Info) Description 06/09/2014 Documentation [facility] [place] Family Medicine [address] [place] [address] Family Medicine, Physician [address] [place], [place] [phone] Social History Tobacco Use Types Packs/Day Years [...] on filedocumented in this encounter Care Teams On Awake Counselor Relationship Specialty Start Date End Date Caroline Bray MD [address] [place] [phone] PCP - General Pediatrics 11/10/22 01/12/23 documented as of this encounter
--- OUTSIDE RECORDS SUMMARY | 2025-01-08 07:20 | XMS_ITS | Encounter Summary ---
Author Organization [facility] Address [address] [place] [address] Phone Care Team Providers Care Rotary Rig Engine Operator Name Role Phone Caroline Bray MD Primary Care Provider Encounter Details Date Type Department Care Team (Late st Contact Info) Description 2013 Documentation [facility] [place] Family Medicine [address] [place], [place] [phone] Family Medicine, Physician [address] [place], [place] [address] Social History Tobacco Use Types Packs/Day Years [...] on filedocumented in this encounter Care Teams Rotary Rig Engine Operator Relationship Specialty Start Date End Date Caroline Bray MD [address] [place] [phone] PCP - General Pediatrics 11/10/22 01/12/23 documented as of this encounter
--- OUTSIDE RECORDS SUMMARY | 2025-01-08 07:20 | XMS_ITS | Encounter Summary ---
Author Organization [facility] Address [address] [place] [address] Phone Care Team Providers Care Local Sales Manager Name Role Phone Caroline Bray MD Primary Care Provider Encounter Details Date Type Department Care Team (Late st Contact Info) Description 2013 Documentation [facility] [place] Family Medicine [address] [place], [place] [phone] Family Medicine, Physician [address] [place], [place] [address] Social History Tobacco Use Types Packs/Day Years [...] on filedocumented in this encounter Care Teams Local Sales Manager Relationship Specialty Start Date End Date Caroline Bray MD [address] [place] [phone] PCP - General Pediatrics 11/10/22 01/12/23 documented as of this encounter
--- OUTSIDE RECORDS SUMMARY | 2025-01-08 07:20 | XMS_ITS | Encounter Summary ---
Author Organization [facility] Address [address] [place] [address] Phone Care Team Providers Care Char Belt Operator Name Role Phone Caroline Bray MD Primary Care Provider Encounter Details Date Type Department Care Team (Late st Contact Info) Description 02/15/2015 Documentation [facility] [place] [address] [place] [address] Family Medicine, Physician [address] [place], [place] [phone] Social History Tobacco Use Types Packs/Day Years [...] on filedocumented in this encounter Care Teams Char Belt Operator Relationship Specialty Start Date End Date Caroline Bray MD [address] [place] [phone] PCP - General Pediatrics 11/10/22 01/12/23 documented as of this encounter
--- OUTSIDE RECORDS SUMMARY | 2025-01-08 07:20 | XMS_ITS | Encounter Summary ---
Author Organization [facility] Address [address] [place] [address] Phone Care Team Providers Care Informatics Educator Name Role Phone Caroline Bray MD Primary Care Provider Encounter Details Date Type Department Care Team (Late st Contact Info) Description 04/27/2016 Documentation [facility] [place] Family Medicine [address] [place] [address] Family Medicine, Physician [address] [place], [place] [address] Social History Tobacco Use Types Packs/Day Years [...] on filedocumented in this encounter Care Teams Informatics Educator Relationship Specialty Start Date End Date Caroline Bray MD [address] [place] [phone] PCP - General Pediatrics 11/10/22 01/12/23 documented as of this encounter
--- OUTSIDE RECORDS SUMMARY | 2025-01-08 07:20 | XMS_ITS | Encounter Summary ---
Author Organization [facility] Address [address] [place] [address] Phone Care Team Providers Care Jive Developer Name Role Phone Caroline Bray MD Primary Care Provider Encounter Details Date Type Department Care Team (Late st Contact Info) Description 06/02/2013 Documentation [facility] [place] [address] [place], [place] [phone] Family Medicine, Physician [address] [place], [place] [address] Social History Tobacco Use Types Packs/Day Years [...] on filedocumented in this encounter Care Teams Jive Developer Relationship Specialty Start Date End Date Caroline Bray MD [address] [place] [phone] PCP - General Pediatrics 11/10/22 01/12/23 documented as of this encounter
--- OUTSIDE RECORDS SUMMARY | 2025-01-08 07:20 | XMS_ITS | Encounter Summary ---
Author Organization [facility] Address [address] [place] [address] Phone Care Team Providers Care Brim Pouncing Machine Operator Name Role Phone Caroline Bray MD Primary Care Provider Encounter Details Date Type Department Care Team (Late st Contact Info) Description 09/26/2014 Documentation [facility] [place] Family Medicine [address] [place] [address] Family Medicine, Physician [address] [place], [place] [address] Social History Tobacco Use Types Packs/Day Years [...] on filedocumented in this encounter Care Teams Brim Pouncing Machine Operator Relationship Specialty Start Date End Date Caroline Bray MD [address] [place] [phone] PCP - General Pediatrics 11/10/22 01/12/23 documented as of this encounter
--- OUTSIDE RECORDS SUMMARY | 2025-01-08 07:20 | XMS_ITS | Clinical Summary ---
Author Organization [facility] Address [address] [place] [address] Phone Care Team Providers Care Pathology Manager Name Role Phone French Stewart MD Primary Care Provider [phone] Don Del Real MD Unavailable Allergies Active [...] evaluation. She typically receives her imaging at [facility] and I will have our office [...] endoscopies Followed by GI (Dr. Fung) at [facility] Had UGI and SBFT in December that [...] to GI - seeing Dr. 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 [...] EDT Follow-Up [facility] [address] [place] [address] Abimael Morejon MD Pelvic congestion syndrome (Primary [...] Visit [facility] [address] [place] [address] 04/26/2025 9:45 AM EST Follow-Up [facility] [address] [place] [address] Abimael Morejon MD [address] [place] [address] [address] [place] [address] Health Maintenance Due Date Last Done Comments DEPRESSION SCREENING 2013 HPV VACCINES (1 - 3-dose series) 2016 CHLAMYDIA SCREENING 2017 MENINGOCOCCAL VACCINES (B) ( 1 of 2 - Standard) 2017 HEPATITIS C SCREENING 08/26/2019 HIV ONE-TIME SCREENING (18-6 5 YEARS) 08/26/2019 PAP SMEAR 2022 Adult Td,Tdap Booster 09/05/2022 09/05/2012 INFLUENZA VACCINE (#1) 2024 COVID-19 VACCINE ( - 2024-2 6 season) 2024 SMOKING Hx [...] this topic Medical Devices Not on file Insurance [facility] [place] [address] [place] [address] [employer]ALTH [employer]GETHER HEALTH CAREPLUS TOGETHER Molecular BiometricsHEALTH [employer]PLUS TOGETHER Care Teams Pathology Manager Relationship Specialty Start Date End Date French Stewart MD [address] [place] [address] [address] [place] [address] PCP - General Internal Medicine 06/08/24 Don Del Real MD [address] [place] [address] [place] [address] Nephrology 10/19/24 Additional Source Comments The information contained in this document represents components of the legal health record. It is not the complete legal health record.[facility]
--- OUTSIDE RECORDS SUMMARY | 2025-01-08 07:20 | XMS_ITS | Encounter Summary ---
Author Organization [facility] Address [address] [place] [address] Phone Care Team Providers Care Farmworker Fruit Name Role Phone Caroline Bray MD Primary Care Provider Encounter Details Date Type Department Care Team (Late st Contact Info) Description 10/29/2016 Conversion Encounter [facility] [address] [place] [address] Social History Tobacco Use Types Packs/Day Years [...] on filedocumented in this encounter Care Teams Farmworker Fruit Relationship Specialty Start Date End Date Caroline Bray MD [address] [place] [address] PCP - General Pediatrics 11/10/22 01/12/23 documented as of this encounter
--- OUTSIDE RECORDS SUMMARY | 2025-01-08 07:20 | XMS_ITS | Clinical Summary ---
Author Organization [facility] Address [address] [place] [address] Phone Care Team Providers Care Ovens Supervisor Name Role Phone Unavailable Primary Care [...] endoscopies Followed by GI (Dr. Fung) [place] [facility] Had UGI and SBFT in December that [...] to GI - seeing Dr. Fung [place] [facility]; gastric emptying study ordered (2021) Assessment & [...] Type Department Care Team Description 12/01/2024 Telephone [facility] [address] [place] [address] Kirstin Mckinnon MD medical records [...] Alive Father's Sister Maternal Grandmother Mother Candy Frnaks Alive Paternal Grandmother Sister Annita Chauhan Alive [...] Additional history exists Procedures * Due to [facility] law, this organization might not be sharing sensitive test results. Procedure Name Priority Date/Time Associated Diagnosis Comments CHLAMYDIA AND GONORRHEA, AMPLIFIED Routine 12/17/2021 9:47 AM EDT Special screening examination for chlamydial disease from Last 3 Months or Most Recently Relevant to Health Maintenance Results * Due to [place] [address] law, this organization might not be sharing sensitive test results. * Chlamydia and Gonorrhoea, Amplified (12/17/2021 9:47 AM EDT) Chlamydia Trachomatis, DNA Probe NEGATIVE (NEG) [facility] Comment: No Chlamydia Trachomatis RNA detected in this patient's sample (REFERENCE RANGE/NORMAL VALUE: NOT DETECTED) Note: This test uses bow tacker- mediated amplification method to detect rRNA from C. Trachomatis URINE GC AMP PROBE NEGATIVE (NEG) [facility] Comment: No Neisseria Gonorrhoeae RNA detected in this patient's sample (REFERENCE RANGE/NORMAL VALUE: NOT DETECTED) NOTE: This test uses bow tacker-mediated amplification method to detect rRNA from N.Gonorrhoeae. [...] without risk of sexual abuse. Consult the [facility] if needed. Contact phone number . Therapeutic failure or success cannot be determined with the Aptima Combo2 assay since nucleic acid may persist following appropriate antimicrobial therapy. The Centers for Disease Control and Prevention (CDC) recommends confirmatory retesting using culture or a different nucleic acid amplification test when positive results occur, if indicated. Testing performed or reported by [facility], a Service of [facility], [address] [place] [address] Zaki Quezada MD, Dairy Husbandry Teacher [facility]# [id number] Urine (Urine) 12/17/2021 9:4 7 AM EDT 12/17/2021 4:44 PM EDT us Caroline Bray MD LAB MICROBIOLOGY - GENERAL ORDERABLES Final Result [facility] from Last 3 Months or Most Recently Relevant to Health Maintenance Insurance [facility] NON PCC [facility] [id number]
--- OUTSIDE RECORDS SUMMARY | 2025-01-08 07:20 | XMS_ITS | Encounter Summary ---
Author Organization [facility] Address [address] [place] [address] Phone Care Team Providers Care Assistant Passenger Locomotive Engineer Name Role Phone Caroline Bray MD Primary Care Provider Encounter Details Date Type Department Care Team (Late st Contact Info) Description 11/04/2015 Documentation [facility] [place] [address] [place] [address] Family Medicine, Physician [address] [place], [place] [id number] Social History Tobacco Use Types Packs/Day Years [...] on filedocumented in this encounter Care Teams Assistant Passenger Locomotive Engineer Relationship Specialty Start Date End Date Caroline Bray MD [address] [place] [id number] PCP - General Pediatrics 11/10/22 01/12/23 documented as of this encounter
--- OUTSIDE RECORDS SUMMARY | 2025-01-08 07:20 | XMS_ITS | Encounter Summary ---
Author Organization [facility] Address [address] [place] [address] Phone Care Team Providers Care Pipefitter Name Role Phone Caroline Bray MD Primary Care Provider Encounter Details Date Type Department Care Team (Late st Contact Info) Description 09/10/2011 Documentation [facility] Family Medicine [address] [place] [address] Family Medicine, Physician [address] [place], [place] [address] Social History Tobacco Use Types Packs/Day Years [...] on filedocumented in this encounter Care Teams Pipefitter Relationship Specialty Start Date End Date Caroline Bray MD [address] [place] [id number] PCP - General Pediatrics 11/10/22 01/12/23 documented as of this encounter
--- OUTSIDE RECORDS SUMMARY | 2025-01-08 07:20 | XMS_ITS | Encounter Summary ---
Author Organization [facility] Address [address] [place] [address] Phone Care Team Providers Care Tray Casting Machine Operator Name Role Phone Caroline Bray MD Primary Care Provider Encounter Details Date Type Department Care Team (Late st Contact Info) Description 05/22/2016 Documentation [facility] Family Medicine [address] [place] [address] Family Medicine, Physician [address] [place], [place] [address] Social History Tobacco Use Types Packs/Day Years [...] on filedocumented in this encounter Care Teams Tray Casting Machine Operator Relationship Specialty Start Date End Date Caroline Bray MD [address] [place] [id number] PCP - General Pediatrics 11/10/22 01/12/23 documented as of this encounter
--- OUTSIDE RECORDS SUMMARY | 2025-01-08 07:20 | XMS_ITS | Encounter Summary ---
Author Organization [facility] Address [address] [place] [address] Phone Care Team Providers Care Auto Garage Attendant Name Role Phone Caroline Bray MD Primary Care Provider Encounter Details Date Type Department Care Team (Late st Contact Info) Description 09/25/2014 Documentation [facility] [place] Family Medicine [address] [place] [address] Family Medicine, Physician [address] [place], [place] [address]451 Social History Tobacco Use Types Packs/Day Years [...] on filedocumented in this encounter Care Teams Auto Garage Attendant Relationship Specialty Start Date End Date Caroline Bray MD [address] [place] [phone] PCP - General Pediatrics 11/10/22 01/12/23 documented as of this encounter
[2025-01-08 07:21] VITALS: BP 113/77; PULSE 64; BMI 24.6
== END 2025-01-08 07:48 | disposition home or self-care (01) ==
LOC: HO.HGI 07:17
PROVIDERS: PCP Internal Medicine; Visit Provider Internal Medicine Gastroenterology
DX: K31.84 Gastroparesis (principal); K21.9 Gastro-esophageal reflux disease without esophagitis; R10.9 Unspecified abdominal pain; K52.9 Noninfective gastroenteritis and colitis, unspecified
CPT/HCPCS: 99213

== ENCOUNTER → 2025-01-08 07:16 | Outpatient (BNVA) | payer OTHER, SELFPAY | PROVIDERS: PCP Internal Medicine; Visit Provider Internal Medicine Gastroenterology | DX: K31.84 Gastroparesis (principal); K21.9 Gastro-esophageal reflux disease without esophagitis; R10.9 Unspecified abdominal pain; K52.9 Noninfective gastroenteritis and colitis, unspecified | CPT/HCPCS: 99212 ==

== ENCOUNTER 2025-01-11 15:25 | Emergency (ER) | payer OTHER, SELFPAY ==
--- NOTE | ~2025-01-11 | US_ITS ---
CLINICAL HISTORY: pelvicv pain US pelvis transabdominal and transvaginal with Doppler Comparison: US/[place]/SR - US PELVIS TRANSABDOMINAL AND TRANSVAGINAL - 04/24/24 15:04 EST Findings: Transabdominal scanning performed for overall anatomy. Transvaginal scanning performed for additional detail. Uterus is 6.7 cm length. Normal myometrium. Endometrium 5.0 mm thickness. Right ovary 2.5 x 1.5 x 1.6 cm. Left ovary 2.5 x 1.5 x 1.8 cm. Normal color Doppler with arterial/venous spectral tracing of both ovaries. No free fluid. IMPRESSION: 1. Normal pelvic ultrasound with Doppler. No evidence of ovarian torsion. This document has been electronically signed by: Brandon Diaz MD on 01/11/2025 20:05:33
--- NOTE | ~2025-01-11 | US_ITS ---
CLINICAL HISTORY: pelvicv pain US pelvis transabdominal and transvaginal with Doppler Comparison: US/[place]/SR - US PELVIS TRANSABDOMINAL AND TRANSVAGINAL - 04/24/24 15:04 EST Findings: Transabdominal scanning performed for overall anatomy. Transvaginal scanning performed for additional detail. Uterus is 6.7 cm length. Normal myometrium. Endometrium 5.0 mm thickness. Right ovary 2.5 x 1.5 x 1.6 cm. Left ovary 2.5 x 1.5 x 1.8 cm. Normal color Doppler with arterial/venous spectral tracing of both ovaries. No free fluid. IMPRESSION: 1. Normal pelvic ultrasound with Doppler. No evidence of ovarian torsion. This document has been electronically signed by: Brandon Diaz MD on 01/11/2025 20:05:33
[2025-01-11 16:04] VITALS: BP 153/104; PULSE 79; RESP 20; TEMP 37; O2SAT 98; BMI 15.8
--- NOTE | 2025-01-11 16:11 | ED_ITS ---
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 Patient states she has had irregular cycles since her procedure. She has never had such intense cramps or heavy bleeding. Yesterday, she was soaking through pads 2-3 times an hour, the bleeding has much improved, the cramping has improved. She did reach out to her manager track who suggested she come into the emergency room for assessment. Denies nausea vomiting, fever. Related Data Previous Rx's ?Medication ?Instructions ?Recorded famotidine 20 mg tablet 20 mg PO BEDTIME 30 days #30 tabs 02/25/23 Ventolin HFA 90 mcg/actuation 2 puff inhalation Q6H DE N 08/16/23 aerosol inhaler (albuterol sulfate) shortness of breat h or wheezing 30 days #18 grams cholecalciferol (vitamin D3) 250 250 mcg PO 2XW 90 day s #26 caps 10/07/23 mcg (10,000 unit) capsule sumatriptan succinate 100 mg tablet 50 - 100 mg (0.5 - 1 x 100 mg) PO 06/02/24 .COMPLEX PRN migraine headache 30 days #12 tabs metoclopramide HCl 10 mg tablet 10 mg PO Q8H 90 days # 270 tabs 11/02/24 promethazine 12.5 mg tablet 12.5 mg PO Q6H PRN for nausea/vomiting 30 days #60 tabs ketorolac 10 mg tablet 10 mg PO Q6H PRN pain #20 ta bs 01/11/25 methocarbamol 750 mg tablet 750 mg PO BID PRN pain, mo derate 01/11/25 #10 tabs Allergies Allergy/AdvReac Type Severity Reaction Status Date / Time No Known Allergies Allergy Verified 01/11/25 16:07 Review of Systems 2 Review of Systems: Yes all other systems are reviewed and are negative Constitutional: Constitutional: Denies fatigue and Denies fever(s) Cardiovascular: Cardiovascular: Denies chest pain and Denies dyspnea Respiratory: Respiratory: Denies dyspnea Gastrointestinal: Gastrointestinal: Denies abdominal pain, Denies nausea and Denies vomiting Genitourinary: Genitourinary: Reports abnormal vaginal bleeding and Reports pelvic pain Endocrine: Endocrine: Denies fatigue PMF Past Medical History Attestation statement: The following information was validated with the patient. Medical History Pelvic congestion syndrome Gastritis Asthma GERD (gastroesophageal reflux disease) Vitamin D deficiency Migraine without aura Nutcracker phenomenon of renal vein Surgical History Hx of abdominal surgery History of esophagogastroduodenoscopy (EGD) Hx of colonoscopy Family History Family History (Updated 01/08/25 @ 07:23 by EMORY Alcantar) Paternal Grandmother Stomach cancer Family/Other Substance use disorder Mental health disorder Paternal Uncle Colon cancer Social History Social History Household Members Other:: lives with mom Housing: House Alcohol intake: current Alcohol intake frequency: holidays/special occasions only Patient Tobacco Use Status: Never used Tobacco Smoked in Last 30 Days: No e-Cigarette/Vaping Use: Never Used Second Hand Smoke Exposure: No Use of substances other than those prescribed or required for medical reasons: Yes Substance Use Type: Marijuana Substance Use Frequency: Occasionally Advance Directives: No Advance Directives Information Provided: No Patient : No service: No Current occupational status: employed 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 Cognitive needs: No Hearing needs: No Vision needs: No Physical Exam ED Vital Signs: Vital Signs - 24 hr 01/11/25 16:04 01/11/25 20:23 Temperature 98.6 F 98 F Pulse Rate 79 86 Respiratory Rate 20 16 Blood Pressure 153/104 H 126/87 Pulse Oximetry 98 99 Oxygen Delivery Method Room Air Room Air BMI result Body Mass Index 15.8 Const Other: Alert well-appearing Orientation/consciousness: patient oriented x3 Resp Effort & Inspection: normal respiratory effort Cardio Other: Normal peripheral perfusion Skin Other: Warm dry no rash Neuro General: patient oriented x3, gait normal, no focal motor deficits and CN's II- XI intact bilaterally Psych Other: Cooperative Course Course Course Narrative: RME: 24-year-old female with history of pelvic left glute suggestion with embolization coils presents to ED for profuse vaginal bleeding. Patient states it is 2nd time this month she is bleeding. 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 Patient states she has had irregular cycles since her procedure. She has never had such intense cramps or heavy bleeding. Yesterday, she was soaking through pads 2-3 times an hour, the bleeding has much improved, the cramping has improved. She did reach out to her manager track who suggested she come into the emergency room for assessment. Denies nausea vomiting, fever. Problem: Pelvic congestion syndrome, irregular cycles History: Per patient I have considered the following differential diagnoses: Dysfunctional uterine bleeding, endometriosis, ectopic, dysmenorrhea, ovarian cyst, Plan: The patient's symptoms have improved, her labs are stable, transvaginal ultrasound already ordered from triage, was unremarkable. We will send with Toradol, a muscle relaxant and she can follow up with Gynecology. Independently reviewed the following tests: Labs: No leukocytosis, not anemic, no electrolyte abnormality, not Transvaginal ultrasound:IMPRESSION: 1. Normal pelvic ultrasound with Doppler. No evidence of ovarian torsion. Differential Diagnosis Differential Diagnoses: The differential diagnosis associated with the presentation includes See medical decision-making Admission/Observation Consideration of admission/observation: Escalation of care including admission/observation considered Not applicable Lab Data [facility] Lab Attestation statement: I reviewed the patient's lab results. 01/11/25 16:29 01/11/25 16:29 Labs: Lab Results 01/11/25 Range/Units 16:29 WBC 5.4 (4.8-10.8) X10*3/uL RBC 4.89 (4.20-5.50) X10*6/uL Hgb 13.8 (12.0-16.0) g/dl Hct 41.0 (37.0-47.0) % MCV 83.8 (80.0-98.0) fL MCH 28.2 (27.0-33.0) pg MCHC 33.7 (31.0-35.0) g/dl RDW 12.8 (11.0-16.0) % Plt Count 203 (160-400) X10*3/uL MPV 11.4 (9.4-12.3) fL Immature Gran % (Auto) 0.2 (0.0-0.4) % Neut % (Auto) 58.5 (45-73) % Lymph % (Auto) 29.0 (20-40) % [place] % (Auto) 9.5 (2-11) % Eos % (Auto) 2.2 (0-4) % Baso % (Auto) 0.6 (0-2) % Lymph # (Auto) 1.6 (1.2-4.9) X10*3/uL [place] # (Auto) 0.5 (0.1-1.2) X10*3/uL Eos # (Auto) 0.1 (0.0-0.4) X10*3/uL Baso # (Auto) 0.0 (0.0-0.2) X10*3/uL Abs Immat Gran (auto) 0.01 (0.00-0.03) X10*3/uL Absolute Neuts (auto) 3.2 (2.0-8.3) x10*3/uL Absolute Nucleated RBC 0.000 (0.0-0.012) X10*3/uL Nucleated RBC % (auto) 0.0 (0.0-0.2) /100WBC PT 11.7 (10.9-12.4) SEC INR 1.0 (0.9-1.1) APTT 28.8 (26.7-34.1) SEC Sodium 140 (135-145) mmol/L Potassium 3.8 (3.3-5.1) mmol/L Chloride 107 (96-108) mmol/L Carbon Dioxide 26 (22-29) mmol/L Anion Gap 11 L (12-20) BUN 11 (9-16) mg/dL Creatinine 0.70 (0.5-1.4) mg/dL Estim Creat Clear Calc 93.2 Estimated GFR > 60 Random Glucose 87 (60-115) mg/dL Calcium 9.2 (8.4-10.2) mg/dL Total Bilirubin 0.7 (0.0-1.0) mg/dL AST 21 (5-31) U/L ALT 11 (0-31) U/L Alkaline Phosphatase 74 (39-117) U/L Total Protein 7.8 (6.5-8.0) g/dL Albumin 5.0 (3.5-5.0) g/dL Beta HCG, Quant < 2 mIU/mL Radiology Impression Discussion of test interpretation with radiology: I have reviewed the radiologist's reading. Discharge Plan Discharge Clinical Impression: Dysfunctional uterine bleeding, Dysmenorrhea Patient Disposition: Home, Self-Care Instructions: Abnormal (Dysfunctional) Uterine Bleeding (ED), Dysmenorrhea (ED) Additional Instructions: All of your screening labs were normal, including your blood counts which were completely normal, you were not . There were no abnormalities on the ultrasound of the uterus. Use the ketorolac to help with discomfort and bleeding, take it with food. Use the methocarbamol for cramping, it we will have some affect on the smooth muscle of your uterus. You need to follow up with your manager track have further discussion about your symptoms. Call tomorrow to schedule an appointment. Prescriptions: New methocarbamol 750 mg tablet 750 mg PO BID PRN (Reason: pain, moderate) Qty: 10 0RF ketorolac 10 mg tablet 10 mg PO Q6H PRN (Reason: pain) Qty: 20 0RF Rx Instructions: maximum total duration of 5 days from all oral, intranasal, or parenteral formulations. The patient received an intramuscular dose of Toradol here in the emergency room No Action sumatriptan succinate 100 mg tablet 50 - 100 mg PO .COMPLEX PRN (Reason: migraine headache) 30 Days Qty: 12 6RF Rx Instructions: 50 - 100 mg orally at onset of headache, may repeat in 2 hrs PRN; max 2 tabs per day or 4 tabs/week (may take with Tylenol) albuterol sulfate [Ventolin HFA] 90 mcg/actuation HFA aerosol inhaler 2 puff inhalation Q6H PRN (Reason: shortness of breath or wheezing) 30 Days Qty: 18 3RF cholecalciferol (vitamin D3) 250 mcg (10,000 unit) capsule 250 mcg PO 2XW 90 Days Qty: 26 1RF metoclopramide HCl 10 mg tablet 10 mg PO Q8H 90 Days Qty: 270 1RF promethazine 12.5 mg tablet 12.5 mg PO Q6H PRN (Reason: for nausea/vomiting) 30 Days Qty: 60 3RF famotidine 20 mg tablet 20 mg PO BEDTIME 30 Days Qty: 30 3RF Stand Alone Forms: Work/School Release Interventions: ED Discharge Assessment Last Done: 01/11/25 20:56 Discharge Date/Time: 01/11/25 20:57 Print Language: [place]
[2025-01-11 16:39] LABS: MANUAL DIFF FLAG NO
[2025-01-11 16:44] LABS: Hematocrit 41.0 % (37.0-47.0); Hemoglobin 13.8 g/dl (12.0-16.0); Imm Gran Abs Auto 0.01 X10*3/uL (0.00-0.03); Imm Gran Pct Auto 0.2 % (0.0-0.4); Lymphocytes Absolute Auto 1.6 X10*3/uL (1.2-4.9); Mean Corpuscular HGB Conc 33.7 g/dl (31.0-35.0); Mean Corpuscular Hemoglobin 28.2 pg (27.0-33.0); Mean Corpuscular Volume 83.8 fL (80.0-98.0); NRBC Abs Auto 0.000 X10*3/uL (0.0-0.012); NRBC Pct Auto 0.0 /100WBC (0.0-0.2); Platelet Count 203 X10*3/uL (160-400); Red Blood Count 4.89 X10*6/uL (4.20-5.50); White Blood Count 5.4 X10*3/uL (4.8-10.8)
[2025-01-11 16:59] LABS: Alanine Aminotransferase 11 U/L (0-31); Albumin Level 5.0 g/dL (3.5-5.0); Alkaline Phosphatase 74 U/L (39-117); Anion Gap 11 (12-20); Aspartate Amino Transferase 21 U/L (5-31); Blood Urea Nitrogen 11 mg/dL (9-16); Calcium 9.2 mg/dL (8.4-10.2); Carbon Dioxide 26 mmol/L (22-29); Chloride 107 mmol/L (96-108); Creatinine Clr Calc Pharmacy 93.2; Estimated Glomerular Filt Rate > 60; Potassium 3.8 mmol/L (3.3-5.1); Sodium 140 mmol/L (135-145); Total Protein 7.8 g/dL (6.5-8.0)
[2025-01-11 17:05] LABS: INTERNATIONAL NORM RATIO 1.0 (0.9-1.1); Prothrombin Time 11.7 SEC (10.9-12.4)
[2025-01-11 17:08] LABS: Partial Thromboplastin Time 28.8 SEC (26.7-34.1)
--- OUTSIDE RECORDS SUMMARY | 2025-01-11 19:53 | XMS_ITS | Encounter Summary ---
Author Organization [facility] Address [address] [place] [address] Phone Care Team Providers Care Forestry Patrolman Name Role Phone Caroline Bray MD Primary Care Provider Encounter Details Date Type Department Care Team (Late st Contact Info) Description 2013 Documentation [facility] [place] Family Medicine [address] [place], [place] [id number] Family Medicine, Physician [address] [place], [place] [id number] Social History Tobacco Use Types Packs/Day Years [...] on filedocumented in this encounter Care Teams Forestry Patrolman Relationship Specialty Start Date End Date Caroline Bray MD [address] [place] [phone] PCP - General Pediatrics 11/10/22 01/12/23 documented as of this encounter
--- OUTSIDE RECORDS SUMMARY | 2025-01-11 19:53 | XMS_ITS | Encounter Summary ---
Author Organization [facility] Address [address] [place] [address] Phone Care Team Providers Care Machinist Set Up Name Role Phone Caroline Bray MD Primary Care Provider Encounter Details Date Type Department Care Team (Late st Contact Info) Description 09/25/2014 Documentation [facility] [place] [facility] [place] [address] [place] [address] Family Medicine, Physician [address] [place], [place] [address] Social History Tobacco Use Types Packs/Day Years [...] on filedocumented in this encounter Care Teams Machinist Set Up Relationship Specialty Start Date End Date Caroline Bray MD [address] [place] [phone] PCP - General Pediatrics 11/10/22 01/12/23 documented as of this encounter
--- OUTSIDE RECORDS SUMMARY | 2025-01-11 19:53 | XMS_ITS | Encounter Summary ---
Author Organization [facility] Address [address] [place] [address] Phone Care Team Providers Care Floor Inspector Name Role Phone Caroline Bray MD Primary Care Provider Encounter Details Date Type Department Care Team (Late st Contact Info) Description 06/09/2014 Documentation [facility] [place] [address] [place] [address] Family Medicine, Physician [address] [place], [place] 9[address] Social History Tobacco Use Types Packs/Day Years [...] on filedocumented in this encounter Care Teams Floor Inspector Relationship Specialty Start Date End Date Caroline Bray MD [address] [place] [phone] PCP - General Pediatrics 11/10/22 01/12/23 documented as of this encounter
--- OUTSIDE RECORDS SUMMARY | 2025-01-11 19:53 | XMS_ITS | Encounter Summary ---
Author Organization [facility] Address [address] [place] [address] Phone Care Team Providers Care Plaster Caster Name Role Phone Caroline Bray MD Primary Care Provider [phone] Encounter Details Date Type Department Care Team (Late st Contact Info) Description 10/29/2016 Conversion Encounter [facility] [address] [place] [address] Social History Tobacco Use Types Packs/Day Years [...] on filedocumented in this encounter Care Teams Plaster Caster Relationship Specialty Start Date End Date Caroline Bray MD [address] [place] [address] PCP - General Pediatrics 11/10/22 01/12/23 documented as of this encounter
--- OUTSIDE RECORDS SUMMARY | 2025-01-11 19:53 | XMS_ITS | Encounter Summary ---
Author Organization [facility] Address [address] [place] [address] Phone Care Team Providers Care Black Powder Glazing Operator Name Role Phone Caroline Bray MD Primary Care Provider Encounter Details Date Type Department Care Team (Late st Contact Info) Description 2013 Documentation [facility] [place] [facility] [place] [address] [place], [place] [address] Family Medicine, Physician [address] [place], [place] [address]61 Social History Tobacco Use Types Packs/Day Years [...] on filedocumented in this encounter Care Teams Black Powder Glazing Operator Relationship Specialty Start Date End Date Caroline Bray MD [address] [place] [phone] PCP - General Pediatrics 11/10/22 01/12/23 documented as of this encounter
--- OUTSIDE RECORDS SUMMARY | 2025-01-11 19:53 | XMS_ITS | Encounter Summary ---
Author Organization [facility] Address [address] [place] [address] Phone Care Team Providers Care Shop Hand Name Role Phone Caroline Bray MD Primary Care Provider Encounter Details Date Type Department Care Team (Late st Contact Info) Description 08/15/2014 Documentation [facility] [place] Family Medicine [address] [place] [address] Family Medicine, Physician [address] [place], [place] [address]38[address] Social History Tobacco Use Types Packs/Day Years [...] on filedocumented in this encounter Care Teams Shop Hand Relationship Specialty Start Date End Date Caroline Bray MD [address] [place] [phone] PCP - General Pediatrics 11/10/22 01/12/23 documented as of this encounter
--- OUTSIDE RECORDS SUMMARY | 2025-01-11 19:53 | XMS_ITS | Clinical Summary ---
Author Organization [facility] Address [address] [place] [address] Phone Care Team Providers Care Rn Observation Name Role Phone Unavailable Primary Care Provider [...] endoscopies Followed by GI (Dr. Fung) at [facility] Had UGI and SBFT in December that [...] to GI - seeing Dr. Fung at [facility]; gastric emptying study ordered (2021) Assessment & [...] Type Department Care Team Description 12/01/2024 Telephone [facility] [address] [place] [address] Kirstin Mckinnon MD medical records [...] Additional history exists Procedures * Due to [facility] law, this organization might not be sharing sensitive test results. Procedure Name Priority Date/Time Associated Diagnosis Comments CHLAMYDIA AND GONORRHEA, AMPLIFIED Routine 12/17/2021 9:47 AM EDT Special screening examination for chlamydial disease from Last 3 Months or Most Recently Relevant to Health Maintenance Results * Due to [employer] law, this organization might not be sharing sensitive test results. * Chlamydia and Gonorrhoea, Amplified (12/17/2021 9:47 AM EDT) Chlamydia Trachomatis, DNA Probe NEGATIVE (NEG) [facility] Comment: No Chlamydia Trachomatis RNA detected in this patient's sample (REFERENCE RANGE/NORMAL VALUE: NOT DETECTED) Note: This test uses child and adolescent therapist- mediated amplification method to detect rRNA from C. Trachomatis URINE GC AMP PROBE NEGATIVE (NEG) [facility] Comment: No Neisseria Gonorrhoeae RNA detected in this patient's sample (REFERENCE RANGE/NORMAL VALUE: NOT DETECTED) NOTE: This test uses child and adolescent therapist-mediated amplification method to detect rRNA from N.Gonorrhoeae. [...] without risk of sexual abuse. Consult the [facility] if needed. Contact phone number . Therapeutic failure or success cannot be determined with the Aptima Combo2 assay since nucleic acid may persist following appropriate antimicrobial therapy. The Centers for Disease Control and Prevention (CDC) recommends confirmatory retesting using culture or a different nucleic acid amplification test when positive results occur, if indicated. Testing performed or reported by [facility], a Service of [facility], [address] [place] [address] Zaki Quezada MD, Mechanical Manager [facility]# [id number] Urine (Urine) 12/17/2021 9:4 7 AM EDT 12/17/2021 4:44 PM EDT us Caroline Bray MD LAB MICROBIOLOGY - GENERAL ORDERABLES Final Result [facility] from Last 3 Months or Most Recently Relevant to Health Maintenance Insurance [employer] NON PCC [facility] [place] [id number]
--- OUTSIDE RECORDS SUMMARY | 2025-01-11 19:53 | XMS_ITS | Encounter Summary ---
Author Organization [facility] Address [address] [place] [address] Phone Care Team Providers Care Nuclear Engineering Technician Name Role Phone Caroline Bray MD Primary Care Provider Encounter Details Date Type Department Care Team (Late st Contact Info) Description 09/17/2014 Documentation [facility] [place] Family Medicine [address] [place] [address] Family Medicine, Physician [address] [place], [place] [address] Social History Tobacco Use Types Packs/Day Years [...] on filedocumented in this encounter Care Teams Nuclear Engineering Technician Relationship Specialty Start Date End Date Caroline Bray MD [address] [place] [phone] PCP - General Pediatrics 11/10/22 01/12/23 documented as of this encounter
--- OUTSIDE RECORDS SUMMARY | 2025-01-11 19:53 | XMS_ITS | Encounter Summary ---
Author Organization [facility] Address [address] [place] [address] Phone Care Team Providers Care Nondestructive Tester Name Role Phone Caroline Bray MD Primary Care Provider [phone] Encounter Details Date Type Department Care Team (Late st Contact Info) Description 10/01/2016 Documentation [facility] [place] Family Medicine [address] [place] [address] Family Medicine, Physician [address] [place], [place] [address]32[address] Social History Tobacco Use Types Packs/Day Years [...] on filedocumented in this encounter Care Teams Nondestructive Tester Relationship Specialty Start Date End Date Caroline Bray MD [address] [place] [phone] PCP - General Pediatrics 11/10/22 01/12/23 documented as of this encounter
--- OUTSIDE RECORDS SUMMARY | 2025-01-11 19:54 | XMS_ITS | Encounter Summary ---
Author Organization [facility] Address [address] [place] [address] Phone Care Team Providers Care Circus Laborer Name Role Phone Caroline Bray MD Primary Care Provider Encounter Details Date Type Department Care Team (Late st Contact Info) Description 02/15/2015 Documentation [facility] [place] [address] [place] [address] Family Medicine, Physician [address] [place], [place] [address]35[address] Social History Tobacco Use Types Packs/Day Years [...] on filedocumented in this encounter Care Teams Circus Laborer Relationship Specialty Start Date End Date Caroline Bray MD [address] [place] [phone] PCP - General Pediatrics 11/10/22 01/12/23 documented as of this encounter
--- OUTSIDE RECORDS SUMMARY | 2025-01-11 19:54 | XMS_ITS | Encounter Summary ---
Author Organization [facility] Address [address] [place] [address] Phone Care Team Providers Care Barrel Marker Name Role Phone Caroline Bray MD Primary Care Provider Encounter Details Date Type Department Care Team (Late st Contact Info) Description 06/02/2013 Documentation [facility] [place] [address] [place], [place] [phone] Family Medicine, Physician [address] [place], [place] [address]851 Social History Tobacco Use Types Packs/Day Years [...] on filedocumented in this encounter Care Teams Barrel Marker Relationship Specialty Start Date End Date Caroline Bray MD [address] [place] [phone] PCP - General Pediatrics 11/10/22 01/12/23 documented as of this encounter
--- OUTSIDE RECORDS SUMMARY | 2025-01-11 19:54 | XMS_ITS | Encounter Summary ---
Author Organization [facility] Address [address] [place] [id number] Phone Care Team Providers Care Foundation Relations Manager Name Role Phone Caroline Bray MD Primary Care Provider [phone] Encounter Details Date Type Department Care Team (Late st Contact Info) Description 06/10/2022 Documentation Only [address] [address] Qing Rodriguez MD Social History [...] on filedocumented in this encounter Care Teams Foundation Relations Manager Relationship Specialty Start Date End Date Caroline Bray MD [address] [place] [address] [place] [address] PCP - General Pediatrics 12/31/20 documented as of this encounter
--- OUTSIDE RECORDS SUMMARY | 2025-01-11 19:54 | XMS_ITS | Encounter Summary ---
Author Organization [facility] Address [address] [place] [address] Phone Care Team Providers Care Technology Applications Teacher Name Role Phone Caroline Bray MD Primary Care Provider Encounter Details Date Type Department Care Team (Late st Contact Info) Description 09/10/2011 Documentation [facility] [place] [address] [place] [address] Family Medicine, Physician [address] [place], [place] [address] Social History Tobacco Use Types Packs/Day Years [...] on filedocumented in this encounter Care Teams Technology Applications Teacher Relationship Specialty Start Date End Date Caroline Bray MD [address] [place] [phone] PCP - General Pediatrics 11/10/22 01/12/23 documented as of this encounter
--- OUTSIDE RECORDS SUMMARY | 2025-01-11 19:54 | XMS_ITS | Encounter Summary ---
Author Organization [facility] Address [address] [place] [id number] Phone Care Team Providers Care Matchbook Assembler Name Role Phone Caroline Bray MD Primary Care Provider [phone] Encounter Details Date Type Department Care Team (Late st Contact Info) Description 06/10/2022 Documentation Only [address] [address] Qing Rodriguez MD Social History [...] on filedocumented in this encounter Care Teams Matchbook Assembler Relationship Specialty Start Date End Date Caroline Bray MD [address] [place] [address] [place] [address] PCP - General Pediatrics 12/31/20 documented as of this encounter
--- OUTSIDE RECORDS SUMMARY | 2025-01-11 19:54 | XMS_ITS | Encounter Summary ---
Author Organization [facility] Address [address] [place] [address] Phone Care Team Providers Care Building Components Designer Name Role Phone Caroline Bray MD Primary Care Provider Encounter Details Date Type Department Care Team (Late st Contact Info) Description 08/07/2016 Documentation [facility] Family Medicine [address] [place] [address] Family Medicine, Physician [address] [place], [place] [id number] Social History Tobacco Use Types Packs/Day Years [...] on filedocumented in this encounter Care Teams Building Components Designer Relationship Specialty Start Date End Date Caroline Bray MD [address] [place] [address] PCP - General Pediatrics 11/10/22 01/12/23 documented as of this encounter
--- OUTSIDE RECORDS SUMMARY | 2025-01-11 19:54 | XMS_ITS | Clinical Summary ---
Author Organization [facility] Address [address] [address] Phone Care Team Providers Care Adult Secondary Education Instructor Name Role Phone Caroline Bray MD Primary Care Provider [phone] Allergies No known active allergies Medications Ibuprofen [...] by Renal - was sent to [place] (Mar 2021) - considering stent vs. surgery [...] B Vaccine Completed 05/30/2002, 03/29/2002, 2001 Insurance [facility] EUGENIO RODRIGUEZ [id number] Care Teams Adult Secondary Education Instructor Relationship Specialty Start Date End Date Caroline Bray MD [address] [place] [address] EU[place]IO Fritz [id number] PCP - General Pediatrics 12/31/20
--- OUTSIDE RECORDS SUMMARY | 2025-01-11 19:54 | XMS_ITS | Clinical Summary ---
Author Organization [facility] Address [address] [place] [address] Phone Care Team Providers Care Acute Care Physical Therapist Name Role Phone French Stewart MD Primary Care Provider [phone] Don Del Real MD Unavailable Allergies Active [...] evaluation. She typically receives her imaging at [facility] and I will have our office coordinate [...] endoscopies Followed by GI (Dr. Fung) at [facility] Had UGI and SBFT in [...] to GI - seeing Dr. 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 surgery [...] EDT Follow-Up [facility] [address] [place] [address] Abimael Morejon MD Pelvic congestion syndrome (Primary [...] [facility] [address] [place] [address] 04/26/2025 9:45 AM EST Follow-Up [facility] [address] [place] [address] Abimael Morejon MD [address] [place] [address] [address] [place] [address] [email or web address] Health Maintenance Due Date Last Done Comments [...] topic Medical Devices Not on file Insurance [facility] [place] [address] [place] [address] [employer] HE[employer] Care Teams Acute Care Physical Therapist Relationship Specialty Start Date End Date French Stewart MD [address] [place] [address] [address] [place] [address] PCP - General Internal Medicine 06/08/24 Don Del Real MD [address] [place] [address] [place] [phone] Nephrology 10/19/24 Additional Source Comments The information contained in this document represents components of the legal health record. It is not the complete legal health record.[facility]
--- OUTSIDE RECORDS SUMMARY | 2025-01-11 19:55 | XMS_ITS | Encounter Summary ---
Author Organization [facility] Address [address] [place] [address] Phone Care Team Providers Care Oracle Application Consultant Name Role Phone Caroline Bray MD Primary Care Provider Encounter Details Date Type Department Care Team (Late st Contact Info) Description 09/26/2014 Documentation [facility] [place] Medicine [address] [place] [address] Family Medicine, Physician [address] [place], [place] [address] Social History Tobacco Use Types Packs/Day Years [...] on filedocumented in this encounter Care Teams Oracle Application Consultant Relationship Specialty Start Date End Date Caroline Bray MD [address] [place] [address] PCP - General Pediatrics 11/10/22 01/12/23 documented as of this encounter
--- OUTSIDE RECORDS SUMMARY | 2025-01-11 19:55 | XMS_ITS | Encounter Summary ---
Author Organization [facility] Address [address] [place] [address] Phone Care Team Providers Care Marriage Therapist Name Role Phone Caroline Bray MD Primary Care Provider Encounter Details Date Type Department Care Team (Late st Contact Info) Description 05/22/2016 Documentation [facility] [place] [address] [place] [address] Family Medicine, Physician [address] [place], [place] [address] Social History Tobacco Use Types Packs/Day Years [...] on filedocumented in this encounter Care Teams Marriage Therapist Relationship Specialty Start Date End Date Caroline rBay MD [address] [place] [address] PCP - General Pediatrics 11/10/22 01/12/23 documented as of this encounter
--- OUTSIDE RECORDS SUMMARY | 2025-01-11 19:55 | XMS_ITS | Encounter Summary ---
Author Organization [facility] Address [address] [place] [address] Phone Care Team Providers Care Tire And Lube Technician Name Role Phone Caroline Bray MD Primary Care Provider Encounter Details Date Type Department Care Team (Late st Contact Info) Description 11/04/2015 Documentation [facility] Family Medicine [address] [place] [address] Family Medicine, Physician [address] [place], [place] [address] Social History Tobacco Use Types Packs/Day Years [...] on filedocumented in this encounter Care Teams Tire And Lube Technician Relationship Specialty Start Date End Date Caroline Bray MD [address] [place] [address] PCP - General Pediatrics 11/10/22 01/12/23 documented as of this encounter
--- OUTSIDE RECORDS SUMMARY | 2025-01-11 19:55 | XMS_ITS | Encounter Summary ---
Author Organization [facility] Address [address] [place] [address] Phone Care Team Providers Care Commercial Property Manager Name Role Phone Caroline Bray MD Primary Care Provider Encounter Details Date Type Department Care Team (Late st Contact Info) Description 04/27/2016 Documentation [facility] Family Medicine [address] [place] [address] Family Medicine, Physician [address] [place], [place] [address] Social History Tobacco Use Types Packs/Day Years [...] filedocumented in this encounter Care Teams Commercial Property Manager Relationship Specialty Start Date End Date Caroline Bray MD [address] [place] [address] PCP - General Pediatrics 11/10/22 01/12/23 documented as of this encounter
--- OUTSIDE RECORDS SUMMARY | 2025-01-11 19:55 | XMS_ITS | Encounter Summary ---
Author Organization [facility] Address [address] [place] [address] Phone Care Team Providers Care Puppy Walker Name Role Phone Caroline Bray MD Primary Care Provider Encounter Details Date Type Department Care Team (Late st Contact Info) Description 12/06/2014 Documentation [facility] [place] [address] [place] [address] Family Medicine, Physician [address] [place], [place] [address] Social History Tobacco Use Types Packs/Day Years [...] on filedocumented in this encounter Care Teams Puppy Walker Relationship Specialty Start Date End Date Caroline Bray MD [address] [place] [address] PCP - General Pediatrics 11/10/22 01/12/23 documented as of this encounter
[2025-01-11 20:23] VITALS: BP 126/87; PULSE 86; RESP 16; TEMP 36.6; O2SAT 99
[2025-01-11 20:56] VITALS: BP 126/87; PULSE 86; RESP 16; TEMP 36.6; O2SAT 99
== END 2025-01-11 20:57 | disposition home or self-care (01) ==
PROVIDERS: Physician Assistant; Emergency Provider Emergency Medicine; PCP Internal Medicine
DX: N93.8 Other specified abnormal uterine and vaginal bleeding (principal); N94.6 Dysmenorrhea, unspecified; R10.20 Pelvic and perineal pain unspecified side
CPT/HCPCS: 36415; 76830; 76856; 80053; 84702; 85025; 85610; 85730; 93975; 96372; 99284; J1885

== ENCOUNTER → 2025-01-11 18:29 | Outpatient (BNV) | payer OTHER, SELFPAY | PROVIDERS: Emergency Provider Emergency Medicine; PCP Internal Medicine; Visit Provider Nuclear Medicine | DX: R10.20 Pelvic and perineal pain unspecified side (principal) | CPT/HCPCS: 93975 ==

== ENCOUNTER 2025-02-06 09:49 | Outpatient (AMB) | payer OTHER, SELFPAY ==
--- NOTE | 2025-02-06 09:52 | A.OFFPC_ITS ---
Vital Signs 02/06/25 10:08 Height 5 ft 3 in Weight 139 lb BMI 24.6 BP 120/84 Blood Pressure Location Lt brachial Position Sitting Pulse 72 Pulse Source Pulse Oximeter Pulse Oximetry (%) 97 Oxygen Delivery Method Room Air Intake Visit Reasons: follow up Wholesale Loan Processor Required: No Accompanied by: Self / Same As Patient Allergies No Known Allergies Allergy (Verified 02/06/25 10:46) Medication List - Last Reconciled 02/06/25 by French Stewart MD cholecalciferol (vitamin D3) 250 mcg PO 2XW 90 days famotidine 20 mg PO BEDTIME 30 days ketorolac 10 mg PO Q6H PRN methocarbamol 750 mg PO BID PRN metoclopramide HCl 10 mg PO Q8H 90 days promethazine 12.5 mg PO Q6H PRN 30 days sumatriptan succinate 50 - 100 mg orally at onset of headache, may repeat in 2 hrs PRN; max 2 tabs per day or 4 tabs/week (may take with Tylenol) 30 days Ventolin HFA 90 mcg/actuation (albuterol sulfate) 2 puffs inhalation Q6H PRN 30 days NS Tobacco use date assessed: 02/06/25 Dental Screening Dental Screen Date: 02/06/25 Did you have a dental visit in the last 12 months?: No Did you have a dental problem in the last 6 months where you did not have access to dental care?: No Was dental information given to patient?: No HPI follow up HPI Details - The patient is a 24 year old individua l presenting with follow-up for persistent pelvic pain. - The patient underwent an embolization and coiling procedure, which was performed by the vascular care group at [place]. - The patient initially felt better afte r the procedure, but the pain reverted back around the end of December. - The patient's periods are not typicall y painful; however, the last two cycles have been heavier and lasted longer than usual. - An ultrasound performed at an emergenc y room visit a few weeks ago was normal. - The patient reports having controlled migraines. - The patient also reports symptoms of d epression and requests a referral for therapy, preferring not to start medication at this time. [facility] Medical History Pelvic congestion syndrome Gastritis Asthma GERD (gastroesophageal reflux disease) Vitamin D deficiency Migraine without aura Nutcracker phenomenon of renal vein Surgical History Hx of abdominal surgery History of esophagogastroduodenoscopy (EGD) Hx of colonoscopy Family History Paternal Grandmother Stomach cancer Family/Other Substance use disorder Mental health disorder Paternal Uncle Colon cancer Social History Household Members Other:: lives with mom Housing: House Alcohol intake: current Alcohol intake frequency: holidays/special occasions only Patient Tobacco Use Status: Never used Tobacco e-Cigarette/Vaping Use: Never Used Second Hand Smoke Exposure: No Substance Use Type: Marijuana service: No Current occupational status: employed 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 1. Little interest or pleasure in doing things: not at all 2. Feeling down, depressed, or hopeless: not at all 3. Trouble falling or staying asleep, or sleeping too much: several days 4. Feeling tired or having little energy: several days 5. Poor appetite or overeating: not at all 6. Feeling bad about yourself - or that you are a failure or have let yourself or your family down: not at all 7. Trouble concentrating on things, such as reading the newspaper or watching television: not at all 8. Moving or speaking so slowly that other people could have noticed. Or the opposite - being so fidgety or restless that you have been moving around a lot more than usual: not at all 9. Thoughts that you would be better off or of hurting yourself in some way: not at all Total score: 2 Depression Screening Interpretation: Negative Depression Screening Done: Yes 01173 - PHQ-9 Billing: Yes Source: Developed by Drs. Major Pereira, Amelie Stoddard, Sonu Carey and colleagues, with an educational gurpreet from [employer]. Thrive Questionnaire Date Thrive assessed: 02/06/25 I am a: Patient What is your living situation today?: I have a steady place to live Within the past 12 months, did the food you bought not last and you didn't have the money to get more?: I choose not to answer this question Within the past 12 months, did you worry whether your food would run out before you got money to buy more?: Never true Do you have trouble paying for medicines?: No Do you have trouble getting transportation to medical appointments?: No Do you have trouble paying your heating and electricity bill?: No Do you have trouble taking care of your child, family member or friend?: No Do you have trouble with day-to-day activities such as bathing, preparing meals, shopping, managing finances, etc.?: No Are you currently unemployed and looking for a job?: No Are you interested in more education?: Yes Please select the resources that you would like help with: None Currently or been in a relationship where the following occur: No concerns reported THRIVE Score: 0 AUDIT C Alcohol Use Questionnaire (AUDIT-C) 1. How often do you have a drink containing alcohol?: Monthly or less 2. How many drinks containing alcohol do you have on a typical day when you are drinking?: 1 or 2 3. How often do you have six or more drinks on one occasion?: Never Total Score: 1 Score Reviewed/Action Taken: Yes ASHOK-7 AMB Questionnaire ASHOK-7 Date ASHOK - 7 assessed: 02/06/25 Feeling nervous, anxious, or on edge: 0 = Not at all Not being able to stop or control worryin = Not at all Worrying too much about different things: 0 = Not at all Trouble relaxin = Not at all Being so restless that it is hard to sit still: 1 = Several days Becoming easily annoyed or irritable: 1 = Several days Feeling afraid as if something awful might happen: 0 = Not at all Total ASHOK-7 score (0-4 normal; 5-9 mild; 10-14 moderate; 15-21 severe): 2 Source: Developed by Drs. Major Pereira, Amelie Stoddard, Sonu Carey and colleagues, with an educational gurpreet from [employer]. Review of Systems Const Denies chills, Denies fatigue, Denies fever(s) and Denies headache(s) (better controlled) ENT Denies dysphagia, Denies dizziness, Denies otalgia, Denies headache(s) (better controlled), Denies neck pain, Denies odynophagia and Denies sore throat Card Denies chest pain, Denies irregular heart rhythm, Denies palpitations and Denies dyspnea Resp Denies chest congestion, Denies cough, Denies dyspnea and Denies wheezing GI Reports abdominal pain (recurrent, over the lower abdomen - deep pelvic pain), Denies constipation, Reports GI cramping (recurrent, especially over the lower abdomen/pelvic area), Denies dysphagia, Denies heartburn, Denies diarrhea, Denies nausea, Denies odynophagia and Denies vomiting Reports abnormal menses (heavier than normal), Denies difficulty voiding, Denies dysuria and Denies urinary urgency Musc Denies back pain, Reports arthralgias (on and off over both hips and in the right knee) and Denies neck pain Skin/Breast Denies rash Neuro Denies dizziness, Denies headache(s) (better controlled) and Denies paresthesias Psych Denies anxiety and Denies depression Endo Denies fatigue and Denies palpitations Jamie/Lymph Denies easy bruising Aller/Immun Denies wheezing Physical exam (Primary Care) Vital Signs: Last Vital Signs Pulse 72 02/06/25 10:08 BP 120/84 02/06/25 10:08 Pulse Ox 97 02/06/25 10:08 Oxygen Delivery Method Room Air 02/06/25 10:08 BMI result Body Mass Index 24.6 Tobacco/Smoking Status: Tobacco use Status Tobacco use date assessed 02/06/25 02/06/25 09:58 Patient Tobacco Use Status Never used Tobacco 02/06/25 09:58 e-Cigarette/Vaping Use Never Used 02/06/25 09:58 PHQ-9: PHQ-9 Score PHQ-9: Total score 2 02/06/25 10:52 Depression Screening Interpretation: Negative Thrive Assessment: Date of Thrive Assessment Date Thrive assessed 02/06/25 02/06/25 09:58 Currently or been in a relationship where the following occur: No concerns reported Const General: no acute distress and alert HENMT Ears: TM's normal bilaterally and EAC's normal Throat: Yes posterior oropharynx normal and Yes tonsils normal (no TP congestion) Neck Neck: Yes supple and No lymphadenopathy Thyroid: Thyroid normal Resp Auscultation: clear to auscultation bilaterally, no rales and no wheezes Cardio Rate: regular rate Rhythm: regular rhythm Heart sounds: no murmurs GI Palpation (GI): Soft to palpation and nontender Auscultation: normal bowel sounds General: Yes no CVA tenderness Back/Spine/Pelvis Back: no CVA tenderness Thoracic/Lumbar Spine: No lumbar spinal tenderness Skin Rashes: no rashes Extrem General: Yes no clubbing, cyanosis or edema Coding Level of Care Code Est Pt Level 4 (44579) Diagnoses Migraine without aura and without status migrainosus, not intractable G43.009 Status migrainosus presence: without status migrainosus Intractability: not intractable Mild intermittent asthma without complication J45.20 Asthma severity: mild Asthma persistence: intermittent Asthma complication type: uncomplicated Chronic gastritis without bleeding, unspecified gastritis type K29.50 Gastritis type: unspecified gastritis Chronicity: chronic Gastritis bleeding: without bleeding Gastroparesis K31.84 Vitamin D deficiency E55.9 Nocturnal leg movements R25.8 Pelvic congestion syndrome N94.89 Depression, unspecified depression type F32.A Depression Type: unspecified Additional Codes PHQ-9 - 45563 - PHQ-9 Billing: Yes ([id number]) Assessment & Plan Assessment & Plan (1) Migraine without aura: Code(s): G43.009 - Migraine without aura, not intractable, without status migrainosus Category: Medical Qualifiers: Status migrainosus presence: without status migrainosus Intractability: not intractable Qualified Code(s): G43.009 - Migraine without aura, not intractable, without status migrainosus Plan: Patient states that her migraine headaches have been better controlled over the past year She was taken off her previous Amitriptyline it was reportedly not helping much in terms of headache prophylaxis and was causing increased sedation on the patient's part She has been switched over since to Gabapentin 100 mg 1 to 3 tablets Q HS, which appears to be helping better Continue Sumatriptan 100 mg PRN as instructed to acute migraine headaches (2) Asthma: Code(s): J45.909 - Unspecified asthma, uncomplicated Category: Medical Qualifiers: Asthma severity: mild Asthma persistence: intermittent Asthma complication type: uncomplicated Qualified Code(s): J45.20 - Mild intermittent asthma, uncomplicated Plan: Well-controlled Continue Ventolin HFA 1 to 2 inhalations Q 6 hours PRN (3) Gastritis: Code(s): K29.70 - Gastritis, unspecified, without bleeding Category: Medical Qualifiers: Gastritis type: unspecified gastritis Chronicity: chronic Gastritis bleeding: without bleeding Qualified Code(s): K29.50 - Unspecified chronic gastritis without bleeding Plan: EGD done on 12/25/2022 revealed (+) mild antral gastritis Continue Famotidine 20 mg Q HS Follow up with GI as scheduled (4) Gastroparesis: Code(s): K31.84 - Gastroparesis Category: Medical Plan: Patient had gastric emptying study done a few years ago on 05/02/2021 that revealed (+) significant retention of food in the stomach - 1 hour 79% (normal 37%-90%), 2 hours 69% (normal 30%-60%), 3 hours 50% and 4 hours 35% (normal 0%- 10%) Continue Metoclopraminde 10 mg QID PRN and Promethazine 12.5 mg Q 6 hours PRN Follow up with GI as scheduled (5) Vitamin D deficiency: Code(s): E55.9 - Vitamin D deficiency, unspecified Category: Medical Plan: Continue Vitamin D3 80665 units twice a week (6) Nocturnal leg movements: Code(s): R25.8 - Other abnormal involuntary movements Category: Medical Plan: Home sleep study done last year came back normal but showed frequent leg movements She subsequent underwent an in-lab sleep study a couple of months ago, which reportedly revealed no SAPNA and no sleep-related movement disorder She was tried previously on OTC Magnesium oxide 400 mg Q HS, which helped somewhat and she can continue taking this PRN Follow up with neurology/sleep medicine as scheduled (7) Pelvic congestion syndrome: Code(s): N94.89 - Other specified conditions associated with female genital organs and menstrual cycle Category: Medical Plan: A recent pelvic US done revealed (+) findings suggestive of pelvic congestion Patient subsequently underwent an embolization and coiling procedure, which was performed by the vascular care group at [place] She reports initially feeling better after the procedure, but the pain reverted back around the end of last month (December 2024) (8) Depression: Code(s): F32.9 - Major depressive disorder, single episode, unspecified Category: Medical Qualifiers: Depression Type: unspecified Qualified Code(s): F32.A - Depression, unspecified Plan: Patient reports feeling depressed at times lately and is requesting for a referral to counseling - referral placed States that she just wants to try counseling / therapy and prefers not to take any Rx at this time Plan To return as scheduled in June 2025 for her annual physical examination She is reminded to get her labs done just before she returns for her physical exam in June 2025 Orders: Orders Complete Blood Count Auto Diff 06/30/25 D64.9 - Anemia, unspecified, Z00. - Encounter for general adult medical examination without abnormal findings Comprehensive Met. Panel 06/30/25 Z00. - Encounter for general adult medical examination without abnormal findings Cholesterol 06/30/25 Z00.00 - Encounter for general adult medical examination without abnormal findings TSH reflex Free T4 06/30/25 E78.00 - Pure hypercholesterolemia, unspecified, Z00. - Encounter for general adult medical examination without abnormal findings Vitamin D 25-OH Total 06/30/25 E55.9 - Vitamin D deficiency, unspecified, Z00.00 - Encounter for general adult medical examination without abnormal findings UA CC w/rflx Micro + Cult 06/30/25 R30.0 - Dysuria, Z00.00 - Encounter for general adult medical examination without abnormal findings Referrals Psychiatry Referral F32.9 - Major depressive disorder, single episode, unspecified
[2025-02-06 10:08] VITALS: BP 120/84; PULSE 72; O2SAT 97; BMI 24.6
--- OUTSIDE RECORDS SUMMARY | 2025-02-06 11:34 | XMS_ITS | Encounter Summary ---
Author Organization [facility] Address [address] [place] [address] Phone Care Team Providers Care Combination Presser Name Role Phone Caroline Bray MD Primary Care Provider Encounter Details Date Type Department Care Team (Late st Contact Info) Description 09/25/2014 [place]ation [facility] [place] [address] [place] [address] Family Medicine, Physician [address] [place], [place] [phone] Social History Tobacco Use Types Packs/Day Years [...] on filedocumented in this encounter Care Teams Combination Presser Relationship Specialty Start Date End Date Caroline Bray MD [address] [place] [id number] PCP - General Pediatrics 11/10/22 01/12/23 documented as of this encounter
--- OUTSIDE RECORDS SUMMARY | 2025-02-06 11:34 | XMS_ITS | Encounter Summary ---
Author Organization [facility] Address [address] [place] [address] Phone Care Team Providers Care Traffic Lieutenant Name Role Phone Caroline Bray MD Primary Care Provider [phone] Encounter Details Date Type Department Care Team (Late st Contact Info) Description 08/15/[address] [facility] [place] Medicine [address] [place] [address] Family Medicine, Physician [address] [place], [place] [address] Social History Tobacco Use Types Packs/Day Years [...] on filedocumented in this encounter Care Teams Traffic Lieutenant Relationship Specialty Start Date End Date Caroline Bray MD [address] [place] [address] PCP - General Pediatrics 11/10/22 01/12/23 documented as of this encounter
--- OUTSIDE RECORDS SUMMARY | 2025-02-06 11:34 | XMS_ITS | Encounter Summary ---
Author Organization [facility] Address [address] [place] [address] Phone Care Team Providers Care Trashman Name Role Phone Caroline Bray MD Primary Care Provider Encounter Details Date Type Department Care Team (Late st Contact Info) Description 09/17/2014 Documentation [facility] [place] [address] [place] [address] Family Medicine, Physician [address] [place], [place] [phone] Social History Tobacco Use Types Packs/Day Years [...] on filedocumented in this encounter Care Teams Trashman Relationship Specialty Start Date End Date Caroline Bray MD [address] [place] [phone] PCP - General Pediatrics 11/10/22 01/12/23 documented as of this encounter
--- OUTSIDE RECORDS SUMMARY | 2025-02-06 11:34 | XMS_ITS | Encounter Summary ---
Author Organization [facility] Address [address] [place] [address] Phone Care Team Providers Care Research And Evaluation Analyst Name Role Phone Caroline Bray MD Primary Care Provider Encounter Details Date Type Department Care Team (Late st Contact Info) Description 06/02/2013 Documentation [facility] [place] [address] [place], [place] [phone] Family Medicine, Physician [address] [place], [place] [address] Social History Tobacco Use Types Packs/Day Years [...] on filedocumented in this encounter Care Teams Research And Evaluation Analyst Relationship Specialty Start Date End Date Caroline Bray MD [address] [place] [phone] PCP - General Pediatrics 11/10/22 01/12/23 documented as of this encounter
--- OUTSIDE RECORDS SUMMARY | 2025-02-06 11:34 | XMS_ITS | Encounter Summary ---
Author Organization [facility] Address [address] [place] [address] Phone Care Team Providers Care Laundry Supervisor Name Role Phone Caroline Bray MD Primary Care Provider Encounter Details Date Type Department Care Team (Late st Contact Info) Description 2013 Documentation [facility] [place] [address] [place], [place] [phone] Family Medicine, Physician [address] [place], [place] [address] Social History Tobacco Use Types Packs/Day Years [...] on filedocumented in this encounter Care Teams Laundry Supervisor Relationship Specialty Start Date End Date Caroline Bray MD [address] [place] [address] PCP - General Pediatrics 11/10/22 01/12/23 documented as of this encounter
--- OUTSIDE RECORDS SUMMARY | 2025-02-06 11:34 | XMS_ITS | Encounter Summary ---
Author Organization [facility] Address [address] [place] [address] Phone Care Team Providers Care Montessori Teacher Name Role Phone Caroline Bray MD Primary Care Provider Encounter Details Date Type Department Care Team (Late st Contact Info) Description 10/01/[address] [facility] [place] [address] [place] [address] Family Medicine, Physician [address] [place], [place] [address] Social History Tobacco Use Types Packs/Day Years [...] on filedocumented in this encounter Care Teams Montessori Teacher Relationship Specialty Start Date End Date Caroline Bray MD [address] [place] [phone] PCP - General Pediatrics 11/10/22 01/12/23 documented as of this encounter
--- OUTSIDE RECORDS SUMMARY | 2025-02-06 11:34 | XMS_ITS | Encounter Summary ---
Author Organization [facility] Address [address] [place] [address] Phone Care Team Providers Care Earth Science Technician Name Role Phone Caroline Bray MD Primary Care Provider Encounter Details Date Type Department Care Team (Late st Contact Info) Description 06/09/2014 Documentation [facility] [place] [address] [place] [address] Family Medicine, Physician [address] [place], [place] [address] Social History Tobacco Use Types Packs/Day Years [...] on filedocumented in this encounter Care Teams Earth Science Technician Relationship Specialty Start Date End Date Caroline Bray MD [address] [place] [phone] PCP - General Pediatrics 11/10/22 01/12/23 documented as of this encounter
--- OUTSIDE RECORDS SUMMARY | 2025-02-06 11:34 | XMS_ITS | Encounter Summary ---
Author Organization [facility] Address [address] [place] [address] Phone Care Team Providers Care Freight Agent Name Role Phone Caroline Bray MD Primary Care Provider Encounter Details Date Type Department Care Team (Late st Contact Info) Description [address] [facility] [place] Family Medicine [address] [place], [place] [phone] Family Medicine, Physician [address] [place], [place] [address] Social History Tobacco Use Types Packs/Day Years [...] on filedocumented in this encounter Care Teams Freight Agent Relationship Specialty Start Date End Date Caroline Bray MD [address] [place] [id number] PCP - General Pediatrics 11/10/22 01/12/23 documented as of this encounter
--- OUTSIDE RECORDS SUMMARY | 2025-02-06 11:34 | XMS_ITS | Clinical Summary ---
Author Organization [facility] Address [address] [place] [address] Phone Care Team Providers Care Tool Coordinator Name Role Phone French Stewart MD Primary Care Provider [phone] Don Del Real MD Unavailable Allergies Active [...] evaluation. She typically receives her imaging at [facility] and I will have our office coordinate [...] Followed by Renal - was sent to [place] (Mar 2021) - considering stent vs. surgery [...] to review this prior to her venogram. Family History Medical History Relation Comments Cancer [...] EST Office Visit [facility] [place] [phone] 04/26/2025 9:45 AM EST Follow-Up [facility] [place] [address] Abimael Morejon MD [address] [place] [address]. [address] [place] [address] [email or web address] Due Date Last Done Comments [...] topic Medical Devices Not on file Insurance [facility] [place] [address] [place] [address] [employer] [address] [address] [employer] * Guarantor: [employer] Account Type Relation to Patient Date of Phone Billing Address Personal/Family Mother [address] [facility] [address] [employer] * Guarantor: MOTHER FRANKS Account Type Relation to Patient Date of Phone Billing Address Personal/Family Mother [address] [facility] [address] [employer] * Guarantor: [employer] Account Type Relation to Patient Date of Phone Billing Address Personal/Family Mother [address] [facility] [address] [employer] * Guarantor: MOTHER FRANKS Account Type Relation to Patient Date of Phone Billing Address Personal/Family Mother [address] [facility] [address] [employer] Care Teams Tool Coordinator Relationship Specialty Start Date End Date French Stewart MD [address] [place] [address] [address] [place] [address] PCP - General Internal Medicine 06/08/24 Don Del Real MD [address] [place] [phone] Nephrology 10/19/24 Additional Source Comments The information contained in this document represents components of the legal health record. It is not the complete legal health record.[facility]
--- OUTSIDE RECORDS SUMMARY | 2025-02-06 11:34 | XMS_ITS | Clinical Summary ---
Author Organization [facility] Address [address] [place] [address] Phone Care Team Providers Care Pipe Fitter Maintenance Name Role Phone Unavailable Primary Care Provider [...] by GI (Dr. Fung) at [facility] [place] Had UGI and SBFT in [...] - seeing Dr. Fung at [facility] [place]; gastric emptying study ordered (2021) [...] Type Department Care Team Description 12/01/2024 Telephone [facility] [place] [address] [place] [address] Kirstin Mckinnon MD medical records [...] Additional history exists Procedures * Due to [facility] law, this organization might not be sharing sensitive test results. Procedure Name Priority Date/Time Associated Diagnosis Comments CHLAMYDIA AND GONORRHEA, AMPLIFIED Routine 12/17/2021 9:47 AM EDT Special screening examination for chlamydial disease from Last 3 Months or Most Recently Relevant to Health Maintenance Results * Due to [place] [employer] law, this organization might not be sharing sensitive test results. * Chlamydia and Gonorrhoea, Amplified (12/17/2021 9:47 AM EDT) Chlamydia Trachomatis, DNA Probe NEGATIVE (NEG) [facility] Comment: No Chlamydia Trachomatis RNA detected in this patient's sample (REFERENCE RANGE/NORMAL VALUE: NOT DETECTED) Note: This test uses acoustical installer- mediated amplification method to detect rRNA from C. Trachomatis URINE GC AMP PROBE NEGATIVE (NEG) [facility] Comment: No Neisseria Gonorrhoeae RNA detected in this patient's sample (REFERENCE RANGE/NORMAL VALUE: NOT DETECTED) NOTE: This test uses acoustical installer-mediated amplification method to detect rRNA from N.Gonorrhoeae. [...] without risk of sexual abuse. Consult the [facility] if needed. Contact phone number . Therapeutic failure or success cannot be determined with the Aptima Combo2 assay since nucleic acid may persist following appropriate antimicrobial therapy. The Centers for Disease Control and Prevention (CDC) recommends confirmatory retesting using culture or a different nucleic acid amplification test when positive results occur, if indicated. Testing performed or reported by [facility], a Service of [facility], [address] [place] [address] Zaki Quezada MD, National Park Ranger [facility]# [id number] Urine (Urine) 12/17/2021 9:4 7 AM EDT 12/17/2021 4:44 PM EDT us Caroline Bray MD LAB MICROBIOLOGY - GENERAL ORDERABLES Final Result [facility] from Last 3 Months or Most Recently Relevant to Health Maintenance Insurance [facility] NON PCC [facility] [place] [id number]
--- OUTSIDE RECORDS SUMMARY | 2025-02-06 11:34 | XMS_ITS | Encounter Summary ---
Author Organization [facility] Address [address] [place] [address] Phone Care Team Providers Care Jumpbasting Collar Baster Name Role Phone Caroline Bray MD Primary Care Provider Encounter Details Date Type Department Care Team (Late st Contact Info) Description 10/29/2016 Conversion Encounter [facility] [address] [place] [address] Social History Tobacco Use Types Packs/Day Years [...] on filedocumented in this encounter Care Teams Jumpbasting Collar Baster Relationship Specialty Start Date End Date Caroline Bray MD [address] [place] [address] PCP - General Pediatrics 11/10/22 01/12/23 documented as of this encounter
--- OUTSIDE RECORDS SUMMARY | 2025-02-06 11:35 | XMS_ITS | Encounter Summary ---
Author Organization [facility] Address [address] [place] [address] Phone Care Team Providers Care Supervisor Dog License Officer Name Role Phone Caroline Bray MD Primary Care Provider [phone] Encounter Details Date Type Department Care Team (Late st Contact Info) Description 04/27/2016 Documentation [facility] [place] [address] [place] [address] Family Medicine, Physician [address] [place], [place] [address] Social History Tobacco Use Types Packs/Day Years [...] filedocumented in this encounter Care Teams Supervisor Dog License Officer Relationship Specialty Start Date End Date Caroline Bray MD [address] [place] [address] PCP - General Pediatrics 11/10/22 01/12/23 documented as of this encounter
--- OUTSIDE RECORDS SUMMARY | 2025-02-06 11:35 | XMS_ITS | Encounter Summary ---
Author Organization [facility] Address [address] [place] [address] Phone Care Team Providers Care Make Up Man Name Role Phone Caroline Bray MD Primary Care Provider Encounter Details Date Type Department Care Team (Late st Contact Info) Description 09/10/2011 Documentation [facility] [place] [address] [place] [address] Family Medicine, Physician [address] [place], [place] [address] Social History Tobacco Use Types Packs/Day Years [...] on filedocumented in this encounter Care Teams Make Up Man Relationship Specialty Start Date End Date Caroline Bray MD [address] [place] [address] PCP - General Pediatrics 11/10/22 01/12/23 documented as of this encounter
--- OUTSIDE RECORDS SUMMARY | 2025-02-06 11:35 | XMS_ITS | Encounter Summary ---
Author Organization [facility] Address [address] [place] [phone] Phone Care Team Providers Care Desizing Machine Back Tender Name Role Phone Caroline Bray MD Primary Care Provider [phone] Encounter Details Date Type Department Care Team (Late st Contact Info) Description 06/10/2022 Documentation Only [address] [phone] Qing Rodriguez MD Social History [...] on filedocumented in this encounter Care Teams Desizing Machine Back Tender Relationship Specialty Start Date End Date Caroline Bray MD [address] [place] [address] [place] [address] PCP - General Pediatrics 12/31/20 documented as of this encounter
--- OUTSIDE RECORDS SUMMARY | 2025-02-06 11:35 | XMS_ITS | Encounter Summary ---
Author Organization [facility] Address [address] [place] [address] Phone Care Team Providers Care Contracts Manager Name Role Phone Caroline Bray MD Primary Care Provider Encounter Details Date Type Department Care Team (Late st Contact Info) Description 05/22/2016 Documentation [facility] [address] [place] [address] Family Medicine, Physician [address] [place], [place] [address] Social History Tobacco Use Types Packs/Day Years [...] on filedocumented in this encounter Care Teams Contracts Manager Relationship Specialty Start Date End Date Caroline Bray MD [address] [place] [address] PCP - General Pediatrics 11/10/22 01/12/23 documented as of this encounter
--- OUTSIDE RECORDS SUMMARY | 2025-02-06 11:35 | XMS_ITS | Encounter Summary ---
Author Organization [facility] Address [address] [place] [address] Phone Care Team Providers Care Torch Cutter Name Role Phone Caroline Bray MD Primary Care Provider Encounter Details Date Type Department Care Team (Late st Contact Info) Description 11/04/2015 Documentation [facility] [place] [address] [place], [place] [phone] Family Medicine, Physician [address] [place], [place] [address] Social History Tobacco Use Types Packs/Day Years [...] on filedocumented in this encounter Care Teams Torch Cutter Relationship Specialty Start Date End Date Caroline Bray MD [address] [place] [address] PCP - General Pediatrics 11/10/22 01/12/23 documented as of this encounter
--- OUTSIDE RECORDS SUMMARY | 2025-02-06 11:35 | XMS_ITS | Encounter Summary ---
Author Organization [facility] Address [address] [place] [address] Phone Care Team Providers Care Playground Official Name Role Phone Caroline Bray MD Primary Care Provider Encounter Details Date Type Department Care Team (Late st Contact Info) Description 09/26/2014 Documentation [facility] [place] [address] [place] [address] Family Medicine, Physician [address] [place], [place] [address] Social History Tobacco Use Types Packs/Day Years [...] on filedocumented in this encounter Care Teams Playground Official Relationship Specialty Start Date End Date Caroline Bray MD [address] [place] [address] PCP - General Pediatrics 11/10/22 01/12/23 documented as of this encounter
--- OUTSIDE RECORDS SUMMARY | 2025-02-06 11:35 | XMS_ITS | Encounter Summary ---
Author Organization [facility] Address [address] [place] [address] Phone Care Team Providers Care Joy Operator Helper Name Role Phone Caroline Bray MD Primary Care Provider [phone] Encounter Details Date Type Department Care Team (Late st Contact Info) Description 02/15/2015 Documentation [facility] [address] [place] [address] Family Medicine, Physician [address] [place], [place] [address] Social History Tobacco Use Types Packs/Day Years [...] on filedocumented in this encounter Care Teams Joy Operator Helper Relationship Specialty Start Date End Date Caroline Bray MD [address] [place] [address] PCP - General Pediatrics 11/10/22 01/12/23 documented as of this encounter
--- OUTSIDE RECORDS SUMMARY | 2025-02-06 11:35 | XMS_ITS | Encounter Summary ---
Author Organization [facility] Address [address] [place] [phone] Phone Care Team Providers Care Lumber Estimator Name Role Phone Caroline Bray MD Primary Care Provider [phone] Encounter Details Date Type Department Care Team (Late st Contact Info) Description 06/10/2022 Documentation Only [address] [address] Qing Rodriguez MD Social History [...] on filedocumented in this encounter Care Teams Lumber Estimator Relationship Specialty Start Date End Date Caroline Bray MD [address] [place] [address] [place] [address] PCP - General Pediatrics 12/31/20 documented as of this encounter
--- OUTSIDE RECORDS SUMMARY | 2025-02-06 11:35 | XMS_ITS | Encounter Summary ---
Author Organization [facility] Address [address] [place] [address] Phone Care Team Providers Care Core Shaper Top Name Role Phone Caroline Bary MD Primary Care Provider [phone] Encounter Details Date Type Department Care Team (Late st Contact Info) Description 08/07/2016 Documentation [facility] [place] [address] [place] [address] Family Medicine, Physician [address] [place], [place] [address] Social History Tobacco Use Types Packs/Day Years [...] on filedocumented in this encounter Care Teams Core Shaper Top Relationship Specialty Start Date End Date Caroline Bray MD [address] [place] [address] PCP - General Pediatrics 11/10/22 01/12/23 documented as of this encounter
--- OUTSIDE RECORDS SUMMARY | 2025-02-06 11:35 | XMS_ITS | Encounter Summary ---
Author Organization [facility] Address [address] [place] [address] Phone Care Team Providers Care Marshmallow Machine Operator Name Role Phone Caroline Bray MD Primary Care Provider Encounter Details Date Type Department Care Team (Late st Contact Info) Description 12/06/2014 Documentation [facility] [place] [address] [place] [address] Family Medicine, Physician [address] [place], [place] [address] Social History Tobacco Use Types Packs/Day Years [...] on filedocumented in this encounter Care Teams Marshmallow Machine Operator Relationship Specialty Start Date End Date Caroline Bray MD [address] [place] [address] PCP - General Pediatrics 11/10/22 01/12/23 documented as of this encounter
--- OUTSIDE RECORDS SUMMARY | 2025-02-06 11:35 | XMS_ITS | Clinical Summary ---
Author Organization [facility] Address [address] [address] Phone Care Team Providers Care Diesel Locomotive Firer/Fireman Name Role Phone Caroline Bray MD Primary Care Provider [phone] Allergies No known active allergies Medications Ibuprofen [...] Followed by [facility] - was sent to [place] (Mar 2021) - considering stent vs. surgery [...] B Vaccine Completed 05/30/2002, 03/29/2002, 2001 [employer] EUGENIO RODRIGUEZ [id number] Care Teams Diesel Locomotive Firer/Fireman Relationship Specialty Start Date End Date Caroline Bray MD [address] [place] [address] [place] Fritz [address] PCP - General Pediatrics 12/31/20
== END 2025-02-06 10:53 | disposition home or self-care (01) ==
LOC: HO.HMCH 09:50
PROVIDERS: PCP Internal Medicine; Visit Provider Internal Medicine
DX: G43.009 Migraine without aura, not intractable, without status migrainosus (principal); J45.20 Mild intermittent asthma, uncomplicated; K29.50 Unspecified chronic gastritis without bleeding; K31.84 Gastroparesis; E55.9 Vitamin D deficiency, unspecified; R25.8 Other abnormal involuntary movements; N94.89 Other specified conditions associated with female genital organs and menstrual cycle; F32.A Depression, unspecified

== ENCOUNTER → 2025-02-06 09:49 | Outpatient (BNVA) | payer OTHER, SELFPAY | PROVIDERS: PCP Internal Medicine; Visit Provider Internal Medicine | DX: J45.20 Mild intermittent asthma, uncomplicated (principal); R10.20 Pelvic and perineal pain unspecified side; G43.009 Migraine without aura, not intractable, without status migrainosus; K29.50 Unspecified chronic gastritis without bleeding; K31.84 Gastroparesis; E55.9 Vitamin D deficiency, unspecified; R25.8 Other abnormal involuntary movements; N94.89 Other specified conditions associated with female genital organs and menstrual cycle; F32.9 Major depressive disorder, single episode, unspecified | CPT/HCPCS: 96127; 99212 ==

== ENCOUNTER 2025-02-19 15:56 | Outpatient (REF) | payer OTHER, SELFPAY ==
[2025-02-19 17:02] LABS: Hematocrit 40.8 % (37.0-47.0); Hemoglobin 13.7 g/dl (12.0-16.0)
[2025-02-19 17:35] LABS: Albumin Level 4.9 g/dL (3.5-5.0); Anion Gap 15 (12-20); Blood Urea Nitrogen 9 mg/dL (9-16); Calcium 9.3 mg/dL (8.4-10.2); Carbon Dioxide 25 mmol/L (22-29); Chloride 104 mmol/L (96-108); Potassium 3.5 mmol/L (3.3-5.1); Sodium 140 mmol/L (135-145)
[2025-02-19 18:09] LABS: Appearance Urine Clear; Glucose Urine UA Negative (Negative); PH 6.0 (5.0-9.0); Specific Gravity - Urine 1.020 (1.005-1.025)
[2025-02-19 18:13] LABS: Microalbum/Creatinine Ratio Ur 8.9 ug/mg cr (<30)
--- OUTSIDE RECORDS SUMMARY | 2025-02-20 01:35 | XMS_ITS | Encounter Summary ---
Author Organization [facility] Address [address] [place] [address] Phone Care Team Providers Care Patternmaker Metal Bench Name Role Phone Caroline Bray MD Primary Care Provider [phone] Encounter Details Date Type Department Care Team (Late st Contact Info) Description 06/02/2013 Documentation [facility] [place] [address] [place], [place] [address] Family Medicine, Physician [address] [place], [place] [address] Social History Tobacco Use Types Packs/Day Years [...] on filedocumented in this encounter Care Teams Patternmaker Metal Bench Relationship Specialty Start Date End Date Caroline Bray MD [address] [place] [address] PCP - General Pediatrics 11/10/22 01/12/23 documented as of this encounter
--- OUTSIDE RECORDS SUMMARY | 2025-02-20 01:35 | XMS_ITS | Encounter Summary ---
Author Organization [facility] Address [address] [place] [address] Phone Care Team Providers Care Payroll Assistant Name Role Phone Caroline Bray MD Primary Care Provider Encounter Details Date Type Department Care Team (Late st Contact Info) Description 11/04/2015 Documentation [facility] [place] [address] [place], [place] [phone] Family Medicine, Physician [address] [place], [place] [address] Social History Tobacco Use Types Packs/Day Years [...] on filedocumented in this encounter Care Teams Payroll Assistant Relationship Specialty Start Date End Date Caroline Bray MD [address] [place] [address] PCP - General Pediatrics 11/10/22 01/12/23 documented as of this encounter
--- OUTSIDE RECORDS SUMMARY | 2025-02-20 01:35 | XMS_ITS | Encounter Summary ---
Author Organization [facility] Address [address] [place] [address] Phone Care Team Providers Care Abrasive Grader Name Role Phone Caroline Bray MD Primary Care Provider Encounter Details Date Type Department Care Team (Late st Contact Info) Description 09/26/2014 Documentation [facility] [place] [address] [place] [address] Family Medicine, Physician [address] [place], [place] [address] Social History Tobacco Use Types Packs/Day Years [...] on filedocumented in this encounter Care Teams Abrasive Grader Relationship Specialty Start Date End Date Caroline Bray MD [address] [place] [address] PCP - General Pediatrics 11/10/22 01/12/23 documented as of this encounter
--- OUTSIDE RECORDS SUMMARY | 2025-02-20 01:35 | XMS_ITS | Encounter Summary ---
Author Organization [facility] Address [address] [place] [address] Phone Care Team Providers Care Java Designer Name Role Phone Caroline Bray MD Primary Care Provider Encounter Details Date Type Department Care Team (Late st Contact Info) Description 08/15/2014 Documentation [facility] [place] [address] [place] [address] Family Medicine, Physician [address] [place], [place] [address] Social History Tobacco Use Types Packs/Day Years [...] on filedocumented in this encounter Care Teams Java Designer Relationship Specialty Start Date End Date Caroline Bray MD [address] [place] [address] PCP - General Pediatrics 11/10/22 01/12/23 documented as of this encounter
--- OUTSIDE RECORDS SUMMARY | 2025-02-20 01:35 | XMS_ITS | Encounter Summary ---
Author Organization [facility] Address [address] [place] [address] Phone Care Team Providers Care Food Specialist Name Role Phone Caroline Bray MD Primary Care Provider Encounter Details Date Type Department Care Team (Late st Contact Info) Description 2013 Documentation [facility] [place] [address] [place], [place] [phone] Family Medicine, Physician [address] [place], [place] [address] Social History Tobacco Use Types Packs/Day Years [...] on filedocumented in this encounter Care Teams Food Specialist Relationship Specialty Start Date End Date Caroline Bray MD [address] [place] [address] PCP - General Pediatrics 11/10/22 01/12/23 documented as of this encounter
--- OUTSIDE RECORDS SUMMARY | 2025-02-20 01:35 | XMS_ITS | Clinical Summary ---
Author Organization [facility] Address [address] [place] [address] Phone Care Team Providers Care Power Shovel Operator Name Role Phone Unavailable Primary Care [...] endoscopies [place] [facility] [place]FT in [...] to GI - [place]. Fung [place] [facility] emptying study ordered (2021) [...] Type Department Care Team Description 12/01/2024 Telephone [facility] [place] [address] [place] [address] Kirstin Mckinnon MD medical records [...] dysplasia Sister Annita [place]wood o OCD Sister Aninta Chauhan Relation Name Status Comments Brother Mario [...] Additional history exists Procedures * Due to [facility] law, this organization might not be sharing sensitive test results. Procedure Name Priority Date/Time Associated Diagnosis Comments CHLAMYDIA AND GONORRHEA, AMPLIFIED Routine 12/17/2021 9:47 AM EDT Special screening examination for chlamydial disease from Last 3 Months or Most Recently Relevant to Health Maintenance Results * Due to [place] [employer] law, this organization might not be sharing sensitive test results. * Chlamydia and Gonorrhoea, Amplified (12/17/2021 9:47 AM EDT) Chlamydia Trachomatis, DNA Probe NEGATIVE (NEG) [facility] Comment: No Chlamydia Trachomatis RNA detected in this patient's sample (REFERENCE RANGE/NORMAL VALUE: NOT DETECTED) Note: This test uses pollution control engineer- mediated amplification method to detect rRNA from C. Trachomatis URINE GC AMP PROBE NEGATIVE (NEG) [facility] Comment: No Neisseria Gonorrhoeae RNA detected in this patient's sample (REFERENCE RANGE/NORMAL VALUE: NOT DETECTED) NOTE: This test uses pollution control engineer-mediated amplification method to detect rRNA from N.Gonorrhoeae. [...] without risk of sexual abuse. Consult the [facility] if needed. Contact phone number . Therapeutic failure or success cannot be determined with the Aptima Combo2 assay since nucleic acid may persist following appropriate antimicrobial therapy. The Centers for Disease Control and Prevention (CDC) recommends confirmatory retesting using culture or a different nucleic acid amplification test when positive results occur, if indicated. Testing performed or reported by [facility], a Service of [facility], [address] [place] [address] Zaki Quezada MD, Supervisor Blood Donor Recruiters [facility]# [id number] Urine (Urine) 12/17/2021 9:4 7 AM EDT 12/17/2021 4:44 PM EDT us Caroline Bray MD LAB MICROBIOLOGY - GENERAL ORDERABLES Final Result [facility] from Last 3 Months or Most Recently Relevant to Health Maintenance Insurance [facility] NON PCC [facility] [place] [id number]
--- OUTSIDE RECORDS SUMMARY | 2025-02-20 01:35 | XMS_ITS | Encounter Summary ---
Author Organization [facility] Address [address] [place] [address] Phone Care Team Providers Care Latex Fashions Designer Name Role Phone Caroline Bray MD Primary Care Provider Encounter Details Date Type Department Care Team (Late st Contact Info) Description 09/10/2011 Documentation [facility] [place] Medicine [address] [place] [address] Family Medicine, Physician [address] [place], [place] [address] Social History Tobacco Use Types Packs/Day Years [...] on filedocumented in this encounter Care Teams Latex Fashions Designer Relationship Specialty Start Date End Date Caroline Bray MD [address] [place] [address] PCP - General Pediatrics 11/10/22 01/12/23 documented as of this encounter
--- OUTSIDE RECORDS SUMMARY | 2025-02-20 01:35 | XMS_ITS | Encounter Summary ---
Author Organization [facility] Address [address] [place] [address] Phone Care Team Providers Care Tool Chaser Name Role Phone Caroline Bray MD Primary Care Provider Encounter Details Date Type Department Care Team (Late st Contact Info) Description 09/17/2014 Documentation [facility] [place] [address] [place] [address] Family Medicine, Physician [address] [place], [place] [address] Social History Tobacco Use Types Packs/Day Years [...] on filedocumented in this encounter Care Teams Tool Chaser Relationship Specialty Start Date End Date Caroline Bray MD [address] [place] [address] PCP - General Pediatrics 11/10/22 01/12/23 documented as of this encounter
--- OUTSIDE RECORDS SUMMARY | 2025-02-20 01:35 | XMS_ITS | Encounter Summary ---
Author Organization [facility] Address [address] [place] [address] Phone Care Team Providers Care Plasterer Helper Name Role Phone Caroline Bray MD Primary Care Provider Encounter Details Date Type Department Care Team (Late st Contact Info) Description 10/01/2016 Documentation [facility] [place] [address] [place] [address] Family Medicine, Physician [address] [place], [place] [address] Social History Tobacco Use Types Packs/Day Years [...] on filedocumented in this encounter Care Teams Plasterer Helper Relationship Specialty Start Date End Date Caroline Bray MD [address] [place] [address] PCP - General Pediatrics 11/10/22 01/12/23 documented as of this encounter
--- OUTSIDE RECORDS SUMMARY | 2025-02-20 01:35 | XMS_ITS | Encounter Summary ---
Author Organization [facility] Address [address] [place] [address] Phone Care Team Providers Care Guncotton Packer Name Role Phone Caroline Bray MD Primary Care Provider Encounter Details Date Type Department Care Team (Late st Contact Info) Description 2013 Documentation [facility] [place] [address] [place], [place] [address] Family Medicine, Physician [address] [place], [place] [address] Social History Tobacco Use Types Packs/Day Years [...] on filedocumented in this encounter Care Teams Guncotton Packer Relationship Specialty Start Date End Date Caroline Bray MD [address] [place] [address] PCP - General Pediatrics 11/10/22 01/12/23 documented as of this encounter
--- OUTSIDE RECORDS SUMMARY | 2025-02-20 01:35 | XMS_ITS | Encounter Summary ---
Author Organization [facility] Address [address] [place] [address] Phone Care Team Providers Care Superintendent Drilling Name Role Phone Caroline Bray MD Primary Care Provider Encounter Details Date Type Department Care Team (Late st Contact Info) Description 06/09/2014 Documentation [facility] [place] Family Medicine [address] [place] [address] Family Medicine, Physician [address] [place], [place] [address] Social History Tobacco Use Types Packs/Day Years [...] on filedocumented in this encounter Care Teams Superintendent Drilling Relationship Specialty Start Date End Date Caroline Bray MD [address] [place] [address] PCP - General Pediatrics 11/10/22 01/12/23 documented as of this encounter
--- OUTSIDE RECORDS SUMMARY | 2025-02-20 01:35 | XMS_ITS | Encounter Summary ---
Author Organization [facility] Address [address] [place] [address] Phone Care Team Providers Care Editor At Large Name Role Phone Caroline Bray MD Primary Care Provider Encounter Details Date Type Department Care Team (Late st Contact Info) Description 12/06/2014 Documentation [facility] [place] [address] [place] [address] Family Medicine, Physician [address] [place], [place] 687641 Social History Tobacco Use Types Packs/Day Years [...] on filedocumented in this encounter Care Teams Editor At Large Relationship Specialty Start Date End Date Caroline Bray MD [address] [place] [address] PCP - General Pediatrics 11/10/22 01/12/23 documented as of this encounter
--- OUTSIDE RECORDS SUMMARY | 2025-02-20 01:35 | XMS_ITS | Encounter Summary ---
Author Organization [facility] Address [address] [place] [address] Phone Care Team Providers Care Still Operator Helper Name Role Phone Caroline Bray MD Primary Care Provider Encounter Details Date Type Department Care Team (Late st Contact Info) Description 09/25/2014 Documentation [facility] [address] [place] [address] Family Medicine, Physician [address] [place], [place] [address]761 Social History Tobacco Use Types Packs/Day Years [...] on filedocumented in this encounter Care Teams Still Operator Helper Relationship Specialty Start Date End Date Caroline Bray MD [address] [place] [address] PCP - General Pediatrics 11/10/22 01/12/23 documented as of this encounter
--- OUTSIDE RECORDS SUMMARY | 2025-02-20 01:35 | XMS_ITS | Encounter Summary ---
Author Organization [facility] Address [address] [place] [address] Phone Care Team Providers Care Workers Compensation Legal Secretary Name Role Phone Caroline Bray MD Primary Care Provider Encounter Details Date Type Department Care Team (Late st Contact Info) Description 05/22/2016 Documentation [facility] [place] [address] [place] [address] Family Medicine, Physician [address] [place], [place] [address] Social History Tobacco Use Types Packs/Day Years [...] on filedocumented in this encounter Care Teams Workers Compensation Legal Secretary Relationship Specialty Start Date End Date Caroline Bray MD [address] [place] [address] PCP - General Pediatrics 11/10/22 01/12/23 documented as of this encounter
--- OUTSIDE RECORDS SUMMARY | 2025-02-20 01:35 | XMS_ITS | Encounter Summary ---
Author Organization [facility] Address [address] [place] [address] Phone Care Team Providers Care Briquette Molder Name Role Phone Caroline Bray MD Primary Care Provider Encounter Details Date Type Department Care Team (Late st Contact Info) Description 04/27/2016 Documentation [facility] [place] Family Medicine [address] [place] [address] Family Medicine, Physician [address] [place], [place] 159571 Social History Tobacco Use Types Packs/Day Years [...] on filedocumented in this encounter Care Teams Briquette Molder Relationship Specialty Start Date End Date Caroline Bray MD [address] [place] [address] PCP - General Pediatrics 11/10/22 01/12/23 documented as of this encounter
--- OUTSIDE RECORDS SUMMARY | 2025-02-20 01:35 | XMS_ITS | Encounter Summary ---
Author Organization [facility] Address [address] [place] [address] Phone Care Team Providers Care Mechanic Chief Name Role Phone Caroline Bray MD Primary Care Provider Encounter Details Date Type Department Care Team (Late st Contact Info) Description 02/15/2015 Documentation [facility] [place] [address] [place] [address] Family Medicine, Physician [address] [place], [place] 902[address] Social History Tobacco Use Types Packs/Day Years [...] on filedocumented in this encounter Care Teams Mechanic Chief Relationship Specialty Start Date End Date Caroline Bray MD [address] [place] [address] PCP - General Pediatrics 11/10/22 01/12/23 documented as of this encounter
--- OUTSIDE RECORDS SUMMARY | 2025-02-20 01:35 | XMS_ITS | Clinical Summary ---
Author Organization [facility] Address [address] [place] [address] Phone Care Team Providers Care Fire And Explosion Investigator Name Role Phone French Stewart MD Primary Care Provider [phone] Don Del Real MD Unavailable Allergies Active [...] evaluation. She typically receives her imaging at [facility] and I will have our [...] endoscopies [place]ed [place] (Dr. Fung) [place] [facility] [place] UGI and SBFT in December that [...] to GI - seeing Dr. 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 surgery [...] [facility] [place] [address] 04/26/2025 9:45 AM EST Follow-Up [facility] [place] [place] [address] Abimael Morejon MD [address] [place] [address]. [address] [place] [address] [email or web address] Health Maintenance Due Date Last Done Comments [...] Medical Devices Not on file Insurance [facility] [place] [address] [place] [address] [employer] [place] [address] [place] [address] [employer] * Guarantor: [employer] Account Type Relation to Patient Date of Phone Billing Address Personal/Family Mother [address] [facility] [address] [address] [employer] * Guarantor: MOTHER FRANKS Account Type Relation to Patient Date of Phone Billing Address Personal/Family Mother [address] [facility] [address] [employer] Care Teams Fire And Explosion Investigator Relationship Specialty Start Date End Date French Stewart MD [address] [place] [address] [address] [place] [address] PCP - General Internal Medicine 06/08/24 Don Del Real MD [address] [place] [address] Nephrology 10/19/24 Additional Source Comments The information contained in this document represents components of the legal health record. It is not the complete legal health record.[facility]
--- OUTSIDE RECORDS SUMMARY | 2025-02-20 01:35 | XMS_ITS | Encounter Summary ---
Author Organization [facility] Address [address] [place] [address] Phone Care Team Providers Care Archivist Nonprofit Foundation Name Role Phone Caroline Bray MD Primary Care Provider [phone] Encounter Details Date Type Department Care Team (Late st Contact Info) Description 10/29/2016 Conversion Encounter [facility] [address] [place] [address] Social History Tobacco Use Types Packs/Day Years [...] on filedocumented in this encounter Care Teams Archivist Nonprofit Foundation Relationship Specialty Start Date End Date Caroline Bray MD [address] [place] [address] PCP - General Pediatrics 11/10/22 01/12/23 documented as of this encounter
--- OUTSIDE RECORDS SUMMARY | 2025-02-20 01:35 | XMS_ITS | Encounter Summary ---
Author Organization [facility] Address [address] [place] [address] Phone Care Team Providers Care Small Kick Press Operator Name Role Phone Caroline Bray MD Primary Care Provider [phone] Encounter Details Date Type Department Care Team (Late st Contact Info) Description 08/07/2016 Documentation [facility] [place] Family Medicine [address] [place] [address] Family Medicine, Physician [address] [place], [place] [address] Social History Tobacco Use Types Packs/Day Years [...] on filedocumented in this encounter Care Teams Small Kick Press Operator Relationship Specialty Start Date End Date Caroline Bray MD [address] [place] [address] PCP - General Pediatrics 11/10/22 01/12/23 documented as of this encounter
== END 2025-02-19 15:57 | disposition home or self-care (01) ==
LOC: HO.LAB 15:56
PROVIDERS: PCP Internal Medicine; Visit Provider Internal Medicine
DX: I87.1 Compression of vein (principal)
CPT/HCPCS: 36415; 80069; 81003; 82043; 82570; 85014; 85018

== ENCOUNTER 2025-02-27 08:02 | Outpatient (AMB) | payer OTHER, SELFPAY ==
--- NOTE | 2025-02-27 08:05 | MHC.OFFVIS ---
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 Having alot of cramping on the left side. Slot Floor Person Required: No Information Interpreted: non-clinical & clinical Putty Glazer: Putty Glazer Present (belle) Accompanied by: Self / Same As Patient Allergies No Known Allergies Allergy (Verified 02/27/25 08:11) Medication List - Last Reconciled 02/27/25 by Brenda Stanford LPN cholecalciferol (vitamin D3) 250 mcg PO 2XW 90 days famotidine 20 mg PO BEDTIME 30 days ketorolac 10 mg PO Q6H PRN methocarbamol 750 mg PO BID PRN metoclopramide HCl 10 mg PO Q8H 90 days promethazine 12.5 mg PO Q6H PRN 30 days sumatriptan succinate 50 - 100 mg orally at onset of headache, may repeat in 2 hrs PRN; max 2 tabs per day or 4 tabs/week (may take with Tylenol) 30 days Ventolin HFA 90 mcg/actuation (albuterol sulfate) 2 puffs inhalation Q6H PRN 30 days NS Is last menstrual period known: Yes Last menstrual period: 02/26/25 Do you need a note to return to daycare/school/sports/work: Yes HPI Comments Details: Patient is a premenopausal woman presenting for annual examination. Offset Second Press Operator concerns: s/p coil embolization due to pelvic congestion syndrome September 2024. Initially had good response for a few cycles and then over the last 2 cycle is experiencing heavier, longer bleeding cycles 5-7 days with significant cramping not relieved with [id number] methods. Uses condoms. Has her cycle today. Has a follow up with her vascular provider regarding the coils in April. She denies vaginal itching or irritation. STI screening offered; she accepts. She tries to eat healthy and stays active with exercise. Last pap smear 2023, negative. [facility] Medical History (Updated 02/27/25 @ 08:24 by Stephanie Mai CNM) Pelvic congestion syndrome Gastritis Asthma GERD (gastroesophageal reflux disease) Vitamin D deficiency Migraine without aura Nutcracker phenomenon of renal vein Surgical History Hx of abdominal surgery History of esophagogastroduodenoscopy (EGD) Hx of colonoscopy Family History Paternal Grandmother Stomach cancer Family/Other Substance use disorder Mental health disorder Paternal Uncle Colon cancer Social History Household Members: None and Other Household Members Other:: lives with brother Housing: House Alcohol intake: current Alcohol intake frequency: holidays/special occasions only Patient Tobacco Use Status: Never used Tobacco e-Cigarette/Vaping Use: Never Used Second Hand Smoke Exposure: No Substance Use Type: Marijuana service: No Current occupational status: employed 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 Cognitive needs: No Hearing needs: No Vision needs: No Female Reproductive History Menstrual Age of Menarche: 16 Date of last menstrual period: 02/26/25 control method: condoms Total pregnancies: 0 Number of Living Children: 0 Date of last pap smear: 02/23/24 History of abnormal pap smear: No Review of Systems Const All systems reviewed & are unremarkable except as noted in HPI and below Reports as per HPI Eyes Reports no additional complaints ENT Reports no additional complaints Card Reports no additional complaints Resp Reports no additional complaints GI Reports as per HPI and Reports no additional complaints Reports as per HPI Musc Reports no additional complaints Skin/Breast Reports as per HPI Neuro Reports no additional complaints Psych Reports no additional complaints Endo Reports no additional complaints Jamie/Lymph Reports no additional complaints Aller/Immun Reports no additional complaints Physical Exam Vital Signs: Last Vital Signs BP 108/72 02/27/25 08:08 BMI result Body Mass Index 24.1 Const General: cooperative, healthy appearing, no acute distress, well developed and alert Orientation/consciousness: patient oriented x3 HEENT Head: Yes normal to inspection Eyes General: appearance normal, both eyes and all related structures Neck Neck: Yes normal visual inspection Thyroid: Thyroid normal Chest Chest palpation & inspection: normal inspection of the chest and other (no puckering, dimpling, peau de orange, retraction, discharge, masses) Breast/axilla inspection: normal inspection of the breasts Breast/axilla palpation: normal palpation of the breasts Resp Effort & Inspection: normal respiratory effort GI Inspection: Yes normal to inspection Palpation (GI): Soft to palpation Rectal Exam - Female: deferred General: Yes bladder normal to palpation External Female Exam: normal external appearance and normal appearance of the urethra Speculum Exam - Vagina: normal appearance of the vagina, normal palpation, normal vaginal discharge and vaginal bleeding Speculum Exam - Cervix: normal appearance of the cervix and normal palpation Bimanual exam- vagina & uterus: normal bimanual exam, normal palpation, uterine size normal, bladder normal to palpation, normal palpation and non-tender Bimanual Exam- Adnexa, other: no masses OB/external & speculum: vaginal bleeding Skin General skin exam: no rashes or lesions noted Rashes: no rashes Neuro General: patient oriented x3 Cognition (Neuro): normal cognition Extrem General: Yes normal to inspection Psych Attitude: cooperative Thought process: Normal thought process present Assessment & Plan Assessment & Plan (1) Encounter for well woman exam with routine gynecological exam: Code(s): Z01.419 - Encounter for gynecological examination (general) (routine) without abnormal findings Category: Medical Plan: Discussed: Current recommendations for pap smears per ASCCP guidelines. Breast awareness and periodic breast exams. Maintain a healthy lifestyle including a well balanced diet and routine exercise. Use condoms for STI and prevention. Patient verbalizes understanding and agrees to the plan of care. She was given opportunity to ask questions and all questions were answered to the best of my ability. RTO in one year for annual vending machine technician examination. This note is constructed using voice recognition software. While every effort has been made to ensure accuracy, clinical services manager errors may have been included. (2) Pelvic cramping: Code(s): R10.20 - Pelvic and perineal pain unspecified side Plan GC chlamydia and BV panel obtained, await results for final plan of care. Counseled regarding [id number] self-help measures and utilization of ibuprofen versus Tylenol and combination methods. Consider use of progesterone only pills for cycle control and BC. Follow up for consult if considering use. Call vascular provider sooner if indicated. We will try NSAIDs, Rx to be sent in. Reviewed ibuprofen use and importance of limited short-term therapy additionally to take with food. The patient expressed understanding and agreement with the plan of care. All of her questions and concerns were addressed to the best of my ability. Orders: Orders CT NG by PCR Vag/Cerv Today Z11.3 - Encounter for screening for infections with a predominantly sexual mode of transmission Bacterial Vaginosis Panel Today Z11.3 - Encounter for screening for infections with a predominantly sexual mode of transmission Medications: New ibuprofen take medication 1-3 days of your menses for cramping with food. Not to be taken with Ketorolac. 600 mg PO Q6H PRN 60 tabs 0RF pain Coding Level of Care Code Est Pt Prev Care 18-39y([id number]) Diagnoses Encounter for well woman exam with routine gynecological exam Z01.419 Pelvic cramping R10.20
[2025-02-27 08:08] VITALS: BP 108/72; BMI 24.1
--- OUTSIDE RECORDS SUMMARY | 2025-02-27 08:14 | XMS_ITS | Encounter Summary ---
Author Organization [facility] Address [address] [place] [address] Phone Care Team Providers Care Behavioral Instructor Name Role Phone Caroline Bray MD Primary Care Provider [phone] Encounter Details Date Type Department Care Team (Late st Contact Info) Description 04/27/2016 Documentation [facility] [place] Family Medicine [address] [place] [address] Family Medicine, Physician [address] [place], [place] [address] Social History Tobacco Use Types Packs/Day Years [...] on filedocumented in this encounter Care Teams Behavioral Instructor Relationship Specialty Start Date End Date Caroline Bray MD [address] [place] [address] PCP - General Pediatrics 11/10/22 01/12/23 documented as of this encounter
--- OUTSIDE RECORDS SUMMARY | 2025-02-27 08:14 | XMS_ITS | Encounter Summary ---
Author Organization [facility] Address [address] [place] [address] Phone Care Team Providers Care Flight Surgeon Name Role Phone Caroline Bray MD Primary Care Provider Encounter Details Date Type Department Care Team (Late st Contact Info) Description 09/25/2014 Documentation [facility] [place] Family Medicine [address] [place] [address] Family Medicine, Physician [address] [place], [place] [address] Social History Tobacco Use Types Packs/Day Years [...] filedocumented in this encounter Care Teams Flight Surgeon Relationship Specialty Start Date End Date Caroline Bray MD [address] [place] [address] PCP - General Pediatrics 11/10/22 01/12/23 documented as of this encounter
--- OUTSIDE RECORDS SUMMARY | 2025-02-27 08:14 | XMS_ITS | Encounter Summary ---
Author Organization [facility] Address [address] [place] [address] Phone Care Team Providers Care Itinerant Teacher Assistant Name Role Phone Caroline Bray MD Primary Care Provider Encounter Details Date Type Department Care Team (Late st Contact Info) Description 02/15/2015 Documentation [facility] [place] [address] [place] [address] Family Medicine, Physician [address] [place], [place] [address] Social History Tobacco Use Types Packs/Day Years [...] on filedocumented in this encounter Care Teams Itinerant Teacher Assistant Relationship Specialty Start Date End Date Caroline Bray MD [address] [place] [address] PCP - General Pediatrics 11/10/22 01/12/23 documented as of this encounter
--- OUTSIDE RECORDS SUMMARY | 2025-02-27 08:14 | XMS_ITS | Encounter Summary ---
Author Organization [facility] Address [address] [place] [address] Phone Care Team Providers Care Crop Production Advisor Name Role Phone Caroline Bray MD Primary Care Provider Encounter Details Date Type Department Care Team (Late st Contact Info) Description 08/07/2016 Documentation [facility] [place] [address] [place] [address] Family Medicine, Physician [address] [place], [place] 176261 Social History Tobacco Use Types Packs/Day Years [...] on filedocumented in this encounter Care Teams Crop Production Advisor Relationship Specialty Start Date End Date Caroline Bray MD [address] [place] [address] PCP - General Pediatrics 11/10/22 01/12/23 documented as of this encounter
--- OUTSIDE RECORDS SUMMARY | 2025-02-27 08:14 | XMS_ITS | Encounter Summary ---
Author Organization [facility] Address [address] [place] [address] Phone Care Team Providers Care Sap Solutions Architect Name Role Phone Caroline Bray MD Primary Care Provider Encounter Details Date Type Department Care Team (Late st Contact Info) Description 2013 Documentation [facility] [place] [address] [place], [place] [phone] Family Medicine, Physician [address] [place], [place] 515191 Social History Tobacco Use Types Packs/Day Years [...] on filedocumented in this encounter Care Teams Sap Solutions Architect Relationship Specialty Start Date End Date Caroline Bray MD [address] [place] [address] PCP - General Pediatrics 11/10/22 01/12/23 documented as of this encounter
--- OUTSIDE RECORDS SUMMARY | 2025-02-27 08:14 | XMS_ITS | Encounter Summary ---
Author Organization [facility] Address [address] [place] [address] Phone Care Team Providers Care Health Care Facilities Inspector Name Role Phone Caroline Bray MD Primary Care Provider Encounter Details Date Type Department Care Team (Late st Contact Info) Description 09/10/2011 Documentation [facility] [place] Family Medicine [address] [place] [address] Family Medicine, Physician [address] [place], [place] [address] Social History Tobacco Use Types Packs/Day Years [...] on filedocumented in this encounter Care Teams Health Care Facilities Inspector Relationship Specialty Start Date End Date Caroline Bray MD [address] [place] [address] PCP - General Pediatrics 11/10/22 01/12/23 documented as of this encounter
--- OUTSIDE RECORDS SUMMARY | 2025-02-27 08:14 | XMS_ITS | Encounter Summary ---
Author Organization [facility] Address [address] [place] [address] Phone Care Team Providers Care Ecotherapist Name Role Phone Caroline Bray MD Primary Care Provider Encounter Details Date Type Department Care Team (Late st Contact Info) Description 05/22/2016 Documentation [facility] [place] [address] [place] [address] Family Medicine, Physician [address] [place], [place] 325141 Social History Tobacco Use Types Packs/Day Years [...] on filedocumented in this encounter Care Teams Ecotherapist Relationship Specialty Start Date End Date Caroline Bray MD [address] [place] [address] PCP - General Pediatrics 11/10/22 01/12/23 documented as of this encounter
--- OUTSIDE RECORDS SUMMARY | 2025-02-27 08:14 | XMS_ITS | Encounter Summary ---
Author Organization [facility] Address [address] [place] [address] Phone Care Team Providers Care Paving Machine Operator Name Role Phone Caroline Bray MD Primary Care Provider Encounter Details Date Type Department Care Team (Late st Contact Info) Description 10/01/2016 Documentation [facility] [place] Family Medicine [address] [place] [address] Family Medicine, Physician [address] [place], [place] [address] Social History Tobacco Use Types Packs/Day Years [...] on filedocumented in this encounter Care Teams Paving Machine Operator Relationship Specialty Start Date End Date Caroline Bray MD [address] [place] [address] PCP - General Pediatrics 11/10/22 01/12/23 documented as of this encounter
--- OUTSIDE RECORDS SUMMARY | 2025-02-27 08:14 | XMS_ITS | Encounter Summary ---
Author Organization [facility] Address [address] [place] [address] Phone Care Team Providers Care Chair Frame Builder Name Role Phone Caroline Bray MD Primary Care Provider Encounter Details Date Type Department Care Team (Late st Contact Info) Description 06/09/2014 Documentation [facility] [place] [address] [place] [address] Family Medicine, Physician [address] [place], [place] [phone] Social History Tobacco Use Types Packs/Day Years [...] on filedocumented in this encounter Care Teams Chair Frame Builder Relationship Specialty Start Date End Date Caroline Bray MD [address] [place] [address] PCP - General Pediatrics 11/10/22 01/12/23 documented as of this encounter
--- OUTSIDE RECORDS SUMMARY | 2025-02-27 08:14 | XMS_ITS | Encounter Summary ---
Author Organization [facility] Address [address] [place] [address] Phone Care Team Providers Care Switch Operator Name Role Phone Caroline Bray MD Primary Care Provider Encounter Details Date Type Department Care Team (Late st Contact Info) Description 09/17/2014 Documentation [facility] [place] [address] [place] [address] Family Medicine, Physician [address] [place], [place] [phone] Social History Tobacco Use Types Packs/Day Years [...] on filedocumented in this encounter Care Teams Switch Operator Relationship Specialty Start Date End Date Caroline Bray MD [address] [place] [address] PCP - General Pediatrics 11/10/22 01/12/23 documented as of this encounter
--- OUTSIDE RECORDS SUMMARY | 2025-02-27 08:14 | XMS_ITS | Encounter Summary ---
Author Organization [facility] Address [address] [place] [address] Phone Care Team Providers Care Clerk Analyst Name Role Phone Caroline Bray MD Primary Care Provider Encounter Details Date Type Department Care Team (Late st Contact Info) Description 11/04/2015 Documentation [facility] [place] Family Medicine [address] [place], [place] [phone] Family Medicine, Physician [address] [place], [place] [address]6951 Social History Tobacco Use Types Packs/Day Years [...] on filedocumented in this encounter Care Teams Clerk Analyst Relationship Specialty Start Date End Date Caroline Bray MD [address] [place] [address] PCP - General Pediatrics 11/10/22 01/12/23 documented as of this encounter
--- OUTSIDE RECORDS SUMMARY | 2025-02-27 08:14 | XMS_ITS | Encounter Summary ---
Author Organization [facility] Address [address] [place] [address] Phone Care Team Providers Care Top Lift Scourer Name Role Phone Caroline Bray MD Primary Care Provider Encounter Details Date Type Department Care Team (Late st Contact Info) Description 12/06/2014 Documentation [facility] [place] Family Medicine [address] [place] [address] Family Medicine, Physician [address] [place], [place] [address] Social History Tobacco Use Types Packs/Day Years [...] filedocumented in this encounter Care Teams Top Lift Scourer Relationship Specialty Start Date End Date Caroline Bray MD [address] [place] [address] PCP - General Pediatrics 11/10/22 01/12/23 documented as of this encounter
--- OUTSIDE RECORDS SUMMARY | 2025-02-27 08:14 | XMS_ITS | Encounter Summary ---
Author Organization [facility] Address [address] [place] [address] Phone Care Team Providers Care Turn Out Worker Name Role Phone Carloine Bray MD Primary Care Provider Encounter Details Date Type Department Care Team (Late st Contact Info) Description 09/26/2014 Documentation [facility] [place] Family Medicine [address] [place] [address] Family Medicine, Physician [address] [place], [place] [address] Social History Tobacco Use Types Packs/Day Years [...] on filedocumented in this encounter Care Teams Turn Out Worker Relationship Specialty Start Date End Date Caroline Bray MD [address] [place] [address] PCP - General Pediatrics 11/10/22 01/12/23 documented as of this encounter
--- OUTSIDE RECORDS SUMMARY | 2025-02-27 08:14 | XMS_ITS | Clinical Summary ---
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 surgery [...] [facility] [place] [address] 04/26/2025 9:45 AM EST Follow-Up [facility] [place] [address] Abimael Morejon MD [address] [place] [address]. [address] [place] [address] [email or web address] Health Maintenance Due Date Last Done Comments [...] topic Medical Devices Not on file Insurance [facility] [place] [address] [place] [address] [employer] [place] [address] [employer] * Guarantor: [employer] Account Type Relation to Patient Date of Phone Billing Address Personal/Family Mother [address] [facility] [address] [employer] * Guarantor: MOTHER FRANKS Account Type Relation to Patient Date of Phone Billing Address Personal/Family Mother [address] [facility] [address] [address] [employer] TOGETHER * Guarantor: MOTHER FRANKS Account Type Relation to Patient Date of Phone Billing Address Personal/Family Mother [address] [facility] [address] [employer] Care Teams Motel Front Desk Attendant Relationship Specialty Start Date End Date French Stewart MD [address] [place] [address] [address] [place] [address] PCP - General Internal Medicine 06/08/24 Don Del Real MD [address] [place] [phone] Nephrology 10/19/24 Additional Source Comments The information contained in this document represents components of the legal health record. It is not the complete legal health record.[facility]
--- OUTSIDE RECORDS SUMMARY | 2025-02-27 08:14 | XMS_ITS | Clinical Summary ---
Author Organization [facility] Address [address] [place] [address] Phone Care Team Providers Care Manager Of Regulatory Affairs Name Role Phone Unavailable Primary Care Provider [...] endoscopies Followed by GI (Dr. Fung) at [facility] [place] Had UGI and SBFT in December that [...] to GI - seeing Dr. Fung at [facility] [place]; gastric emptying study ordered (2021) Assessment & [...] Type Department Care Team Description 12/01/2024 Telephone [facility] [place] [address] [place] [address] Kirstin Mckinnon MD medical records [...] Additional history exists Procedures * Due to [facility] law, this organization might not be sharing sensitive test results. Procedure Name Priority Date/Time Associated Diagnosis Comments CHLAMYDIA AND GONORRHEA, AMPLIFIED Routine 12/17/2021 9:47 AM EDT Special screening examination for chlamydial disease from Last 3 Months or Most Recently Relevant to Health Maintenance Results * Due to [place] momondo law, this organization might not be sharing sensitive test results. * Chlamydia and Gonorrhoea, Amplified (12/17/2021 9:47 AM EDT) Chlamydia Trachomatis, DNA Probe NEGATIVE (NEG) [facility] Comment: No Chlamydia Trachomatis RNA detected in this patient's sample (REFERENCE RANGE/NORMAL VALUE: NOT DETECTED) Note: This test uses fulfillment mail clerk- mediated amplification method to detect rRNA from C. Trachomatis URINE GC AMP PROBE NEGATIVE (NEG) [facility] Comment: No Neisseria Gonorrhoeae RNA detected in this patient's sample (REFERENCE RANGE/NORMAL VALUE: NOT DETECTED) NOTE: This test uses fulfillment mail clerk-mediated amplification method to detect rRNA from N.Gonorrhoeae. [...] without risk of sexual abuse. Consult the [facility] [place] [facility] if needed. Contact [...] [facility], a Service of [facility], [address] [place] [address] Zaki Quezada MD, Classification Inspector [facility]# [id number] Urine (Urine) 12/17/2021 9:4 7 AM EDT 12/17/2021 4:44 PM EDT us Caroline Bray MD LAB MICROBIOLOGY - GENERAL ORDERABLES Final Result [facility] from Last 3 Months or Most Recently Relevant to Health Maintenance Insurance [facility] NON PCC [facility] [id number]
--- OUTSIDE RECORDS SUMMARY | 2025-02-27 08:14 | XMS_ITS | Encounter Summary ---
Author Organization [facility] Address [address] [place] [address] Phone Care Team Providers Care Per Diem Rn Name Role Phone Caroline Bray MD Primary Care Provider Encounter Details Date Type Department Care Team (Late st Contact Info) Description 10/29/2016 Conversion Encounter [facility] [address] [place] [address] Social History Tobacco Use Types Packs/Day Years [...] on filedocumented in this encounter Care Teams Per Diem Rn Relationship Specialty Start Date End Date Caroline Bray MD [address] [place] [address] PCP - General Pediatrics 11/10/22 01/12/23 documented as of this encounter
--- OUTSIDE RECORDS SUMMARY | 2025-02-27 08:14 | XMS_ITS | Encounter Summary ---
Author Organization [facility] Address [address] [place] [address] Phone Care Team Providers Care Hospital Superintendent Name Role Phone Caroline Bray MD Primary Care Provider Encounter Details Date Type Department Care Team (Late st Contact Info) Description 2013 Documentation [facility] [place] Family Medicine [address] [place], [place] [phone] Family Medicine, Physician [address] [place], [place] [address]31 Social History Tobacco Use Types Packs/Day Years [...] on filedocumented in this encounter Care Teams Hospital Superintendent Relationship Specialty Start Date End Date Caroline Bray MD [address] [place] [address] PCP - General Pediatrics 11/10/22 01/12/23 documented as of this encounter
--- OUTSIDE RECORDS SUMMARY | 2025-02-27 08:14 | XMS_ITS | Encounter Summary ---
Author Organization [facility] Address [address] [place] [address] Phone Care Team Providers Care Petroleum Refining Firer Name Role Phone Caroline Bray MD Primary Care Provider Encounter Details Date Type Department Care Team (Late st Contact Info) Description 06/02/2013 Documentation [facility] [place] [address] [place], [place] [phone] Family Medicine, Physician [address] [place], [place] [address] Social History Tobacco Use Types Packs/Day Years [...] on filedocumented in this encounter Care Teams Petroleum Refining Firer Relationship Specialty Start Date End Date Caroline Bray MD [address] [place] [address] PCP - General Pediatrics 11/10/22 01/12/23 documented as of this encounter
--- OUTSIDE RECORDS SUMMARY | 2025-02-27 08:14 | XMS_ITS | Encounter Summary ---
Author Organization [facility] Address [address] [place] [address] Phone Care Team Providers Care Member Service Specialist Name Role Phone Caroline Bray MD Primary Care Provider Encounter Details Date Type Department Care Team (Late st Contact Info) Description 08/15/2014 Documentation [facility] [place] [address] [place] [address] Family Medicine, Physician [address] [place], [place] [address] Social History Tobacco Use Types Packs/Day Years [...] on filedocumented in this encounter Care Teams Member Service Specialist Relationship Specialty Start Date End Date Caroline Bray MD [address] [place] [address] PCP - General Pediatrics 11/10/22 01/12/23 documented as of this encounter
== END 2025-02-27 08:46 | disposition home or self-care (01) ==
LOC: HO.HWS 08:03
PROVIDERS: PCP Internal Medicine; Visit Provider Advanced Practice Midwife
DX: Z01.419 Encounter for gynecological examination (general) (routine) without abnormal findings (principal); R10.20 Pelvic and perineal pain unspecified side
CPT/HCPCS: 99395; 99459

== ENCOUNTER 2025-02-27 08:02 | Outpatient (REF) | payer OTHER, SELFPAY ==
[2025-02-27 18:09] LABS: Bacterial Vaginosis PCR NEGATIVE (Negative); Candida Group PCR NOT DETECTED (Not Detect); Candida glab krusei PCR NOT DETECTED (Not Detect); Trichomonas vaginalis PCR NOT DETECTED (Not Detect)
[2025-02-27 18:19] LABS: CT PCR NOT DETECTED (Not Detect.); NG PCR NOT DETECTED (Not Detect.)
== END 2025-02-27 08:03 | disposition home or self-care (01) ==
LOC: HO.LNP 08:02
PROVIDERS: PCP Internal Medicine; Visit Provider Advanced Practice Midwife
DX: Z01.419 Encounter for gynecological examination (general) (routine) without abnormal findings (principal); Z20.2 Contact with and (suspected) exposure to infections with a predominantly sexual mode of transmission; R10.20 Pelvic and perineal pain unspecified side
CPT/HCPCS: 81515; 87491; 87591